=== PATIENT | male | born 1950 | race Caucasian/White ===

== ENCOUNTER 2017-05-06 08:36 | Inpatient (IN) | payer MEDICARE, OTHER ==
[2017-05-06 09:25] LABS: BASOPHIL 0.5 % (0-2.0); EOSINOPHIL 3.6 % (0-4.5); MCH 29.1 pg (25.7-33.7); MCHC 32.9 g/dl (32.0-35.9); MEAN CELL VOLUME 88.5 fl (80-96); MEAN PLT VOLUME 9.6 fl (7.5-11.1); NEUTROPHILS 68.6 % (42.8-82.8); PLATELET COUNT 210 K/MM3 (134-434); WHITE BLOOD COUNT 13.6 K/mm3 (4.0-10.0)
--- NOTE | 2017-05-06 09:41 | PDOC ---
History of Present Illness - General Chief Complaint: Shortness of Breath Stated Complaint: CHEST TIGHTNESS Time Seen by Provider: 05/06/17 08:44 History Source: Patient Exam Limitations: No Limitations - History of Present Illness Initial Comments: 05/06/17 09:38 67M with pmh of Dm2 on metformin, and BPH presents to the ED with shortness of breath, chest tightness, orthopnea and leg edema for the past 2 weeks No cough, secretions, fever, dizziness, change in mental status or diaphoresis.. Was last hospitalized in July for pneumonia PCP is Dr. Hicks Past History - Past Medical History Allergies/Adverse Reactions: Allergies Allergy/AdvReac Type Severity Reaction Status Date / Time Penicillins Allergy Severe anaphylactic Verified 05/06/17 08:40 shock Home Medications: Ambulatory Orders Aspirin [ASA -] 162 mg PO DAILY 07/27/16 Metformin HCl [Metformin HCl ER] 1,000 mg PO BID 07/27/16 Tamsulosin HCl [Flomax] 0.4 mg PO DAILY 07/27/16 Diabetes: Yes HTN: Yes Hypercholesterolemia: Yes - Psycho/Social/Smoking Cessation Hx Anxiety: No Suicidal Ideation: No Smoking History: Never smoked Have you smoked in the past 12 months: No Number of Cigarettes Smoked Daily: 0 Hx Alcohol Use: No Drug/Substance Use Hx: No Substance Use Type: None Hx Substance Use Treatment: No Review of Systems - Review of Systems Able to Perform ROS?: Yes Constitutional: No: Chills, Diaphoresis, Fever, Loss of Appetite, Malaise, Night Sweats HEENTM: No: Symptoms Reported, Blurred Vision Respiratory: Yes: See HPI, Orthopnea. No: Cough, Productive cough, Hemoptysis Cardiac (ROS): Yes: See HPI, Chest Tightness. No: Irregular Heart Rate, Lightheadedness ABD/GI: No: Symptoms Reported : No: Symptoms Reported Musculoskeletal: Yes: See HPI. No: Symptoms Reported *Physical Exam - Vital Signs Last Vital Signs Temp Pulse Resp BP Pulse Ox 97.7 F 81 18 153/92 97 05/06/17 08:37 05/06/17 09:52 05/06/17 09:52 05/06/17 09:52 05/06/17 10:30 - Physical Exam General Appearance: Yes: Nourished, Appropriately Dressed, Mild Distress HEENT: positive: EOMI, DANG, Normal ENT Inspection Respiratory/Chest: positive: Crackles (bilateral bases) Cardiovascular: positive: Regular Rhythm, Regular Rate, S1, S2 Gastrointestinal/Abdominal: positive: Normal Bowel Sounds. negative: Tender ED Treatment Course - LABORATORY CBC & Chemistry Diagram: 05/06/17 09:10 05/06/17 09:10 - ADDITIONAL ORDERS Additional order review: Laboratory Results 05/06/17 05/06/17 09:10 09:10 INR 1.19 H PTT (Actin FS) 32.4 Sodium 137 Potassium 5.0 Chloride 103 Carbon Dioxide 29 Anion Gap 5 L BUN 19 H Creatinine 1.2 D Creat Clearance w eGFR > 60 Random Glucose 138 H D Calcium 9.1 Phosphorus 2.8 D Magnesium 1.9 Total Bilirubin 0.8 D AST 52 H D ALT 57 D Alkaline Phosphatase 85 D Creatine Kinase 247 Creatine Kinase Index 3.3 CK-MB (CK-2) 8.181 H Troponin I 0.03 D B-Natriuretic Peptide 2588 H Total Protein 7.7 D Albumin 4.1 D 05/06/17 09:10 RBC 5.15 MCV 88.5 MCHC 32.9 RDW 16.0 H D MPV 9.6 D Neutrophils % 68.6 Lymphocytes % 20.8 D Monocytes % 6.5 Eosinophils % 3.6 Basophils % 0.5 - RADIOLOGY Radiology Studies Ordered: Category Date Time Status CHEST X-RAY PORTABLE* [RAD] Stat Radiology 05/06/17 08:58 Completed - Medications Given in the ED: ED Medications Discontinued Medications Generic Name Dose Route Start Last Admin Trade Name Freq PRN Reason Stop Dose Admin Furosemide 20 mg 05/06/17 10:16 05/06/17 10:57 Lasix Injection - IVPUSH 05/06/17 10:17 20 mg ONCE ONE Administration Medical Decision Making - Medical Decision Making 05/06/17 09:44 67M with pmh of Dm2 on metformin, and BPH presents to the ED with shortness of breath, chest tightness, orthopnea and leg edema for the past 2 weeks EKG : "normal sinus rhythm, cannot rule out Inferior infarct" CXR Corse changes with prominent mediastinum and degenerative changes. cbc, cmp, mag/phos, cardiac panel and coags. 05/06/17 10:24 05/06/17 10:25 BNP: 2588 CKMB: 8.1 New onset CHF. Patient to be admitted to telemetry Patient put on furosemide 20mg to reduce bp (197/107) 05/06/17 12:29 *DC/Admit/Observation/Transfer Diagnosis at time of Disposition: New onset of congestive heart failure - Discharge Dispostion Condition at time of disposition: Stable Admit: Yes
[2017-05-06 09:53] LABS: INR 1.19 (0.82-1.09); PROTHROMBIN TIME (PATIENT) 13.1 SEC (9.98-11.88)
[2017-05-06 09:54] LABS: ALBUMIN 4.1 g/dl (3.4-5.0); ANION GAP 5 (8-16); BILIRUBIN,TOTAL 0.8 mg/dL (0.2-1.0); CALCIUM 9.1 mg/dL (8.5-10.1); CO2 29 mmol/L (21-32); CREATININE 1.2 mg/dL (0.7-1.3); GLUCOSE,RANDOM 138 mg/dL (74-106); PHOSPHOROUS 2.8 mg/dL (2.5-4.9); SGPT/ALT 57 U/L (12-78); TOT PROT 7.7 g/dl (6.4-8.2)
[2017-05-06 09:55] LABS: ACTIVATED PTT 32.4 SECONDS (26.9-34.4)
[2017-05-06 09:58] LABS: ALK PHOS 85 U/L (45-117); MAGNESIUM 1.9 mg/dL (1.8-2.4); SGOT/AST 52 U/L (15-37); TROPONIN I 0.03 ng/ml (0.00-0.05)
[2017-05-06 09:59] LABS: CPK 247 IU/L (39-308)
[2017-05-06] MEDS ORDERED: FUROSEMIDE 40 MG/4 ML INJECTABLE VIAL IVPUSH ONE (10:16)
--- NOTE | 2017-05-06 10:17 | PDOC ---
Attending Attestation - Resident Resident Name: Josef Sevilla - ED Attending Attestation I have performed the following: I have examined & evaluated the patient, The case was reviewed & discussed with the resident, I agree w/resident's findings & plan, Exceptions are as noted - HPI HPI: 05/06/17 10:14 67-year-old male with history of hypertension, diabetes, hyperlipidemia presents with 2 weeks of chest tightness on exertion, dyspnea on exertion and increasing lower extremity edema. Patient complains about orthopnea and paroxsymal nocturnal dyspnea but denies prior history of congestive heart failure. - Physicial Exam PE: 05/06/17 10:16 GENERAL: Awake, alert, and fully oriented, in no acute distress. HEAD: No signs of trauma EYES: PERRLA, EOMI, sclera anicteric, conjunctiva clear ENT: Auricles normal inspection, hearing grossly normal, nares patent, oropharynx clear without exudates. NECK: Normal ROM, supple, no lymphadenopathy, JVD, or masses LUNGS: Breath sounds equal, clear to auscultation bilaterally. No wheezes, and no crackles HEART: Regular rate and rhythm, normal S1 and S2, no murmurs, rubs or gallops ABDOMEN: Soft, nontender, normoactive bowel sounds. No guarding, no rebound. No masses EXTREMITIES: Normal range of motion, no edema. 2+ pitting edema b/l lower extremities NEUROLOGICAL: Cranial nerves II through XII grossly intact. Normal speech, normal gait SKIN: Warm, Dry, normal turgor, no rashes or lesions noted. - Medical Decision Making 05/06/17 10:16 Vital Signs Temp Pulse Resp BP Pulse Ox 97.7 F 81 18 153/92 97 05/06/17 08:37 05/06/17 09:52 05/06/17 09:52 05/06/17 09:52 05/06/17 09:52 CBC, BMP 05/06/17 09:10 05/06/17 09:10 CMP Sodium 137 mmol/L (136-145) 05/06/17 09:10 Potassium 5.0 mmol/L (3.5-5.1) 05/06/17 09:10 Chloride 103 mmol/L (98-107) 05/06/17 09:10 Carbon Dioxide 29 mmol/L (21-32) 05/06/17 09:10 Anion Gap 5 (8-16) L 05/06/17 09:10 BUN 19 mg/dL (7-18) H 05/06/17 09:10 Creatinine 1.2 mg/dL (0.7-1.3) D 05/06/17 09:10 Creat Clearance w eGFR > 60 (>60) 05/06/17 09:10 Random Glucose 138 mg/dL (74-106) H D 05/06/17 09:10 Calcium 9.1 mg/dL (8.5-10.1) 05/06/17 09:10 Phosphorus 2.8 mg/dL (2.5-4.9) D 05/06/17 09:10 Magnesium 1.9 mg/dL (1.8-2.4) 05/06/17 09:10 Total Bilirubin 0.8 mg/dL (0.2-1.0) D 05/06/17 09:10 AST 52 U/L (15-37) H D 05/06/17 09:10 ALT 57 U/L (12-78) D 05/06/17 09:10 Alkaline Phosphatase 85 U/L (45-117) D 05/06/17 09:10 Creatine Kinase 247 IU/L (39-308) 05/06/17 09:10 Troponin I 0.03 ng/ml (0.00-0.05) D 05/06/17 09:10 B-Natriuretic Peptide 2588 pg/ml (5-125) H 05/06/17 09:10 Total Protein 7.7 g/dl (6.4-8.2) D 05/06/17 09:10 Albumin 4.1 g/dl (3.4-5.0) D 05/06/17 09:10 Patient's findings are concerning for new onset of congestive heart failure. We' ll give IV Lasix and admit the patient to the hospital for further cardiac workup. Heart Score/ECG Review - History History: Moderately suspicious - Electrocardiogram EKG: Normal - Age Age: >/= 65 - Risk Factors Risk Factors Heart Score: Yes Hx Hypercholesterolemia, Yes Hx Hypertension, Yes Hx Diabetes Based on the list above the patient has:: >/=3 risk factors or Hx atherosclerotic disease - Troponin Troponin: </= normal limit - Score Heart Score - Total: 5 #1 05/06/17 10:13 NSR 84 Q wave III, no std/diandra
--- NOTE | 2017-05-06 10:40 | PDOC ---
*Physical Exam - Vital Signs Last Vital Signs Temp Pulse Resp BP Pulse Ox 97.7 F 81 18 153/92 97 05/06/17 08:37 05/06/17 09:52 05/06/17 09:52 05/06/17 09:52 05/06/17 09:52 ED Treatment Course - LABORATORY CBC & Chemistry Diagram: 05/06/17 09:10 05/06/17 09:10 - ADDITIONAL ORDERS Additional order review: Laboratory Results 05/06/17 05/06/17 09:10 09:10 INR 1.19 H PTT (Actin FS) 32.4 Sodium 137 Potassium 5.0 Chloride 103 Carbon Dioxide 29 Anion Gap 5 L BUN 19 H Creatinine 1.2 D Creat Clearance w eGFR > 60 Random Glucose 138 H D Calcium 9.1 Phosphorus 2.8 D Magnesium 1.9 Total Bilirubin 0.8 D AST 52 H D ALT 57 D Alkaline Phosphatase 85 D Creatine Kinase 247 Creatine Kinase Index 3.3 CK-MB (CK-2) 8.181 H Troponin I 0.03 D B-Natriuretic Peptide 2588 H Total Protein 7.7 D Albumin 4.1 D 05/06/17 09:10 RBC 5.15 MCV 88.5 MCHC 32.9 RDW 16.0 H D MPV 9.6 D Neutrophils % 68.6 Lymphocytes % 20.8 D Monocytes % 6.5 Eosinophils % 3.6 Basophils % 0.5 Medical Decision Making - Medical Decision Making 05/06/17 10:[address] Freire. He accepts the patient to telemetry admission. Requests Dr. Curtis for cardiology. *DC/Admit/Observation/Transfer Diagnosis at time of Disposition: New onset of congestive heart failure - Discharge Dispostion Condition at time of disposition: Stable Admit: Yes - Referrals Referrals: Mickey Reich [Primary Care Provider] - - Patient Instructions - Post Discharge Activity
[2017-05-06] MEDS ORDERED: FUROSEMIDE 40 MG/4 ML INJECTABLE VIAL ONE (10:50)
[2017-05-06] MEDS ORDERED: ACETAMINOPHEN 325 MG TABLET (FP) PO PRN (11:02)
--- NOTE | 2017-05-06 11:09 | HP ---
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: CVA (about 10 yrs ago) Cardiovascular: Yes: HTN, Hyperlipdemia Renal/: Yes: BPH Endocrine: Yes: Diabetes Mellitus (Type II) - Past Surgical History Past Surgical History: Yes: Cataract Removal (in rt eye about 3-4 yrs ago) - Smoking History Smoking history: Never smoked Have you smoked in the past 12 months: No Aproximately how many cigarettes per day: 0 - Alcohol/Substance Use Hx Alcohol Use: No - Social History ADL: Independent Occupation: works at [employer] in the [employer] History of Recent Travel: Yes (went to [place] 2 weeks ago, believe he got pneumonia while there) Home Medications - Allergies Allergies/Adverse Reactions: Allergies Allergy/AdvReac Type Severity Reaction Status Date / Time Penicillins Allergy Severe anaphylactic Verified 05/06/17 08:40 shock - Home Medications Home Medications: Ambulatory Orders Aspirin [ASA -] 162 mg PO DAILY 07/27/16 Metformin HCl [Metformin HCl ER] 1,000 mg PO BID 07/27/16 Tamsulosin HCl [Flomax] 0.4 mg PO DAILY 07/27/16 Review of Systems - Review of Systems Constitutional: reports: Lethargy Eyes: reports: No Symptoms HENT: reports: No Symptoms Neck: reports: No Symptoms Cardiovascular: reports: No Symptoms, Shortness of Breath Respiratory: reports: Orthopnea, SOB Gastrointestinal: reports: No Symptoms Genitourinary: reports: No Symptoms Breasts: reports: No Symptoms Reported Musculoskeletal: reports: No Symptoms Integumentary: reports: No Symptoms Neurological: reports: No Symptoms Endocrine: reports: No Symptoms Hematology/Lymphatic: reports: No Symptoms Psychiatric: reports: No Symptoms Physical Examination Vital Signs: Vital Signs Temperature 97.7 F 05/06/17 08:37 Pulse Rate 81 05/06/17 09:52 Respiratory Rate 18 05/06/17 09:52 Blood Pressure 153/92 05/06/17 09:52 O2 Sat by Pulse Oximetry (%) 97 05/06/17 09:52 Constitutional: Yes: Mild Distress Eyes: Yes: WNL HENT: Yes: WNL Neck: Yes: WNL Cardiovascular: Yes: WNL Respiratory: Yes: Cough, SOB Gastrointestinal: Yes: WNL Musculoskeletal: Yes: WNL Extremities: Yes: WNL Edema: Yes Edema: LLE: 2+, RLE: 2+ Peripheral Pulses WNL: Yes Integumentary: Yes: WNL Wound/Incision: Yes: Clean/Dry Neurological: Yes: WNL ...Motor Strength: WNL Psychiatric: Yes: WNL Imaging - Results Chest X-ray: Report Reviewed Problem List - Problems (1) New onset of congestive heart failure Code(s): I50.9 - HEART FAILURE, UNSPECIFIED (2) DMII (diabetes mellitus, type 2) Code(s): E11.9 - TYPE 2 DIABETES MELLITUS WITHOUT COMPLICATIONS Qualifiers: Diabetes mellitus complication status: without complication (3) BPH (benign prostatic hyperplasia) Code(s): N40.0 - BENIGN PROSTATIC HYPERPLASIA WITHOUT LOWER URINRY TRACT SYMP Qualifiers: Lower urinary tract symptom presence: symptoms absent Qualified Code (s): N40.0 - Benign prostatic hyperplasia without lower urinary tract symptoms Assessment/Plan LASIX IV CARDIOLOGY EVAL ECHO 2D DAILY WEIGHTS DIET EDUCATION BGM LIPID/A1C TELEMETRY
[2017-05-06 12:06] VITALS: BMI 31.3
--- NOTE | 2017-05-06 15:39 | CON.CARD ---
Consult Consult Specialty:: Cardiology Referred by:: Dr. Freire Reason for Consultation:: New CHF and chest tightness - History of Present Illness Chief Complaint: Shortness of breath with evidence of CHF and chest tightness History of Present Illness: Mr. Grant is a 67 year-old man with a PMHx of HTN, DM, HLD, CVA, BPH and recent pneumonia presented to ED 05/06/2017 with new onset of shortness of breath, chest tightness and leg edema. The patient has been experiencing worsening shortness of breath with intermittent chest tightness and leg edema 3 days prior to his presentation. His chest tightness happens intermittent and not associated with his limited physical activities. He denies palpitation, dizziness, syncope or near syncope. His ECG showed sinus rhythm with RBBB and inferior Q waves. 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 (about 10 yrs ago) Cardio/Vascular: Yes: HTN, Hyperlipdemia Renal/: Yes: BPH Endocrine: Yes: Diabetes Mellitus (Type II) - Past Surgical History Past Surgical History: Yes: Cataract Removal (in rt eye about 3-4 yrs ago) - Alcohol/Substance Use Hx Alcohol Use: No - Smoking History Smoking history: Never smoked Have you smoked in the past 12 months: No Aproximately how many cigarettes per day: 0 - Social History ADL: Independent Occupation: works at [employer] in the [place] History of Recent Travel: Yes (went to [place] 2 weeks ago, believe he got pneumonia while there) Home Medications - Allergies Allergies/Adverse Reactions: Allergies Allergy/AdvReac Type Severity Reaction Status Date / Time Penicillins Allergy Severe anaphylactic Verified 05/06/17 08:40 shock - Home Medications Home Medications: Ambulatory Orders Aspirin [ASA -] 162 mg PO DAILY 07/27/16 Metformin HCl [Metformin HCl ER] 1,000 mg PO BID 07/27/16 Tamsulosin HCl [Flomax] 0.4 mg PO DAILY 07/27/16 Review of Systems Unable to obtain ROS, reason: As per HPI Vital Signs: Vital Signs Temperature 98.2 F 05/06/17 13:52 Pulse Rate 77 05/06/17 13:52 Respiratory Rate 18 05/06/17 09:52 Blood Pressure 145/82 05/06/17 13:52 O2 Sat by Pulse Oximetry (%) 97 05/06/17 13:52 Constitutional: Yes: Well Nourished, No Distress Eyes: Yes: WNL HENT: Yes: WNL Neck: Yes: Supple, Trachea Midline (Bibasilar crackles. No wheezing or rhochi.) Respiratory: Yes: Regular, Rales (Bibasilar crackles.) Gastrointestinal: Yes: WNL Renal/: Yes: WNL Cardiovascular: Yes: Regular Rate and Rhythm JVD: No Carotid Bruit: No PMI: Non-Displaced Heart Sounds: Yes: S1, S2 Musculoskeletal: Yes: WNL Edema: LUE: 1+ (Bilateral leg symmetric edema) Peripheral Pulses: 1+ Left Carotid, 1+ Right Carotid, 1+ Left Popliteal, 1+ Left Doralis Pedis Neurological: Yes: WNL - Other Data Labs, Other Data: INR, PTT INR 1.19 (0.82-1.09) H 05/06/17 09:10 Sinus rhythm, normal axis, Inferior Q waves. No significant ST-T abnormalities. Problem List - Problems (1) New onset of congestive heart failure Assessment/Plan: Mr. Grant has progressive worsening dyspnea with physical signs of fluid overload consistent with new CHF. His LV systolic function is unclear. Obtain echocardiogram for cardiac dimensions and systolic function. Agree with IV Lasix 40 mg q12h Keep Os>Is, Daily weight and monitor eletrolytes and renal function. Code(s): I50.9 - HEART FAILURE, UNSPECIFIED (2) Angina pectoris Assessment/Plan: Patient has new onset of angina (chest tightness) with multiple risk factors of CAD. He has intermediate likelihood of significant CAD. Obtain Regadenoson nuclear stress test to rule out myocardial ischemia. Continue Aspirin 162 mg daily. Start Metoprolol succinate 25 mg daily. Start Atorvastatin 40 mg daily. Code(s): I20.9 - ANGINA PECTORIS, UNSPECIFIED
--- NOTE | 2017-05-06 16:55 | EKG ---
Test Reason : Blood Pressure : / mmHG Vent. Rate : 084 BPM Atrial Rate : 084 BPM P-R Int : 180 ms QRS Dur : 090 ms QT Int : 398 ms P-R-T Axes : 041 -09 067 degrees QTc Int : 470 ms NORMAL SINUS RHYTHM PROBABLY LEAD MISPLACED IN PRECORDIAL LEADS (SEELEAD V1) ABNORMAL ECG WHEN COMPARED WITH ECG OF 27-JUL-2016 17:17, PREMATURE ATRIAL COMPLEXES ARE NO LONGER PRESENT NONSPECIFIC T WAVE ABNORMALITY NO LONGER EVIDENT IN INFERIOR LEADS WOULD RECOMMEND REPEAT TRACING Confirmed by AVIS CARPENTER MD ([id number]) on 05/06/2017 4:54:50 PM Referred By: Confirmed By:AVIS CARPENTER MD
[2017-05-06] MEDS: INSULIN SLIDING SCALE (NOVOLOG) 1 VIAL SQ SCH ×2 (18:58→21:55)
[2017-05-06] MEDS: ATORVASTATIN CA 10 MG TABLET (FP) PO SCH (21:53)
[2017-05-07] MEDS: INSULIN SLIDING SCALE (NOVOLOG) 1 VIAL SQ SCH ×4 (06:06→22:29)
[2017-05-07 07:29] LABS: MCHC 32.9 g/dl (32.0-35.9); MEAN CELL VOLUME 88.2 fl (80-96); PLATELET COUNT 191 K/MM3 (134-434); RDW 15.8 % (11.9-15.9); WHITE BLOOD COUNT 14.9 K/mm3 (4.0-10.0)
[2017-05-07 08:10] LABS: ALBUMIN 3.5 g/dl (3.4-5.0); ALK PHOS 74 U/L (45-117); ANION GAP 8 (8-16); BILIRUBIN,TOTAL 0.9 mg/dL (0.2-1.0); CALCIUM 8.8 mg/dL (8.5-10.1); CHOLESTEROL 176 mg/dL (50-200); CO2 28 mmol/L (21-32); GLUCOSE,RANDOM 144 mg/dL (74-106); LDL CHOLESTEROL (ONLY SJRH) 112 mg/dL (5-100); SGOT/AST 23 U/L (15-37); SGPT/ALT 47 U/L (12-78); TOT PROT 6.4 g/dl (6.4-8.2)
[2017-05-07] MEDS: FUROSEMIDE 40 MG/4 ML INJECTABLE VIAL IVPUSH SCH (10:28)
[2017-05-07] MEDS: TAMSULOSIN HCL 0.4 MG CAP.ER.24H (FP) PO SCH (10:28)
[2017-05-07] MEDS: ASPIRIN 81 MG CHEWABLE TABLETS PO SCH (10:28)
--- NOTE | 2017-05-07 15:54 | PN ---
Progress Note, Physician Chief Complaint: Chest discomfort HUYNH History of Present Illness: This is a 67 year-old man with a PMHx of HTN, DM, HLD, CVA, BPH and recent pneumonia presented to ED 05/06/2017 with new onset of shortness of breath, chest tightness and leg edema. The patient has been experiencing worsening shortness of breath with intermittent chest tightness and leg edema 3 days prior to his presentation. His chest tightness happens intermittent and not associated with his limited physical activities. He denies palpitation, dizziness, syncope or near syncope. His ECG showed sinus rhythm with RBBB and inferior Q waves. 05/07/17 Improving with IV diuretics.l - Current Medication List Current Medications: Active Medications Acetaminophen (Tylenol -) 650 mg PO Q6H PRN PRN Reason: FEVER OR PAIN Aspirin (Asa -) 81 mg PO DAILY [facility] Last Admin: 05/07/17 10:28 Dose: 81 mg Atorvastatin Calcium (Lipitor -) 10 mg PO HS [facility] Last Admin: 05/06/17 21:53 Dose: 10 mg Furosemide (Lasix Injection -) 40 mg IVPUSH DAILY [facility] Last Admin: 05/07/17 10:28 Dose: 40 mg Insulin Aspart (Novolog Vial Sliding Scale -) 1 vial SQ ACHS [facility] PRN Reason: Protocol Last Admin: 05/07/17 12:06 Dose: Not Given Tamsulosin HCl (Flomax -) 0.4 mg PO DAILY@0830 [facility] Last Admin: 05/07/17 10:28 Dose: 0.4 mg - Objective Vital Signs: Vital Signs Temperature 98.3 F 05/07/17 13:53 Pulse Rate 70 05/07/17 13:53 Respiratory Rate 20 05/07/17 13:53 Blood Pressure 126/58 05/07/17 13:53 O2 Sat by Pulse Oximetry (%) 98 05/06/17 21:00 Constitutional: Yes: Well Nourished Neck: Yes: WNL Cardiovascular: Yes: Regular Rate and Rhythm (No MRHG) Respiratory: Yes: CTA Bilaterally Gastrointestinal: Yes: Soft Extremities: Yes: WNL Edema: LUE: 1+ (Improving with diuretics), RUE: 1+ (Improving with diuretics) Neurological: Yes: Alert, Oriented (Grossly non focal) Labs: CBC, BMP 05/07/17 06:00 05/07/17 06:00 INR, PTT INR 1.19 (0.82-1.09) H 05/06/17 09:10 Assessment/Plan CHF: Improving with IV diuretics Agree with IV Lasix 40 mg q12h Keep Os>Is, Daily weight and monitor eletrolytes and renal function. Chest Pain: Nuclear Stress test pending Echocardiogram pending Continue Aspirin 162 mg daily/Atorvastatin 40 mg daily
[2017-05-07] MEDS ORDERED: INSULIN (NOVOLOG) ASPART 100 UNITS/ML 10ML VIAL ONE (17:06)
--- NOTE | 2017-05-07 20:07 | PN ---
Progress Note, Physician Chief Complaint: PATIENT BEDSIDE WITH DAUGHTER REPORTS FEELING BETTER RESULTS OF ECHO REVIEWED ECHO 07/23 HOWS EF AT 44% WITH NORMAL WALL MOTION NOW EF 33% WITH MOD/SEVERE SYSTOLIC DYSFUNCTION - Current Medication List Current Medications: Active Medications Acetaminophen (Tylenol -) 650 mg PO Q6H PRN PRN Reason: FEVER OR PAIN Aspirin (Asa -) 81 mg PO DAILY [facility] Last Admin: 05/07/17 10:28 Dose: 81 mg Atorvastatin Calcium (Lipitor -) 10 mg PO HS [facility] Last Admin: 05/06/17 21:53 Dose: 10 mg Furosemide (Lasix Injection -) 40 mg IVPUSH DAILY [facility] Last Admin: 05/07/17 10:28 Dose: 40 mg Insulin Aspart (Novolog Vial Sliding Scale -) 1 vial SQ ACHS [facility] PRN Reason: Protocol Last Admin: 05/07/17 16:20 Dose: Not Given Tamsulosin HCl (Flomax -) 0.4 mg PO DAILY@0830 [facility] Last Admin: 05/07/17 10:28 Dose: 0.4 mg - Objective Vital Signs: Vital Signs Temperature 97.5 F L 05/07/17 17:00 Pulse Rate 73 05/07/17 17:00 Respiratory Rate 20 05/07/17 17:00 Blood Pressure 144/79 05/07/17 17:00 O2 Sat by Pulse Oximetry (%) 98 05/07/17 09:00 Constitutional: Yes: Mild Distress Eyes: Yes: WNL HENT: Yes: WNL Neck: Yes: WNL Cardiovascular: Yes: Regular Rate and Rhythm Respiratory: Yes: WNL Gastrointestinal: Yes: WNL Genitourinary: Yes: WNL Musculoskeletal: Yes: WNL Extremities: Yes: WNL Edema: Yes Edema: LLE: 2+, RLE: 2+ Peripheral Pulses WNL: Yes Integumentary: Yes: WNL Wound/Incision: Yes: Clean/Dry Neurological: Yes: WNL ...Motor Strength: WNL Psychiatric: Yes: WNL Labs: CBC, BMP 05/07/17 06:00 05/07/17 06:00 INR, PTT INR 1.19 (0.82-1.09) H 05/06/17 09:10 Problem List - Problems (1) New onset of congestive heart failure Code(s): I50.9 - HEART FAILURE, UNSPECIFIED (2) DMII (diabetes mellitus, type 2) Code(s): E11.9 - TYPE 2 DIABETES MELLITUS WITHOUT COMPLICATIONS Qualifiers: Diabetes mellitus complication status: without complication (3) BPH (benign prostatic hyperplasia) Code(s): N40.0 - BENIGN PROSTATIC HYPERPLASIA WITHOUT LOWER URINRY TRACT SYMP Qualifiers: Lower urinary tract symptom presence: symptoms absent Qualified Code (s): N40.0 - Benign prostatic hyperplasia without lower urinary tract symptoms (4) Systolic CHF, acute Code(s): I50.21 - ACUTE SYSTOLIC (CONGESTIVE) HEART FAILURE (5) Systolic CHF with reduced left ventricular function, NYHA class 3 Code(s): I50.20 - UNSPECIFIED SYSTOLIC (CONGESTIVE) HEART FAILURE Assessment/Plan CHF ACUTE SYSTOLIC WITH VENTRICULAR DYSFUNCTION EDEMA LEGS ON LASIX DAILY MONITOR DAILY WEIGHTS DIETARY CONSULT ADA LOW FAT LOW SALT DISCUSSED STRESS TEST TOMORROW
[2017-05-07] MEDS: ATORVASTATIN CA 10 MG TABLET (FP) PO SCH (22:26)
[2017-05-08] MEDS: sitaGLIPtin PHOSPHATE 25 MG TABLET (FP) PO SCH (06:45)
[2017-05-08] MEDS: INSULIN SLIDING SCALE (NOVOLOG) 1 VIAL SQ SCH ×4 (06:45→21:46)
[2017-05-08] MEDS: TAMSULOSIN HCL 0.4 MG CAP.ER.24H (FP) PO SCH (08:30)
[2017-05-08] MEDS: ASPIRIN 81 MG CHEWABLE TABLETS PO SCH ×2 (10:00→12:48)
[2017-05-08] MEDS: FUROSEMIDE 40 MG/4 ML INJECTABLE VIAL IVPUSH SCH ×2 (10:00→12:49)
[2017-05-08] MEDS ORDERED: DIPYRIDAMOLE STRESS TEST 50 MG in DEXTROSE 5%-WATER - 40 ML IVPB ONE (10:00)
--- NOTE | 2017-05-08 14:27 | PN ---
Progress Note, Physician Chief Complaint: AWAKE ALERT DAUGHTER BEDSIDE COMPLETED STRESS TEST AWAITING RESULTS - Current Medication List Current Medications: Active Medications Acetaminophen (Tylenol -) 650 mg PO Q6H PRN PRN Reason: FEVER OR PAIN Aspirin (Asa -) 81 mg PO DAILY [facility] Last Admin: 05/08/17 12:48 Dose: 81 mg Atorvastatin Calcium (Lipitor -) 10 mg PO HS [facility] Last Admin: 05/07/17 22:26 Dose: 10 mg Furosemide (Lasix Injection -) 40 mg IVPUSH DAILY [facility] Last Admin: 05/08/17 12:49 Dose: 40 mg Insulin Aspart (Novolog Vial Sliding Scale -) 1 vial SQ ACHS [facility] PRN Reason: Protocol Last Admin: 05/08/17 12:40 Dose: Not Given Sitagliptin Phosphate (Januvia -) 25 mg PO DAILY@0700 [facility] Last Admin: 05/08/17 06:45 Dose: Not Given Tamsulosin HCl (Flomax -) 0.4 mg PO DAILY@0830 [facility] Last Admin: 05/08/17 08:30 Dose: 0.4 mg - Objective Vital Signs: Vital Signs Temperature 97.9 F 05/08/17 08:15 Pulse Rate 76 05/08/17 08:15 Respiratory Rate 20 05/08/17 08:15 Blood Pressure 153/80 05/08/17 08:15 O2 Sat by Pulse Oximetry (%) 96 05/07/17 21:00 Constitutional: Yes: Mild Distress Eyes: Yes: WNL HENT: Yes: WNL Neck: Yes: WNL Cardiovascular: Yes: WNL Respiratory: Yes: WNL Gastrointestinal: Yes: WNL Genitourinary: Yes: WNL Musculoskeletal: Yes: WNL Extremities: Yes: WNL Edema: Yes Edema: LLE: 2+, RLE: 2+ Peripheral Pulses WNL: Yes Integumentary: Yes: WNL Wound/Incision: Yes: Clean/Dry Neurological: Yes: WNL ...Motor Strength: WNL Psychiatric: Yes: WNL Labs: CBC, BMP 05/07/17 06:00 05/07/17 06:00 INR, PTT INR 1.19 (0.82-1.09) H 05/06/17 09:10 Problem List - Problems (1) New onset of congestive heart failure Code(s): I50.9 - HEART FAILURE, UNSPECIFIED (2) DMII (diabetes mellitus, type 2) Code(s): E11.9 - TYPE 2 DIABETES MELLITUS WITHOUT COMPLICATIONS Qualifiers: Diabetes mellitus complication status: without complication (3) BPH (benign prostatic hyperplasia) Code(s): N40.0 - BENIGN PROSTATIC HYPERPLASIA WITHOUT LOWER URINRY TRACT SYMP Qualifiers: Lower urinary tract symptom presence: symptoms absent Qualified Code (s): N40.0 - Benign prostatic hyperplasia without lower urinary tract symptoms (4) Systolic CHF, acute Code(s): I50.21 - ACUTE SYSTOLIC (CONGESTIVE) HEART FAILURE (5) Systolic CHF with reduced left ventricular function, NYHA class 3 Code(s): I50.20 - UNSPECIFIED SYSTOLIC (CONGESTIVE) HEART FAILURE Assessment/Plan EDEMA SAME ADD COMPRESSION STOCKINGS LEG ELEVATION JANUVIA STARTED YESTERDAY MONITOR BGM OUT PATIENT FOLLOW UP WITH [facility] FOR DMII/CHF COMPLIANCE AND FLUID OVERLOAD
--- NOTE | 2017-05-08 15:24 | PN ---
Progress Note, Physician Chief Complaint: Chest discomfort HUYNH History of Present Illness: This is a 67 year-old man with a PMHx of HTN, DM, HLD, CVA, BPH and recent pneumonia presented to ED 05/06/2017 with new onset of shortness of breath, chest tightness and leg edema. The patient has been experiencing worsening shortness of breath with intermittent chest tightness and leg edema 3 days prior to his presentation. His chest tightness happens intermittent and not associated with his limited physical activities. He denies palpitation, dizziness, syncope or near syncope. His ECG showed sinus rhythm with RBBB and inferior Q waves. 05/07/17 Improving with IV diuretics. Echocardiogram 05/07/17: EF 33.7% Normal LV size Moderate to severely reduced LV function Mild mitral regurgitation Mild tricuspid regurgitation Increased LA pressure, possible "pseudonormal vs. restrictive pattern BNP 2588 - Current Medication List Current Medications: Active Medications Acetaminophen (Tylenol -) 650 mg PO Q6H PRN PRN Reason: FEVER OR PAIN Aspirin (Asa -) 81 mg PO DAILY [facility] Last Admin: 05/08/17 12:48 Dose: 81 mg Atorvastatin Calcium (Lipitor -) 10 mg PO HS [facility] Last Admin: 05/07/17 22:26 Dose: 10 mg Furosemide (Lasix Injection -) 40 mg IVPUSH DAILY [facility] Last Admin: 05/08/17 12:49 Dose: 40 mg Insulin Aspart (Novolog Vial Sliding Scale -) 1 vial SQ ACHS [facility] PRN Reason: Protocol Last Admin: 05/08/17 12:40 Dose: Not Given Sitagliptin Phosphate (Januvia -) 25 mg PO DAILY@0700 [facility] Last Admin: 05/08/17 06:45 Dose: Not Given Tamsulosin HCl (Flomax -) 0.4 mg PO DAILY@0830 [facility] Last Admin: 05/08/17 08:30 Dose: 0.4 mg - Objective Vital Signs: Vital Signs Temperature 97.9 F 05/08/17 08:15 Pulse Rate 76 05/08/17 08:15 Respiratory Rate 20 05/08/17 08:15 Blood Pressure 153/80 05/08/17 08:15 O2 Sat by Pulse Oximetry (%) 96 05/07/17 21:00 Constitutional: Yes: No Distress Neck: Yes: WNL Cardiovascular: Yes: Regular Rate and Rhythm, S1, S2 (No MRHG) Respiratory: Yes: CTA Bilaterally Gastrointestinal: Yes: Normal Bowel Sounds Extremities: Yes: WNL Edema: Yes Edema: LLE: 1+, RLE: 1+ Neurological: Yes: Alert, Oriented (Non focal) Psychiatric: Yes: WNL Labs: CBC, BMP 05/07/17 06:00 05/07/17 06:00 INR, PTT INR 1.19 (0.82-1.09) H 05/06/17 09:10 Assessment/Plan CHF: Improving with IV diuretics Would increase IV Lasix to 60 mg q12h Keep Os>Is, Daily weight and monitor eletrolytes and renal function. Chest Pain: Nuclear Stress test pending to determine if he needs a cardiac cath Echocardiogram noted EF 33.7% Given cardiomyopathy, would start COREG 3.125 mg PO Q12. Also, after he is well diuressed, would start a low dose MELYSSA These can be started as an outpatient Continue Aspirin 162 mg daily/Atorvastatin 40 mg daily
[2017-05-08] MEDS: ATORVASTATIN CA 10 MG TABLET (FP) PO SCH (21:48)
[2017-05-09] MEDS: sitaGLIPtin PHOSPHATE 25 MG TABLET (FP) PO SCH (06:00)
[2017-05-09] MEDS: INSULIN SLIDING SCALE (NOVOLOG) 1 VIAL SQ SCH ×2 (06:00→12:24)
[2017-05-09] MEDS: ASPIRIN 81 MG CHEWABLE TABLETS PO SCH (10:19)
[2017-05-09] MEDS: FUROSEMIDE 40 MG/4 ML INJECTABLE VIAL IVPUSH SCH (10:19)
[2017-05-09] MEDS: TAMSULOSIN HCL 0.4 MG CAP.ER.24H (FP) PO SCH (10:20)
--- NOTE | 2017-05-09 10:45 | PN ---
Progress Note, Physician Chief Complaint: Chest discomfort HUYNH History of Present Illness: This is a 67 year-old man with a PMHx of HTN, DM, HLD, CVA, BPH and recent pneumonia presented to ED 05/06/2017 with new onset of shortness of breath, chest tightness and leg edema. The patient has been experiencing worsening shortness of breath with intermittent chest tightness and leg edema 3 days prior to his presentation. His chest tightness happens intermittent and not associated with his limited physical activities. He denies palpitation, dizziness, syncope or near syncope. His ECG showed sinus rhythm with RBBB and inferior Q waves. 05/07/17 Improving with IV diuretics. Echocardiogram 05/07/17: EF 33.7% Normal LV size Moderate to severely reduced LV function Mild mitral regurgitation Mild tricuspid regurgitation Increased LA pressure, possible "pseudonormal vs. restrictive pattern An Echocardiogram Dated 07/23 showed an EF of 44% BNP 2588 Persantine Nuclear Stres Test 05/08/17: Large fixed defect for the inferior was and a smaller apical defect which is worse on the resting images. EF 37% with moderate to severe apical hypokinesis. Given the above CAD and a drop in his ejection fraction from 44% to 33.7% on echocardiogram, I have arranged a transfer to [facility] for Cardiac Cath. - Current Medication List Current Medications: Active Medications Acetaminophen (Tylenol -) 650 mg PO Q6H PRN PRN Reason: FEVER OR PAIN Aspirin (Asa -) 81 mg PO DAILY [facility] Last Admin: 05/09/17 10:19 Dose: 81 mg Atorvastatin Calcium (Lipitor -) 10 mg PO HS [facility] Last Admin: 05/08/17 21:48 Dose: 10 mg Furosemide (Lasix Injection -) 40 mg IVPUSH DAILY [facility] Last Admin: 05/09/17 10:19 Dose: 40 mg Insulin Aspart (Novolog Vial Sliding Scale -) 1 vial SQ ACHS [facility] PRN Reason: Protocol Last Admin: 05/09/17 06:00 Dose: Not Given Sitagliptin Phosphate (Januvia -) 25 mg PO DAILY@0700 [facility] Last Admin: 05/09/17 06:00 Dose: Not Given Tamsulosin HCl (Flomax -) 0.4 mg PO DAILY@0830 [facility] Last Admin: 05/09/17 10:20 Dose: 0.4 mg - Objective Vital Signs: Vital Signs Temperature 97.8 F 08/02/17 05:52 Pulse Rate 75 05/09/17 05:52 Respiratory Rate 19 05/09/17 05:52 Blood Pressure 146/89 05/09/17 05:52 O2 Sat by Pulse Oximetry (%) 98 05/08/17 21:00 Constitutional: Yes: No Distress Neck: Yes: WNL Respiratory: Yes: CTA Bilaterally Gastrointestinal: Yes: Soft Edema: Yes Edema: LLE: 1+ (Improved), RLE: 1+ (Improved) Neurological: Yes: Alert (Nonfocal), Oriented Psychiatric: Yes: WNL Labs: CBC, BMP 05/07/17 06:00 05/07/17 06:00 INR, PTT INR 1.19 (0.82-1.09) H 05/06/17 09:10 Assessment/Plan CHF: Improving with IV diuretics Would increase IV Lasix to 60 mg q12h Keep Os>Is, Daily weight and monitor electrolytes and renal function. Chest Pain: Echocardiogram noted EF 33.7% Given cardiomyopathy, would start COREG 3.125 mg PO Q12. Also, after he is well diuressed, would start a low dose MELYSSA Continue Aspirin 162 mg daily/Atorvastatin 40 mg daily Persantine Nuclear Stres Test 05/08/17: Large fixed defect for the inferior was and a smaller apical defect which is worse on the resting images. EF 37% with moderate to severe apical hypokinesis. Given the above CAD and a drop in his ejection fraction from 44% to 33.7% on echocardiogram, I have arranged a transfer to [facility] for Cardiac Cath.
--- NOTE | 2017-05-09 10:53 | DS ---
Physical Examination Vital Signs: Vital Signs Temperature 97.8 F 05/09/17 05:52 Pulse Rate 75 05/09/17 05:52 Respiratory Rate 19 05/09/17 05:52 Blood Pressure 146/89 05/09/17 05:52 O2 Sat by Pulse Oximetry (%) 98 05/08/17 21:00 Constitutional: Yes: Mild Distress Eyes: Yes: WNL HENT: Yes: WNL Neck: Yes: WNL Cardiovascular: Yes: WNL Respiratory: Yes: WNL Gastrointestinal: Yes: WNL Renal/: Yes: WNL Musculoskeletal: Yes: WNL Extremities: Yes: WNL Edema: Yes Edema: LLE: 2+, RLE: 2+ Peripheral Pulses WNL: Yes Integumentary: Yes: WNL Wound/Incision: Yes: Clean/Dry Neurological: Yes: WNL ...Motor Strength: WNL Psychiatric: Yes: WNL Labs: CBC, BMP 05/07/17 06:00 05/07/17 06:00 Discharge Summary Reason For Visit: NEW ONSET OF CONGESTIVE HEART FAILURE Current Active Problems Angina pectoris (Acute) BPH (benign prostatic hyperplasia) (Acute) DMII (diabetes mellitus, type 2) (Acute) New onset of congestive heart failure (Acute) Systolic CHF with reduced left ventricular function, NYHA class 3 (Acute) Systolic CHF, acute (Acute) Procedures: Principal: ECHO Other Procedures: STRESS Hospital Course: ADMITTED FOR ACUTE SYSTOLIC HEART FAILURE WITH EF 33%, IV LASIX GIVEN, STRESS TEST AND ECHO SHOWED ISCHEMIA LIKELY CARDIAC DISEASE TRANSFERRED TO [facility] FOR CARDIAC CATH AND FURTHER WORKUP. Condition: Stable - Instructions Diet, Activity, Other Instructions: LOW SODIUM/ADA Referrals: Mickey Reich [Primary Care Provider] - Disposition: TRANSFER ACUTE CARE/OTHER HOSP - Home Medications Comprehensive Discharge Medication List: Ambulatory Orders Aspirin [ASA -] 162 mg PO DAILY 07/27/16 Metformin HCl [Metformin HCl ER] 1,000 mg PO BID 07/27/16 Tamsulosin HCl [Flomax] 0.8 mg PO DAILY 07/27/16
[2017-05-09 11:58] VITALS: BP 141/91; PULSE 80; TEMP 98.1
== END 2017-05-09 12:59 | disposition short-term general hospital (02) | DRG 302 ==
LOC: JER 08:36 → JERBED 10:40 → J4W 15:43
PROVIDERS: ADMIT Family Medicine; ATTEND Family Medicine
DX: I25.119 Atherosclerotic heart disease of native coronary artery with unspecified angina pectoris (principal); I50.21 Acute systolic (congestive) heart failure; I11.0 Hypertensive heart disease with heart failure; E11.9 Type 2 diabetes mellitus without complications; E78.5 Hyperlipidemia, unspecified; N40.0 Benign prostatic hyperplasia without lower urinary tract symptoms; Z86.73 Personal history of transient ischemic attack (TIA), and cerebral infarction without residual deficits; R07.9 Chest pain, unspecified; I42.9 Cardiomyopathy, unspecified
CPT/HCPCS: 36415; 71010-TC; 78452-TC; 80053; 80061; 83036; 83721; 83735; 83880; 84100; 84484; 85025; 85027; 85610; 85730; 93005; 93010; 93017; 93306-TC; 99284-25; A9502

== ENCOUNTER 2017-10-15 09:38 | Emergency (ER) | payer MEDICARE ==
[2017-10-15 09:49] VITALS: TEMP 99.7; BMI 29.7
--- NOTE | 2017-10-15 10:21 | PDOC ---
History of Present Illness - General History Source: Patient Exam Limitations: No Limitations <Anshu Mantilla - Last Filed: 10/15/17 11:44> - General History Source: Patient Exam Limitations: No Limitations - History of Present Illness Initial Comments: 10/15/17 11:15 The patient is a 67 year old male, with a significant past medical history of HTN, HLD, CHF, BPH, PVD s/p stent placement who presents to the emergency department with URI symptoms for the past 3 days. Patient reports grocery shopping in the cold on Sunday and since then has been developing dry cough, clear rhinorrhea, nasal congestion. Patient has been taking Tylenol and Motrin, honey teas with no relief and presents to the ED for further evaluation. Patient denies LE edema, chest pain, headache or dizziness. Patient denies fever , chills, abdominal pain, nausea, vomit, diarrhea or constipation. Patient denies dysuria, frequency, urgency or hematuria. Patient denies sick contacts or recent travel. Allergies: Penicillins Past surgical history: Eye surgery Social history: PCP: Dr. Mickey Reich <Sangeeta Cerda - Last Filed: 10/15/17 14:20> - General Chief Complaint: Respiratory Stated Complaint: SOB Time Seen by Provider: 10/15/17 10:05 Past History - Past Medical History COPD: No Diabetes: Yes HTN: Yes Hypercholesterolemia: Yes - Suicide/Smoking/Psychosocial Hx Smoking History: Never smoked Have you smoked in the past 12 months: No Number of Cigarettes Smoked Daily: 0 Hx Alcohol Use: No Drug/Substance Use Hx: No Substance Use Type: None Hx Substance Use Treatment: No <Anshu Mantilla - Last Filed: 10/15/17 11:44> <Sangeeta Cerda - Last Filed: 10/15/17 14:20> - Past Medical History Allergies/Adverse Reactions: Allergies Allergy/AdvReac Type Severity Reaction Status Date / Time Penicillins Allergy Severe anaphylactic Verified 10/15/17 09:46 shock Home Medications: Ambulatory Orders Acetaminophen [Tylenol] 650 mg PO Q4H PRN #20 tablet 10/15/17 Benzonatate [Tessalon Pearls -] 100 mg PO TID PRN #21 capsule 10/15/17 Review of Systems - Review of Systems Able to Perform ROS?: Yes Comments:: 10/15/17 11:15 GENERAL/CONSTITUTIONAL: No fever or chills. No weakness. HEAD, EYES, EARS, NOSE AND THROAT: No change in vision. No ear pain or discharge. No sore throat. +nasal congestion. +clear rhinorrhea. CARDIOVASCULAR: No chest pain or shortness of breath. RESPIRATORY: + cough. No wheezing, or hemoptysis. GASTROINTESTINAL: No nausea, vomiting, diarrhea or constipation. GENITOURINARY: No dysuria, frequency, or change in urination. MUSCULOSKELETAL: No joint or muscle swelling or pain. No neck or back pain. SKIN: No rash NEUROLOGIC: No headache, vertigo, loss of consciousness, or change in strength/ sensation. ENDOCRINE: No increased thirst. No abnormal weight change. HEMATOLOGIC/LYMPHATIC: No anemia, easy bleeding, or history of blood clots. ALLERGIC/IMMUNOLOGIC: No hives or skin allergy. <Sangeeta Cerda - Last Filed: 10/15/17 14:20> *Physical Exam - Vital Signs Last Vital Signs Temp Pulse Resp BP Pulse Ox 99.7 F H 102 H 19 119/68 97 10/15/17 09:47 10/15/17 09:47 10/15/17 09:47 10/15/17 09:47 10/15/17 09:47 <Anshu Mantilla - Last Filed: 10/15/17 11:44> - Vital Signs Last Vital Signs Temp Pulse Resp BP Pulse Ox 99.7 F H 102 H 19 119/68 97 10/15/17 09:47 10/15/17 09:47 10/15/17 09:47 10/15/17 09:47 10/15/17 09:47 - Physical Exam Comments: 10/15/17 11:15 GENERAL: Awake, alert, and fully oriented, in no acute distress HEAD: No signs of trauma EYES: PERRLA, EOMI, sclera anicteric, conjunctiva clear ENT: Auricles normal inspection, hearing grossly normal, nares patent, oropharynx clear without exudates. Moist mucosa NECK: Normal ROM, supple, no lymphadenopathy, JVD, or masses LUNGS: Breath sounds equal, clear to auscultation bilaterally. No wheezes, and no crackles HEART: Regular rate and rhythm, normal S1 and S2, no murmurs, rubs or gallops ABDOMEN: Soft, nontender, normoactive bowel sounds. No guarding, no rebound. No masses EXTREMITIES: Normal range of motion, no edema. No clubbing or cyanosis. No cords, erythema, or tenderness NEUROLOGICAL: Cranial nerves II through XII grossly intact. Normal speech, normal gait SKIN: Warm, Dry, normal turgor, no rashes or lesions noted. <Sangeeta Cerda - Last Filed: 10/15/17 14:20> ED Treatment Course - LABORATORY CBC & Chemistry Diagram: 10/15/17 10:35 10/15/17 10:35 - RADIOLOGY Radiology Studies Ordered: Category Date Time Status CHEST PA & LAT [RAD] Stat Radiology 10/15/17 10:13 Ordered <Anshu Mantilla - Last Filed: 10/15/17 11:44> - LABORATORY CBC & Chemistry Diagram: 10/15/17 10:35 10/15/17 10:35 - ADDITIONAL ORDERS Additional order review: 10/15/17 10:23 Influenza Types A,B Antigen (MARYELLEN) - Final Nasopharyngeal Swab - Final 10/15/17 10:35 RBC 4.70 MCV 90.8 MCHC 33.0 RDW 14.5 MPV 9.4 Neutrophils % 67.1 Lymphocytes % 15.9 D Monocytes % 13.2 H D Eosinophils % 3.3 Basophils % 0.5 <Sangeeta Cerda - Last Filed: 10/15/17 14:20> Medical Decision Making - Medical Decision Making 10/15/17 10:39 A portion of this note was documented by scribe services under my direction. I have reviewed the details of the note, within reason, and agree with the documentation with the following case summary and management plan written by me. Patient treated in the ED. Nursing notes are reviewed and incorporated into the medical decision-making. Vital signs reviewed. Peripheral IV access obtained by the nurse, laboratory studies are drawn and sent, reviewed and interpreted by myself. Vital Signs Temp Pulse Resp BP Pulse Ox 99.7 F H 102 H 19 119/68 97 10/15/17 09:47 10/15/17 09:47 10/15/17 09:47 10/15/17 09:47 10/15/17 09:47 67-year-old male with past medical history of hypertension, diabetes, hyperlipidemia, coronary disease status post 2 stents, congestive heart failure presents to the emergency department for cough for 3 days. The patient reports that he was outside shopping for groceries. When the patient came into home, noticed that he was having dry cough and significant nasal mucousy discharge. Denies fevers or chills. Denies chest pain or shortness of breath. Denies lower extremity edema. Denies sick contacts or recent travels. I suspect the patient likely is viral syndrome. However, given his comorbidities , we'll obtain a chest x-ray to rule out pneumonia. We'll swab for influenza though the patient is not eligible for Tamiflu. 10/15/17 11:44 CBC, BMP 10/15/17 10:35 10/15/17 10:35 CMP Sodium 135 mmol/L (136-145) L 10/15/17 10:35 Potassium 4.7 mmol/L (3.5-5.1) 10/15/17 10:35 Chloride 98 mmol/L (98-107) 10/15/17 10:35 Carbon Dioxide 31 mmol/L (21-32) 10/15/17 10:35 Anion Gap 6 (8-16) L 10/15/17 10:35 BUN 15 mg/dL (7-18) 10/15/17 10:35 Creatinine 1.3 mg/dL (0.7-1.3) D 10/15/17 10:35 Creat Clearance w eGFR 54.90 (>60) 10/15/17 10:35 Random Glucose 200 mg/dL (74-106) H D 10/15/17 10:35 Calcium 8.3 mg/dL (8.5-10.1) L 10/15/17 10:35 Magnesium 1.5 mg/dL (1.8-2.4) L D 10/15/17 10:35 Total Bilirubin 0.7 mg/dL (0.2-1.0) D 10/15/17 10:35 AST 17 U/L (15-37) D 10/15/17 10:35 ALT 27 U/L (12-78) D 10/15/17 10:35 Alkaline Phosphatase 71 U/L (45-117) 10/15/17 10:35 Creatine Kinase 111 IU/L (39-308) 10/15/17 10:35 Troponin I 0.05 ng/ml (0.00-0.05) D 10/15/17 10:35 Total Protein 6.7 g/dl (6.4-8.2) 10/15/17 10:35 Albumin 3.3 g/dl (3.4-5.0) L 10/15/17 10:35 Chest xray reviewed. No acute pathology. Influenza swab negative. I suspect the patient likely has viral syndrome. Laboratory data reviewed. Chest x-ray reviewed. I instructed the patient to make an appointment with her primary care physician next several days. If the symptoms worsen, to call their doctor or return to the ER for repeat evaluation. Patient otherwise nontoxic-appearing breathing currently. We'll send the patient home with supportive care. I discussed the physical exam findings, ancillary test results and final diagnoses with the patient. I answered all of the patient's questions. The patient was satisfied with the care received and felt comfortable with the discharge plan and treatment plan. The patient will call their primary care physician within 24 hours to arrange follow-up and will return to the Emergency Department with any new, persistant or worsening symptoms. <Anshu Mantilla - Last Filed: 10/15/17 11:44> *DC/Admit/Observation/Transfer - Discharge Dispostion Admit: No <Anshu Mantilla - Last Filed: 10/15/17 11:44> - Attestations Scribe Attestion: 10/15/17 11:16 Documentation prepared by Sangeeta Cerda, acting as medical health researcher for Anshu Mantilla MD <Sangeeta Cerda - Last Filed: 10/15/17 14:20> Diagnosis at time of Disposition: Viral syndrome - Discharge Dispostion Disposition: HOME Condition at time of disposition: Stable - Prescriptions Prescriptions: Acetaminophen [Tylenol] 650 mg PO Q4H PRN #20 tablet PRN Reason: Pain/Fever Benzonatate [Tessalon Pearls -] 100 mg PO TID PRN #21 capsule PRN Reason: Cough - Referrals Referrals: Mickey Reich [Primary Care Provider] - - Patient Instructions Printed Discharge Instructions: DI for Viral Syndrome Additional Instructions: Take 650 mg tylenol every 4 hours as needed for fever/pain. Take the cough medication as prescribed. It may take several days before your symptoms improve. Make an appointment with your doctor for this week. - Post Discharge Activity
[2017-10-15 10:47] LABS: BASO % 0.5 % (0-2.0); EOS % 3.3 % (0-4.5); HEMATOCRIT 42.7 % (35.4-49); HEMOGLOBIN 14.1 GM/dL (11.7-16.9); LYMPH % 15.9 % (8-40); MEAN CELL VOLUME 90.8 fl (80-96); MEAN PLT VOLUME 9.4 fl (7.5-11.1); MONO % 13.2 % (3.8-10.2); NEUT % 67.1 % (42.8-82.8); PLATELET COUNT 183 K/MM3 (134-434); RDW 14.5 % (11.9-15.9); WHITE BLOOD COUNT 13.5 K/mm3 (4.0-10.0)
[2017-10-15 11:12] LABS: ALBUMIN 3.3 g/dl (3.4-5.0); ANION GAP 6 (8-16); BLOOD UREA NITROGEN 15 mg/dL (7-18); CALCIUM 8.3 mg/dL (8.5-10.1); CHLORIDE 98 mmol/L (98-107); CO2 31 mmol/L (21-32); CREATININE 1.3 mg/dL (0.7-1.3); GLUCOSE,RANDOM 200 mg/dL (74-106); MAGNESIUM 1.5 mg/dL (1.8-2.4); POTASSIUM 4.7 mmol/L (3.5-5.1); SGOT/AST 17 U/L (15-37); SGPT/ALT 27 U/L (12-78); SODIUM 135 mmol/L (136-145)
[2017-10-15 11:16] LABS: ALK PHOS 71 U/L (45-117); BILIRUBIN,TOTAL 0.7 mg/dL (0.2-1.0); TOT PROT 6.7 g/dl (6.4-8.2)
[2017-10-15 12:00] VITALS: BP 122/74; PULSE 90
== END 2017-10-15 12:00 | disposition home or self-care (01) ==
LOC: JER 09:38
DX: B34.9 Viral infection, unspecified (principal); I25.10 Atherosclerotic heart disease of native coronary artery without angina pectoris; I10 Essential (primary) hypertension; Z95.5 Presence of coronary angioplasty implant and graft; E78.00 Pure hypercholesterolemia, unspecified; I50.9 Heart failure, unspecified; N40.0 Benign prostatic hyperplasia without lower urinary tract symptoms
CPT/HCPCS: 36415; 71046-TC; 80053; 82550; 83735; 84484; 85025; 87804; 99284-25

== ENCOUNTER 2017-12-26 06:12 | Inpatient (IN) | payer MEDICARE, OTHER ==
[~2017-12-26 06:12] MED LIST: VANCOMYCIN 1,000 MG VIAL (RESTRICTED TO ID ONLY) IVPB ONE
[2017-12-26 07:20] LABS: INR 1.13 (0.82-1.09); PROTHROMBIN TIME (PATIENT) 12.8 SEC (9.98-11.88)
[2017-12-26] MEDS ORDERED: HEPARIN NA (PORCINE) 5,000 UNITS/ML 1ML VIAL ONE (07:32)
[2017-12-26] MEDS ORDERED: THROMBIN (BOVINE) 5,000 UNIT VIAL TP ONE (07:32)
[2017-12-26] MEDS ORDERED: POVIDONE-IODINE OINTMENT 10% - 28.4 GM TUBE ONE (07:32)
--- NOTE | 2017-12-26 07:41 | HP ---
History & Physical Update - History History: No Change - Physical Physical: No Change - Assessment Assessment: No Change - Plan Plan: No Change (full H&P in his chart dated 12/03/17 from quality assurance tester, cleared with intermediate risk. Repeat echocardiogram completed as per pt, will call office to obtain results. Last ECHO 04/23 with EF 34%)
[2017-12-26] MEDS ORDERED: VANCOMYCIN 1,000 MG in DEXTROSE 5%-WATER - 250 ML IVPB ONE (07:46)
[2017-12-26] MEDS ORDERED: MIDAZOLAM HCL 2 MG/2 ML SINGLE DOSE VIAL ONE (08:13)
[2017-12-26] MEDS ORDERED: fentaNYL CITRATE 250 MCG/5 ML VIAL ONE (08:30)
[2017-12-26] MEDS ORDERED: ROCURONIUM BROMIDE 50 MG/5 ML VIAL ONE ×2 (08:30→09:30)
[2017-12-26] MEDS ORDERED: PROPOFOL 20 ML ONE (08:31)
[2017-12-26] MEDS ORDERED: VANCOMYCIN 1,000 MG VIAL (RESTRICTED TO ID ONLY) IVPB ONE (08:32)
[2017-12-26] MEDS ORDERED: PAPAVERINE HCL 30 MG/1 ML 10 ML VIAL NR ONE ×2 (08:37→10:34)
[2017-12-26] MEDS ORDERED: LIDOCAINE HCL 2% JELLY (5 ML/TUBE) ONE ×2 (08:45→11:39)
[2017-12-26] MEDS ORDERED: VANCOMYCIN 1,000 MG VIAL (RESTRICTED TO ID ONLY) ONE ×2 (08:45→11:39)
[2017-12-26] MEDS ORDERED: LIDOCAINE HCL/PF 2% SDV 5ML VIAL ONE ×2 (08:45→11:39)
[2017-12-26] MEDS ORDERED: DEXAMETHASONE SOD PHOSPHATE 4 MG/1 ML VIAL ONE ×2 (08:45→11:39)
[2017-12-26] MEDS ORDERED: PROTAMINE SULFATE 50 MG/5 ML VIAL ONE (11:25)
[2017-12-26] MEDS ORDERED: ONDANSETRON 4 MG/2 ML VIAL IVPUSH PRN (12:20)
[2017-12-26] MEDS ORDERED: LACTATED RINGERS SOLUTION 1,000 ML IV SCH (12:30)
[2017-12-26] MEDS ORDERED: SODIUM CHLORIDE 1,000 ML IV SCH (13:00)
[2017-12-26] MEDS ORDERED: ACETAMINOPHEN 325 MG TABLET (FP) PO PRN (13:07)
[2017-12-26] MEDS ORDERED: oxyCODONE HCL 5 MG TABLET PO PRN ×2 (13:08)
[2017-12-26] MEDS ORDERED: DOCUSATE SODIUM 100 MG CAPSULE (FP) PO PRN (13:09)
--- NOTE | 2017-12-26 13:43 | OP ---
Operative Note - Note: Operative Date: 12/26/17 Pre-Operative Diagnosis: right foot gangrene Operation: right lower ext bypass. Popliteal to posterior tibialis Surgeon: Timmy Meeks Cement Car Dumper: Yu Soto Anesthesiologist/INDUSTRIAL SAFETY AND HEALTH SPECIALIST: Monica Fiore MD Anesthesia: General Estimated Blood Loss (mls): 200 Fluid Volume Replaced (mls): 1,000 Operative Report Dictated: Yes
--- NOTE | 2017-12-26 13:44 | SURG ---
Surgery Web Content Director Note Web Content Director: Yu Soto PA-C Date of Service: 12/26/17 Diagnosis: right foot gangrene Procedure: right lower ext bypass. Popliteal to posterior tibialis I was present for the entirety of the operative procedure. For further detail, please refer to operative report. Visit type - Case Type Case Type: Scheduled Admission - Emergency Emergency Visit: No - New patient This patient is new to me today: Yes Date on this admission: 12/26/17
--- NOTE | 2017-12-26 15:09 | PN ---
Progress Note (short form) - Note Progress Note: ICU Resident note 67yo M with history of HTN, DM, HLD, previous CVA, "chronic leukocytosis," CAD s /p PCI to the L circumflex artery and RCA, and chronic systolic CHF with mod LV dysfunction who is received from PACU s/p R popliteal to posterior tibialis bypass due to ischemia foot. Reported minimal EBL at 200cc with 1L replacement fluids. Pt currently is comfortable and only is slightly hungry. Pt denies any uncontrolled LE pain at this time. Brief PE GEN: NAD, awake, alert and oriented x3 HEENT: EOMI, RENATE, sclera anicteric, No JVD Lungs: CTA bilaterally no wheezes, rhonchi, rales currently Cardiac: RRR no murmurs auscultated EXT: L graft site with bandage C/D/I and palpable DP pulse, L foot warm and cap refill <2sec, palpable pulse R site C/D/I with covering bandages. R foot warm with palpable DP pulse, cap refill <2sec A/P s/p R popliteal to posterior tibilais bypass --Clear liquids; will advance as tolerated --Dr. Meeks on case --Continue to monitor pulses with doppler and palpation --Pain control: Oxycodone 5mg PO Pain 1-5 Oxycodone 10mg PO Pain 6-10 --Pt to resume ASA tomorrow AM (due to CAD) --Continue home BP medications (Coreg 6.25mg BID, Lisinopril 5mg PO qDaily ) --Monitor BGM ACHS; ISS for coverage FEN: Fluids: NS @ 75cc/hr until pt can tolerate food for gentle hydration Electrolyte abnormalities: AM labs to be done Nutrition: Clear liquids right now; advance as tolerated Axel Askew, DO - IM PGY-1
[2017-12-26] MEDS: metFORMIN HCL 500 MG TABLET (FP) PO SCH (16:33)
[2017-12-26] MEDS: INSULIN SLIDING SCALE (NOVOLOG) 1 VIAL SQ SCH ×2 (17:05→21:33)
[2017-12-26] MEDS: CARVEDILOL 6.25 MG TABLET (FP) PO SCH (21:25)
[2017-12-26] MEDS: MUPIROCIN 2% TOPICAL OINTMENT FOR DECOLONIZATION NS SCH (21:26)
--- NOTE | 2017-12-26 21:44 | CONSULT ---
Consult - text type - Consultation Consultation Note: PULM/CCM Consult CC: Post op observation HPI: Briefly Mr Grant is a 67yo M PMHX notable for HTN, DM, HLD, previous CVA, "chronic leukocytosis," CAD s/p PCI to the L circumflex artery and RCA, and chronic systolic CHF with mod LV dysfunction admitted today for planned R popliteal to posterior tibialis bypass due to ischemic R foot. Surgery went well , Reported minimal EBL at 200cc with 1L replacement fluids. Recovered in PACU. Transferred to ICU for overnight observation and distal perfusion checks. Pt hemodynamically stable, pain controlled. Vital Signs Temp 98.8 F 12/26/17 17:55 Pulse 75 12/26/17 19:00 Resp 19 12/26/17 19:00 BP 142/61 12/26/17 19:00 Pulse Ox 100 12/26/17 18:05 Intake & Output 12/25/17 12/26/17 12/26/17 23:59 11:59 23:59 Intake Total 1000 575 Output Total 200 Balance 800 575 Intake: IV 1000 575 Normal Saline - 1,000 ml 375 @ 75 mls/hr IV ASDIR MERRILL Rx#:[id number] Output: Estimated Blood Loss 200 Other: Voiding Method Urinal Bowel Movement No Past Medical History PAN GREASER CVA Cardio/Vascular HTN,Hyperlipdemia Renal/ BPH Endocrine Diabetes Mellitus Past Surgical History Past Surgical History Cataract Removal Smoking History Smoking history Never smoked Aproximately how many 0 cigarettes per day Alcohol/Substance Use Hx Alcohol Use No Social History ADL Independent Occupation works at [email or web address] in the [place] History of Recent Travel Yes: went to [place] 2 weeks ago, believe he got pneumonia while there GEN: Very pleasant man, resting in bed ,INAD HEENT: EOMI, RENATE, sclera anicteric, No JVD Lungs: clear anterior, no wheezes Cardiac: no m/r/g appreciated EXT: L graft site with bandage C/D/I and palpable DP pulse, L foot warm and cap refill <2sec, palpable pulse R site C/D/I with covering bandages. R foot warm with palpable DP pulse, cap refill <2sec A/ s/p R popliteal to posterior tibilais bypass for P/ -Dr. Meeks following, updates as needed -Clear liquids; will advance as tolerated -monitor LE with dopplers -Pain control w/ Oxycodone 5mg PO Pain 1-5, Oxycodone 10mg PO Pain 6-10 -restart home meds tomorrow AM (due to CAD) -Monitor BGM ACHS; ISS for coverage -gentle hydration -ok for floor in am if stable [facility] [id number]
[2017-12-26] MEDS ORDERED: CHLORHEXIDINE GLUCONATE 4% CLEANSER FOR DECOLONIZATION TP SCH (22:00)
[2017-12-26] MEDS ORDERED: ATORVASTATIN CA 80 MG TABLET (FP) PO SCH (22:00)
[2017-12-26] MEDS ORDERED: TAMSULOSIN HCL 0.4 MG CAP.ER.24H (FP) PO SCH (22:00)
[2017-12-26] MEDS ORDERED: LORazepam 1 MG TABLET PO PRN (22:56)
[2017-12-27] MEDS: metFORMIN HCL 500 MG TABLET (FP) PO SCH ×2 (06:08→16:54)
[2017-12-27] MEDS: INSULIN SLIDING SCALE (NOVOLOG) 1 VIAL SQ SCH ×4 (06:12→21:16)
[2017-12-27 06:34] LABS: BASO % 0.1 % (0-2.0); EOS % 0.5 % (0-4.5); HEMATOCRIT 33.2 % (35.4-49); HEMOGLOBIN 11.2 GM/dL (11.7-16.9); LYMPH % 16.8 % (8-40); MCH 29.6 pg (25.7-33.7); MCHC 33.7 g/dl (32.0-35.9); MEAN CELL VOLUME 87.9 fl (80-96); MEAN PLT VOLUME 8.9 fl (7.5-11.1); MONO % 7.7 % (3.8-10.2); NEUT % 74.9 % (42.8-82.8); PLATELET COUNT 260 K/MM3 (134-434); RBC 3.77 M/mm3 (4.00-5.60); RDW 14.7 % (11.9-15.9); WHITE BLOOD COUNT 16.5 K/mm3 (4.0-10.0)
[2017-12-27 07:06] LABS: CHLORIDE 104 mmol/L (98-107); POTASSIUM 5.1 mmol/L (3.5-5.1); SODIUM 138 mmol/L (136-145)
[2017-12-27 07:25] LABS: ANION GAP 11 (8-16); BLOOD UREA NITROGEN 19 mg/dL (7-18); CALCIUM 8.1 mg/dL (8.5-10.1); CO2 23 mmol/L (21-32); CREATININE 0.9 mg/dL (0.7-1.3); GLUCOSE,RANDOM 137 mg/dL (74-106)
[2017-12-27] MEDS ORDERED: PT OWN MED DRAWER 7, Y5N ONE (08:46)
[2017-12-27 09:04] LABS: MAGNESIUM 1.4 mg/dL (1.8-2.4); PHOSPHOROUS 3.3 mg/dL (2.5-4.9)
--- NOTE | 2017-12-27 09:05 | PN ---
Progress Note (short form) - Note Progress Note: POD #!- s/p right lower extremity bypass under general anesthesia. VSS. Pt. doing well, sitting up comfortably in bed. No complaints. No apparent anesthetic complications noted. Continue current care.
--- NOTE | 2017-12-27 09:55 | PN ---
Progress Note (short form) - Note Progress Note: ID Full note dictated Requested for treatment of chronic nonhealing left last 5th toe ulcer over many months with osteomyelitis as per Dr Hughes NO systemic illness Post revascularization surgery yesterday on right leg Diabetic Major PCN allergy "anaphylaxis" Assessment Nonhealing ulcer possible osteo left foot with major PCN allergy anaphylaxis DM type 2 Plan Bone scan LLE ( cannot do MRI eric ?) CRP ESR Discussed with Dr Meeks regarding PCN allergy testing Hold of antibiotics for now until we test him Wound c/s Jameel ABRAMS Problem List - Problems (1) Allergy history, penicillin Code(s): Z88.0 - ALLERGY STATUS TO PENICILLIN (2) Osteomyelitis of left foot Code(s): M86.9 - OSTEOMYELITIS, UNSPECIFIED (3) DMII (diabetes mellitus, type 2) Code(s): E11.9 - TYPE 2 DIABETES MELLITUS WITHOUT COMPLICATIONS Qualifiers: Diabetes mellitus complication status: without complication
[2017-12-27] MEDS ORDERED: LISINOPRIL 5 MG TABLET (FP) PO SCH (10:00)
[2017-12-27] MEDS ORDERED: ASPIRIN COATED 81 MG TABLET.EC PO SCH (10:00)
[2017-12-27] MEDS ORDERED: CLOPIDOGREL BISULFATE 75 MG TABLET (FP) PO SCH (10:00)
[2017-12-27] MEDS ORDERED: HEPARIN NA (PORCINE) 5,000 UNITS/ML 1ML VIAL SQ SCH (10:00)
[2017-12-27] MEDS ORDERED: MUPIROCIN 2% TOPICAL OINTMENT 22 GM TUBE TP SCH (10:00)
--- NOTE | 2017-12-27 10:10 | PN ---
Progress Note (short form) - Note Progress Note: surgery POD #1 s/p right lower ext bypass. Popliteal to posterior tibialis. Patient seen and examined at bedside with no complaints. He states pain is controlled and denies any new or worsening symptoms. He denies any CP, SOB, N/V fever or chils. He is voiding, tolerating clears and would like to eat. Vital Signs Temp 98.4 F 12/27/17 02:18 Pulse 87 12/27/17 08:00 Resp 21 12/27/17 08:00 BP 144/65 12/27/17 08:00 Pulse Ox 100 12/26/17 21:00 Intake & Output 12/26/17 12/26/17 12/27/17 11:59 23:59 11:59 Intake Total 1000 575 900 Output Total 200 200 100 Balance 800 375 800 Intake: IV 1000 575 900 Normal Saline - 1,000 ml 375 900 @ 75 mls/hr IV ASDIR MERRILL Rx#:[id number] Output: Urine 200 100 Void 200 100 Estimated Blood Loss 200 Other: Voiding Method Urinal Bowel Movement No No CBC, BMP 12/27/17 05:32 12/27/17 05:32 PE: A&Ox3 NAD unlabored resp on RA Right LE incision c/d/i with no evidence of active bleeding. [place] insitu. Calf soft and non-tender to palpation. Sensation to light touch intact throughout. Foot warm and well perfused with +1 DP and PT pulses. patient able to move toes and ankle without restriction. Dry ulcer over lateral heel, plantar surface at MTP Left LE compartments soft, supple and non-tender. LE warm to touch and foot well perfused, sensation to light touch intact throughout. small ulcer over lateral aspect of 5th MTP joint- fibrinous clot seen. A/P: POD #1 right Popliteal to posterior tibialis bypass doing well. 1) DVT prophylaxis-added SQ heparin BID to current Aspirin and plavix 2) OOb to chair, limit walking and standing 3) advance diet as tolerated, SL fluids. 4) pain control 5) Keep dressing clean and dry 6) surgery to follow. <Marla Alcantara - Last Filed: 12/27/17 13:46> - Note Progress Note: Right PT pulse 3+ doppler, foot warm. Incision clean and dry. Doing well. OOB ID to evaluate for left 5th toe osteomyelitis <Timmy Meeks - Last Filed: 12/27/17 18:01>
[2017-12-27] MEDS: MUPIROCIN 2% TOPICAL OINTMENT FOR DECOLONIZATION NS SCH (10:36)
[2017-12-27] MEDS: CARVEDILOL 6.25 MG TABLET (FP) PO SCH ×2 (10:36→21:16)
--- NOTE | 2017-12-27 10:47 | CONS ---
DATE OF CONSULTATION: DATE OF DICTATION: 12/27/2017 HISTORY OF PRESENT ILLNESS: This is a 67-year-old male, known diabetic, who I am asked to see for evaluation of a chronic nonhealing ulcer of the left lateral 5th toe with underlying osteomyelitis suspected as per Dr. Meeks. The patient had been electively admitted yesterday for right foot gangrene and is now status post a right lower extremity bypass with popliteal to posterior tibialis revascularization surgery. He tolerated the procedure well. I am asked to see him now for evaluation of his chronic left 5th toe ulcer, which has been present for about 5 months and for which the patient says he has been receiving hyperbaric oxygen without improvement. He has no fever or chills, and I am asked to see him specifically to address treatment for suspected osteomyelitis. PAST MEDICAL HISTORY: Includes [id number] diabetes mellitus, peripheral vascular disease, hyperlipidemia, status post CVA, coronary artery disease, chronic leukocytosis. SOCIAL HISTORY: Never smoked. 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 . No HIV risk factors. FAMILY HISTORY: Noncontributory. ALLERGIES: To PENICILLIN with major allergy including anaphylaxis. REVIEW OF SYSTEMS: Respiratory: No cough, shortness of breath. Cardiac: No chest pain, palpitations, syncope. Gastrointestinal: No nausea, vomiting, diarrhea. Genitourinary: No dysuria, hematuria, or urinary frequency. PHYSICAL EXAMINATION: Vital signs: The temperature on admission was 98.8, pulse 75, blood pressure 142/61, respirations 16. Neck: Supple, no adenopathy. Lungs: Clear to percussion and auscultation. Heart: S1, S2, regular rhythm, without murmur or gallop. Abdomen: Soft, nontender, without hepatosplenomegaly. No guarding or rebound. Extremities: Postoperatively, right leg AV graft. There is a nonhealing ulcer with what appears to be purulent drainage noted at the left lateral 5th toe. No surrounding cellulitis is evident. There is a dry necrotic ulcer of the right heel. The white count is 16.5, hemoglobin 11.2, platelets 260. BUN 19, creatinine 0.9. Imaging study done December 14, 2017, shows osteolytic changes of the tip of the distal 5th toe phalanx, base of the 5th proximal phalanx, osteolytic changes in the distal aspect head of the 5th metatarsal. ASSESSMENT: A 62-year-old male status post right leg revascularization surgery secondary to gangrene, peripheral vascular disease, with underlying diabetes, underlying osteomyelitis of the 5th toe noted. Will get a bone scan, although x-ray does seem convincing for osteomyelitis. At this point, I am not going to treat him with antibiotics given concerns about possible anaphylaxis to PENICILLIN and the need for outpatient cephalosporin therapy for long-term treatment of osteomyelitis. I discussed this with Dr. Meeks and the senior java software developer, and as this is not emergent, will refer him to Allergy for formal PENICILLIN testing. Will obtain a wound culture, now, sedimentation rate, CRP, and plan on seeing him as an outpatient to address the issue of long-term antibiotics. RAFI STORM M.D. [id number]
--- NOTE | 2017-12-27 12:24 | PN ---
Teaching Attending Note Name of Resident: Trenton Guidry ATTENDING PHYSICIAN STATEMENT I saw and evaluated the patient. I reviewed the resident's note and discussed the case with the resident. I agree with the resident's findings and plan as documented. SUBJECTIVE: Patient seen and examined in the ICU. Awake and alert. LE feels OK, no pain or discomfort. No CP or SOB. Intake & Output 12/24/17 12/25/17 12/26/17 12/27/17 23:59 23:59 23:59 23:59 Intake Total 1575 900 Output Total 400 100 Balance 1175 800 Weight 192 lb Last Vital Signs Temp Pulse Resp BP Pulse Ox 98.9 F 82 20 138/75 100 12/27/17 10:00 12/27/17 10:00 12/27/17 10:00 12/27/17 10:00 12/26/17 21:00 Active Medications Acetaminophen (Tylenol -) 650 mg PO Q6H PRN PRN Reason: PAIN LEVEL 1-5 Aspirin (Ecotrin -) 81 mg PO DAILY [facility] Last Admin: 12/27/17 10:36 Dose: 81 mg Atorvastatin Calcium (Lipitor -) 80 mg PO HS [facility] Last Admin: 12/26/17 21:25 Dose: 80 mg Carvedilol (Coreg -) 6.25 mg PO BID [facility] Last Admin: 12/27/17 10:36 Dose: 6.25 mg Chlorhexidine Gluconate (Hibiclens For Decolonization -) 1 applic TP HS [facility] Last Admin: 12/26/17 21:27 Dose: 1 applic Clopidogrel Bisulfate (Plavix -) 75 mg PO DAILY [facility] Last Admin: 12/27/17 10:36 Dose: 75 mg Docusate Sodium (Colace -) 100 mg PO DAILY PRN PRN Reason: CONSTIPATION Fentanyl (Sublimaze Injection -) 50 mcg IVPUSH [id number] PRN PRN Reason: PAIN-PACU ORDER X 4 DOSES ONLY Heparin Sodium (Porcine) (Heparin -) 5,000 unit SQ BID [facility] Last Admin: 12/27/17 10:37 Dose: 5,000 unit Insulin Aspart (Novolog Vial Sliding Scale -) 1 vial SQ ACHS [facility] PRN Reason: Protocol Last Admin: 12/27/17 06:12 Dose: Not Given Lisinopril (Prinivil) 5 mg PO DAILY [facility] Last Admin: 12/27/17 10:37 Dose: 5 mg Lorazepam (Ativan -) 1 mg PO HS PRN PRN Reason: INSOMNIA Stop: 12/27/17 22:55 Metformin HCl (Glucophage -) 1,000 mg PO BIDAC [facility] Last Admin: 12/27/17 06:08 Dose: 1,000 mg Mupirocin (Bactroban Ointment (For Decolonization) -) 1 applic NS BID [facility] Stop: 12/31/17 21:59 Last Admin: 12/27/17 10:36 Dose: 1 applic Mupirocin (Bactroban 2% Ointment -) 1 applic TP DAILY [facility] Last Admin: 12/27/17 10:36 Dose: 1 applic Ondansetron HCl (Zofran Injection) 4 mg IVPUSH Q6H PRN PRN Reason: NAUSEA AND/OR VOMITING Oxycodone HCl (Roxicodone -) 5 mg PO Q6H PRN PRN Reason: PAIN LEVEL 1-5 Oxycodone HCl (Roxicodone -) 10 mg PO Q6H PRN PRN Reason: PAIN LEVEL 6-10 Tamsulosin HCl (Flomax -) 0.4 mg PO HS [facility] Last Admin: 12/26/17 21:25 Dose: 0.4 mg GEN: Awake and alert, NAD HEENT: EOMI, RENATE, sclera anicteric, No JVD Lungs: clear anterior, no wheezes Cardiac: no m/r/g appreciated EXT: L graft site with bandage C/D/I and palpable DP pulse, L foot warm and cap refill <2sec, palpable pulse R site C/D/I with covering bandages. R foot warm with palpable DP pulse, cap refill <2sec Laboratory Results - last 24 hr 12/26/17 12/26/17 12/26/17 12:28 17:01 21:32 WBC RBC Hgb Hct MCV MCH MCHC RDW Plt Count MPV Neutrophils % Lymphocytes % Monocytes % Eosinophils % Basophils % Sodium Potassium Chloride Carbon Dioxide Anion Gap BUN Creatinine POC Glucometer 132 196.27605 273.42547 Random Glucose Calcium Phosphorus Magnesium C-Reactive Protein 12/27/17 12/27/17 12/27/17 05:32 05:32 05:32 WBC 16.5 H RBC 3.77 L Hgb 11.2 L D Hct 33.2 L D MCV 87.9 MCH 29.6 MCHC 33.7 RDW 14.7 Plt Count 260 D MPV 8.9 Neutrophils % 74.9 Lymphocytes % 16.8 Monocytes % 7.7 Eosinophils % 0.5 D Basophils % 0.1 Sodium 138 Potassium 5.1 Chloride 104 Carbon Dioxide 23 Anion Gap 11 BUN 19 H D Creatinine 0.9 D POC Glucometer Random Glucose 137 H D Calcium 8.1 L Phosphorus 3.3 Magnesium 1.4 L C-Reactive Protein 1.5 H Cancelled 12/27/ 05:44 WBC RBC Hgb Hct MCV MCH MCHC RDW Plt Count MPV Neutrophils % Lymphocytes % Monocytes % Eosinophils % Basophils % Sodium Potassium Chloride Carbon Dioxide Anion Gap BUN Creatinine POC Glucometer [phone] Random Glucose Calcium Phosphorus Magnesium C-Reactive Protein IMP: POD #1 Right popliteal to posterior tibilais bypass PLAN: PO as tolerated Monitor LE dopplers Pain control w/ Oxycodone 5mg PO Pain 1-5, Oxycodone 10mg PO Pain 6-10 Home meds Glycemic control VTE prophylaxis Floor Dr Parrish
--- NOTE | 2017-12-27 14:03 | PN ---
Physical Exam: SUBJECTIVE: Mr. Grant has no complaints this morning and reports that he would like something to eat. He currently has no pain in either foot and reports no loss of sensation or movement. OBJECTIVE: No acute events overnight. Vital Signs Period Temp Pulse Resp BP Sys/Garces Pulse Ox Last 24 Hr 98.4 F-98.9 F 64-87 10-21 98-147/60-80 100-100 GENERAL: The patient is awake, alert, and fully oriented, in no acute distress. HEAD: Normal with no signs of trauma. EYES: PERRL, extraocular movements intact, sclera anicteric, conjunctiva clear. No ptosis. ENT: Ears normal, nares patent, oropharynx clear without exudates, moist mucous membranes. NECK: Trachea midline, full range of motion, supple. LUNGS: Breath sounds equal, clear to auscultation bilaterally, no wheezes, no crackles, no accessory muscle use. HEART: Regular rate and rhythm, S1, S2 without murmur, rub or gallop. ABDOMEN: Soft, nontender, nondistended, normoactive bowel sounds, no guarding, no rebound, no hepatosplenomegaly, no masses. EXTREMITIES: 2+ pulses, warm, well-perfused, no edema. Able to appreciate good flow on bilateral lower extremities with doppler at bedside. NEUROLOGICAL: Cranial nerves II through XII grossly intact. Normal speech, gait not observed. PSYCH: Normal mood, normal affect. SKIN: Warm, dry, normal turgor, no rashes or lesions noted Laboratory Results - last 24 hr 12/26/17 12/26/17 12/27/17 17:01 21:32 05:32 WBC 16.5 H RBC 3.77 L Hgb 11.2 L D Hct 33.2 L D MCV 87.9 MCH 29.6 MCHC 33.7 RDW 14.7 Plt Count 260 D MPV 8.9 Neutrophils % 74.9 Lymphocytes % 16.8 Monocytes % 7.7 Eosinophils % 0.5 D Basophils % 0.1 Sodium Potassium Chloride Carbon Dioxide Anion Gap BUN Creatinine POC Glucometer 196.16914 273.68030 Random Glucose Calcium Phosphorus Magnesium C-Reactive Protein 12/27/17 12/27/17 12/27/17 05:32 05:32 05:44 WBC RBC Hgb Hct MCV MCH MCHC RDW Plt Count MPV Neutrophils % Lymphocytes % Monocytes % Eosinophils % Basophils % Sodium 138 Potassium 5.1 Chloride 104 Carbon Dioxide 23 Anion Gap 11 BUN 19 H D Creatinine 0.9 D POC Glucometer 157.29407 Random Glucose 137 H D Calcium 8.1 L Phosphorus 3.3 Magnesium 1.4 L C-Reactive Protein 1.5 H Cancelled Active Medications Generic Name Dose Route Start Last Admin Trade Name Freq PRN Reason Stop Dose Admin Acetaminophen 650 mg 12/26/17 13:07 Tylenol - PO Q6H PRN PAIN LEVEL 1-5 Aspirin 81 mg 12/27/17 10:00 12/27/17 10:36 Ecotrin - PO 81 mg DAILY [facility] Administration Atorvastatin Calcium 80 mg 12/26/17 22:00 12/26/17 21:25 Lipitor - PO 80 mg HS [facility] Administration Carvedilol 6.25 mg 12/26/17 22:00 12/27/17 10:36 Coreg - PO 6.25 mg BID MERRILL Administration Chlorhexidine Gluconate 1 applic 12/26/17 22:00 12/26/17 21:27 Hibiclens For Decolonization - TP 1 applic HS MERRILL Administration Clopidogrel Bisulfate 75 mg 12/27/17 10:00 12/27/17 10:36 Plavix - PO 75 mg DAILY [facility] Administration Docusate Sodium 100 mg 12/26/17 13:09 Colace - PO DAILY PRN CONSTIPATION Fentanyl 50 mcg 12/26/17 12:20 Sublimaze Injection - IVPUSH [id number] PRN PAIN-PACU ORDER X 4 DOSES ONLY Heparin Sodium (Porcine) 5,000 unit 12/27/17 10:00 12/27/17 10:37 Heparin - SQ 5,000 unit BID [facility] Administration Insulin Aspart 1 vial 12/26/17 16:30 12/27/17 06:12 Novolog Vial Sliding Scale - SQ Not Given ACHS [facility] Protocol Lisinopril 5 mg 12/27/17 10:00 12/27/17 10:37 Prinivil PO 5 mg DAILY [facility] Administration Lorazepam 1 mg 12/26/17 22:56 Ativan - PO 12/27/17 22:55 HS PRN INSOMNIA Metformin HCl 1,000 mg 12/26/17 16:30 12/27/17 06:08 Glucophage - PO 1,000 mg BIDAC [facility] Administration Mupirocin 1 applic 12/26/17 22:00 12/27/17 10:36 Bactroban Ointment (For Decolonization) - NS 12/31/17 21:59 1 applic BID [facility] Administration Mupirocin 1 applic 12/27/17 10:00 12/27/17 10:36 Bactroban 2% Ointment - TP 1 applic DAILY [facility] Administration Ondansetron HCl 4 mg 12/26/17 12:20 Zofran Injection IVPUSH Q6H PRN NAUSEA AND/OR VOMITING Oxycodone HCl 5 mg 12/26/17 13:08 Roxicodone - PO Q6H PRN PAIN LEVEL 1-5 Oxycodone HCl 10 mg 12/26/17 13:08 Roxicodone - PO Q6H PRN PAIN LEVEL 6-10 Tamsulosin HCl 0.4 mg 12/26/17 22:00 12/26/17 21:25 Flomax - PO 0.4 mg HS [facility] Administration ASSESSMENT/PLAN: Mr. Grant is a 67 yo male w/ pmh of HTN, DM, HLD, CVA s/p PCI, and systolic CHF POD #1 after RLE bypass consisting of popliteal to posterior tibialis; performeed by Dr. Timmy Meeks. Bypass -Pain control: Oxycodone 5mg PO Pain 1-5, Oxycodone 10mg PO Pain 6-10 -PO as tolerated -Continue to monitor flow with dopplers DM -Home medications of coreg 6.25 bid and lisinoprill 5mg qd. -diabetic diet -ISS Prophylaxis -SQH FEN -Oral intake / diabetic diet -replete electrolytes as needed Disposition -Patient cleared to go to floor per discussion with Dr. Meeks this AM Visit type - Emergency Visit Emergency Visit: Yes ED Registration Date: 12/26/17 Care time: The patient presented to the Emergency Department on the above date and was hospitalized for further evaluation of their emergent condition. - New Patient This patient is new to me today: Yes Date on this admission: 12/27/17 - Critical Care Critical Care patient: Yes Total Critical Care Time (in minutes): 35 Critical Care Statement: The care of this patient involved high complexity decision making to prevent further life threatening deterioration of the patient 's condition and/or to evaluate & treat vital organ system(s) failure or risk of failure.
[2017-12-27] MEDS ORDERED: DOCUSATE SODIUM 100 MG CAPSULE (FP) PO PRN (15:15)
[2017-12-27] MEDS ORDERED: ACETAMINOPHEN 325 MG TABLET (FP) PO PRN (15:15)
[2017-12-27] MEDS ORDERED: VANCOMYCIN 1,000 MG in DEXTROSE 5%-WATER - 250 ML IVPB ONE (15:15)
[2017-12-27] MEDS ORDERED: oxyCODONE HCL 5 MG TABLET PO PRN ×2 (15:15)
[2017-12-27] MEDS ORDERED: LORazepam 1 MG TABLET PO PRN (15:15)
[2017-12-27] MEDS ORDERED: ONDANSETRON 4 MG/2 ML VIAL IVPUSH PRN (15:15)
[2017-12-27] MEDS: TAMSULOSIN HCL 0.4 MG CAP.ER.24H (FP) PO SCH (21:16)
[2017-12-27] MEDS: ATORVASTATIN CA 80 MG TABLET (FP) PO SCH (21:16)
[2017-12-27] MEDS: HEPARIN NA (PORCINE) 5,000 UNITS/ML 1ML VIAL SQ SCH (21:24)
[2017-12-28] MEDS: metFORMIN HCL 500 MG TABLET (FP) PO SCH ×2 (06:00→16:40)
[2017-12-28] MEDS: INSULIN SLIDING SCALE (NOVOLOG) 1 VIAL SQ SCH ×4 (06:01→21:41)
--- NOTE | 2017-12-28 08:02 | PN ---
Progress Note (short form) - Note Progress Note: surgery POD #2 s/p right lower ext bypass. Popliteal to posterior tibialis. Patient seen and examined at bedside with no complaints. He states pain is controlled and denies any new or worsening symptoms. He denies any CP, SOB, N/V fever or chils. He is voiding, and had s BM x2 yesterday. Vital Signs Temp 98.4 F 12/27/17 02:18 Pulse 87 12/27/17 08:00 Resp 21 12/27/17 08:00 BP 144/65 12/27/17 08:00 Pulse Ox 100 12/26/17 21:00 Intake & Output 12/26/17 12/26/17 12/27/17 11:59 23:59 11:59 Intake Total 1000 575 900 Output Total 200 200 100 Balance 800 375 800 Intake: IV 1000 575 900 Normal Saline - 1,000 ml 375 900 @ 75 mls/hr IV ASDIR MERRILL Rx#:[id number] Output: Urine 200 100 Void 200 100 Estimated Blood Loss 200 Other: Voiding Method Urinal Bowel Movement No No CBC, BMP 12/27/17 05:32 12/27/17 05:32 PE: A&Ox3 NAD unlabored resp on RA Right LE incision c/d/i with no evidence of active bleeding. [place] insitu. Calf soft and non-tender to palpation. Sensation to light touch intact throughout. Foot warm and well perfused with +1 DP and PT pulses. patient able to move toes and ankle without restriction. Dry ulcer over lateral heel, plantar surface at MTP Left LE compartments soft, supple and non-tender. LE warm to touch and foot well perfused, sensation to light touch intact throughout. small ulcer over lateral aspect of 5th MTP joint- fibrinous clot seen. A/P: POD #2 right Popliteal to posterior tibialis bypass doing well. 1) DVT prophylaxis, SQ heparin BID to current Aspirin and plavix 2) OOb to chair, limit walking and standing 3) advance diet as tolerated, SL fluids. 4) pain control 5) Keep dressing clean and dry 6) surgery to follow. <Marla Alcantara - Last Filed: 12/28/17 08:01> - Note Progress Note: Bypass wound healing well. Foot warm Evaluation left 5th metatarsal for osteomyelitis - discussed wih Dr. Jorgensen. <Timmy Meeks - Last Filed: 12/28/17 09:25>
[2017-12-28 08:19] LABS: BASO % 0.6 % (0-2.0); EOS % 3.2 % (0-4.5); HEMATOCRIT 35.3 % (35.4-49); LYMPH % 20.9 % (8-40); MCH 29.7 pg (25.7-33.7); MCHC 34.1 g/dl (32.0-35.9); MEAN CELL VOLUME 87.2 fl (80-96); MEAN PLT VOLUME 8.2 fl (7.5-11.1); MONO % 8.8 % (3.8-10.2); NEUT % 66.5 % (42.8-82.8); PLATELET COUNT 247 K/MM3 (134-434); RBC 4.04 M/mm3 (4.00-5.60); RDW 15.1 % (11.9-15.9); WHITE BLOOD COUNT 15.1 K/mm3 (4.0-10.0)
[2017-12-28 08:48] LABS: ANION GAP 5 (8-16); BLOOD UREA NITROGEN 16 mg/dL (7-18); CALCIUM 8.4 mg/dL (8.5-10.1); CHLORIDE 105 mmol/L (98-107); CO2 28 mmol/L (21-32); CREATININE 0.8 mg/dL (0.7-1.3); GLUCOSE,RANDOM 143 mg/dL (74-106); POTASSIUM 4.6 mmol/L (3.5-5.1); SODIUM 138 mmol/L (136-145)
[2017-12-28] MEDS ORDERED: PT OWN MED DRAWER 7, Y5N ONE (10:38)
[2017-12-28] MEDS ORDERED: INSULIN (NOVOLOG) ASPART 100 UNITS/ML 10ML VIAL ONE (11:09)
[2017-12-28] MEDS: LISINOPRIL 5 MG TABLET (FP) PO SCH (12:05)
[2017-12-28] MEDS: ASPIRIN COATED 81 MG TABLET.EC PO SCH (12:05)
[2017-12-28] MEDS: CARVEDILOL 6.25 MG TABLET (FP) PO SCH ×2 (12:06→21:45)
[2017-12-28] MEDS: CLOPIDOGREL BISULFATE 75 MG TABLET (FP) PO SCH (12:06)
[2017-12-28] MEDS: HEPARIN NA (PORCINE) 5,000 UNITS/ML 1ML VIAL SQ SCH ×2 (12:07→21:45)
[2017-12-28] MEDS: MUPIROCIN 2% TOPICAL OINTMENT 22 GM TUBE TP SCH (16:09)
[2017-12-28] MEDS: ATORVASTATIN CA 80 MG TABLET (FP) PO SCH (21:45)
[2017-12-28] MEDS: TAMSULOSIN HCL 0.4 MG CAP.ER.24H (FP) PO SCH (21:45)
[2017-12-29] MEDS: INSULIN SLIDING SCALE (NOVOLOG) 1 VIAL SQ SCH ×4 (06:52→23:34)
[2017-12-29] MEDS: metFORMIN HCL 500 MG TABLET (FP) PO SCH ×2 (06:53→16:34)
[2017-12-29 08:11] LABS: BASO % 0.6 % (0-2.0); EOS % 3.8 % (0-4.5); HEMATOCRIT 36.4 % (35.4-49); HEMOGLOBIN 12.1 GM/dL (11.7-16.9); LYMPH % 21.2 % (8-40); MCH 29.2 pg (25.7-33.7); MCHC 33.4 g/dl (32.0-35.9); MEAN CELL VOLUME 87.4 fl (80-96); MEAN PLT VOLUME 8.4 fl (7.5-11.1); MONO % 8.5 % (3.8-10.2); NEUT % 65.9 % (42.8-82.8); PLATELET COUNT 264 K/MM3 (134-434); RBC 4.16 M/mm3 (4.00-5.60); RDW 15.2 % (11.9-15.9); WHITE BLOOD COUNT 16.3 K/mm3 (4.0-10.0)
[2017-12-29 08:47] LABS: CHLORIDE 100 mmol/L (98-107); POTASSIUM 4.8 mmol/L (3.5-5.1); SODIUM 139 mmol/L (136-145)
[2017-12-29 08:56] LABS: ANION GAP 11 (8-16); BLOOD UREA NITROGEN 16 mg/dL (7-18); CALCIUM 8.4 mg/dL (8.5-10.1); CO2 28 mmol/L (21-32); CREATININE 0.8 mg/dL (0.7-1.3); GLUCOSE,RANDOM 163 mg/dL (74-106)
[2017-12-29] MEDS: MUPIROCIN 2% TOPICAL OINTMENT 22 GM TUBE TP SCH (10:54)
[2017-12-29] MEDS: CARVEDILOL 6.25 MG TABLET (FP) PO SCH ×2 (10:55→23:31)
[2017-12-29] MEDS: ASPIRIN COATED 81 MG TABLET.EC PO SCH (10:56)
[2017-12-29] MEDS: HEPARIN NA (PORCINE) 5,000 UNITS/ML 1ML VIAL SQ SCH ×2 (10:57→23:31)
[2017-12-29] MEDS: LISINOPRIL 5 MG TABLET (FP) PO SCH (10:58)
[2017-12-29] MEDS: CLOPIDOGREL BISULFATE 75 MG TABLET (FP) PO SCH (11:01)
--- NOTE | 2017-12-29 11:21 | PN ---
Progress Note (short form) - Note Progress Note: VSSNo c/o Incision clean and dry. foot warm WBC 16 K Bone scan positive for osteo Await ID followup for antibiotic regimen. Physical therapy for ambulation.
[2017-12-29] MEDS ORDERED: SULFAMETHOXAZOLE/TRIMETHOPRIM 800MG/160MG D.S. TABLET PO SCH (11:30)
[2017-12-29] MEDS: ATORVASTATIN CA 80 MG TABLET (FP) PO SCH (23:31)
[2017-12-29] MEDS: TAMSULOSIN HCL 0.4 MG CAP.ER.24H (FP) PO SCH (23:32)
[2017-12-30] MEDS: INSULIN SLIDING SCALE (NOVOLOG) 1 VIAL SQ SCH ×2 (06:07→11:52)
[2017-12-30] MEDS: metFORMIN HCL 500 MG TABLET (FP) PO SCH (06:07)
[2017-12-30] MEDS: ASPIRIN COATED 81 MG TABLET.EC PO SCH (09:50)
[2017-12-30] MEDS: CLOPIDOGREL BISULFATE 75 MG TABLET (FP) PO SCH (09:50)
[2017-12-30] MEDS: CARVEDILOL 6.25 MG TABLET (FP) PO SCH (09:50)
[2017-12-30] MEDS: HEPARIN NA (PORCINE) 5,000 UNITS/ML 1ML VIAL SQ SCH (09:50)
[2017-12-30] MEDS: LISINOPRIL 5 MG TABLET (FP) PO SCH (09:50)
--- NOTE | 2017-12-30 14:06 | PN ---
Progress Note (short form) - Note Progress Note: Afeb VSS No c/o Incision clean and dry. Foot warm Walking with PT and walker Await allergy evaluation to start antibiotic for left metatarsal infection. Home in AM
--- NOTE | 2017-12-30 14:16 | DS ---
Physical Examination Vital Signs: Vital Signs Temperature 98.7 F 12/30/17 10:00 Pulse Rate 72 12/30/17 10:00 Respiratory Rate 20 12/30/17 10:00 Blood Pressure 138/66 12/30/17 10:00 O2 Sat by Pulse Oximetry (%) 95 12/29/17 21:00 Constitutional: Yes: No Distress Extremities: Yes: Other (Staple lines clean and dry. Foot warm. Doppler PT pulse.) Labs: CBC, BMP 12/29/17 07:20 12/29/17 07:20 Discharge Summary Reason For Visit: TIBIAL ARTERY DISEASE Procedures: Principal: Right popliteal tibial bypass with vein Hospital Course: Admitted with non-healing wound of right foot. Right popliteal to posterior tibial bypass performed. Post-op course unremarkable. Left metatarsal osteomyelitis diagnosed with bone scan and evaluated by ID> Allergy testing needed before stating antibiotics. Condition: Good - Instructions Diet, Activity, Other Instructions: Call for appointment for field evidence technician. Referrals: Anish Jorgensen MD [Staff Physician] - Timmy Meeks MD [Staff Physician] - 2 Weeks () Disposition: HOME - Home Medications Comprehensive Discharge Medication List: Ambulatory Orders Aspirin Coated [Ecotrin -] 81 mg PO DAILY 12/24/17 Atorvastatin Ca [Lipitor] 80 mg PO HS 12/24/17 Carvedilol 6.25 mg PO BID 12/24/17 Clopidogrel Bisulfate [Plavix] 75 mg PO DAILY 12/24/17 Lisinopril 5 mg PO DAILY 12/24/17 Metformin HCl [Glucophage] 1,000 mg PO BID 12/24/17 Tamsulosin HCl [Flomax] 0.4 mg PO HS 12/24/17 Acetaminophen [Tylenol .Regular Strength -] 650 mg PO Q6H PRN tablet 12/30/17 Insulin Sliding Scale [Novolog Vial Sliding Scale -] 1 vial SQ ACHS units 12/30 Mupirocin Ointment [Bactroban 2% Ointment -] 1 applic TP DAILY applic 12/30/17
[2017-12-30] MEDS: MUPIROCIN 2% TOPICAL OINTMENT 22 GM TUBE TP SCH (14:30)
[2017-12-30 14:35] VITALS: BP 118/59; PULSE 71; TEMP 98.2
--- NOTE | 2017-12-30 17:45 | OP ---
DATE OF OPERATION: 12/26/2017 SURGEON: Timmy Meeks MD GRAIN RECEIVER: SANKET Yi PROCEDURE: Right below-knee popliteal to posterior tibial artery bypass with reverse saphenous vein PREOPERATIVE DIAGNOSIS: Non-healing wounds of right foot. POSTOPERATIVE DIAGNOSIS: Non-healing wounds of right foot. ANESTHESIA: General. ANESTHESIOLOGIST: Monica Fiore MD OPERATIVE FINDINGS: The below-knee popliteal artery was patent without sclerotic dooley. The posterior tibial artery at the level of the malleolus was patent. OPERATIVE PROCEDURE: Following routine patient identification, with side and site verification, general anesthesia was induced. The right leg was prepped with ChloraPrep. Timeout was performed. Incision was made posterior to the medial malleolus over the posterior tibial artery. The artery was exposed, using cautery for hemostasis. The artery was encircled proximally and distally. Side branches were ligated with silk ties and divided. The artery was covered with moist gauze. The greater saphenous vein was then exposed at the level of the malleolus through a short skin incision. Side branches were ligated and divided. The vein was cannulated through a side branch and distended with heparin and papaverine solution. The vein was then exposed up to the level of the lower thigh. All side branches of the vein were ligated and divided. The vein was mobilized from its bed. It was covered with moist gauze. The below-knee popliteal space was then opened, with division of the overlying muscle fascia. The popliteal artery was identified and was carefully mobilized from the surrounding tissues and encircled with vessel loops. It had a good palpable pulse. The patient was systemically heparinized. The vein was excised with ligation of proximal and distal ends. The vein was flushed with heparin saline solution. The popliteal artery was occluded with bulldog clamps and opened on exposed surface with a 1-cm arteriotomy. The vein was brought in the reverse fashion and the distal ends spatulated. It was anastomosed to the side of the artery with running suture of 6-0 Prolene. Prior to completion of the suture line, the vein was occluded with a plastic bulldog and the arteries were allowed to flush. The lumen was filled with heparin solution. The suture line was completed. All clamps were then removed. The vein filled well, with good distal flow. It was allowed to untwist and was marked to prevent twisting. It was then passed with the aid of a plastic tunneler deep to the muscle fascia between the 2 incisions. Care was taken not to twist the vein. The posterior tibial artery was then occluded with clips and opened with a 1-cm arteriotomy. Distal backbleeding was checked and the artery was flushed with heparin solution. The vein was then spatulated and anastomosed to the side of the artery with running suture of 6-0 Prolene. Prior to completion of the suture line, the artery was allowed to back-bleed and the graft was flushed. The suture line was completed and all vessels were released. There was good flow through the anastomosis with a strong Doppler signal in the distal posterior tibial artery. Surgicel was applied to control any bleeding. When hemostasis was achieved, the wounds were irrigated and closed with interrupted and running suture of 3-0 Vicryl and skin eric. Sterile dressings were applied and the patient was taken to the recovery room in stable condition. Yvonne [id number]
--- NOTE | 2018-01-15 10:03 | PN ---
Progress Note (short form) - Note Progress Note: ID Patient was seen for evaluation and treatment of osteomyelitis of the left foot per Dr Meeks. Nonhealing ulcer lft 5the toe wit a positive Bone scan c/w ostemyelitis. Superficial wound culture for whatever benefit Alpha strep and Diptheroids ? skin serena. Had revascularization of the RLE 12/26 with out issue. He would have been treted already for osteomyeltis were it not for a histor of PCN anaphylaxis. As his situation was considered nonemergent I elected to sent hime to an scrap worker and told "99%" confident nonemergent. Second round of testing scheduled for tomorrow. Selected Entries 12/30/17 14:34 Temperature 98.2 F Pulse Rate 71 Respiratory 20 Rate Blood Pressure 118/59 Vital signs previously noted RLE with a surgical incision with eric No sig of infection. Dry callous right lat heel no drainage LLE swelling erythema 5th toe with lat ulcer draining serous drainage Microbiology 07/27/16 18:00 Urine - Urine Clean Catch Urine Culture - Final NO GROWTH OBTAINED 07/27/16 13:16 Blood - Peripheral Venous Blood Culture - Final NO GROWTH AFTER 5 DAYS INCUBATION 07/27/16 13:16 Blood - Peripheral Venous Blood Culture - Final NO GROWTH AFTER 5 DAYS INCUBATION 12/27/17 10:30 Foot - Left Lateral Gram Stain - Final 12/27/17 10:30 Foot - Left Lateral Wound Culture - Final Diphtheroid/Corynebacterium Alpha Hemolytic Streptococcus Laboratory Tests 12/27/17 12/28/17 12/29/17 05:32 07:55 07:20 WBC 16.3 H Hgb 12.1 Plt Count 264 ESR 62 H BUN 19 H D Creatinine 0.9 D Assessment Diabetic male with PVD nonhealing ulcer left foot(metatarsal 5th toe ) History of major PCN allergy though apparently not needs treatment for osteo. Also may have myeloproliferative disease Plan Make appt Dr Sarkar hematology for elevated WBC Will plan to admit for PICC line and begin IV antibiotics as soon as I know his allergy history tomorrow Jameel ABRAMS Problem List - Problems (1) DMII (diabetes mellitus, type 2) Code(s): E11.9 - TYPE 2 DIABETES MELLITUS WITHOUT COMPLICATIONS Qualifiers: Diabetes mellitus complication status: without complication (2) Osteomyelitis of left foot Code(s): M86.9 - OSTEOMYELITIS, UNSPECIFIED (3) Myeloproliferative disease Code(s): D47.1 - CHRONIC MYELOPROLIFERATIVE DISEASE (4) PVD (peripheral vascular disease) Code(s): I73.9 - PERIPHERAL VASCULAR DISEASE, UNSPECIFIED
== END 2017-12-30 16:51 | disposition home or self-care (01) | DRG 253 ==
LOC: JSAMEDAYSX 06:12 → JICU 15:07 → J6S 12-27 14:59
PROVIDERS: ADMIT Surgery; ATTEND Surgery
PROC: 041 Lower Arteries, Bypass (ICD-10-PCS; principal; 2017-12-26 08:00)
DX: E11.52 Type 2 diabetes mellitus with diabetic peripheral angiopathy with gangrene (principal); I96 Gangrene, not elsewhere classified; I50.22 Chronic systolic (congestive) heart failure; L97.518 Non-pressure chronic ulcer of other part of right foot with other specified severity; M86.8X7 Other osteomyelitis, ankle and foot; E78.5 Hyperlipidemia, unspecified; I10 Essential (primary) hypertension; I25.10 Atherosclerotic heart disease of native coronary artery without angina pectoris; D72.828 Other elevated white blood cell count; I11.0 Hypertensive heart disease with heart failure; E66.8 Other obesity; E11.621 Type 2 diabetes mellitus with foot ulcer; Z86.73 Personal history of transient ischemic attack (TIA), and cerebral infarction without residual deficits; Z88.0 Allergy status to penicillin; Z95.5 Presence of coronary angioplasty implant and graft; Z68.30 Body mass index [BMI] 30.0-30.9, adult
CPT/HCPCS: 36415; 78315-TC; 80048; 82962; 83735; 84100; 85025; 85610; 85651; 86140; 86850; 86900; 86901; 86922; 87070; 87205; 94760; 97116-GP; 97161-GP; A9503; J1644; J7030

== ENCOUNTER 2018-02-11 08:13 | Inpatient (IN) | payer MEDICARE, OTHER ==
[2018-02-11] MEDS ORDERED: VANCOMYCIN 1,000 MG in DEXTROSE 5%-WATER - 250 ML IVPB ONE (08:45)
[2018-02-11] MEDS ORDERED: VANCOMYCIN 1 GRAM (PRE-DOCKED) 1,000 MG/250 ML BAG IVPB ONE (09:15)
[2018-02-11 09:27] LABS: URINE APPEARANCE CLEAR; URINE BILIRUBIN NEGATIVE (<2.0 mg/dL); URINE COLOR YELLOW; URINE GLUCOSE (UA) NEGATIVE (NEGATIVE); URINE KETONE NEGATIVE (NEGATIVE); URINE LEUK ESTERASE NEGATIVE (NEGATIVE); URINE NITRITE NEGATIVE (NEGATIVE); URINE PROTEIN NEGATIVE (NEGATIVE); URINE UROBILINOGEN NEGATIVE mg/dL (0.2-1.0)
[2018-02-11 09:33] LABS: INR 1.05 (0.82-1.09); PROTHROMBIN TIME (PATIENT) 11.9 SEC (9.7-13.0)
[2018-02-11 09:44] LABS: ALBUMIN 3.6 g/dl (3.4-5.0); ANION GAP 6 (8-16); BLOOD UREA NITROGEN 22 mg/dL (7-18); CALCIUM 8.7 mg/dL (8.5-10.1); CHLORIDE 106 mmol/L (98-107); CO2 26 mmol/L (21-32); CREATININE 1.1 mg/dL (0.7-1.3); GLUCOSE,RANDOM 177 mg/dL (74-106); SGPT/ALT 41 U/L (12-78); SODIUM 138 mmol/L (136-145)
[2018-02-11 09:46] LABS: ALK PHOS 78 U/L (45-117); BILIRUBIN,TOTAL 1.1 mg/dL (0.2-1.0); TOT PROT 6.9 g/dl (6.4-8.2)
--- NOTE | 2018-02-11 09:46 | PDOC ---
History of Present Illness - General Chief Complaint: Wound Stated Complaint: PCP SENT FOR ADMIN Time Seen by Provider: 02/11/18 08:20 History Source: Patient Exam Limitations: No Limitations - History of Present Illness Initial Comments: 02/11/18 08:51 67-year-old male with history of diabetes and venous insufficiency presents to the emergency department for the edition secondary to osteomyelitis of the left foot. Patient states want to his left foot began one month ago and now was told that it went to the bone. Patient denies pain, fever, weakness, or elevated glucose. Pt's primary care physician is Dr. Mickey Reich and was sent in by Dr. Meeks. History of femoropopliteal bypass of the right lower extremity a few months ago performed by Dr. Meeks Timing/Duration: constant Severity: mild Associated Symptoms: reports: denies symptoms Past History - Travel Traveled outside of the country in the last 30 days: No - Past Medical History Allergies/Adverse Reactions: Allergies Allergy/AdvReac Type Severity Reaction Status Date / Time No Known Allergies Allergy Verified 02/11/18 08:15 Home Medications: Ambulatory Orders Aspirin Coated [Ecotrin -] 81 mg PO DAILY 12/24/17 Atorvastatin Ca [Lipitor] 80 mg PO HS 12/24/17 Carvedilol 6.25 mg PO BID 12/24/17 Clopidogrel Bisulfate [Plavix] 75 mg PO DAILY 12/24/17 Lisinopril 5 mg PO DAILY 12/24/17 Metformin HCl [Glucophage] 1,000 mg PO BID 12/24/17 Tamsulosin HCl [Flomax] 0.4 mg PO BID 12/24/17 Mupirocin Ointment [Bactroban 2% Ointment -] 1 applic TP DAILY applic 12/30/17 metroNIDAZOLE [Flagyl -] 500 mg PO TID #75 tablet 02/16/18 Anemia: No Asthma: No Cancer: No Cardiac Disorders: Yes (stents (2016)) CVA: No COPD: No CHF: No Dementia: No Diabetes: Yes GI Disorders: No Disorders: No HTN: Yes Hypercholesterolemia: Yes Liver Disease: No Seizures: No Thyroid Disease: No - Surgical History Cardiac Surgery: Yes (stents 2016) - Suicide/Smoking/Psychosocial Hx Smoking History: Never smoked Have you smoked in the past 12 months: No Number of Cigarettes Smoked Daily: 0 Hx Alcohol Use: No Drug/Substance Use Hx: No Substance Use Type: None Hx Substance Use Treatment: No Patient Lives Alone: No Lives with/in: spouse/SO Review of Systems - Review of Systems Able to Perform ROS?: No Constitutional: No: Symptoms Reported HEENTM: No: Symptoms Reported Respiratory: No: Symptoms reported Cardiac (ROS): No: Symptoms Reported ABD/GI: No: Symptoms Reported : No: Symptoms Reported Musculoskeletal: No: Joint Pain Integumentary: Yes: Other Endocrine: No: Symptoms Reported Hematologic/Lymphatic: No: Symptoms Reported *Physical Exam - Vital Signs Last Vital Signs Temp Pulse Resp BP Pulse Ox 98.6 F 81 17 149/80 100 02/11/18 08:15 02/11/18 08:15 02/11/18 08:15 02/11/18 08:15 02/11/18 08:15 - Physical Exam General Appearance: Yes: Nourished, Appropriately Dressed. No: Apparent Distress HEENT: positive: EOMI, DANG. negative: Pale Conjunctivae Neck: positive: Supple Respiratory/Chest: positive: Lungs Clear, Normal Breath Sounds. negative: Respiratory Distress, Accessory Muscle Use Cardiovascular: positive: Regular Rhythm, Regular Rate. negative: Murmur Gastrointestinal/Abdominal: positive: Soft. negative: Tenderness Extremity: positive: Normal Capillary Refill. negative: Pedal Edema Integumentary: positive: Other (Noted 1.5 x 1.5 cm pink epithelial wound with defined borders to the lateral aspect of left foot at the fifth toe base. surrounding Skin intact) Neurologic: positive: Motor Strength 5/5 (ambulatory) ED Treatment Course - LABORATORY CBC & Chemistry Diagram: 02/16/18 08:00 02/16/18 08:00 - ADDITIONAL ORDERS Additional order review: 02/11/18 09:10 RBC Cancelled MCV Cancelled MCHC Cancelled RDW Cancelled MPV Cancelled Neutrophils % Cancelled Lymphocytes % Cancelled Monocytes % Cancelled Eosinophils % Cancelled Basophils % Cancelled Medical Decision Making - Medical Decision Making 02/11/18 09:59 Patient sent here from Dr. Meeks for treatment of osteomyelitis and surgery. Patient ordered for preoperative labs and 1 g of vancomycin. 02/11/18 11:10 Laboratory Tests 02/11/18 02/11/18 02/11/18 09:10 09:10 09:10 WBC Cancelled Hgb Cancelled Hct Cancelled Neutrophils % Cancelled PT with INR 11.90 Sodium 138 Potassium 5.3 H Chloride 106 Carbon Dioxide 26 Anion Gap 6 L BUN 22 H D Creatinine 1.1 D Creat Clearance w eGFR > 60 Random Glucose 177 H Calcium 8.7 Total Bilirubin 1.1 H D AST 27 D ALT 41 D Alkaline Phosphatase 78 Total Protein 6.9 Albumin 3.6 Urine Glucose (UA) Urine Ketones Urine Nitrite Ur Leukocyte Esterase 02/11/18 09:15 WBC Hgb Hct Neutrophils % PT with INR Sodium Potassium Chloride Carbon Dioxide Anion Gap BUN Creatinine Creat Clearance w eGFR Random Glucose Calcium Total Bilirubin AST ALT Alkaline Phosphatase Total Protein Albumin Urine Glucose (UA) Negative Urine Ketones Negative Urine Nitrite Negative Ur Leukocyte Esterase Negative 02/11/18 11:12 Blood cultures added. Case discussed with Dr. Meeks and states the consult Dr. Jorgensen. He states patient requires a few days of antibiotics, a PICC line, and then will proceed with surgery. Patient made aware and agrees with plan. Consultation placed to Dr. Jorgensen. Case discussed with Dr. Freire who accepted the patient to [facility]. *DC/Admit/Observation/Transfer Diagnosis at time of Disposition: Osteomyelitis of left foot Qualifiers: Osteomyelitis type: unspecified type Qualified Code(s): M86.9 - Osteomyelitis, unspecified - Discharge Dispostion Disposition: VNS/HOME HEALTH CARE Condition at time of disposition: Good Decision to Admit order: Yes - Prescriptions - Referrals - Patient Instructions - Post Discharge Activity
[2018-02-11 09:47] LABS: POTASSIUM 5.3 mmol/L (3.5-5.1); SGOT/AST 27 U/L (15-37)
[2018-02-11 10:41] LABS: BASO % 0.4 % (0-2.0); EOS % 7.2 % (0-4.5); HEMATOCRIT 37.1 % (35.4-49); HEMOGLOBIN 12.7 GM/dL (11.7-16.9); LYMPH % 22.1 % (8-40); MCH 30.4 pg (25.7-33.7); MCHC 34.2 g/dl (32.0-35.9); MEAN CELL VOLUME 88.9 fl (80-96); MEAN PLT VOLUME 9.1 fl (7.5-11.1); MONO % 5.8 % (3.8-10.2); NEUT % 64.5 % (42.8-82.8); PLATELET COUNT 209 K/MM3 (134-434); RBC 4.18 M/mm3 (4.00-5.60); RDW 16.5 % (11.9-15.9)
--- NOTE | 2018-02-11 11:41 | PDOC ---
*Physical Exam - Vital Signs Last Vital Signs Temp Pulse Resp BP Pulse Ox 98.6 F 81 17 149/80 100 02/11/18 08:15 02/11/18 08:15 02/11/18 08:15 02/11/18 08:15 02/11/18 08:15 ED Treatment Course - LABORATORY CBC & Chemistry Diagram: 02/11/18 10:14 02/11/18 09:10 - ADDITIONAL ORDERS Additional order review: Laboratory Results 02/11/18 02/11/18 02/11/18 09:15 09:10 09:10 PT with INR INR Sodium 138 Potassium 5.3 H Chloride 106 Carbon Dioxide 26 Anion Gap 6 L BUN 22 H D Creatinine 1.1 D Creat Clearance w eGFR > 60 Random Glucose 177 H Calcium 8.7 Total Bilirubin 1.1 H D AST 27 D ALT 41 D Alkaline Phosphatase 78 Total Protein 6.9 Albumin 3.6 Urine Color Yellow Urine Appearance Clear Urine pH 5.0 Ur Specific Mize 1.018 Urine Protein Negative Urine Glucose (UA) Negative Urine Ketones Negative Urine Blood Negative Urine Nitrite Negative Urine Bilirubin Negative Urine Urobilinogen Negative Ur Leukocyte Esterase Negative Blood Type Cancelled Antibody Screen Cancelled 02/11/18 09:10 PT with INR 11.90 INR 1.05 Sodium Potassium Chloride Carbon Dioxide Anion Gap BUN Creatinine Creat Clearance w eGFR Random Glucose Calcium Total Bilirubin AST ALT Alkaline Phosphatase Total Protein Albumin Urine Color Urine Appearance Urine pH Ur Specific Mize Urine Protein Urine Glucose (UA) Urine Ketones Urine Blood Urine Nitrite Urine Bilirubin Urine Urobilinogen Ur Leukocyte Esterase Blood Type Antibody Screen 02/11/18 02/11/18 10:14 09:10 RBC 4.18 Cancelled MCV 88.9 Cancelled MCHC 34.2 Cancelled RDW 16.5 H Cancelled MPV 9.1 Cancelled Neutrophils % 64.5 Cancelled Lymphocytes % 22.1 Cancelled Monocytes % 5.8 Cancelled Eosinophils % 7.2 H D Cancelled Basophils % 0.4 Cancelled - Medications Given in the ED: ED Medications Discontinued Medications Generic Name Dose Route Start Last Admin Trade Name Freq PRN Reason Stop Dose Admin Vancomycin HCl 1,000 mg/ 250 mls @ 250 mls/hr 02/11/18 08:45 02/11/18 09:21 Dextrose IVPB 02/11/18 09:44 250 mls/hr ONCE ONE Administration Protocol Medical Decision Making - Medical Decision Making 02/11/18 11:40 Patient seen and evaluated with the nurse practitioner. I agree with the overall evaluation, assessment, and management with the following summary of visit: 67y/o M for management of chronic diabetic wound complicated by osteomyelitis. labs, xray abx admit *DC/Admit/Observation/Transfer Diagnosis at time of Disposition: Osteomyelitis of left foot Qualifiers: Osteomyelitis type: unspecified type Qualified Code(s): M86.9 - Osteomyelitis, unspecified - Referrals - Patient Instructions - Post Discharge Activity
[2018-02-11] MEDS ORDERED: ACETAMINOPHEN 325 MG TABLET (FP) PO PRN (12:47)
[2018-02-11] MEDS ORDERED: PICC LINE 8 ML FLUSH PROTOCOL IVPUSH PRN (13:25)
--- NOTE | 2018-02-11 14:26 | PN ---
Progress Note (short form) - Note Progress Note: Surgery Patient admitted for Chronic osteomyelitis of left foot admitted for PICC line insertion and IV ABX. Patient being followed by Dr Jorgensen. The patient denies any new symptoms and states the Left foot ulcer has been chronic x 5 months. Vital Signs Temp 98.6 F 02/11/18 11:44 Pulse 71 02/11/18 11:44 Resp 18 02/11/18 11:44 BP 150/80 02/11/18 11:44 Pulse Ox 98 02/11/18 11:44 Intake & Output 02/10/18 02/11/18 02/11/18 23:59 11:59 23:59 Weight 192 lb Other: Voiding Method Toilet Height 5 ft 7 in Body Mass Index (BMI) 30.0 Weight Measurement Method Stated by Patient Weight Measurement Method Est/Stated by Patient CBC, BMP 02/11/18 10:14 02/11/18 09:10 PE: A&Ox 3, NAD unlabored resp on RA Left foot with ulcer over base of the 5th metatarsal, some calus with drainage. boarders clean and well defined, surrounding tissue intact with no evidence of erythema, edema or collection on doppler + TP and DP pulse. Foot warm to touch Right foot with multiple small areas of dry eshcar, dopplerable TP pulse, no DP pulse on doppler. Foot warm to touch. Right leg with well healed scar over medial boarder consistent with his recent right lower ext bypass. Popliteal to posterior tibialis on 12/26/17 Problem List - Problems (1) Osteomyelitis of left foot Assessment/Plan: 1) Bactroban to wound daily 2) PICC line insertion 3) IVABX per ID Evaluation and Plan discussed with Dr Meeks. Code(s): M86.9 - OSTEOMYELITIS, UNSPECIFIED Qualifiers: Osteomyelitis type: unspecified type Qualified Code(s): M86.9 - Osteomyelitis, unspecified
[2018-02-11] MEDS: SODIUM CHLORIDE 0.45% 1,000 ML IV SCH (15:26)
--- NOTE | 2018-02-11 17:05 | PN ---
Progress Note (short form) - Note Progress Note: ID consult dictated imp/reccd chronic osteomyelitis chronic drainage from lateral aspect of left foot for last 5 months no erythema bone scan positive followed by dr lucas and dr kelley will d/w both doctors hold further antibiotics for now esr/crp s/p RLE bypass 12/26 diabetes Problem List - Problems (1) Osteomyelitis of left foot Code(s): M86.9 - OSTEOMYELITIS, UNSPECIFIED Qualifiers: Osteomyelitis type: unspecified type Qualified Code(s): M86.9 - Osteomyelitis, unspecified (2) DMII (diabetes mellitus, type 2) Code(s): E11.9 - TYPE 2 DIABETES MELLITUS WITHOUT COMPLICATIONS Qualifiers: Diabetes mellitus complication status: without complication (3) PVD (peripheral vascular disease) Code(s): I73.9 - PERIPHERAL VASCULAR DISEASE, UNSPECIFIED
--- NOTE | 2018-02-11 17:08 | CON.CARD ---
Consult Consult Specialty:: Cardiology Referred by:: Uriel Freire Reason for Consultation:: preop. CAD - History of Present Illness Chief Complaint: left foot osteomyelitis History of Present Illness: 67 year old male with a pmhx of dm, htn, hld, cva, bph, chronic systolic chf ( LVEF 33.7% in April 2017), and CAD s/p stents to LCx and RCA [employer] May 2017 who underwent recent femoropopliteal bypass of RLE a few months ago was sent in for left foot ulcer/infection for Abx and plan for possible surgery (debridement ?). Patient is otherwise without any complaints. No chest pain, sob, or palpitations. No pnd, orthopnea, or edema. No syncope or near syncope. 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: CVA (about 10 yrs ago) Cardio/Vascular: Yes: HTN, Hyperlipdemia Renal/: Yes: BPH Endocrine: Yes: Diabetes Mellitus (Type II) - Past Surgical History Past Surgical History: Yes: Cataract Removal (in rt eye about 3-4 yrs ago) - Alcohol/Substance Use Hx Alcohol Use: No - Smoking History Smoking history: Never smoked Have you smoked in the past 12 months: No Aproximately how many cigarettes per day: 0 - Social History ADL: Independent Occupation: works at [employer] in the [place] History of Recent Travel: Yes (went to [place] 2 weeks ago, believe he got pneumonia while there) Home Medications - Allergies Allergies/Adverse Reactions: Allergies Allergy/AdvReac Type Severity Reaction Status Date / Time No Known Allergies Allergy Verified 02/11/18 08:15 - Home Medications Home Medications: Ambulatory Orders Aspirin Coated [Ecotrin -] 81 mg PO DAILY 12/24/17 Atorvastatin Ca [Lipitor] 80 mg PO HS 12/24/17 Carvedilol 6.25 mg PO BID 12/24/17 Clopidogrel Bisulfate [Plavix] 75 mg PO DAILY 12/24/17 Lisinopril 5 mg PO DAILY 12/24/17 Metformin HCl [Glucophage] 1,000 mg PO BID 12/24/17 Tamsulosin HCl [Flomax] 0.4 mg PO HS 12/24/17 Acetaminophen [Tylenol .Regular Strength -] 650 mg PO Q6H PRN tablet 12/30/17 Insulin Sliding Scale [Novolog Vial Sliding Scale -] 1 vial SQ ACHS units 12/30 Mupirocin Ointment [Bactroban 2% Ointment -] 1 applic TP DAILY applic 12/30/17 Vital Signs: Vital Signs Temperature 97.4 F L 02/11/18 14:04 Pulse Rate 68 02/11/18 14:04 Respiratory Rate 18 02/11/18 14:04 Blood Pressure 134/68 02/11/18 14:04 O2 Sat by Pulse Oximetry (%) 98 02/11/18 11:44 Constitutional: Yes: No Distress Neck: Yes: Supple Respiratory: Yes: CTA Bilaterally Gastrointestinal: Yes: Normal Bowel Sounds, Soft Cardiovascular: Yes: Regular Rate and Rhythm JVD: No Carotid Bruit: No PMI: Non-Displaced Heart Sounds: Yes: S1, S2 Murmur: No: Systolic Murmur Extremities: Yes: Other (small ulcer to left foot) Edema: No - Other Data Labs, Other Data: CBC, BMP 02/11/18 10:14 02/11/18 09:10 INR, PTT INR 1.05 (0.82-1.09) 02/11/18 09:10 Imaging - Results EKG: Image Reviewed Assessment/Plan 67 year old male with a pmhx of dm, htn, hld, cva, bph, chronic systolic chf ( LVEF 33.7% in April 2017), and CAD s/p stents to LCx and RCA [employer] May 2017 who underwent recent femoropopliteal bypass of RLE a few months ago was sent in for left foot ulcer/infection for Abx and plan for possible surgery (debridement ?). 1) preop Patient is medically optimized from cardiac perspective. Had stents placed May 2017. Currently with no cardiac complaints. Exercise level 4 blocks. No signs of chf on exam. EKG with no acute changes: sinus with inferior infarct pattern and some T wave changes in I and aVL. On aspirin/plavix/statin/beta layo No further cardiac testing indicated prior to foot debridement. Intermediate cardiac risk for procedure.
[2018-02-11] MEDS: INSULIN (NOVOLOG) ASPART 100 UNITS/ML 10ML VIAL SQ SCH ×2 (17:10→21:48)
[2018-02-11] MEDS: metFORMIN HCL 500 MG TABLET (FP) PO SCH (17:11)
[2018-02-11] MEDS: MUPIROCIN 2% TOPICAL OINTMENT 22 GM TUBE TP SCH ×2 (17:12→21:43)
[2018-02-11] MEDS: HEPARIN NA (PORCINE) 5,000 UNITS/ML 1ML VIAL SQ SCH (17:13)
[2018-02-11] MEDS ORDERED: PT OWN MED DRAWER 7, Y5N ONE ×2 (17:31→21:15)
--- NOTE | 2018-02-11 17:51 | HP ---
Admitting History and Physical - Primary Care Physician PCP: Uriel Freire - Admission Chief Complaint: PREOP FOR LEFT FOOT ANGIOGRAM/PLASTY / OSTEOMYELITIS History of Present Illness: 67-year-old male with history of diabetes and venous insufficiency presents to the emergency department for the edition secondary to osteomyelitis of the left foot. Patient states want to his left foot began one month ago and now was told that it went to the bone. Patient denies pain, fever, weakness, or elevated glucose. As per my care physician is Dr. Mickey Reich and was sent in by Dr. Meeks. History of femoropopliteal bypass of the right lower extremity a few months ago performed by Dr. 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) Cardiovascular: Yes: HTN, Hyperlipdemia Renal/: Yes: BPH Endocrine: Yes: Diabetes Mellitus (Type II) - Past Surgical History Past Surgical History: Yes: Cataract Removal (in rt eye about 3-4 yrs ago) - Smoking History Smoking history: Never smoked Have you smoked in the past 12 months: No Aproximately how many cigarettes per day: 0 - Alcohol/Substance Use Hx Alcohol Use: No - Social History ADL: Independent Occupation: works at [employer] in the [place] History of Recent Travel: Yes (went to [place] 2 weeks ago, believe he got pneumonia while there) Home Medications - Allergies Allergies/Adverse Reactions: Allergies Allergy/AdvReac Type Severity Reaction Status Date / Time No Known Allergies Allergy Verified 02/11/18 08:15 - Home Medications Home Medications: Ambulatory Orders Aspirin Coated [Ecotrin -] 81 mg PO DAILY 12/24/17 Atorvastatin Ca [Lipitor] 80 mg PO HS 12/24/17 Carvedilol 6.25 mg PO BID 12/24/17 Clopidogrel Bisulfate [Plavix] 75 mg PO DAILY 12/24/17 Lisinopril 5 mg PO DAILY 12/24/17 Metformin HCl [Glucophage] 1,000 mg PO BID 12/24/17 Tamsulosin HCl [Flomax] 0.4 mg PO HS 12/24/17 Acetaminophen [Tylenol .Regular Strength -] 650 mg PO Q6H PRN tablet 12/30/17 Insulin Sliding Scale [Novolog Vial Sliding Scale -] 1 vial SQ ACHS units 12/30 Mupirocin Ointment [Bactroban 2% Ointment -] 1 applic TP DAILY applic 12/30/17 Review of Systems - Review of Systems Constitutional: reports: Other Eyes: reports: No Symptoms HENT: reports: No Symptoms Neck: reports: No Symptoms Cardiovascular: reports: No Symptoms Respiratory: reports: No Symptoms Gastrointestinal: reports: No Symptoms Genitourinary: reports: No Symptoms Musculoskeletal: reports: Muscle Weakness Integumentary: reports: Wound, Other Neurological: reports: Pre-Existing Deficit, Weakness Endocrine: reports: No Symptoms Hematology/Lymphatic: reports: No Symptoms Psychiatric: reports: No Symptoms Physical Examination Vital Signs: Vital Signs Temperature 97.4 F L 02/11/18 14:04 Pulse Rate 68 02/11/18 14:04 Respiratory Rate 18 02/11/18 14:04 Blood Pressure 134/68 02/11/18 14:04 O2 Sat by Pulse Oximetry (%) 98 02/11/18 11:44 Constitutional: Yes: Moderate Distress Eyes: Yes: WNL HENT: Yes: WNL Neck: Yes: WNL Cardiovascular: Yes: WNL Respiratory: Yes: WNL Gastrointestinal: Yes: WNL Renal/: Yes: WNL Musculoskeletal: Yes: Muscle Weakness Extremities: Yes: Deformity, Erythema, Other Edema: Yes Integumentary: Yes: Pressure Ulcer, Rash, Skin Tear, Venous Stasis Changes Wound/Incision: Yes: Dressing Dry and Intact, Dressing Removed, Draining, Reddened, Excoriated, Unapproximated, Other Neurological: Yes: Loss of Sensation, Pre-Existing Deficit, Weakness ...Motor Strength: LLE Psychiatric: Yes: WNL Labs: CBC, BMP 02/11/18 10:14 02/11/18 09:10 Problem List - Problems (1) Osteomyelitis of left foot Code(s): M86.9 - OSTEOMYELITIS, UNSPECIFIED Qualifiers: Osteomyelitis type: unspecified type Qualified Code(s): M86.9 - Osteomyelitis, unspecified (2) BPH (benign prostatic hyperplasia) Code(s): N40.0 - BENIGN PROSTATIC HYPERPLASIA WITHOUT LOWER URINRY TRACT SYMP Qualifiers: Lower urinary tract symptom presence: symptoms absent Qualified Code(s): N40.0 - Benign prostatic hyperplasia without lower urinary tract symptoms (3) DMII (diabetes mellitus, type 2) Code(s): E11.9 - TYPE 2 DIABETES MELLITUS WITHOUT COMPLICATIONS Qualifiers: Diabetes mellitus complication status: without complication (4) Edema extremities Code(s): R60.0 - LOCALIZED EDEMA (5) Hyperglycemia due to type 2 diabetes mellitus Code(s): E11.65 - TYPE 2 DIABETES MELLITUS WITH HYPERGLYCEMIA (6) Myeloproliferative disease Code(s): D47.1 - CHRONIC MYELOPROLIFERATIVE DISEASE (7) PVD (peripheral vascular disease) Code(s): I73.9 - PERIPHERAL VASCULAR DISEASE, UNSPECIFIED (8) Systolic CHF with reduced left ventricular function, NYHA class 3 Code(s): I50.20 - UNSPECIFIED SYSTOLIC (CONGESTIVE) HEART FAILURE Assessment/Plan IV ABX PER ID WOUND CARE\VASC SX START PROTEIN SUPP/VITAMINS FOR WOUND REPAIR STRICT DM CONTROL PAIN CONTROL MEDICAL CLEARANCE FROM CARDIOLOGY GRANTED
--- NOTE | 2018-02-11 18:24 | EKG ---
Test Reason : Blood Pressure : / mmHG Vent. Rate : 063 BPM Atrial Rate : 063 BPM P-R Int : 172 ms QRS Dur : 090 ms QT Int : 438 ms P-R-T Axes : 004 -10 082 degrees QTc Int : 448 ms NORMAL SINUS RHYTHM POSSIBLE INFERIOR INFARCT (CITED ON OR BEFORE 11-FEB-2018) ABNORMAL ECG WHEN COMPARED WITH ECG OF 06-MAY-2017 08:45, NO SIGNIFICANT CHANGE WAS FOUND Confirmed by ROSHAN ABRAMS, JALEESA ([id number]) on 02/11/2018 6:24:13 PM Referred By: Confirmed By:JALEESA ISLAS MD
--- NOTE | 2018-02-11 19:50 | CONS ---
INFECTIOUS DISEASE CONSULTATION DATE OF CONSULTATION: 02/11/2018 REQUESTING PHYSICIAN: Uriel Freire MD This is a 67-year-old man who, in December, underwent a right lower extremity revascularization. During that admission, he was seen by Dr. Jorgensen for a chronic wound on his left leg. He had a chronic ulcer on the left 5th toe that had been draining for about 5 months. He had tried hyperbaric oxygen unsuccessfully. During that admission, he underwent a bone scan that was noted to be positive and he was discharged off antibiotics to be seen by the parks and recreation worker and to follow up with Dr. Jorgensen. He is now readmitted for antibiotics and debridement of the foot. ALLERGIES: He has no known drug allergies. Apparently, there was a concern for a penicillin allergy, but he was referred to the parks and recreation worker, and apparently, this has been removed as an allergy. FAMILY HISTORY: Noncontributory. PAST MEDICAL HISTORY: Includes dxo-gyaowrt-verymysmo diabetes, peripheral vascular disease, hyperlipidemia, status post CVA. He has a history of coronary artery disease, and he also has a chronic leukocytosis which 2 years ago he underwent a workup with Dr. Sarkar, and he actually does not know the results of this workup. He has been asked by Dr. Jorgensen to make an appointment to see Dr. Sarkar again to follow up regarding this chronic leukocytosis. Past medical history as well includes an episode of pneumonia several years ago. REVIEW OF SYSTEMS: He has no complaints. He reports his foot really has not changed. He denies any nausea, vomiting, diarrhea, dysuria, fevers, or chills. SOCIAL HISTORY: He is currently retired. He is . He lives with his . PHYSICAL EXAMINATION: Vital Signs: He is afebrile. Temperature is 97.4. Pulse of 68, blood pressure 134/68, respiratory rate is 18. He weighs 194 pounds. HEENT: He is normocephalic. Eyes are anicteric. Neck: Supple. Lungs: Clear to auscultation. Heart: Regular rate and rhythm. Abdomen: Soft, nontender. Extremities: He has a well-healed right lower extremity scar from his previous vascularization procedure. He has a dry ulcer on the back of his right foot. There is no drainage or erythema. It is very shallow, and next to the 5th toe of his left foot, he has what appears to be a draining sinus. LABORATORY DATA: Labs are notable for a white count of 15,000, hemoglobin 12.7, platelets are 209. INR is 1. BUN is 22 and creatinine 1.1. Total bilirubin is 1.1. Urinalysis is negative. Culture of the foot has been sent. No organisms were seen, and the wound culture is pending. He had a bone scan done December 28, that, by report, shows left foot osteomyelitis in the 5th toe and distal aspect of the 5th metatarsal. In summary, this is a 67-year-old diabetic man with: 1. Chronic osteomyelitis of his left 5th toe, positive bone scan. He has no erythema or cellulitis. I will discuss this with both Dr. Jorgensen and Dr. Meeks. He received a dose of vancomycin in the ER. We will hold further antibiotics. As well, he got oral antibiotics that got discontinued a week ago. Would check a sedimentation rate and a CRP. A wound culture has been sent as well. Would suggest we hold antibiotics until he has a debridement if, indeed, that is planned. We will discuss with Dr. Meeks. 2. Status post right lower extremity bypass December 26, healing well. 3. Diabetes. Yvonne [id number]
[2018-02-11] MEDS ORDERED: INSULIN (NOVOLOG) ASPART 100 UNITS/ML 10ML VIAL ONE (21:14)
[2018-02-11] MEDS: ATORVASTATIN CA 80 MG TABLET (FP) PO SCH (21:43)
[2018-02-11] MEDS: CARVEDILOL 6.25 MG TABLET (FP) PO SCH (21:43)
[2018-02-11] MEDS: TAMSULOSIN HCL 0.4 MG CAP.ER.24H (FP) PO SCH (21:43)
[2018-02-12] MEDS: HEPARIN NA (PORCINE) 5,000 UNITS/ML 1ML VIAL SQ SCH ×3 (01:36→17:25)
[2018-02-12] MEDS: SODIUM CHLORIDE 0.45% 1,000 ML IV SCH ×3 (04:52→19:53)
[2018-02-12] MEDS: metFORMIN HCL 500 MG TABLET (FP) PO SCH ×2 (06:26→17:25)
[2018-02-12] MEDS: INSULIN (NOVOLOG) ASPART 100 UNITS/ML 10ML VIAL SQ SCH ×4 (06:26→21:24)
[2018-02-12 07:40] LABS: BASO % 0.4 % (0-2.0); EOS % 6.7 % (0-4.5); HEMATOCRIT 35.2 % (35.4-49); HEMOGLOBIN 12.1 GM/dL (11.7-16.9); LYMPH % 22.1 % (8-40); MCH 30.4 pg (25.7-33.7); MCHC 34.3 g/dl (32.0-35.9); MEAN CELL VOLUME 88.6 fl (80-96); MEAN PLT VOLUME 8.9 fl (7.5-11.1); MONO % 7.1 % (3.8-10.2); NEUT % 63.7 % (42.8-82.8); PLATELET COUNT 194 K/MM3 (134-434); RBC 3.97 M/mm3 (4.00-5.60); RDW 16.5 % (11.9-15.9); WHITE BLOOD COUNT 12.1 K/mm3 (4.0-10.0)
[2018-02-12 08:02] LABS: CHLORIDE 104 mmol/L (98-107); POTASSIUM 4.6 mmol/L (3.5-5.1); SODIUM 140 mmol/L (136-145)
[2018-02-12 08:16] LABS: ALBUMIN 3.2 g/dl (3.4-5.0); ALK PHOS 64 U/L (45-117); ANION GAP 6 (8-16); BILIRUBIN,TOTAL 0.5 mg/dL (0.2-1.0); BLOOD UREA NITROGEN 19 mg/dL (7-18); CALCIUM 8.2 mg/dL (8.5-10.1); CO2 30 mmol/L (21-32); CREATININE 0.9 mg/dL (0.7-1.3); GLUCOSE,RANDOM 149 mg/dL (74-106); SGOT/AST 14 U/L (15-37); SGPT/ALT 29 U/L (12-78); TOT PROT 5.8 g/dl (6.4-8.2)
--- NOTE | 2018-02-12 09:29 | PN ---
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 Patient is otherwise without any complaints. No chest pain, sob, or palpitations. No pnd, orthopnea, or edema. No syncope or near syncope. - Current Medication List Current Medications: Active Medications Acetaminophen (Tylenol -) 650 mg PO Q6H PRN PRN Reason: PAIN LEVEL 1-5 Aspirin (Ecotrin -) 81 mg PO DAILY [facility] Atorvastatin Calcium (Lipitor -) 80 mg PO HS [facility] Last Admin: 02/11/18 21:43 Dose: 80 mg Carvedilol (Coreg -) 6.25 mg PO BID [facility] Last Admin: 02/11/18 21:43 Dose: 6.25 mg Heparin Sodium (Porcine) (Heparin -) 5,000 unit SQ Q8H-IV [facility] Last Admin: 02/12/18 01:36 Dose: 5,000 unit IV Flush (Picc Line Flush) 8 ml IVPUSH PRN PRN PRN Reason: Protocol Sodium Chloride (1/2 Normal Saline) 1,000 mls @ 75 mls/hr IV ASDIR [facility] Last Admin: 02/12/18 04:52 Dose: 75 mls/hr Insulin Aspart (Novolog Vial) 0 units SQ ACHS [facility] PRN Reason: Protocol Last Admin: 02/12/18 06:26 Dose: Not Given Metformin HCl (Glucophage -) 1,000 mg PO BIDAC [facility] Last Admin: 02/12/18 06:26 Dose: 1,000 mg Mupirocin (Bactroban 2% Ointment -) 1 applic TP BID [facility] Last Admin: 02/11/18 21:43 Dose: 1 applic Tamsulosin HCl (Flomax -) 0.4 mg PO HS [facility] Last Admin: 02/11/18 21:43 Dose: 0.4 mg - Objective Vital Signs: Vital Signs Temperature 98.3 F 02/12/18 09:16 Pulse Rate 68 02/12/18 09:16 Respiratory Rate 20 02/12/18 09:16 Blood Pressure 127/71 02/12/18 09:16 O2 Sat by Pulse Oximetry (%) 98 02/11/18 21:00 Constitutional: Yes: No Distress Neck: Yes: Supple Cardiovascular: Yes: Regular Rate and Rhythm, S1, S2. 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 Echocardiogram 12/04/17: normal LV systolic function now with LVEF 55% and no significant valve disease. 1) preop Patient is medically optimized from cardiac perspective. Had stents placed May 2017. Currently with no cardiac complaints. Exercise level 4 blocks. No signs of chf on exam. EKG with no acute changes: sinus with inferior infarct pattern and some T wave changes in I and aVL. On aspirin/plavix/statin/beta layo. Would clarify with surgery team if can stay on plavix. No further cardiac testing indicated prior to foot debridement. Intermediate cardiac risk for procedure. Please call back as needed
[2018-02-12] MEDS: CARVEDILOL 6.25 MG TABLET (FP) PO SCH ×2 (09:42→21:25)
[2018-02-12] MEDS: ASPIRIN COATED 81 MG TABLET.EC PO SCH (09:42)
--- NOTE | 2018-02-12 10:49 | PN ---
Progress Note (short form) - Note Progress Note: VSS Exam unchanged Discussed with Dr. Connolly - will schedule for debridement of left 5th metatarsal for bone culture tomorrow. Preop orders written
[2018-02-12] MEDS: CLOPIDOGREL BISULFATE 75 MG TABLET (FP) PO SCH (11:52)
--- NOTE | 2018-02-12 16:28 | PN ---
Progress Note, Physician Chief Complaint: AWAKE IN BED COMFORTABLE - Current Medication List Current Medications: Active Medications Acetaminophen (Tylenol -) 650 mg PO Q6H PRN PRN Reason: PAIN LEVEL 1-5 Aspirin (Ecotrin -) 81 mg PO DAILY [facility] Last Admin: 02/12/18 09:42 Dose: 81 mg Atorvastatin Calcium (Lipitor -) 80 mg PO HS [facility] Last Admin: 02/11/18 21:43 Dose: 80 mg Carvedilol (Coreg -) 6.25 mg PO BID [facility] Last Admin: 02/12/18 09:42 Dose: 6.25 mg Clopidogrel Bisulfate (Plavix -) 75 mg PO DAILY [facility] Last Admin: 02/12/18 11:52 Dose: 75 mg Heparin Sodium (Porcine) (Heparin -) 5,000 unit SQ Q8H-IV [facility] Stop: 02/12/18 18:30 Last Admin: 02/12/18 11:46 Dose: 5,000 unit IV Flush (Picc Line Flush) 8 ml IVPUSH PRN PRN PRN Reason: Protocol Sodium Chloride (1/2 Normal Saline) 1,000 mls @ 75 mls/hr IV ASDIR [facility] Last Admin: 02/12/18 14:11 Dose: Not Given Insulin Aspart (Novolog Vial) 0 units SQ ACHS [facility] PRN Reason: Protocol Last Admin: 02/12/18 11:23 Dose: Not Given Metformin HCl (Glucophage -) 1,000 mg PO BIDAC [facility] Last Admin: 02/12/18 06:26 Dose: 1,000 mg Mupirocin (Bactroban 2% Ointment -) 1 applic TP BID [facility] Last Admin: 02/11/18 21:43 Dose: 1 applic Tamsulosin HCl (Flomax -) 0.4 mg PO HS [facility] Last Admin: 02/11/18 21:43 Dose: 0.4 mg - Objective Vital Signs: Vital Signs Temperature 98.1 F 02/12/18 15:00 Pulse Rate 71 02/12/18 15:00 Respiratory Rate 20 02/12/18 15:00 Blood Pressure 123/59 02/12/18 15:00 O2 Sat by Pulse Oximetry (%) 98 02/11/18 21:00 Constitutional: Yes: No Distress, Mild Distress Eyes: Yes: WNL HENT: Yes: WNL Neck: Yes: WNL Cardiovascular: Yes: WNL Respiratory: Yes: WNL Gastrointestinal: Yes: WNL Genitourinary: Yes: WNL Musculoskeletal: Yes: WNL Extremities: Yes: Deformity Edema: No Peripheral Pulses WNL: Yes Integumentary: Yes: Other Wound/Incision: Yes: Dressing Dry and Intact (LEFT FIFTH METATARSAL) Neurological: Yes: Pre-Existing Deficit ...Motor Strength: LLE, RLE Psychiatric: Yes: Other Labs: CBC, BMP 02/12/18 06:30 02/12/18 06:30 INR, PTT INR 1.05 (0.82-1.09) 02/11/18 09:10 Problem List - Problems (1) Osteomyelitis of left foot Code(s): M86.9 - OSTEOMYELITIS, UNSPECIFIED Qualifiers: Osteomyelitis type: unspecified type Qualified Code(s): M86.9 - Osteomyelitis, unspecified (2) BPH (benign prostatic hyperplasia) Code(s): N40.0 - BENIGN PROSTATIC HYPERPLASIA WITHOUT LOWER URINRY TRACT SYMP Qualifiers: Lower urinary tract symptom presence: symptoms absent Qualified Code(s): N40.0 - Benign prostatic hyperplasia without lower urinary tract symptoms (3) DMII (diabetes mellitus, type 2) Code(s): E11.9 - TYPE 2 DIABETES MELLITUS WITHOUT COMPLICATIONS Qualifiers: Diabetes mellitus complication status: without complication (4) Edema extremities Code(s): R60.0 - LOCALIZED EDEMA (5) Hyperglycemia due to type 2 diabetes mellitus Code(s): E11.65 - TYPE 2 DIABETES MELLITUS WITH HYPERGLYCEMIA (6) Myeloproliferative disease Code(s): D47.1 - CHRONIC MYELOPROLIFERATIVE DISEASE (7) PVD (peripheral vascular disease) Code(s): I73.9 - PERIPHERAL VASCULAR DISEASE, UNSPECIFIED (8) Systolic CHF with reduced left ventricular function, NYHA class 3 Code(s): I50.20 - UNSPECIFIED SYSTOLIC (CONGESTIVE) HEART FAILURE Assessment/Plan IV ABX SURGERY FOR SUNDAY WITH DR MCKENNA MEDICALLY CLEARED FOR SURGERY DVT PROPHYLAXIS STOP ASA OOB TO CHAIR
[2018-02-12] MEDS: MUPIROCIN 2% TOPICAL OINTMENT 22 GM TUBE TP SCH ×2 (18:11→21:25)
[2018-02-12] MEDS ORDERED: PT OWN MED DRAWER 7, Y5N ONE (20:55)
[2018-02-12] MEDS: TAMSULOSIN HCL 0.4 MG CAP.ER.24H (FP) PO SCH (21:25)
[2018-02-12] MEDS: ATORVASTATIN CA 80 MG TABLET (FP) PO SCH (21:25)
[2018-02-13] MEDS: INSULIN (NOVOLOG) ASPART 100 UNITS/ML 10ML VIAL SQ SCH ×2 (06:28→12:25)
[2018-02-13] MEDS: metFORMIN HCL 500 MG TABLET (FP) PO SCH ×2 (06:30→16:58)
[2018-02-13] MEDS ORDERED: MIDAZOLAM HCL 2 MG/2 ML SINGLE DOSE VIAL ONE (08:47)
[2018-02-13] MEDS: CARVEDILOL 6.25 MG TABLET (FP) PO SCH ×2 (09:00→21:38)
[2018-02-13] MEDS ORDERED: PROPOFOL 20 ML ONE (09:25)
[2018-02-13] MEDS ORDERED: LIDOCAINE HCL/PF 2% SDV 5ML VIAL ONE (09:44)
[2018-02-13] MEDS ORDERED: KETOROLAC TROMETHAMINE 30 MG/1 ML VIAL ONE (09:45)
[2018-02-13] MEDS: MUPIROCIN 2% TOPICAL OINTMENT 22 GM TUBE TP SCH ×2 (10:00→22:45)
--- NOTE | 2018-02-13 10:26 | PN ---
Progress Note (short form) - Note Progress Note: PATIENT WOULD LIKE ANOTHER HOSPITALIST TO CARE FOR HIM HERE. I WILL SIGNOFF TO HOSPITALIST. Problem List - Problems (1) Osteomyelitis of left foot Code(s): M86.9 - OSTEOMYELITIS, UNSPECIFIED Qualifiers: Osteomyelitis type: unspecified type Qualified Code(s): M86.9 - Osteomyelitis, unspecified (2) BPH (benign prostatic hyperplasia) Code(s): N40.0 - BENIGN PROSTATIC HYPERPLASIA WITHOUT LOWER URINRY TRACT SYMP Qualifiers: Lower urinary tract symptom presence: symptoms absent Qualified Code(s): N40.0 - Benign prostatic hyperplasia without lower urinary tract symptoms (3) DMII (diabetes mellitus, type 2) Code(s): E11.9 - TYPE 2 DIABETES MELLITUS WITHOUT COMPLICATIONS Qualifiers: Diabetes mellitus complication status: without complication (4) Edema extremities Code(s): R60.0 - LOCALIZED EDEMA (5) Hyperglycemia due to type 2 diabetes mellitus Code(s): E11.65 - TYPE 2 DIABETES MELLITUS WITH HYPERGLYCEMIA (6) Myeloproliferative disease Code(s): D47.1 - CHRONIC MYELOPROLIFERATIVE DISEASE (7) PVD (peripheral vascular disease) Code(s): I73.9 - PERIPHERAL VASCULAR DISEASE, UNSPECIFIED (8) Systolic CHF with reduced left ventricular function, NYHA class 3 Code(s): I50.20 - UNSPECIFIED SYSTOLIC (CONGESTIVE) HEART FAILURE
[2018-02-13] MEDS ORDERED: ONDANSETRON 4 MG/2 ML VIAL IVPUSH PRN ×2 (10:29→12:02)
[2018-02-13] MEDS ORDERED: LACTATED RINGERS SOLUTION 1,000 ML IV SCH (10:30)
[2018-02-13] MEDS ORDERED: LIDOCAINE HCL 1%, 10 MG/ML (20ML VIAL) ONE (10:30)
[2018-02-13] MEDS ORDERED: LIDOCAINE HCL 1%, 10 MG/ML (20ML VIAL) NR ONE ×2 (10:55)
--- NOTE | 2018-02-13 11:24 | OP ---
Operative Note - Note: Operative Date: 02/13/18 Pre-Operative Diagnosis: Wound left foot Operation: Debridement skin, subcutaneous tissue and bone left foot Findings: Wound of left lateral foot extending deep to metatarsal head. Post-Operative Diagnosis: Same as Pre-op Surgeon: Timmy Meeks Anesthesiologist/PARTS ANALYST: Alex Ambrose Anesthesia: Fractional Specimens Removed: Skin, SubQ and fascia, loose bone fragments Estimated Blood Loss (mls): 20
[2018-02-13] MEDS ORDERED: PICC LINE 8 ML FLUSH PROTOCOL IVPUSH PRN (12:02)
[2018-02-13] MEDS ORDERED: ACETAMINOPHEN 325 MG TABLET (FP) PO PRN (12:02)
[2018-02-13] MEDS ORDERED: SODIUM CHLORIDE 0.45% 1,000 ML IV SCH (12:02)
[2018-02-13] MEDS ORDERED: ceFAZolin SODIUM 1 GM VIAL ONE (13:53)
[2018-02-13] MEDS ORDERED: DEXTROSE 5%-WATER - 50 ML IVPB ONE (13:54)
[2018-02-13] MEDS ORDERED: CEFAZOLIN 1 GM in DEXTROSE 5%-WATER - 50 ML IVPB SCH (14:00)
[2018-02-13] MEDS: LACTATED RINGERS SOLUTION 1,000 ML IV SCH ×2 (14:03→16:02)
--- NOTE | 2018-02-13 14:16 | PN ---
Physical Exam: SUBJECTIVE: Patient seen and examined. He is feeling good after the surgery earlier today. He denies fever, chills, pain in left lower extremity. OBJECTIVE: Vital Signs Period Temp Pulse Resp BP Sys/Garces Pulse Ox Last 24 Hr 97.3 F-98.3 F 52-78 16-20 107-159/50-90 96-100 GENERAL: The patient is awake, alert, and fully oriented, in no acute distress, lying comfortably in bed. HEAD: Normal with no signs of trauma. EYES: PERRL, extraocular movements intact, sclera anicteric, conjunctiva clear. ENT: oropharynx clear without exudates, moist mucous membranes. NECK: Trachea midline, full range of motion, supple. LUNGS: Breath sounds equal, clear to auscultation bilaterally, no wheezes, no crackles, no accessory muscle use. HEART: Regular rate and rhythm, S1, S2 without murmur, rub or gallop. ABDOMEN: Soft, nontender, nondistended, normoactive bowel sounds, no guarding, no rebound, no hepatosplenomegaly, no masses. EXTREMITIES: RLE: 1+ pulse in DP, small 1.5 cm superficial and two small ulcers on the bottom, not draining, no erythema, no swelling, no edema. LLE: dressing applied, no drainage visible. NEUROLOGICAL: Normal speech, no facial asymmetry, gait not observed. PSYCH: Normal mood, normal affect. SKIN: Warm, dry, normal turgor, no rashes. Laboratory Results - last 24 hr 02/12/18 02/12/18 02/13/18 16:30 21:24 06:27 POC Glucometer 141 175 143 02/13/18 11:51 POC Glucometer 123 Active Medications Generic Name Dose Route Start Last Admin Trade Name Freq PRN Reason Stop Dose Admin Acetaminophen 650 mg 02/13/18 12:02 Tylenol - PO Q6H PRN PAIN LEVEL 1-5 Aspirin 81 mg 02/14/18 10:00 Ecotrin - PO DAILY [facility] Atorvastatin Calcium 80 mg 02/13/18 22:00 Lipitor - PO HS [facility] Carvedilol 6.25 mg 02/13/18 22:00 Coreg - PO BID [facility] Clopidogrel Bisulfate 75 mg 02/14/18 10:00 Plavix - PO DAILY [facility] Fentanyl 25 mcg 02/13/18 12:02 Sublimaze Injection - IVPUSH [id number] PRN PAIN-PACU ORDER X 4 DOSES ONLY IV Flush 8 ml 02/13/18 12:02 Picc Line Flush IVPUSH PRN PRN Protocol Lactated Ringer's 1,000 mls @ 75 mls/hr 02/13/18 12:02 02/13/18 14:03 Lactated Ringers Solution IV Not Given ASDIR [facility] Sodium Chloride 1,000 mls @ 75 mls/hr 02/13/18 12:02 02/13/18 14:03 1/2 Normal Saline IV 75 mls/hr ASDIR [facility] Administration Cefazolin Sodium 1 gm/ 50 mls @ 100 mls/hr 02/13/18 14:00 02/13/18 14:02 Dextrose IVPB 02/14/18 13:59 100 mls/hr Q8H-IV [facility] Administration Insulin Aspart 1 vial 02/13/18 16:30 Novolog Vial Sliding Scale - SQ ACHS [facility] Protocol Metformin HCl 1,000 mg 02/13/18 16:30 Glucophage - PO BIDAC [facility] Mupirocin 1 applic 02/13/18 22:00 Bactroban 2% Ointment - TP BID [facility] Ondansetron HCl 4 mg 02/13/18 12:02 Zofran Injection IVPUSH Q6H PRN NAUSEA AND/OR VOMITING Tamsulosin HCl 0.4 mg 02/13/18 22:00 Flomax - PO HS [facility] ASSESSMENT/PLAN: The patient is a 67 year old male with a PMH of DM II, venous insufficiency, s/ p femoropopliteal bypass in RLE, HTN, hyperlipidemia, BPH, chronic systolic CHF , TIA, CAD s/p 2 stents, admitted to the hospital for left foot osteomyelitis in fifth metatarsal. Osteomyelitis in left foot: -s/p debridement 02/13/[address] Meeks, will f/u recommendations -will follow up ID recommendations -will require residential antibiotics -continue Vancomycin, Cefazolin -f/u cultures from wound -pain control with Tylenol and Fentanyl -PiCC line ordered -continue LR at 75 cc/hr CAD s/p 2 stents: continue ASA, Plavix BPH: -cont Flomax DM II: -continue Metformin 500 BID -BGM ACHS HLD: -continue Lipitor 80 mg qd HTN: -cont Coreg 6.26 BID -controlled DVT PPX: -heparin sq -scds Disposition: -med surg Problem List - Problems (1) Osteomyelitis of left foot Code(s): M86.9 - OSTEOMYELITIS, UNSPECIFIED Qualifiers: Osteomyelitis type: unspecified type Qualified Code(s): M86.9 - Osteomyelitis, unspecified (2) BPH (benign prostatic hyperplasia) Code(s): N40.0 - BENIGN PROSTATIC HYPERPLASIA WITHOUT LOWER URINRY TRACT SYMP Qualifiers: Lower urinary tract symptom presence: symptoms absent Qualified Code(s): N40.0 - Benign prostatic hyperplasia without lower urinary tract symptoms (3) DMII (diabetes mellitus, type 2) Code(s): E11.9 - TYPE 2 DIABETES MELLITUS WITHOUT COMPLICATIONS Qualifiers: Diabetes mellitus complication status: without complication (4) Hyperglycemia due to type 2 diabetes mellitus Code(s): E11.65 - TYPE 2 DIABETES MELLITUS WITH HYPERGLYCEMIA (5) PVD (peripheral vascular disease) Code(s): I73.9 - PERIPHERAL VASCULAR DISEASE, UNSPECIFIED (6) Systolic CHF with reduced left ventricular function, NYHA class 3 Code(s): I50.20 - UNSPECIFIED SYSTOLIC (CONGESTIVE) HEART FAILURE Visit type - Emergency Visit Emergency Visit: Yes ED Registration Date: 02/11/18 Care time: The patient presented to the Emergency Department on the above date and was hospitalized for further evaluation of their emergent condition. - New Patient This patient is new to me today: Yes Date on this admission: 02/13/18 - Critical Care Critical Care patient: No - Discharge Referral Referred to [facility] No
--- NOTE | 2018-02-13 14:18 | PN ---
Progress Note (short form) - Note Progress Note: tolerated debridement well- post op dressing left foot Vital Signs Period Temp Pulse Resp BP Sys/Garces Pulse Ox Last 24 Hr 97.3 F-98.3 F 52-78 16-20 107-159/50-90 96-100 cor-rrr lungs clear abd soft,nt ext dressing LLE CBC, BMP 02/12/18 06:30 02/12/18 06:30 Microbiology 02/11/18 09:10 Foot - Right Gram Stain - Final 02/11/18 09:10 Foot - Right Wound Culture - Final Staphylococcus Coagulase Neg Diphtheroid/Corynebacterium 02/11/18 10:54 Blood - Peripheral Venous Blood Culture - Preliminary NO GROWTH OBTAINED AFTER 24 HOURS, INCUBATION TO CONTINUE FOR 4 DAYS. 02/11/18 10:03 Blood - Peripheral Venous Blood Culture - Preliminary NO GROWTH OBTAINED AFTER 24 HOURS, INCUBATION TO CONTINUE FOR 4 DAYS. a/p chronic osteo left foot- s/p debridement- ulcer extened to bone per op note f/u operative cultures d/w Dr Jorgensen (who has been following patient as outpt) vanco/cefepime po flagyl pending cultures s/p RLE bypass 12/26 diabetes Problem List - Problems (1) Osteomyelitis of left foot Code(s): M86.9 - OSTEOMYELITIS, UNSPECIFIED Qualifiers: Osteomyelitis type: unspecified type Qualified Code(s): M86.9 - Osteomyelitis, unspecified (2) DMII (diabetes mellitus, type 2) Code(s): E11.9 - TYPE 2 DIABETES MELLITUS WITHOUT COMPLICATIONS Qualifiers: Diabetes mellitus complication status: without complication (3) PVD (peripheral vascular disease) Code(s): I73.9 - PERIPHERAL VASCULAR DISEASE, UNSPECIFIED
[2018-02-13] MEDS ORDERED: CEFEPIME HCL/D5W 2 GM/50 ML BAG IVPB SCH (14:30)
[2018-02-13] MEDS ORDERED: PT OWN MED DRAWER 7, Y5N ONE ×2 (15:14→21:14)
[2018-02-13] MEDS: metroNIDAZOLE 250 MG TABLET PO SCH ×2 (15:22→21:38)
[2018-02-13] MEDS: CEFEPIME 2 GM in DEXTROSE 5%-WATER 100 ML IVPB SCH ×2 (15:23→21:38)
--- NOTE | 2018-02-13 15:27 | PN ---
Teaching Attending Note Name of Resident: Karen Lockett ATTENDING PHYSICIAN STATEMENT I saw and evaluated the patient. I reviewed the resident's note and discussed the case with the resident. I agree with the resident's findings and plan as documented. SUBJECTIVE: Patient has no complaints. OBJECTIVE: Vital Signs Period Temp Pulse Resp BP Sys/Garces Pulse Ox Last 24 Hr 97.3 F-98.3 F 52-78 16-20 107-159/50-90 96-100 HEART: S1S2, RRR LUNGS: Clear ABDOMEN: Soft, non-tender, non-distended, normal BS EXTREMITIES: Left foot wrapped Laboratory Results - last 24 hr 02/12/18 02/12/18 02/13/18 16:30 21:24 06:27 POC Glucometer 141 175 143 02/13/18 11:51 POC Glucometer 123 Current Medications Generic Name Dose Route Start Last Admin Trade Name Freq PRN Reason Stop Dose Admin Acetaminophen 650 mg 02/13/18 12:02 Tylenol - PO Q6H PRN PAIN LEVEL 1-5 Aspirin 81 mg 02/14/18 10:00 Ecotrin - PO DAILY [facility] Atorvastatin Calcium 80 mg 02/13/18 22:00 Lipitor - PO HS [facility] Carvedilol 6.25 mg 02/13/18 22:00 Coreg - PO BID [facility] Clopidogrel Bisulfate 75 mg 02/14/18 10:00 Plavix - PO DAILY [facility] Fentanyl 25 mcg 02/13/18 12:02 Sublimaze Injection - IVPUSH [id number] PRN PAIN-PACU ORDER X 4 DOSES ONLY IV Flush 8 ml 02/13/18 12:02 Picc Line Flush IVPUSH PRN PRN Protocol Lactated Ringer's 1,000 mls @ 75 mls/hr 02/13/18 12:02 02/13/18 14:03 Lactated Ringers Solution IV Not Given ASDIR [facility] Vancomycin HCl 1 gm in 200 mls @ 150 mls/hr 02/13/18 15:00 Vancomycin 1 Gm Premix - IVPB BID@0300,1500 [facility] Protocol Cefepime HCl 2 gm/ Dextrose 100 mls @ 200 mls/hr 02/13/18 14:30 IVPB BID [facility] Protocol Insulin Aspart 1 vial 02/13/18 16:30 Novolog Vial Sliding Scale - SQ ACHS [facility] Protocol Metformin HCl 1,000 mg 02/13/18 16:30 Glucophage - PO BIDAC [facility] Metronidazole 500 mg 02/13/18 14:30 Flagyl - PO TID [facility] Mupirocin 1 applic 02/13/18 22:00 Bactroban 2% Ointment - TP BID [facility] Ondansetron HCl 4 mg 02/13/18 12:02 Zofran Injection IVPUSH Q6H PRN NAUSEA AND/OR VOMITING Tamsulosin HCl 0.4 mg 02/13/18 22:00 Flomax - PO HS [facility] ASSESSMENT AND PLAN: This is a 67 year old man with a history of type 2 DM, venous insufficiency, PAD , RLE bypass, HTN, hyperlipidemia, BPH, chronic systolic heart failure, TIA, CAD with stents who presented to the ED for osteomyelitis of his left foot. 1. Chronic osteomyelitis of left foot - s/p debridement today - On Cefepime, Flagyl, Vancomycin - Follow up wound culture 2. CAD, history of stents - Continue aspirin, Coreg, Lipitor, Plavix 3. HTN - Continue Coreg 4. Hyperlipidemia - Continue Lipitor 5. Type 2 DM - Continue metformin, Novolog sliding scale 6. PAD, history of RLE bypass - Continue Plavix, Lipitor 7. Chronic systolic heart failure - Stable 8. History of TIA - Continue aspirin 9. BPH - Continue Flomax
[2018-02-13] MEDS: VANCOMYCIN 1 GM PREMIX - 1 GM/200 ML BAG IVPB SCH (16:00)
[2018-02-13] MEDS: ASPIRIN COATED 81 MG TABLET.EC PO SCH (16:01)
[2018-02-13] MEDS: CLOPIDOGREL BISULFATE 75 MG TABLET (FP) PO SCH (16:01)
[2018-02-13] MEDS: INSULIN SLIDING SCALE (NOVOLOG) 1 VIAL SQ SCH ×2 (17:02→21:39)
[2018-02-13] MEDS: TAMSULOSIN HCL 0.4 MG CAP.ER.24H (FP) PO SCH (21:38)
[2018-02-13] MEDS: ATORVASTATIN CA 80 MG TABLET (FP) PO SCH (21:38)
[2018-02-14] MEDS: VANCOMYCIN 1 GM PREMIX - 1 GM/200 ML BAG IVPB SCH ×2 (03:29→15:14)
[2018-02-14] MEDS: metroNIDAZOLE 250 MG TABLET PO SCH ×3 (06:36→21:35)
[2018-02-14] MEDS: INSULIN SLIDING SCALE (NOVOLOG) 1 VIAL SQ SCH ×3 (06:37→17:39)
[2018-02-14] MEDS: metFORMIN HCL 500 MG TABLET (FP) PO SCH ×2 (06:37→17:42)
[2018-02-14 07:32] LABS: BASO % 0.5 % (0-2.0); EOS % 6.3 % (0-4.5); HEMATOCRIT 32.9 % (35.4-49); HEMOGLOBIN 11.3 GM/dL (11.7-16.9); LYMPH % 17.2 % (8-40); MCH 30.5 pg (25.7-33.7); MCHC 34.4 g/dl (32.0-35.9); MEAN CELL VOLUME 88.6 fl (80-96); MEAN PLT VOLUME 8.9 fl (7.5-11.1); MONO % 6.7 % (3.8-10.2); NEUT % 69.3 % (42.8-82.8); PLATELET COUNT 197 K/MM3 (134-434); RBC 3.71 M/mm3 (4.00-5.60); RDW 16.8 % (11.9-15.9); WHITE BLOOD COUNT 13.7 K/mm3 (4.0-10.0)
[2018-02-14 08:53] LABS: CHLORIDE 106 mmol/L (98-107); POTASSIUM 4.6 mmol/L (3.5-5.1); SODIUM 140 mmol/L (136-145)
[2018-02-14 09:04] LABS: ALBUMIN 3.1 g/dl (3.4-5.0); ALK PHOS 61 U/L (45-117); ANION GAP 7 (8-16); BILIRUBIN,TOTAL 0.3 mg/dL (0.2-1.0); BLOOD UREA NITROGEN 22 mg/dL (7-18); CALCIUM 8.1 mg/dL (8.5-10.1); CO2 27 mmol/L (21-32); GLUCOSE,RANDOM 141 mg/dL (74-106); SGOT/AST 15 U/L (15-37); SGPT/ALT 26 U/L (12-78); TOT PROT 5.7 g/dl (6.4-8.2)
--- NOTE | 2018-02-14 09:34 | PN ---
Teaching Attending Note Name of Resident: Karen Lockett ATTENDING PHYSICIAN STATEMENT I saw and evaluated the patient. I reviewed the resident's note and discussed the case with the resident. I agree with the resident's findings and plan as documented. SUBJECTIVE: Patient is sitting at side of bed. He has no complaints. OBJECTIVE: Vital Signs Period Temp Pulse Resp BP Sys/Garces Pulse Ox Last 24 Hr 97.4 F-98.0 F 52-73 16-20 107-147/50-78 96-99 HEART: S1S2, RRR LUNGS: Clear ABDOMEN: Soft, non-tender, non-distended, normal BS EXTREMITIES: Left foot wrapped Laboratory Results - last 24 hr 02/13/18 02/13/18 02/13/18 11:51 16:59 21:34 WBC RBC Hgb Hct MCV MCH MCHC RDW Plt Count MPV Neutrophils % Lymphocytes % Monocytes % Eosinophils % Basophils % Sodium Potassium Chloride Carbon Dioxide Anion Gap BUN Creatinine Creat Clearance w eGFR POC Glucometer 123 243 122 Random Glucose Calcium Total Bilirubin AST ALT Alkaline Phosphatase Total Protein Albumin 02/14/18 02/14/18 02/14/18 05:49 07:10 07:10 WBC 13.7 H RBC 3.71 L Hgb 11.3 L Hct 32.9 L MCV 88.6 MCH 30.5 MCHC 34.4 RDW 16.8 H Plt Count 197 MPV 8.9 Neutrophils % 69.3 Lymphocytes % 17.2 D Monocytes % 6.7 Eosinophils % 6.3 H Basophils % 0.5 Sodium 140 Potassium 4.6 Chloride 106 Carbon Dioxide 27 Anion Gap 7 L BUN 22 H Creatinine 1.0 Creat Clearance w eGFR > 60 POC Glucometer 166 Random Glucose 141 H Calcium 8.1 L Total Bilirubin 0.3 D AST 15 ALT 26 Alkaline Phosphatase 61 Total Protein 5.7 L Albumin 3.1 L Current Medications Generic Name Dose Route Start Last Admin Trade Name Freq PRN Reason Stop Dose Admin Acetaminophen 650 mg 02/13/18 12:02 Tylenol - PO Q6H PRN PAIN LEVEL 1-5 Aspirin 81 mg 02/14/18 10:00 Ecotrin - PO DAILY [facility] Atorvastatin Calcium 80 mg 02/13/18 22:00 02/13/18 21:38 Lipitor - PO 80 mg HS [facility] Administration Carvedilol 6.25 mg 02/13/18 22:00 02/13/18 21:38 Coreg - PO 6.25 mg BID [facility] Administration Clopidogrel Bisulfate 75 mg 02/14/18 10:00 Plavix - PO DAILY [facility] IV Flush 8 ml 02/13/18 12:02 Picc Line Flush IVPUSH PRN PRN Protocol Vancomycin HCl 1 gm in 200 mls @ 150 mls/hr 02/13/18 15:00 02/14/18 03:29 Vancomycin 1 Gm Premix - IVPB 150 mls/hr BID@0300,1500 [facility] Administration Protocol Cefepime HCl 2 gm/ Dextrose 100 mls @ 200 mls/hr 02/13/18 14:30 02/13/18 21: 38 IVPB 200 mls/hr BID [facility] Administration Protocol Insulin Aspart 1 vial 02/13/18 16:30 02/14/18 06:37 Novolog Vial Sliding Scale - SQ Not Given ACHS [facility] Protocol Metformin HCl 1,000 mg 02/13/18 16:30 02/14/18 06:37 Glucophage - PO 1,000 mg BIDAC [facility] Administration Metronidazole 500 mg 02/13/18 14:30 02/14/18 06:36 Flagyl - PO 500 mg TID [facility] Administration Mupirocin 1 applic 02/13/18 22:00 02/13/18 22:45 Bactroban 2% Ointment - TP Not Given BID [facility] Ondansetron HCl 4 mg 02/13/18 12:02 Zofran Injection IVPUSH Q6H PRN NAUSEA AND/OR VOMITING Tamsulosin HCl 0.4 mg 02/13/18 22:00 02/13/18 21:38 Flomax - PO 0.4 mg HS [facility] Administration ASSESSMENT AND PLAN: This is a 67 year old man with a history of type 2 DM, venous insufficiency, PAD , RLE bypass, HTN, hyperlipidemia, BPH, chronic systolic heart failure, TIA, CAD with stents who presented to the ED for osteomyelitis of his left foot. 1. Chronic osteomyelitis of left foot - s/p debridement 02/13 - On Cefepime, Flagyl, Vancomycin - Wound culture pending 2. CAD, history of stents - Continue aspirin, Coreg, Lipitor, Plavix 3. HTN - Continue Coreg 4. Hyperlipidemia - Continue Lipitor 5. Type 2 DM - Continue metformin, Novolog sliding scale 6. PAD, history of RLE bypass - Continue Plavix, Lipitor 7. Chronic systolic heart failure - Stable 8. History of TIA - Continue aspirin 9. BPH - Continue Flomax
[2018-02-14] MEDS: CLOPIDOGREL BISULFATE 75 MG TABLET (FP) PO SCH (09:47)
[2018-02-14] MEDS: ASPIRIN COATED 81 MG TABLET.EC PO SCH (09:47)
[2018-02-14] MEDS: CEFEPIME 2 GM in DEXTROSE 5%-WATER 100 ML IVPB SCH ×2 (09:47→21:48)
[2018-02-14] MEDS: CARVEDILOL 6.25 MG TABLET (FP) PO SCH ×2 (09:48→21:35)
--- NOTE | 2018-02-14 13:29 | PN ---
Progress Note (short form) - Note Progress Note: Anesthesia postop note 67 y/o M s/p MAC for foot debridment POD#1, vss, aaox3, no complaints. No anesthesia complications.
--- NOTE | 2018-02-14 14:18 | PN ---
Physical Exam: SUBJECTIVE: Patient seen and examined. Hew is feeling good today, no complaints. OBJECTIVE: Vital Signs Period Temp Pulse Resp BP Sys/Garces Pulse Ox Last 24 Hr 97.5 F-98.5 F 65-74 18-20 135-155/63-78 96 GENERAL: The patient is awake, alert, and fully oriented, in no acute distress, lying comfortably in bed. HEAD: Normal with no signs of trauma. EYES: extraocular movements intact, sclera anicteric, conjunctiva clear. ENT: oropharynx clear without exudates, moist mucous membranes. NECK: Trachea midline, full range of motion, supple. LUNGS: Breath sounds equal, clear to auscultation bilaterally, no wheezes, no crackles, no accessory muscle use. HEART: Regular rate and rhythm, S1, S2 without murmur, rub or gallop. ABDOMEN: Soft, nontender, nondistended, normoactive bowel sounds, no guarding, no rebound, no hepatosplenomegaly, no masses. EXTREMITIES: RLE: 1+ pulse in DP, small 1.5 cm superficial and two small ulcers on the bottom, not draining, no erythema, no swelling, no edema. LLE: dressing applied, no drainage visible. NEUROLOGICAL: Normal speech, no facial asymmetry, gait not observed. PSYCH: Normal mood, normal affect. SKIN: Warm, dry, normal turgor, no rashes. Laboratory Results - last 24 hr 02/13/18 02/13/18 02/14/18 16:59 21:34 05:49 WBC RBC Hgb Hct MCV MCH MCHC RDW Plt Count MPV Neutrophils % Lymphocytes % Monocytes % Eosinophils % Basophils % Sodium Potassium Chloride Carbon Dioxide Anion Gap BUN Creatinine Creat Clearance w eGFR POC Glucometer 243 122 166 Random Glucose Hemoglobin A1c % Calcium Total Bilirubin AST ALT Alkaline Phosphatase Total Protein Albumin 02/14/18 02/14/18 02/14/18 07:10 07:10 08:25 WBC 13.7 H RBC 3.71 L Hgb 11.3 L Hct 32.9 L MCV 88.6 MCH 30.5 MCHC 34.4 RDW 16.8 H Plt Count 197 MPV 8.9 Neutrophils % 69.3 Lymphocytes % 17.2 D Monocytes % 6.7 Eosinophils % 6.3 H Basophils % 0.5 Sodium 140 Potassium 4.6 Chloride 106 Carbon Dioxide 27 Anion Gap 7 L BUN 22 H Creatinine 1.0 Creat Clearance w eGFR > 60 POC Glucometer Random Glucose 141 H Hemoglobin A1c % 8.4 H D Calcium 8.1 L Total Bilirubin 0.3 D AST 15 ALT 26 Alkaline Phosphatase 61 Total Protein 5.7 L Albumin 3.1 L 02/14/18 11:36 WBC RBC Hgb Hct MCV MCH MCHC RDW Plt Count MPV Neutrophils % Lymphocytes % Monocytes % Eosinophils % Basophils % Sodium Potassium Chloride Carbon Dioxide Anion Gap BUN Creatinine Creat Clearance w eGFR POC Glucometer 144 Random Glucose Hemoglobin A1c % Calcium Total Bilirubin AST ALT Alkaline Phosphatase Total Protein Albumin Active Medications Generic Name Dose Route Start Last Admin Trade Name Freq PRN Reason Stop Dose Admin Acetaminophen 650 mg 02/13/18 12:02 Tylenol - PO Q6H PRN PAIN LEVEL 1-5 Aspirin 81 mg 02/14/18 10:00 02/14/18 09:47 Ecotrin - PO 81 mg DAILY [facility] Administration Atorvastatin Calcium 80 mg 02/13/18 22:00 02/13/18 21:38 Lipitor - PO 80 mg HS [facility] Administration Carvedilol 6.25 mg 02/13/18 22:00 02/14/18 09:48 Coreg - PO 6.25 mg BID [facility] Administration Clopidogrel Bisulfate 75 mg 02/14/18 10:00 02/14/18 09:47 Plavix - PO 75 mg DAILY [facility] Administration Collagenase 1 applic 02/14/18 13:15 Santyl - TP DAILY [facility] IV Flush 8 ml 02/13/18 12:02 Picc Line Flush IVPUSH PRN PRN Protocol Vancomycin HCl 1 gm in 200 mls @ 150 mls/hr 02/13/18 15:00 02/14/18 03:29 Vancomycin 1 Gm Premix - IVPB 150 mls/hr BID@0300,1500 [facility] Administration Protocol Cefepime HCl 2 gm/ Dextrose 100 mls @ 200 mls/hr 02/13/18 14:30 02/14/18 09: 47 IVPB 200 mls/hr BID [facility] Administration Protocol Insulin Aspart 1 vial 02/13/18 16:30 02/14/18 11:36 Novolog Vial Sliding Scale - SQ Not Given ACHS [facility] Protocol Metformin HCl 1,000 mg 02/13/18 16:30 02/14/18 06:37 Glucophage - PO 1,000 mg BIDAC [facility] Administration Metronidazole 500 mg 02/13/18 14:30 02/14/18 06:36 Flagyl - PO 500 mg TID [facility] Administration Mupirocin 1 applic 02/13/18 22:00 02/13/18 22:45 Bactroban 2% Ointment - TP Not Given BID [facility] Ondansetron HCl 4 mg 02/13/18 12:02 Zofran Injection IVPUSH Q6H PRN NAUSEA AND/OR VOMITING Tamsulosin HCl 0.4 mg 02/13/18 22:00 02/13/18 21:38 Flomax - PO 0.4 mg HS [facility] Administration ASSESSMENT/PLAN: The patient is a 67 year old male with a PMH of DM II, venous insufficiency, s/ p femoropopliteal bypass in RLE, HTN, hyperlipidemia, BPH, chronic systolic CHF , TIA, CAD s/p 2 stents, admitted to the hospital for left foot osteomyelitis in fifth metatarsal. 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 -continue Vancomycin, Cefazolin, Flagyl for now -pain control -PiCC line ordered CAD s/p 2 stents: continue ASA, Plavix BPH: -cont Flomax DM II: -continue Metformin 500 BID -BGM ACHS HLD: -continue Lipitor 80 mg qd HTN: -cont Coreg 6.26 BID -controlled DVT PPX: -heparin sq -scds Disposition: med surg Problem List - Problems (1) Osteomyelitis of left foot Code(s): M86.9 - OSTEOMYELITIS, UNSPECIFIED Qualifiers: Osteomyelitis type: unspecified type Qualified Code(s): M86.9 - Osteomyelitis, unspecified (2) BPH (benign prostatic hyperplasia) Code(s): N40.0 - BENIGN PROSTATIC HYPERPLASIA WITHOUT LOWER URINRY TRACT SYMP Qualifiers: Lower urinary tract symptom presence: symptoms absent Qualified Code(s): N40.0 - Benign prostatic hyperplasia without lower urinary tract symptoms (3) DMII (diabetes mellitus, type 2) Code(s): E11.9 - TYPE 2 DIABETES MELLITUS WITHOUT COMPLICATIONS Qualifiers: Diabetes mellitus complication status: without complication (4) Hyperglycemia due to type 2 diabetes mellitus Code(s): E11.65 - TYPE 2 DIABETES MELLITUS WITH HYPERGLYCEMIA (5) PVD (peripheral vascular disease) Code(s): I73.9 - PERIPHERAL VASCULAR DISEASE, UNSPECIFIED (6) Systolic CHF with reduced left ventricular function, NYHA class 3 Code(s): I50.20 - UNSPECIFIED SYSTOLIC (CONGESTIVE) HEART FAILURE Visit type - Emergency Visit Emergency Visit: Yes ED Registration Date: 02/11/18 Care time: The patient presented to the Emergency Department on the above date and was hospitalized for further evaluation of their emergent condition. - New Patient This patient is new to me today: No - Critical Care Critical Care patient: No - Discharge Referral Referred to [facility] Med P.C.: No
[2018-02-14] MEDS ORDERED: PT OWN MED DRAWER 7, Y5N ONE ×2 (15:10→20:40)
[2018-02-14] MEDS: MUPIROCIN 2% TOPICAL OINTMENT 22 GM TUBE TP SCH ×3 (15:14→21:34)
--- NOTE | 2018-02-14 15:18 | PATH ---
Surgical Pathology Report Patient Name: ROSENDO KENNEDY Med. Rec. #: [id number] /Age/Gender: 1950 (Age: 67) / M Account: [id number] Location: [address] [place] [address]/[facility] Taken: 02/13/2018 Received: 02/13/2018 Reported: 02/14/2018 Physicians: Yvonne Reagan M.D. Specimen(s) Received DEBRIDEMENT TISSUE FROM LEFT FOOT Clinical History Chronic wound of left foot Final Diagnosis FOOT, LEFT, DEEP TISSUE, DEBRIDEMENT:SKIN AND UNDERLYING SOFT TISSUE WITH ACUTE AND CHRONIC INFLAMMATION, ULCERATION, AND GRANULATION TISSUE. Electronically Signed Macy Perez M.D. Gross Description Received in formalin labeled "debrided deep tissue left foot," is a 1.8 x 1.0 cm garber, elliptical, unoriented portion of skin excised to a depth of 0.8 cm. The epidermal surface displays a 0.8 x 0.6 cm ulcerated lesion. Classifier Tender sections are submitted in one cassette. /02/13/2018 saudi/02/13/2018
--- NOTE | 2018-02-14 15:32 | PN ---
Progress Note (short form) - Note Progress Note: tolerated debridement well- dressing removed, incison on lateral aspect of foot is packed no erythema noted CBC, BMP 02/14/18 07:10 02/14/18 07:10 Microbiology 02/13/18 11:12 Foot - Left Wound Culture - Preliminary Alpha Hemolytic Streptococcus 02/11/18 10:54 Blood - Peripheral Venous Blood Culture - Preliminary NO GROWTH OBTAINED AFTER 48 HOURS, INCUBATION TO CONTINUE FOR 3 DAYS. 02/11/18 10:03 Blood - Peripheral Venous Blood Culture - Preliminary NO GROWTH OBTAINED AFTER 48 HOURS, INCUBATION TO CONTINUE FOR 3 DAYS. 02/11/18 09:10 Foot - Right Gram Stain - Final 02/11/18 09:10 Foot - Right Wound Culture - Final Staphylococcus Coagulase Neg Diphtheroid/Corynebacterium a/p chronic osteo left foot- s/p debridement- ulcer extended to bone per op note f/u operative cultures d/w Dr Jorgensen (who has been following patient as outpt) vanco/cefepime po flagyl pending cultures suspect we can place picc tomorrow- will f/u cultures in am s/p RLE bypass 12/26 diabetes Problem List - Problems (1) Osteomyelitis of left foot Code(s): M86.9 - OSTEOMYELITIS, UNSPECIFIED Qualifiers: Osteomyelitis type: unspecified type Qualified Code(s): M86.9 - Osteomyelitis, unspecified (2) DMII (diabetes mellitus, type 2) Code(s): E11.9 - TYPE 2 DIABETES MELLITUS WITHOUT COMPLICATIONS Qualifiers: Diabetes mellitus complication status: without complication (3) PVD (peripheral vascular disease) Code(s): I73.9 - PERIPHERAL VASCULAR DISEASE, UNSPECIFIED
[2018-02-14] MEDS: COLLAGENASE CLOSTRIDIUM HIST. 30 GRAMS TUBE TP SCH (18:24)
[2018-02-14] MEDS ORDERED: INSULIN (NOVOLOG) ASPART 100 UNITS/ML 10ML VIAL ONE (20:38)
[2018-02-14] MEDS: ATORVASTATIN CA 80 MG TABLET (FP) PO SCH (21:34)
[2018-02-14] MEDS: TAMSULOSIN HCL 0.4 MG CAP.ER.24H (FP) PO SCH (21:35)
[2018-02-14] MEDS: HEPARIN NA (PORCINE) 5,000 UNITS/ML 1ML VIAL SQ SCH (21:36)
[2018-02-15] MEDS: INSULIN SLIDING SCALE (NOVOLOG) 1 VIAL SQ SCH ×5 (02:07→21:52)
[2018-02-15] MEDS: VANCOMYCIN 1 GM PREMIX - 1 GM/200 ML BAG IVPB SCH ×2 (02:09→14:24)
[2018-02-15] MEDS: metFORMIN HCL 500 MG TABLET (FP) PO SCH ×2 (06:25→16:51)
[2018-02-15] MEDS: metroNIDAZOLE 250 MG TABLET PO SCH ×3 (06:25→21:23)
[2018-02-15 07:47] LABS: BASO % 0.4 % (0-2.0); EOS % 7.1 % (0-4.5); HEMATOCRIT 34.5 % (35.4-49); HEMOGLOBIN 11.7 GM/dL (11.7-16.9); MCH 30.3 pg (25.7-33.7); MCHC 34.1 g/dl (32.0-35.9); MEAN CELL VOLUME 88.8 fl (80-96); MEAN PLT VOLUME 8.7 fl (7.5-11.1); NEUT % 64.5 % (42.8-82.8); PLATELET COUNT 206 K/MM3 (134-434); RBC 3.88 M/mm3 (4.00-5.60); RDW 16.4 % (11.9-15.9); WHITE BLOOD COUNT 14.1 K/mm3 (4.0-10.0)
[2018-02-15 08:14] LABS: CHLORIDE 105 mmol/L (98-107); POTASSIUM 4.2 mmol/L (3.5-5.1); SODIUM 140 mmol/L (136-145)
[2018-02-15 08:23] LABS: ALBUMIN 3.3 g/dl (3.4-5.0); ALK PHOS 62 U/L (45-117); ANION GAP 7 (8-16); BILIRUBIN,TOTAL 0.5 mg/dL (0.2-1.0); BLOOD UREA NITROGEN 17 mg/dL (7-18); CALCIUM 8.4 mg/dL (8.5-10.1); CO2 28 mmol/L (21-32); CREATININE 0.9 mg/dL (0.7-1.3); GLUCOSE,RANDOM 137 mg/dL (74-106); SGOT/AST 19 U/L (15-37); SGPT/ALT 33 U/L (12-78)
[2018-02-15] MEDS: CLOPIDOGREL BISULFATE 75 MG TABLET (FP) PO SCH (09:40)
[2018-02-15] MEDS: ASPIRIN COATED 81 MG TABLET.EC PO SCH (09:40)
[2018-02-15] MEDS: HEPARIN NA (PORCINE) 5,000 UNITS/ML 1ML VIAL SQ SCH ×2 (09:41→21:24)
[2018-02-15] MEDS: TAMSULOSIN HCL 0.4 MG CAP.ER.24H (FP) PO SCH (09:41)
[2018-02-15] MEDS: POLYETHYLENE GLYCOL 3350 119 GM BTL PO SCH ×2 (09:42→21:52)
[2018-02-15] MEDS: CEFEPIME 2 GM in DEXTROSE 5%-WATER 100 ML IVPB SCH ×2 (09:42→21:23)
[2018-02-15] MEDS: CARVEDILOL 6.25 MG TABLET (FP) PO SCH ×2 (10:03→21:23)
--- NOTE | 2018-02-15 10:17 | PN ---
Progress Note (short form) - Note Progress Note: tolerated debridement well- no complaints Vital Signs Period Temp Pulse Resp BP Sys/Garces Pulse Ox Last 24 Hr 96.7 F-98.5 F 62-74 18-20 132-158/68-83 96 cor-rrr lungs clear dressing intact CBC, BMP 02/15/18 07:30 02/15/18 07:30 Microbiology 02/13/18 11:12 Foot - Left Wound Culture - Preliminary Alpha Hemolytic Streptococcus 02/11/18 10:54 Blood - Peripheral Venous Blood Culture - Preliminary NO GROWTH OBTAINED AFTER 48 HOURS, INCUBATION TO CONTINUE FOR 3 DAYS. 02/11/18 10:03 Blood - Peripheral Venous Blood Culture - Preliminary NO GROWTH OBTAINED AFTER 48 HOURS, INCUBATION TO CONTINUE FOR 3 DAYS. 02/11/18 09:10 Foot - Right Gram Stain - Final 02/11/18 09:10 Foot - Right Wound Culture - Final Staphylococcus Coagulase Neg Diphtheroid/Corynebacterium a/p chronic osteo left foot- s/p debridement- ulcer extended to bone per op note f/u operative cultures d/w Dr Jorgenesn (who has been following patient as outpt) vanco/cefepime po flagyl pending cultures picc line today hopefully home this afternoon or in am f/u cultures hoping rocephin daily- he will come here for antibiotics s/p RLE bypass 12/26 diabetes chronic leukocytosis- he will f/u with heme as outpt d/w primary service Problem List - Problems (1) Osteomyelitis of left foot Code(s): M86.9 - OSTEOMYELITIS, UNSPECIFIED Qualifiers: Osteomyelitis type: unspecified type Qualified Code(s): M86.9 - Osteomyelitis, unspecified (2) DMII (diabetes mellitus, type 2) Code(s): E11.9 - TYPE 2 DIABETES MELLITUS WITHOUT COMPLICATIONS Qualifiers: Diabetes mellitus complication status: without complication (3) PVD (peripheral vascular disease) Code(s): I73.9 - PERIPHERAL VASCULAR DISEASE, UNSPECIFIED
[2018-02-15] MEDS ORDERED: PICC LINE 8 ML FLUSH PROTOCOL IVPUSH PRN ×2 (10:18→13:17)
--- NOTE | 2018-02-15 13:59 | PN ---
Physical Exam: SUBJECTIVE: Patient seen and examined. He doesn't have any complaints, feeling good. OBJECTIVE: Vital Signs Period Temp Pulse Resp BP Sys/Garces Pulse Ox Last 24 Hr 96.7 F-98.5 F 62-74 18-20 132-162/68-83 96 GENERAL: The patient is awake, alert, and fully oriented, in no acute distress, lying comfortably in bed. HEAD: Normal with no signs of trauma. EYES: extraocular movements intact, sclera anicteric, conjunctiva clear. ENT: oropharynx clear without exudates, moist mucous membranes. NECK: Trachea midline, full range of motion, supple. LUNGS: Breath sounds equal, clear to auscultation bilaterally, no wheezes, no crackles, no accessory muscle use. HEART: Regular rate and rhythm, S1, S2 without murmur, rub or gallop. ABDOMEN: Soft, nontender, nondistended, normoactive bowel sounds, no guarding, no rebound, no hepatosplenomegaly, no masses. EXTREMITIES: RLE: 1+ pulse in DP, small 1.5 cm superficial and two small ulcers on the bottom, not draining, no erythema, no swelling, no edema. LLE: dressing applied, no drainage visible. NEUROLOGICAL: Normal speech, no facial asymmetry, gait not observed. PSYCH: Normal mood, normal affect. SKIN: Warm, dry, normal turgor, no rashes. Laboratory Results - last 24 hr 02/14/18 02/14/18 02/15/18 17:36 21:57 06:24 WBC RBC Hgb Hct MCV MCH MCHC RDW Plt Count MPV Neutrophils % Lymphocytes % Monocytes % Eosinophils % Basophils % Sodium Potassium Chloride Carbon Dioxide Anion Gap BUN Creatinine Creat Clearance w eGFR POC Glucometer 151 145 141 Random Glucose Calcium Total Bilirubin AST ALT Alkaline Phosphatase Total Protein Albumin 02/15/18 02/15/18 02/15/18 07:30 07:30 11:05 WBC 14.1 H RBC 3.88 L Hgb 11.7 Hct 34.5 L MCV 88.8 MCH 30.3 MCHC 34.1 RDW 16.4 H Plt Count 206 MPV 8.7 Neutrophils % 64.5 Lymphocytes % 21.0 D Monocytes % 7.0 Eosinophils % 7.1 H Basophils % 0.4 Sodium 140 Potassium 4.2 Chloride 105 Carbon Dioxide 28 Anion Gap 7 L BUN 17 D Creatinine 0.9 Creat Clearance w eGFR > 60 POC Glucometer 147 Random Glucose 137 H Calcium 8.4 L Total Bilirubin 0.5 D AST 19 D ALT 33 D Alkaline Phosphatase 62 Total Protein 6.0 L Albumin 3.3 L Active Medications Generic Name Dose Route Start Last Admin Trade Name Daltonq PRN Reason Stop Dose Admin Acetaminophen 650 mg 02/13/18 12:02 Tylenol - PO Q6H PRN PAIN LEVEL 1-5 Aspirin 81 mg 02/14/18 10:00 02/15/18 09:40 Ecotrin - PO 81 mg DAILY [facility] Administration Atorvastatin Calcium 80 mg 02/13/18 22:00 02/14/18 21:34 Lipitor - PO 80 mg HS [facility] Administration Carvedilol 6.25 mg 02/13/18 22:00 02/15/18 10:03 Coreg - PO 6.25 mg BID [facility] Administration Clopidogrel Bisulfate 75 mg 02/14/18 10:00 02/15/18 09:40 Plavix - PO 75 mg DAILY [facility] Administration Collagenase 1 applic 02/14/18 13:15 02/14/18 18:24 Santyl - TP 1 applic DAILY [facility] Administration Heparin Sodium (Porcine) 5,000 unit 02/14/18 22:00 02/15/18 09:41 Heparin - SQ 5,000 unit BID [facility] Administration IV Flush 8 ml 02/13/18 12:02 Picc Line Flush IVPUSH PRN PRN Protocol IV Flush 8 ml 02/15/18 10:18 Picc Line Flush IVPUSH PRN PRN Protocol IV Flush 8 ml 02/15/18 13:17 Picc Line Flush IVPUSH PRN PRN FLUSH Vancomycin HCl 1 gm in 200 mls @ 150 mls/hr 02/13/18 15:00 02/15/18 02:09 Vancomycin 1 Gm Premix - IVPB 150 mls/hr BID@0300,1500 [facility] Administration Protocol Cefepime HCl 2 gm/ Dextrose 100 mls @ 200 mls/hr 02/13/18 14:30 02/15/18 09: 42 IVPB 200 mls/hr BID [facility] Administration Protocol Insulin Aspart 1 vial 02/13/18 16:30 02/15/18 11:30 Novolog Vial Sliding Scale - SQ Not Given ACHS [facility] Protocol Metformin HCl 1,000 mg 02/13/18 16:30 02/15/18 06:25 Glucophage - PO 1,000 mg BIDAC [facility] Administration Metronidazole 500 mg 02/13/18 14:30 02/15/18 06:25 Flagyl - PO 500 mg TID [facility] Administration Mupirocin 1 applic 02/13/18 22:00 02/14/18 21:34 Bactroban 2% Ointment - TP 1 applic BID [facility] Administration Ondansetron HCl 4 mg 02/13/18 12:02 Zofran Injection IVPUSH Q6H PRN NAUSEA AND/OR VOMITING Polyethylene Glycol 17 gm 02/15/18 10:00 02/15/18 09:42 Miralax (For Daily Use) - PO Not Given BID [facility] Tamsulosin HCl 0.4 mg 02/15/18 08:30 02/15/18 09:41 Flomax - PO 0.4 mg DAILY@0830 [facility] Administration ASSESSMENT/PLAN: The patient is a 67 year old male with a PMH of DM II, venous insufficiency, s/ p femoropopliteal bypass in [facility], HTN, hyperlipidemia, BPH, chronic systolic CHF , TIA, CAD s/p 2 stents, admitted to the hospital for left foot osteomyelitis in fifth metatarsal. Osteomyelitis in left foot: -s/p debridement 02/13/[address] Meeks, no complications, healing well, dressing changed, wound care -will follow up ID recommendations, possibly 6 weeks of Rocephin,will f/u cultures from wound, still pending today -continue Rocephin, Vancomycin, Cefazolin, Flagyl for now -PiCC line done today CAD s/p 2 stents: continue ASA, Plavix BPH: -cont Flomax DM II: -continue Metformin 500 BID -BGM ACHS HLD: -continue Lipitor 80 mg qd HTN: -cont Coreg 6.26 BID -controlled DVT PPX: -heparin sq -scds Disposition: Med-surg. Waiting for cultures from wound. He will probably be discharged on Sunday. Problem List - Problems (1) Osteomyelitis of left foot Code(s): M86.9 - OSTEOMYELITIS, UNSPECIFIED Qualifiers: Osteomyelitis type: unspecified type Qualified Code(s): M86.9 - Osteomyelitis, unspecified (2) BPH (benign prostatic hyperplasia) Code(s): N40.0 - BENIGN PROSTATIC HYPERPLASIA WITHOUT LOWER URINRY TRACT SYMP Qualifiers: Lower urinary tract symptom presence: symptoms absent Qualified Code(s): N40.0 - Benign prostatic hyperplasia without lower urinary tract symptoms (3) DMII (diabetes mellitus, type 2) Code(s): E11.9 - TYPE 2 DIABETES MELLITUS WITHOUT COMPLICATIONS Qualifiers: Diabetes mellitus complication status: without complication (4) Hyperglycemia due to type 2 diabetes mellitus Code(s): E11.65 - TYPE 2 DIABETES MELLITUS WITH HYPERGLYCEMIA (5) PVD (peripheral vascular disease) Code(s): I73.9 - PERIPHERAL VASCULAR DISEASE, UNSPECIFIED (6) Systolic CHF with reduced left ventricular function, NYHA class 3 Code(s): I50.20 - UNSPECIFIED SYSTOLIC (CONGESTIVE) HEART FAILURE Visit type - Emergency Visit Emergency Visit: Yes ED Registration Date: 02/11/18 Care time: The patient presented to the Emergency Department on the above date and was hospitalized for further evaluation of their emergent condition. - New Patient This patient is new to me today: No - Critical Care Critical Care patient: No - Discharge Referral Referred to [facility] Med P.C.: No
[2018-02-15] MEDS: MUPIROCIN 2% TOPICAL OINTMENT 22 GM TUBE TP SCH (15:04)
[2018-02-15] MEDS: COLLAGENASE CLOSTRIDIUM HIST. 30 GRAMS TUBE TP SCH (15:05)
--- NOTE | 2018-02-15 15:58 | PN ---
Teaching Attending Note Name of Resident: Karen Lockett ATTENDING PHYSICIAN STATEMENT I saw and evaluated the patient. I reviewed the resident's note and discussed the case with the resident. I agree with the resident's findings and plan as documented. SUBJECTIVE: OBJECTIVE: Vital Signs Period Temp Pulse Resp BP Sys/Garces Pulse Ox Last 24 Hr 96.7 F-98.2 F 62-72 18-20 132-162/68-83 96 HEART: S1S2, RRR LUNGS: Clear ABDOMEN: Soft, non-tender, non-distended, normal BS EXTREMITIES: Left foot wrapped Laboratory Results - last 24 hr 02/14/18 02/14/18 02/15/18 17:36 21:57 06:24 WBC RBC Hgb Hct MCV MCH MCHC RDW Plt Count MPV Neutrophils % Lymphocytes % Monocytes % Eosinophils % Basophils % Sodium Potassium Chloride Carbon Dioxide Anion Gap BUN Creatinine Creat Clearance w eGFR POC Glucometer 151 145 141 Random Glucose Calcium Total Bilirubin AST ALT Alkaline Phosphatase Total Protein Albumin 02/15/18 02/15/18 02/15/18 07:30 07:30 11:05 WBC 14.1 H RBC 3.88 L Hgb 11.7 Hct 34.5 L MCV 88.8 MCH 30.3 MCHC 34.1 RDW 16.4 H Plt Count 206 MPV 8.7 Neutrophils % 64.5 Lymphocytes % 21.0 D Monocytes % 7.0 Eosinophils % 7.1 H Basophils % 0.4 Sodium 140 Potassium 4.2 Chloride 105 Carbon Dioxide 28 Anion Gap 7 L BUN 17 D Creatinine 0.9 Creat Clearance w eGFR > 60 POC Glucometer 147 Random Glucose 137 H Calcium 8.4 L Total Bilirubin 0.5 D AST 19 D ALT 33 D Alkaline Phosphatase 62 Total Protein 6.0 L Albumin 3.3 L Current Medications Generic Name Dose Route Start Last Admin Trade Name Freq PRN Reason Stop Dose Admin Acetaminophen 650 mg 02/13/18 12:02 Tylenol - PO Q6H PRN PAIN LEVEL 1-5 Aspirin 81 mg 02/14/18 10:00 02/15/18 09:40 Ecotrin - PO 81 mg DAILY [facility] Administration Atorvastatin Calcium 80 mg 02/13/18 22:00 02/14/18 21:34 Lipitor - PO 80 mg HS [facility] Administration Carvedilol 6.25 mg 02/13/18 22:00 02/15/18 10:03 Coreg - PO 6.25 mg BID [facility] Administration Clopidogrel Bisulfate 75 mg 02/14/18 10:00 02/15/18 09:40 Plavix - PO 75 mg DAILY [facility] Administration Collagenase 1 applic 02/14/18 13:15 02/15/18 15:05 Santyl - TP 1 applic DAILY [facility] Administration Heparin Sodium (Porcine) 5,000 unit 02/14/18 22:00 02/15/18 09:41 Heparin - SQ 5,000 unit BID [facility] Administration IV Flush 8 ml 02/13/18 12:02 Picc Line Flush IVPUSH PRN PRN Protocol IV Flush 8 ml 02/15/18 10:18 Picc Line Flush IVPUSH PRN PRN Protocol IV Flush 8 ml 02/15/18 13:17 Picc Line Flush IVPUSH PRN PRN FLUSH Vancomycin HCl 1 gm in 200 mls @ 150 mls/hr 02/13/18 15:00 02/15/18 14:24 Vancomycin 1 Gm Premix - IVPB 150 mls/hr BID@0300,1500 [facility] Administration Protocol Cefepime HCl 2 gm/ Dextrose 100 mls @ 200 mls/hr 02/13/18 14:30 02/15/18 09: 42 IVPB 200 mls/hr BID [facility] Administration Protocol Insulin Aspart 1 vial 02/13/18 16:30 02/15/18 11:30 Novolog Vial Sliding Scale - SQ Not Given ACHS [facility] Protocol Metformin HCl 1,000 mg 02/13/18 16:30 02/15/18 06:25 Glucophage - PO 1,000 mg BIDAC [facility] Administration Metronidazole 500 mg 02/13/18 14:30 02/15/18 14:23 Flagyl - PO 500 mg TID [facility] Administration Mupirocin 1 applic 02/13/18 22:00 02/15/18 15:04 Bactroban 2% Ointment - TP 1 applic BID [facility] Administration Ondansetron HCl 4 mg 02/13/18 12:02 Zofran Injection IVPUSH Q6H PRN NAUSEA AND/OR VOMITING Polyethylene Glycol 17 gm 02/15/18 10:00 02/15/18 09:42 Miralax (For Daily Use) - PO Not Given BID [facility] Tamsulosin HCl 0.4 mg 02/15/18 08:30 02/15/18 09:41 Flomax - PO 0.4 mg DAILY@0830 [facility] Administration ASSESSMENT AND PLAN: This is a 67 year old man with a history of type 2 DM, venous insufficiency, PAD , RLE bypass, HTN, hyperlipidemia, BPH, chronic systolic heart failure, TIA, CAD with stents who presented to the ED for osteomyelitis of his left foot. 1. Chronic osteomyelitis of left foot - s/p debridement 02/13 - Currently on Cefepime, Flagyl PO, Vancomycin IV - culture results will determine further treatment - Wound culture growing Strep and two other organisms - follow up identification and sensitivities - Continue wound care 2. CAD, history of stents - Continue aspirin, Coreg, Lipitor, Plavix 3. HTN - Continue Coreg 4. Hyperlipidemia - Continue Lipitor 5. Type 2 DM - Continue metformin, Novolog sliding scale 6. PAD, history of RLE bypass - Continue Plavix, Lipitor 7. Chronic systolic heart failure - Stable 8. History of TIA - Continue aspirin 9. BPH - Continue Flomax
[2018-02-15] MEDS ORDERED: INSULIN (NOVOLOG) ASPART 100 UNITS/ML 10ML VIAL ONE (16:22)
[2018-02-15] MEDS: ATORVASTATIN CA 80 MG TABLET (FP) PO SCH (21:23)
[2018-02-16] MEDS: VANCOMYCIN 1 GM PREMIX - 1 GM/200 ML BAG IVPB SCH (02:20)
[2018-02-16] MEDS: MUPIROCIN 2% TOPICAL OINTMENT 22 GM TUBE TP SCH ×3 (05:48→09:46)
[2018-02-16] MEDS: metroNIDAZOLE 250 MG TABLET PO SCH (05:50)
[2018-02-16] MEDS: metFORMIN HCL 500 MG TABLET (FP) PO SCH (06:15)
[2018-02-16] MEDS: INSULIN SLIDING SCALE (NOVOLOG) 1 VIAL SQ SCH ×2 (06:15→11:09)
[2018-02-16 07:00] VITALS: BP 154/77; PULSE 69; TEMP 97.6
[2018-02-16] MEDS: TAMSULOSIN HCL 0.4 MG CAP.ER.24H (FP) PO SCH (08:27)
[2018-02-16 08:44] LABS: BASO % 0.5 % (0-2.0); EOS % 6.9 % (0-4.5); HEMATOCRIT 36.8 % (35.4-49); HEMOGLOBIN 12.5 GM/dL (11.7-16.9); LYMPH % 19.7 % (8-40); MCH 30.2 pg (25.7-33.7); MEAN CELL VOLUME 88.8 fl (80-96); MEAN PLT VOLUME 9.1 fl (7.5-11.1); MONO % 7.7 % (3.8-10.2); NEUT % 65.2 % (42.8-82.8); PLATELET COUNT 196 K/MM3 (134-434); RBC 4.14 M/mm3 (4.00-5.60); RDW 16.9 % (11.9-15.9)
[2018-02-16 09:17] LABS: ALBUMIN 3.3 g/dl (3.4-5.0); BLOOD UREA NITROGEN 18 mg/dL (7-18); CALCIUM 8.5 mg/dL (8.5-10.1); CHLORIDE 103 mmol/L (98-107); SGOT/AST 26 U/L (15-37); SGPT/ALT 40 U/L (12-78); SODIUM 141 mmol/L (136-145)
[2018-02-16 09:25] LABS: ALK PHOS 62 U/L (45-117); ANION GAP 6 (8-16); BILIRUBIN,TOTAL 0.6 mg/dL (0.2-1.0); CO2 32 mmol/L (21-32); GLUCOSE,RANDOM 134 mg/dL (74-106); TOT PROT 6.1 g/dl (6.4-8.2)
[2018-02-16] MEDS ORDERED: PT OWN MED DRAWER 7, Y5N ONE ×2 (09:44→10:55)
[2018-02-16] MEDS: CARVEDILOL 6.25 MG TABLET (FP) PO SCH (09:48)
[2018-02-16] MEDS: CLOPIDOGREL BISULFATE 75 MG TABLET (FP) PO SCH (09:48)
[2018-02-16] MEDS: ASPIRIN COATED 81 MG TABLET.EC PO SCH (09:48)
[2018-02-16] MEDS: CEFEPIME 2 GM in DEXTROSE 5%-WATER 100 ML IVPB SCH (09:49)
[2018-02-16] MEDS: POLYETHYLENE GLYCOL 3350 119 GM BTL PO SCH (09:49)
[2018-02-16] MEDS: HEPARIN NA (PORCINE) 5,000 UNITS/ML 1ML VIAL SQ SCH (09:49)
--- NOTE | 2018-02-16 11:06 | PN ---
Progress Note (short form) - Note Progress Note: tolerated debridement well- no complaints dressing just done by the nurse Vital Signs Period Temp Pulse Resp BP Sys/Garces Pulse Ox Last 24 Hr 97.6 F-98.5 F 66-71 18-18 143-154/64-77 96 cor-rrr lungs clear abd soft,nt dressing intract CBC, BMP 02/16/18 08:00 02/16/18 08:00 Microbiology 02/11/18 10:54 Blood - Peripheral Venous Blood Culture - Preliminary NO GROWTH OBTAINED AFTER 96 HOURS, INCUBATION TO CONTINUE FOR 1 DAYS. 02/11/18 10:03 Blood - Peripheral Venous Blood Culture - Preliminary NO GROWTH OBTAINED AFTER 96 HOURS, INCUBATION TO CONTINUE FOR 1 DAYS. 02/13/18 11:12 Foot - Left Gram Stain - Final 02/13/18 11:12 Foot - Left Wound Culture - Preliminary Streptococcus Equinus 2 Pending Organism Pending Organism#2 02/11/18 09:10 Foot - Right Gram Stain - Final 02/11/18 09:10 Foot - Right Wound Culture - Final Staphylococcus Coagulase Neg Diphtheroid/Corynebacterium a/p chronic osteo left foot- s/p debridement- ulcer extended to bone per op note f/u operative cultures okay for d/c rocephin iv 2 grams daily po flagyl 500 tid wound care per dr kelley he should f/u with Dr Jorgensen s/p RLE bypass 12/26 diabetes chronic leukocytosis- he will f/u with heme as outpt will contact hospitalist Problem List - Problems (1) Osteomyelitis of left foot Code(s): M86.9 - OSTEOMYELITIS, UNSPECIFIED Qualifiers: Osteomyelitis type: unspecified type Qualified Code(s): M86.9 - Osteomyelitis, unspecified (2) DMII (diabetes mellitus, type 2) Code(s): E11.9 - TYPE 2 DIABETES MELLITUS WITHOUT COMPLICATIONS Qualifiers: Diabetes mellitus complication status: without complication (3) PVD (peripheral vascular disease) Code(s): I73.9 - PERIPHERAL VASCULAR DISEASE, UNSPECIFIED
[2018-02-16] MEDS: COLLAGENASE CLOSTRIDIUM HIST. 30 GRAMS TUBE TP SCH (11:08)
--- NOTE | 2018-02-16 11:23 | DS ---
Physical Exam: SUBJECTIVE: Patient seen and examined. asymptomatic. denies Cp, SOB, fever, chills, N/V/C/D OBJECTIVE: Vital Signs Period Temp Pulse Resp BP Sys/Garces Pulse Ox Last 24 Hr 97.6 F-98.5 F 66-71 18-18 143-154/64-77 96 PHYSICAL EXAM GENERAL: The patient is awake, alert, and fully oriented, in no acute distress. HEAD: Normal with no signs of trauma. EYES: PERRL, extraocular movements intact, sclera anicteric, conjunctiva clear. ENT: Ears normal, nares patent, oropharynx clear without exudates, moist mucous membranes. NECK: Trachea midline, full range of motion, supple. LUNGS: Breath sounds equal, clear to auscultation bilaterally, no wheezes, no crackles, no accessory muscle use. HEART: Regular rate and rhythm, S1, S2 without murmur, rub or gallop. ABDOMEN: Soft, nontender, nondistended, normoactive bowel sounds, no guarding, no rebound, no hepatosplenomegaly, no masses. EXTREMITIES: 2+ pulses, warm, well-perfused, no edema. LLE wrapped. chronic venous leg changes B/L NEUROLOGICAL: Cranial nerves II through XII grossly intact. Normal speech, gait not observed. PSYCH: Normal mood, normal affect. SKIN: Warm, dry, normal turgor, no rashes or lesions noted. LABS Laboratory Results - last 24 hr 02/15/18 02/15/18 02/15/18 11:05 16:13 21:51 WBC RBC Hgb Hct MCV MCH MCHC RDW Plt Count MPV Neutrophils % Lymphocytes % Monocytes % Eosinophils % Basophils % Sodium Potassium Chloride Carbon Dioxide Anion Gap BUN Creatinine Creat Clearance w eGFR POC Glucometer 147 210 135 Random Glucose Calcium Total Bilirubin AST ALT Alkaline Phosphatase Total Protein Albumin 02/16/18 02/16/18 02/16/18 05:46 08:00 08:00 WBC 15.0 H RBC 4.14 Hgb 12.5 Hct 36.8 MCV 88.8 MCH 30.2 MCHC 34.0 RDW 16.9 H Plt Count 196 MPV 9.1 Neutrophils % 65.2 Lymphocytes % 19.7 Monocytes % 7.7 Eosinophils % 6.9 H Basophils % 0.5 Sodium 141 Potassium 5.0 Chloride 103 Carbon Dioxide 32 Anion Gap 6 L BUN 18 Creatinine 1.0 Creat Clearance w eGFR > 60 POC Glucometer 125 Random Glucose 134 H Calcium 8.5 Total Bilirubin 0.6 AST 26 D ALT 40 D Alkaline Phosphatase 62 Total Protein 6.1 L Albumin 3.3 L HOSPITAL COURSE: Date of Admission:02/11/18 Date of Discharge: 02/16/18 ADmitting diagnosis L foot OM Procedures 02/13 Debridement skin, subcutaneous tissue and bone left foot Pre hospital course 67-year-old male with history of diabetes and venous insufficiency presents to the emergency department for the edition secondary to osteomyelitis of the left foot. Patient states want to his left foot began one month ago and now was told that it went to the bone. Patient denies pain, fever, weakness, or elevated glucose. As per my care physician is Dr. Mickey Reich and was sent in by Dr. Meeks. History of femoropopliteal bypass of the right lower extremity a few months ago performed by Dr. Meeks Subsequent hospital course Admitted to medicine. evaluated by ID and vascular surgery. s/p debridement with Wound of left lateral foot extending deep to metatarsal head. started on cefepime/flagyl/vanco. Wcx showed Strep equinus. PICC line inserted. d/c home and will come to infusion center daily for Ceftriaxone 2g for a total of 6 weeks. flagyl po x4 weeks. will be followed by Dr Jorgensen for lab monitoring while on iv abx. VNS for wound care Minutes to complete discharge: 40 Discharge Summary Reason For Visit: OSTEOMYELITIS Current Active Problems Osteomyelitis of left foot (Acute) Condition: Good - Instructions Diet, Activity, Other Instructions: You were admitted to the hospital for osteomyelitis in the left foot. You have to come every day to the infusion center on the 7th floor for a total of 6 weeks for IV antibiotics You will also take oral antibiotics for a total of 4 weeks. This is called Flagyl, take it 3 times a day. Please see ID specialist: Dr Jorgensen (infectious disease) in 2 weeks after the discharge from the hospital. We also recommend that you will follow up with wound care clinic- Dr Mayer in a week. Please change your dressing everyday, apply dry clean gauze. Please continue to take the same medications as you were taking before coming to the hospital. Follow up with your primary care physician in a week and Dr Meeks in 2 weeks. VNS has been arranged and will start likely on Sunday. If you have fever, chills, severe leg pain, chest pain, dizziness, or worsening of any of your symptoms, come back to emergency room a soon as possible. Referrals: Anish Jorgensen MD [Staff Physician] - Mickey Reich [Primary Care Provider] - 1 Week Madan Mayer MD [Staff Physician] - 1 Week Timmy Meeks MD [Staff Physician] - 2 Weeks Disposition: VNS/HOME HEALTH CARE - Home Medications Comprehensive Discharge Medication List: Ambulatory Orders Aspirin Coated [Ecotrin -] 81 mg PO DAILY 12/24/17 Atorvastatin Ca [Lipitor] 80 mg PO HS 12/24/17 Carvedilol 6.25 mg PO BID 12/24/17 Clopidogrel Bisulfate [Plavix] 75 mg PO DAILY 12/24/17 Lisinopril 5 mg PO DAILY 12/24/17 Metformin HCl [Glucophage] 1,000 mg PO BID 12/24/17 Tamsulosin HCl [Flomax] 0.4 mg PO BID 12/24/17 Acetaminophen [Tylenol .Regular Strength -] 650 mg PO Q6H PRN tablet 12/30/17 Insulin Sliding Scale [Novolog Vial Sliding Scale -] 1 vial SQ ACHS units 12/30 Mupirocin Ointment [Bactroban 2% Ointment -] 1 applic TP DAILY applic 12/30/17 Cefepime [Maxipime (Restricted To Id) -] 2 gm IVPB DAILY vial 02/16/18 metroNIDAZOLE [Flagyl -] 500 mg PO TID #75 tablet 02/16/18 This patient is new to me today: Yes Date on this admission: 02/16/18 Emergency Visit: Yes ED Registration Date: 02/11/18 Care time: The patient presented to the Emergency Department on the above date and was hospitalized for further evaluation of their emergent condition. Critical Care patient: No - Discharge Referral Referred to [facility] Med P.C.: No
--- NOTE | 2018-02-25 20:04 | OP ---
DATE OF OPERATION: 02/13/2018 PROCEDURE: Debridement of skin and subcutaneous tissue and bone of left foot. PREOPERATIVE DIAGNOSIS: Nonhealing wound of left foot. POSTOPERATIVE DIAGNOSIS: Nonhealing wound of left foot. ANESTHESIA: Fractional. ANESTHESIOLOGIST: Alex Ambrose M.D. OPERATIVE FINDINGS: The wound along the lateral aspect of the left 5th metatarsal head extended down to the deep subcutaneous plane near the bone. There was no exposed bone that was identified. OPERATIVE PROCEDURE: Following routine patient identification, with side and site verification, intravenous sedation was established. The left foot was prepped with Betadine. 1% lidocaine was infiltrated around the 5th metatarsal. An elliptical incision was made around the wound and carried into subcutaneous tissues using cautery for hemostasis. Debridement of the deep aspect of the wound was performed with a curet to remove areas of scar tissue and loose fragments of bone and cartilage. Wound was cultured. The wound was irrigated with saline and packed open with iodoform gauze. The sterile dressing was applied, and the patient was taken to the recovery room in stable condition. ANAID MCKENNA M.D. [id number]
== END 2018-02-16 13:12 | disposition home health service (06) | DRG 629 ==
LOC: JER 08:13 → JERBED 11:12 → J5S 12:13
PROVIDERS: ADMIT Family Medicine; ATTEND Internal Medicine
PROC: 0QBP0ZZ Excision of Left Metatarsal, Open Approach (ICD-10-PCS; principal; 2018-02-13 10:00)
PROC: 02HV33Z Insertion of Infusion Device into Superior Vena Cava, Percutaneous Approach (ICD-10-PCS; 2018-02-15)
PROC: B518ZZA Fluoroscopy of Superior Vena Cava, Guidance (ICD-10-PCS; 2018-02-15)
PROC: B548ZZA Ultrasonography of Superior Vena Cava, Guidance (ICD-10-PCS; 2018-02-15)
DX: E11.69 Type 2 diabetes mellitus with other specified complication (principal); M86.672 Other chronic osteomyelitis, left ankle and foot; I50.32 Chronic diastolic (congestive) heart failure; L97.526 Non-pressure chronic ulcer of other part of left foot with bone involvement without evidence of necrosis; E11.621 Type 2 diabetes mellitus with foot ulcer; I87.2 Venous insufficiency (chronic) (peripheral); Z95.5 Presence of coronary angioplasty implant and graft; E78.00 Pure hypercholesterolemia, unspecified; N40.0 Benign prostatic hyperplasia without lower urinary tract symptoms; E11.65 Type 2 diabetes mellitus with hyperglycemia; I11.0 Hypertensive heart disease with heart failure; I25.10 Atherosclerotic heart disease of native coronary artery without angina pectoris; Z86.73 Personal history of transient ischemic attack (TIA), and cerebral infarction without residual deficits; E78.5 Hyperlipidemia, unspecified; Z79.4 Long term (current) use of insulin; Z79.84 Long term (current) use of oral hypoglycemic drugs; B95.7 Other staphylococcus as the cause of diseases classified elsewhere; D72.829 Elevated white blood cell count, unspecified
CPT/HCPCS: 36415; 36569; 71045-TC-FY; 77001-TC-FY; 80053; 81003; 82962; 83036; 85025; 85610; 85651; 86140; 86850; 86900; 86901; 87040; 87070; 87077; 87205; 88304-TC; 93005; 93010; 94760; 99284-25; C1751; J1644

== ENCOUNTER 2018-02-17 07:56 | Day surgery (SDC) | payer MEDICARE, OTHER ==
[2018-02-17] MEDS ORDERED: DEXTROSE 5%-WATER 100 ML IVPB ONE (08:41)
[2018-02-17] MEDS ORDERED: CEFTRIAXONE 2 GM in DEXTROSE 5%-WATER 100 ML IVPB SCH (10:00)
[2018-02-17 14:40] VITALS: TEMP 97.9
[2018-02-17 14:41] VITALS: BP 126/79; PULSE 66
== END 2018-02-17 10:00 | disposition home or self-care (01) ==
LOC: JINFUSION 07:56 → J7W 07:59 → JINFUSION 10:00
PROVIDERS: ATTEND Internal Medicine
DX: M86.9 Osteomyelitis, unspecified (principal)
CPT/HCPCS: 96365

== ENCOUNTER 2018-02-18 08:04 | Day surgery (SDC) | payer MEDICARE, OTHER ==
[2018-02-18] MEDS ORDERED: CEFTRIAXONE 2 GM in SODIUM CHLORIDE 100 ML IVPB ONE (08:30)
[2018-02-18 08:36] VITALS: BP 130/63; PULSE 80; TEMP 98.3
== END 2018-02-18 11:00 | disposition home or self-care (01) ==
LOC: JINFUSION 08:04
PROVIDERS: ATTEND Internal Medicine
DX: M86.9 Osteomyelitis, unspecified (principal)
CPT/HCPCS: 96365

== ENCOUNTER 2018-02-19 07:31 | Day surgery (SDC) | payer MEDICARE ==
[2018-02-19] MEDS ORDERED: CEFTRIAXONE 2 GM in SODIUM CHLORIDE 100 ML IVPB ONE (08:15)
[2018-02-19 08:52] VITALS: BP 145/69; PULSE 71
[2018-02-19 08:54] VITALS: TEMP 98.1
== END 2018-02-19 08:54 | disposition home or self-care (01) ==
LOC: JINFUSION 07:31
PROVIDERS: ATTEND Internal Medicine
DX: M86.9 Osteomyelitis, unspecified (principal)
CPT/HCPCS: 96365

== ENCOUNTER 2018-02-20 08:36 | Day surgery (SDC) | payer MEDICARE ==
[2018-02-20] MEDS ORDERED: CEFTRIAXONE 2 GM in SODIUM CHLORIDE 100 ML IVPB ONE (09:00)
[2018-02-20 09:45] VITALS: TEMP 97.8
[2018-02-20 10:04] VITALS: BP 142/73; PULSE 75
== END 2018-02-20 10:01 | disposition home or self-care (01) ==
LOC: JINFUSION 08:36
PROVIDERS: ATTEND Internal Medicine
DX: M86.9 Osteomyelitis, unspecified (principal)
CPT/HCPCS: 96365; 96366; 96367

== ENCOUNTER 2018-02-21 08:02 | Day surgery (SDC) | payer MEDICARE ==
[2018-02-21 08:46] VITALS: TEMP 97.8
[2018-02-21] MEDS ORDERED: CEFTRIAXONE 2 GM in SODIUM CHLORIDE 100 ML IVPB ONE (09:00)
[2018-02-21 09:18] VITALS: BP 156/75; PULSE 68
== END 2018-02-21 09:18 | disposition home or self-care (01) ==
LOC: JINFUSION 08:02
PROVIDERS: ATTEND Internal Medicine
DX: M86.672 Other chronic osteomyelitis, left ankle and foot (principal); E11.69 Type 2 diabetes mellitus with other specified complication; Z79.4 Long term (current) use of insulin
CPT/HCPCS: 96365

== ENCOUNTER 2018-02-22 08:22 | Day surgery (SDC) | payer MEDICARE ==
[~2018-02-22 08:22] MED LIST changes: +CEFTRIAXONE 2 GM in DEXTROSE 5%-WATER 100 ML IVPB ONE; +CEFTRIAXONE 2 GM in SODIUM CHLORIDE 100 ML IVPB ONE; -VANCOMYCIN 1,000 MG VIAL (RESTRICTED TO ID ONLY) IVPB ONE
[2018-02-22 10:16] VITALS: BP 142/78; PULSE 82; TEMP 98.7
== END 2018-02-22 10:00 | disposition home or self-care (01) ==
LOC: JINFUSION 08:22
PROVIDERS: ATTEND Internal Medicine
DX: M86.672 Other chronic osteomyelitis, left ankle and foot (principal); E11.69 Type 2 diabetes mellitus with other specified complication; Z79.4 Long term (current) use of insulin
CPT/HCPCS: 96365

== ENCOUNTER 2018-02-23 09:09 | Day surgery (SDC) | payer MEDICARE ==
[2018-02-23] MEDS ORDERED: CEFTRIAXONE 2 GM in DEXTROSE 5%-WATER 100 ML IVPB ONE (10:00)
[2018-02-23] MEDS ORDERED: DEXTROSE 5%-WATER 100 ML IVPB ONE (10:26)
[2018-02-23 12:54] VITALS: BP 148/78; PULSE 78; TEMP 98.2
== END 2018-02-23 11:15 | disposition home or self-care (01) ==
LOC: JINFUSION 09:09 → J7W 09:12 → JINFUSION 11:15
PROVIDERS: ATTEND Internal Medicine
DX: M86.672 Other chronic osteomyelitis, left ankle and foot (principal); E11.69 Type 2 diabetes mellitus with other specified complication; Z79.4 Long term (current) use of insulin
CPT/HCPCS: 96365

== ENCOUNTER 2018-02-24 08:34 | Day surgery (SDC) | payer MEDICARE ==
[2018-02-24] MEDS ORDERED: CEFTRIAXONE 2 GM in SODIUM CHLORIDE 100 ML IVPB ONE (09:00)
[2018-02-24] MEDS ORDERED: SODIUM CHLORIDE 100 ML IVPB ONE (09:01)
[2018-02-24 13:28] VITALS: BP 150/76; PULSE 72; TEMP 98.1
== END 2018-02-24 10:15 | disposition home or self-care (01) ==
LOC: JINFUSION 08:34 → J7W 08:35 → JINFUSION 10:15
PROVIDERS: ATTEND Internal Medicine
DX: M86.672 Other chronic osteomyelitis, left ankle and foot (principal); E11.69 Type 2 diabetes mellitus with other specified complication; Z79.4 Long term (current) use of insulin
CPT/HCPCS: 96365

== ENCOUNTER 2018-02-25 08:27 | Day surgery (SDC) | payer MEDICARE ==
[2018-02-25 08:50] LABS: HEMATOCRIT 41.3 % (35.4-49); HEMOGLOBIN 13.4 GM/dL (11.7-16.9); MCH 29.4 pg (25.7-33.7); MCHC 32.5 g/dl (32.0-35.9); MEAN CELL VOLUME 90.5 fl (80-96); MEAN PLT VOLUME 8.8 fl (7.5-11.1); PLATELET COUNT 248 K/MM3 (134-434); RBC 4.57 M/mm3 (4.00-5.60); RDW 17.5 % (11.9-15.9); WHITE BLOOD COUNT 15.2 K/mm3 (4.0-10.0)
[2018-02-25 09:16] LABS: ALBUMIN 3.6 g/dl (3.4-5.0); ANION GAP 6 (8-16); BILIRUBIN,TOTAL 0.4 mg/dL (0.2-1.0); BLOOD UREA NITROGEN 15 mg/dL (7-18); CALCIUM 8.5 mg/dL (8.5-10.1); CHLORIDE 103 mmol/L (98-107); CO2 30 mmol/L (21-32); CREATININE 1.1 mg/dL (0.7-1.3); GLUCOSE,RANDOM 212 mg/dL (74-106); POTASSIUM 4.5 mmol/L (3.5-5.1); SGOT/AST 18 U/L (15-37); SGPT/ALT 35 U/L (12-78); SODIUM 139 mmol/L (136-145); TOT PROT 6.7 g/dl (6.4-8.2)
[2018-02-25 09:17] LABS: ALK PHOS 65 U/L (45-117)
[2018-02-25 11:07] VITALS: TEMP 98.4
[2018-02-25 13:26] VITALS: BP 125/74; PULSE 73
== END 2018-02-25 10:50 | disposition home or self-care (01) ==
LOC: JINFUSION 08:27
PROVIDERS: ATTEND Internal Medicine
DX: M86.672 Other chronic osteomyelitis, left ankle and foot (principal); E11.69 Type 2 diabetes mellitus with other specified complication; Z79.4 Long term (current) use of insulin
CPT/HCPCS: 36415; 80053; 85027; 96365

== ENCOUNTER 2018-02-26 07:26 | Day surgery (SDC) | payer MEDICARE ==
[2018-02-26] MEDS ORDERED: CEFTRIAXONE 2 GM in SODIUM CHLORIDE 100 ML IVPB ONE (08:00)
[2018-02-26 08:13] VITALS: PULSE 87; TEMP 98.3
[2018-02-26 08:40] VITALS: BP 152/78
== END 2018-02-26 08:42 | disposition home or self-care (01) ==
LOC: JINFUSION 07:26
PROVIDERS: ATTEND Internal Medicine
DX: M86.672 Other chronic osteomyelitis, left ankle and foot (principal); E11.69 Type 2 diabetes mellitus with other specified complication; Z79.4 Long term (current) use of insulin
CPT/HCPCS: 96365

== ENCOUNTER 2018-02-27 07:57 | Day surgery (SDC) | payer MEDICARE, OTHER ==
[2018-02-27] MEDS ORDERED: CEFTRIAXONE 2 GM in DEXTROSE 5%-WATER 100 ML IVPB ONE (08:30)
[2018-02-27] MEDS ORDERED: CEFTRIAXONE 2 GM in SODIUM CHLORIDE 100 ML IVPB ONE (08:30)
[2018-02-27 08:33] VITALS: TEMP 98.5
[2018-02-27 09:46] VITALS: BP 144/73; PULSE 75
== END 2018-02-27 09:46 | disposition home or self-care (01) ==
LOC: JINFUSION 07:57
PROVIDERS: ATTEND Internal Medicine
DX: M86.672 Other chronic osteomyelitis, left ankle and foot (principal); E11.69 Type 2 diabetes mellitus with other specified complication; Z79.4 Long term (current) use of insulin
CPT/HCPCS: 96365

== ENCOUNTER 2018-02-28 08:00 | Day surgery (SDC) | payer MEDICARE ==
[2018-02-28] MEDS ORDERED: SODIUM CHLORIDE 100 ML IVPB ONE (08:19)
[2018-02-28] MEDS ORDERED: CEFTRIAXONE 2 GM in SODIUM CHLORIDE 100 ML IVPB ONE (09:00)
[2018-02-28 09:20] VITALS: TEMP 98
[2018-02-28 09:22] VITALS: BP 140/87; PULSE 80
== END 2018-02-28 09:20 | disposition home or self-care (01) ==
LOC: JINFUSION 08:00
PROVIDERS: ATTEND Internal Medicine
DX: M86.672 Other chronic osteomyelitis, left ankle and foot (principal); E11.69 Type 2 diabetes mellitus with other specified complication; Z79.4 Long term (current) use of insulin
CPT/HCPCS: 96365

== ENCOUNTER 2018-03-01 07:26 | Day surgery (SDC) | payer MEDICARE ==
[2018-03-01] MEDS ORDERED: SODIUM CHLORIDE 100 ML IVPB ONE (07:50)
[2018-03-01] MEDS ORDERED: CEFTRIAXONE 2 GM in SODIUM CHLORIDE 100 ML IVPB ONE (08:00)
[2018-03-01 08:07] VITALS: TEMP 98.5
[2018-03-01 08:40] VITALS: BP 143/88; PULSE 84
== END 2018-03-01 08:49 | disposition home or self-care (01) ==
LOC: JINFUSION 07:26
PROVIDERS: ATTEND Internal Medicine
DX: M86.672 Other chronic osteomyelitis, left ankle and foot (principal); E11.69 Type 2 diabetes mellitus with other specified complication; Z79.4 Long term (current) use of insulin
CPT/HCPCS: 96365

== ENCOUNTER 2018-03-02 08:01 | Day surgery (SDC) | payer MEDICARE ==
[2018-03-02] MEDS ORDERED: SODIUM CHLORIDE 100 ML IVPB ONE (08:36)
[2018-03-02] MEDS ORDERED: CEFTRIAXONE 2 GM in SODIUM CHLORIDE 100 ML IVPB ONE (08:45)
[2018-03-02 08:50] VITALS: TEMP 98.6
[2018-03-02 10:54] VITALS: BP 147/63; PULSE 80
== END 2018-03-02 09:30 | disposition home or self-care (01) ==
LOC: JINFUSION 08:01 → J7W 08:02 → JINFUSION 09:30
PROVIDERS: ATTEND Internal Medicine
DX: M86.672 Other chronic osteomyelitis, left ankle and foot (principal); E11.69 Type 2 diabetes mellitus with other specified complication; Z79.4 Long term (current) use of insulin
CPT/HCPCS: 96365

== ENCOUNTER 2018-03-03 08:40 | Day surgery (SDC) | payer MEDICARE ==
[2018-03-03] MEDS ORDERED: CEFTRIAXONE 2 GM in DEXTROSE 5%-WATER 100 ML IVPB ONE (09:00)
[2018-03-03] MEDS ORDERED: DEXTROSE 5%-WATER 100 ML IVPB ONE (09:05)
[2018-03-03 09:23] VITALS: TEMP 98.9
[2018-03-03 09:41] VITALS: BP 126/62; PULSE 70
== END 2018-03-03 09:41 | disposition home or self-care (01) ==
LOC: JINFUSION 08:40 → J7W 08:41 → JINFUSION 09:41
PROVIDERS: ATTEND Internal Medicine
DX: M86.672 Other chronic osteomyelitis, left ankle and foot (principal); E11.69 Type 2 diabetes mellitus with other specified complication; Z79.4 Long term (current) use of insulin
CPT/HCPCS: 96365

== ENCOUNTER 2018-03-04 08:21 | Day surgery (SDC) | payer MEDICARE ==
[2018-03-04] MEDS ORDERED: DEXTROSE 5%-WATER 100 ML IVPB ONE (09:11)
[2018-03-04] MEDS ORDERED: CEFTRIAXONE 2 GM in DEXTROSE 5%-WATER 100 ML IVPB ONE (09:15)
[2018-03-04 09:23] VITALS: PULSE 75; TEMP 97.8
[2018-03-04 09:32] LABS: HEMATOCRIT 37.4 % (35.4-49); HEMOGLOBIN 12.3 GM/dL (11.7-16.9); MCH 29.9 pg (25.7-33.7); MEAN CELL VOLUME 90.6 fl (80-96); MEAN PLT VOLUME 9.2 fl (7.5-11.1); PLATELET COUNT 212 K/MM3 (134-434); RBC 4.12 M/mm3 (4.00-5.60); WHITE BLOOD COUNT 15.4 K/mm3 (4.0-10.0)
[2018-03-04 10:16] LABS: ALBUMIN 3.4 g/dl (3.4-5.0); ANION GAP 8 (8-16); BLOOD UREA NITROGEN 17 mg/dL (7-18); CALCIUM 8.4 mg/dL (8.5-10.1); CHLORIDE 105 mmol/L (98-107); CO2 26 mmol/L (21-32); GLUCOSE,RANDOM 185 mg/dL (74-106); POTASSIUM 4.5 mmol/L (3.5-5.1); SGOT/AST 19 U/L (15-37); SGPT/ALT 33 U/L (12-78); SODIUM 139 mmol/L (136-145)
[2018-03-04 10:18] LABS: ALK PHOS 62 U/L (45-117); BILIRUBIN,TOTAL 0.6 mg/dL (0.2-1.0); TOT PROT 6.4 g/dl (6.4-8.2)
[2018-03-04 11:43] VITALS: BP 150/62
== END 2018-03-04 11:00 | disposition home or self-care (01) ==
LOC: JINFUSION 08:21 → J7W 08:23 → JINFUSION 11:00
PROVIDERS: ATTEND Internal Medicine
DX: M86.672 Other chronic osteomyelitis, left ankle and foot (principal); E11.69 Type 2 diabetes mellitus with other specified complication; Z79.4 Long term (current) use of insulin
CPT/HCPCS: 36415; 80053; 85027; 96365

== ENCOUNTER 2018-03-05 07:43 | Day surgery (SDC) | payer MEDICARE ==
[2018-03-05 08:19] VITALS: TEMP 98
[2018-03-05] MEDS ORDERED: CEFTRIAXONE 2 GM in DEXTROSE 5%-WATER 100 ML IVPB SCH (10:00)
[2018-03-05 15:24] VITALS: BP 140/80; PULSE 70
== END 2018-03-05 08:50 | disposition home or self-care (01) ==
LOC: JINFUSION 07:43
PROVIDERS: ATTEND Internal Medicine
DX: M86.672 Other chronic osteomyelitis, left ankle and foot (principal); E11.69 Type 2 diabetes mellitus with other specified complication; Z79.4 Long term (current) use of insulin
CPT/HCPCS: 96365

== ENCOUNTER 2018-03-06 07:59 | Day surgery (SDC) | payer MEDICARE ==
[2018-03-06] MEDS ORDERED: EPINEPHrine/PF 1 MG/1 ML (1:1,000) AMPULE ONE (08:16)
[2018-03-06] MEDS ORDERED: CEFTRIAXONE 2 GM in SODIUM CHLORIDE 100 ML IVPB ONE (09:00)
[2018-03-06 09:34] VITALS: TEMP 98.7
[2018-03-06 09:35] VITALS: BP 140/75; PULSE 78
== END 2018-03-06 09:00 | disposition home or self-care (01) ==
LOC: JINFUSION 07:59
PROVIDERS: ATTEND Internal Medicine
DX: M86.672 Other chronic osteomyelitis, left ankle and foot (principal); E11.69 Type 2 diabetes mellitus with other specified complication; Z79.4 Long term (current) use of insulin
CPT/HCPCS: 96365

== ENCOUNTER 2018-03-07 07:18 | Day surgery (SDC) | payer MEDICARE ==
[2018-03-07] MEDS ORDERED: SODIUM CHLORIDE 100 ML IVPB ONE ×2 (07:31→07:54)
[2018-03-07 08:09] VITALS: BP 138/67; PULSE 73; TEMP 98.8
== END 2018-03-07 10:30 | disposition home or self-care (01) ==
LOC: JINFUSION 07:18
PROVIDERS: ATTEND Internal Medicine
DX: M86.672 Other chronic osteomyelitis, left ankle and foot (principal); E11.69 Type 2 diabetes mellitus with other specified complication; Z79.4 Long term (current) use of insulin
CPT/HCPCS: 96365

== ENCOUNTER 2018-03-08 08:09 | Day surgery (SDC) | payer MEDICARE ==
[2018-03-08 08:24] VITALS: TEMP 97.8
[2018-03-08] MEDS ORDERED: EPINEPHrine 1:10,000 (P-F SYR) 1 MG/10 ML DISP.SYRIN ONE (08:25)
[2018-03-08] MEDS ORDERED: CEFTRIAXONE 2 GM in DEXTROSE 5%-WATER 100 ML IVPB ONE (08:45)
[2018-03-08 09:22] VITALS: BP 148/82; PULSE 84
== END 2018-03-08 09:22 | disposition home or self-care (01) ==
LOC: JINFUSION 08:09
PROVIDERS: ATTEND Internal Medicine
DX: M86.672 Other chronic osteomyelitis, left ankle and foot (principal); E11.69 Type 2 diabetes mellitus with other specified complication; Z79.4 Long term (current) use of insulin
CPT/HCPCS: 96365; 96367

== ENCOUNTER 2018-03-09 09:26 | Day surgery (SDC) | payer MEDICARE ==
[2018-03-09] MEDS ORDERED: CEFTRIAXONE 2 GM in DEXTROSE 5%-WATER 100 ML IVPB ONE (10:15)
[2018-03-09] MEDS ORDERED: DEXTROSE 5%-WATER 100 ML IVPB ONE (10:16)
[2018-03-09 10:55] VITALS: BP 137/26; PULSE 75; TEMP 97.9
== END 2018-03-09 10:58 | disposition home or self-care (01) ==
LOC: JINFUSION 09:26 → J7W 09:27 → JINFUSION 10:58
PROVIDERS: ATTEND Internal Medicine
DX: M86.672 Other chronic osteomyelitis, left ankle and foot (principal); E11.69 Type 2 diabetes mellitus with other specified complication; Z79.4 Long term (current) use of insulin
CPT/HCPCS: 96365; 96366

== ENCOUNTER 2018-03-10 07:31 | Day surgery (SDC) | payer MEDICARE ==
[2018-03-10] MEDS ORDERED: DEXTROSE 5%-WATER 100 ML IVPB ONE (08:08)
[2018-03-10 08:25] VITALS: TEMP 98.5
[2018-03-10 08:56] VITALS: BP 146/80; PULSE 75
[2018-03-10] MEDS ORDERED: CEFTRIAXONE 2 GM in DEXTROSE 5%-WATER 100 ML IVPB ONE (09:00)
== END 2018-03-10 08:56 | disposition home or self-care (01) ==
LOC: JINFUSION 07:31 → J7W 07:46 → JINFUSION 08:56
PROVIDERS: ATTEND Internal Medicine
DX: M86.672 Other chronic osteomyelitis, left ankle and foot (principal); E11.69 Type 2 diabetes mellitus with other specified complication; Z79.4 Long term (current) use of insulin
CPT/HCPCS: 96365

== ENCOUNTER 2018-03-11 07:30 | Day surgery (SDC) | payer MEDICARE ==
[2018-03-11 07:47] LABS: HEMATOCRIT 39.1 % (35.4-49); HEMOGLOBIN 12.9 GM/dL (11.7-16.9); MCH 29.5 pg (25.7-33.7); MCHC 33.1 g/dl (32.0-35.9); MEAN CELL VOLUME 89.3 fl (80-96); MEAN PLT VOLUME 8.6 fl (7.5-11.1); PLATELET COUNT 288 K/MM3 (134-434); RBC 4.38 M/mm3 (4.00-5.60); RDW 16.7 % (11.9-15.9); WHITE BLOOD COUNT 16.9 K/mm3 (4.0-10.0)
[2018-03-11 07:56] VITALS: TEMP 98.2
[2018-03-11] MEDS ORDERED: CEFTRIAXONE 2 GM in DEXTROSE 5%-WATER 100 ML IVPB ONE (08:00)
[2018-03-11 08:22] LABS: ALBUMIN 3.7 g/dl (3.4-5.0); ANION GAP 6 (8-16); BILIRUBIN,TOTAL 0.7 mg/dL (0.2-1.0); BLOOD UREA NITROGEN 16 mg/dL (7-18); CALCIUM 9.1 mg/dL (8.5-10.1); CHLORIDE 107 mmol/L (98-107); CO2 30 mmol/L (21-32); CREATININE 1.1 mg/dL (0.7-1.3); GLUCOSE,RANDOM 175 mg/dL (74-106); POTASSIUM 5.2 mmol/L (3.5-5.1); SGOT/AST 17 U/L (15-37); SGPT/ALT 38 U/L (12-78); SODIUM 143 mmol/L (136-145)
[2018-03-11 08:23] LABS: ALK PHOS 81 U/L (45-117)
[2018-03-11 09:46] VITALS: BP 157/80; PULSE 81
== END 2018-03-11 09:00 | disposition home or self-care (01) ==
LOC: JINFUSION 07:30
PROVIDERS: ATTEND Internal Medicine
DX: M86.672 Other chronic osteomyelitis, left ankle and foot (principal); E11.69 Type 2 diabetes mellitus with other specified complication; Z79.4 Long term (current) use of insulin
CPT/HCPCS: 36415; 80053; 85027; 96365

== ENCOUNTER 2018-03-12 07:26 | Day surgery (SDC) | payer MEDICARE ==
[2018-03-12] MEDS ORDERED: CEFTRIAXONE 1 GM in DEXTROSE 5%-WATER 100 ML IVPB ONE (08:00)
[2018-03-12 08:02] VITALS: TEMP 98.1
[2018-03-12] MEDS ORDERED: SODIUM CHLORIDE 100 ML IVPB ONE (08:09)
[2018-03-12] MEDS ORDERED: CEFTRIAXONE 2 GM in DEXTROSE 5%-WATER 100 ML IVPB ONE (08:15)
[2018-03-12 09:03] VITALS: BP 152/81; PULSE 78
== END 2018-03-12 09:06 | disposition home or self-care (01) ==
LOC: JINFUSION 07:26
PROVIDERS: ATTEND Internal Medicine
DX: M86.672 Other chronic osteomyelitis, left ankle and foot (principal); E11.69 Type 2 diabetes mellitus with other specified complication; Z79.4 Long term (current) use of insulin
CPT/HCPCS: 96365

== ENCOUNTER 2018-03-13 07:29 | Day surgery (SDC) | payer MEDICARE ==
[2018-03-13 07:48] VITALS: TEMP 97.7
[2018-03-13] MEDS ORDERED: SODIUM CHLORIDE 100 ML IVPB ONE (07:51)
[2018-03-13] MEDS ORDERED: CEFTRIAXONE 2 GM in DEXTROSE 5%-WATER 100 ML IVPB ONE (08:00)
[2018-03-13 08:44] VITALS: BP 150/83; PULSE 76
== END 2018-03-13 08:45 | disposition home or self-care (01) ==
LOC: JINFUSION 07:29
PROVIDERS: ATTEND Internal Medicine
DX: M86.672 Other chronic osteomyelitis, left ankle and foot (principal); E11.69 Type 2 diabetes mellitus with other specified complication; Z79.4 Long term (current) use of insulin
CPT/HCPCS: 96365

== ENCOUNTER 2018-03-14 07:27 | Day surgery (SDC) | payer MEDICARE ==
[2018-03-14] MEDS ORDERED: SODIUM CHLORIDE 100 ML IVPB ONE (07:47)
[2018-03-14] MEDS ORDERED: CEFTRIAXONE 2 GM in DEXTROSE 5%-WATER 100 ML IVPB ONE (08:00)
[2018-03-14 08:04] VITALS: TEMP 98.2
[2018-03-14 08:56] VITALS: BP 143/74; PULSE 79
== END 2018-03-14 08:40 | disposition home or self-care (01) ==
LOC: JINFUSION 07:27
PROVIDERS: ATTEND Internal Medicine
DX: M86.672 Other chronic osteomyelitis, left ankle and foot (principal); E11.69 Type 2 diabetes mellitus with other specified complication; Z79.4 Long term (current) use of insulin
CPT/HCPCS: 96365; 96366

== ENCOUNTER 2018-03-15 07:17 | Day surgery (SDC) | payer MEDICARE ==
[2018-03-15] MEDS ORDERED: SODIUM CHLORIDE 100 ML IVPB ONE (07:36)
[2018-03-15] MEDS ORDERED: CEFTRIAXONE 2 GM in SODIUM CHLORIDE 100 ML IVPB ONE (08:30)
[2018-03-15 09:37] VITALS: TEMP 97.9
[2018-03-15 09:39] VITALS: BP 147/77; PULSE 80
== END 2018-03-15 08:40 | disposition home or self-care (01) ==
LOC: JINFUSION 07:17
PROVIDERS: ATTEND Internal Medicine
DX: M86.672 Other chronic osteomyelitis, left ankle and foot (principal); E11.69 Type 2 diabetes mellitus with other specified complication; Z79.4 Long term (current) use of insulin
CPT/HCPCS: 96365

== ENCOUNTER 2018-03-16 07:31 | Day surgery (SDC) | payer MEDICARE ==
[2018-03-16] MEDS ORDERED: CEFTRIAXONE 2 GM in DEXTROSE 5%-WATER 100 ML IVPB ONE (08:00)
[2018-03-16] MEDS ORDERED: DEXTROSE 5%-WATER 100 ML IVPB ONE (08:01)
[2018-03-16 08:42] VITALS: BP 138/75; PULSE 72; TEMP 98.7
== END 2018-03-16 08:43 | disposition home or self-care (01) ==
LOC: JINFUSION 07:31 → J7W 07:33 → JINFUSION 08:43
PROVIDERS: ATTEND Internal Medicine
DX: M86.672 Other chronic osteomyelitis, left ankle and foot (principal); E11.69 Type 2 diabetes mellitus with other specified complication; Z79.4 Long term (current) use of insulin
CPT/HCPCS: 96365; 96366

== ENCOUNTER 2018-03-17 08:08 | Day surgery (SDC) | payer MEDICARE ==
[2018-03-17] MEDS ORDERED: CEFTRIAXONE 2 GM in DEXTROSE 5%-WATER 100 ML IVPB ONE (08:30)
[2018-03-17] MEDS ORDERED: DEXTROSE 5%-WATER 100 ML IVPB ONE (08:39)
[2018-03-17 09:34] VITALS: BP 129/72; PULSE 74; TEMP 98.5
== END 2018-03-17 09:34 | disposition home or self-care (01) ==
LOC: JINFUSION 08:08 → J7W 08:10 → JINFUSION 09:34
PROVIDERS: ATTEND Internal Medicine
DX: M86.672 Other chronic osteomyelitis, left ankle and foot (principal); E11.69 Type 2 diabetes mellitus with other specified complication; Z79.4 Long term (current) use of insulin
CPT/HCPCS: 96365; 96366

== ENCOUNTER 2018-03-18 07:45 | Observation (INO) | payer MEDICARE ==
--- NOTE | 2018-03-18 08:39 | PDOC ---
History of Present Illness - General Chief Complaint: Chest Pain Stated Complaint: CHEST TIGHTNESS Time Seen by Provider: 03/18/18 08:22 History Source: Patient Exam Limitations: No Limitations - History of Present Illness Initial Comments: 03/18/18 08:59 Patient is a 67-year-old male past medical history of diabetes, hypertension, hyperlipidemia, osteomyelitis, cardiac stenting, coronary artery disease, who presents to the emergency department today complaining of shortness of breath and chest tightness. Patient states he was upstairs in outpatient infusion ready to receive his vancomycin for his osteomyelitis when he suddenly felt short of breath and increasing chest tightness. Patient states it happens both at rest and with exertion. He also states he has an associated dry cough. Patient last saw his crown ironer a month ago and he states that everything was fine at that time. His last cardiac stress test was approximately 1-1/2 years ago. Denies fevers, chills, productive cough, nausea, vomiting, diarrhea, frequency, urgency and hematuria. Past History - Travel Traveled outside of the country in the last 30 days: No Close contact w/someone who was outside of country & ill: No - Past Medical History Allergies/Adverse Reactions: Allergies Allergy/AdvReac Type Severity Reaction Status Date / Time No Known Allergies Allergy Verified 03/18/18 07:51 Home Medications: Ambulatory Orders Aspirin Coated [Ecotrin -] 81 mg PO DAILY 12/24/17 Atorvastatin Ca [Lipitor] 80 mg PO HS 12/24/17 Carvedilol 6.25 mg PO BID 12/24/17 Clopidogrel Bisulfate [Plavix] 75 mg PO DAILY 12/24/17 Lisinopril 5 mg PO DAILY 12/24/17 Metformin HCl [Glucophage] 1,000 mg PO BID 12/24/17 Tamsulosin HCl [Flomax] 0.4 mg PO BID 12/24/17 Mupirocin Ointment [Bactroban 2% Ointment -] 1 applic TP DAILY applic 12/30/17 metroNIDAZOLE [Flagyl -] 500 mg PO TID #75 tablet 02/16/18 Anemia: No Asthma: No Cancer: No Cardiac Disorders: Yes (stents (2017)) CVA: No COPD: No CHF: No DVT: No Dementia: No Diabetes: Yes GI Disorders: No Disorders: No HTN: Yes Hypercholesterolemia: Yes Liver Disease: No Seizures: No Thyroid Disease: No Other medical history: pneumonia, left foot Osteomylitis currently on IV antiobiotics 03/2018 PICC - Surgical History Cardiac Surgery: Yes (stents 2016) - Suicide/Smoking/Psychosocial Hx Smoking History: Never smoked Have you smoked in the past 12 months: No Number of Cigarettes Smoked Daily: 0 Information on smoking cessation initiated: No Hx Alcohol Use: No Drug/Substance Use Hx: No Substance Use Type: None Hx Substance Use Treatment: No Review of Systems - Review of Systems Able to Perform ROS?: Yes Comments:: 03/18/18 08:57 CONSTITUTIONAL: Absent: fever, chills, diaphoresis, generalized weakness, malaise, loss of appetite HEENT: Absent: rhinorrhea, nasal congestion, throat pain, throat swelling, difficulty swallowing, mouth swelling, ear pain, eye pain, visual Changes CARDIOVASCULAR: Present: chest tightness Absent: chest pain, loss of consciousness, palpitations , irregular heart rate, peripheral edema RESPIRATORY: Present: shortness of breath at rest and with exertion, dry cough Absent: orthopnea, wheezing, stridor, hemoptysis GASTROINTESTINAL: Absent: abdominal pain, abdominal distension, nausea, vomiting, diarrhea, constipation, melena, hematochezia GENITOURINARY: Absent: dysuria, frequency, urgency, hesitancy, hematuria, flank pain, genital pain MUSCULOSKELETAL: Absent: myalgia, arthralgia, joint swelling SKIN: Absent: rash, itching, pallor HEMATOLOGIC/IMMUNOLOGIC: Absent: easy bleeding, easy bruising, lymphadenopathy, frequent infections ENDOCRINE: Absent: unexplained weight gain, unexplained weight loss, heat intolerance, cold intolerance NEUROLOGIC: Absent: headache, focal weakness or paresthesias, dizziness, unsteady gait, seizure, mental status changes, bladder or bowel incontinence PSYCHIATRIC: Absent: anxiety, depression, suicidal or homicidal ideation, hallucinations. Is the patient limited Lithuanian proficient: No *Physical Exam - Vital Signs Last Vital Signs Temp Pulse Resp BP Pulse Ox 98.1 F 87 18 154/86 100 03/18/18 07:47 03/18/18 07:47 03/18/18 07:47 03/18/18 07:47 03/18/18 07:47 - Physical Exam Comments: 03/18/18 08:58 GENERAL: Well developed, well nourished. Awake and alert. No acute distress. Sitting up in bed. HEENT: Normocephalic, atraumatic. PERRLA, EOMI. No conjunctival pallor. Sclera are non- icteric. Moist mucous membranes. Oropharynx is clear. NECK: Supple. Full ROM. No JVD. Carotid pulses 2+ and symmetric, without bruits. No thyromegaly. No lymphadenopathy. CARDIOVASCULAR: Regular rate and rhythm. No murmurs, rubs, or gallops. Distal pulses are 2+ and symmetric. PULMONARY: No evidence of respiratory distress. Lungs clear to auscultation bilaterally. No wheezing, rales or rhonchi. ABDOMINAL: Soft. Non-tender. Non-distended. No rebound or guarding. No organomegaly. Normoactive bowel sounds. MUSCULOSKELETAL Normal range of motion at all joints. No bony deformities or tenderness. No CVA tenderness. EXTREMITIES: No cyanosis. No clubbing. No edema. No calf tenderness. SKIN: Warm and dry. Normal capillary refill. No rashes. No jaundice. NEUROLOGICAL: Alert, awake, appropriate. Cranial nerves 2-12 intact. No deficits to light touch and temperature in face, upper extremities and lower extremities. No motor deficits in the in face, upper extremities and lower extremities. Normoreflexic in the upper and lower extremities. Normal speech. Toes are down- going bilaterally. Gait is normal without ataxia. PSYCHIATRIC: Cooperative. Good eye contact. Appropriate mood and affect. Heart Score/ECG Review - History History: Moderately suspicious - Electrocardiogram EKG: Normal - Age Age: >/= 65 - Risk Factors Risk Factors Heart Score: Yes Hx Hypercholesterolemia, Yes Hx Hypertension, Yes Hx Diabetes Based on the list above the patient has:: >/=3 risk factors or Hx atherosclerotic disease - Troponin Troponin: 1-3x normal limit - Score Heart Score - Total: 6 ED Treatment Course - LABORATORY CBC & Chemistry Diagram: 03/19/18 07:00 03/19/18 07:00 Medical Decision Making - Medical Decision Making 03/18/18 09:02 Patient is a 67-year-old male who presents to the emergency department with chest tightness and shortness of breath for one hour. Differential diagnosis includes but is not limited to CAD, pneumonia, medication side effects, new onset CHF. Less likely PE at this time patient has no recent risk factors. We' ll obtain lab work, EKG, chest x-ray and give baby aspirin at this time. Given patients last stress test a year and a half ago, will most likely place patient in observation for further cardiac workup. Patient also needs his daily infusion of vancomycin. 2L NC started for O2 sat of 93 ORA. PCP:Dr. Mickey Reich 03/18/18 09:18 EKG: Rate 82 bpm sinus rhythm with occasional PVCs. T-wave flattening in V5 V6, 1 and 2. QTC 469, abnormal EKG. In comparison to an EKG done from 02/11/2018 T-wave flattening is new. QTC is prolongment is new as well. 03/18/18 11:24 Pt. with leukocytosis of 15. New interstisial markings in the lower lobes vs PNA. Given pt in the hospital daily for vancomycin infusions, suspect health care acquired PNA. Vancoymcin, azithromycin and zosyn given. Pt also with Troponin elevated at 0.05, demand vs cardiac event. Will trend second troponin. When second troponin is resulted, will place pt for admission. 03/18/18 13:06 2nd Troponin 0.[address] pt in tele for further work up. Case discussed with Dr. Freire who agrees to the admission. *DC/Admit/Observation/Transfer Diagnosis at time of Disposition: Elevated troponin I level, Chest tightness Pneumonia Qualifiers: Pneumonia type: due to unspecified organism Laterality: right Lung location: lower lobe of lung Qualified Code(s): J18.1 - Lobar pneumonia, unspecified organism - Discharge Dispostion Condition at time of disposition: Guarded Decision to Admit order: Yes - Referrals - Patient Instructions - Post Discharge Activity
[2018-03-18 09:52] LABS: BASO % 0.7 % (0-2.0); EOS % 4.5 % (0-4.5); HEMATOCRIT 37.8 % (35.4-49); HEMOGLOBIN 12.3 GM/dL (11.7-16.9); LYMPH % 14.1 % (8-40); MCH 28.9 pg (25.7-33.7); MCHC 32.7 g/dl (32.0-35.9); MEAN CELL VOLUME 88.6 fl (80-96); MONO % 8.1 % (3.8-10.2); NEUT % 72.6 % (42.8-82.8); PLATELET COUNT 295 K/MM3 (134-434); RBC 4.27 M/mm3 (4.00-5.60); RDW 16.9 % (11.9-15.9); WHITE BLOOD COUNT 15.4 K/mm3 (4.0-10.0)
[2018-03-18 09:54] LABS: URINE APPEARANCE CLEAR; URINE BILIRUBIN NEGATIVE (<2.0 mg/dL); URINE BLOOD 1+ (NEGATIVE); URINE COLOR YELLOW; URINE GLUCOSE (UA) 1+ (NEGATIVE); URINE KETONE NEGATIVE (NEGATIVE); URINE LEUK ESTERASE TRACE (NEGATIVE); URINE NITRITE NEGATIVE (NEGATIVE); URINE UROBILINOGEN NEGATIVE mg/dL (0.2-1.0)
[2018-03-18] MEDS ORDERED: ASPIRIN COATED 81 MG TABLET.EC PO SCH (10:00)
[2018-03-18 10:03] LABS: URINE PROTEIN 2+ (NEGATIVE)
[2018-03-18] MEDS ORDERED: ASPIRIN 81 MG CHEWABLE TABLETS ONE (10:16)
[2018-03-18 10:17] LABS: INR 1.29 (0.82-1.09); PROTHROMBIN TIME (PATIENT) 14.6 SEC (9.7-13.0)
[2018-03-18 11:19] LABS: EPI CELLS RARE /HPF (FEW); URINE HYALINE CAST 1 /lpf
[2018-03-18 12:25] LABS: ALBUMIN 3.8 g/dl (3.4-5.0); ANION GAP 8 (8-16); BLOOD UREA NITROGEN 16 mg/dL (7-18); CALCIUM 8.8 mg/dL (8.5-10.1); CHLORIDE 104 mmol/L (98-107); CO2 26 mmol/L (21-32); GLUCOSE,RANDOM 189 mg/dL (74-106); MAGNESIUM 1.8 mg/dL (1.8-2.4); POTASSIUM 4.5 mmol/L (3.5-5.1); SGOT/AST 25 U/L (15-37); SGPT/ALT 48 U/L (12-78); SODIUM 138 mmol/L (136-145)
[2018-03-18 12:26] LABS: ALK PHOS 71 U/L (45-117); BILIRUBIN,TOTAL 0.8 mg/dL (0.2-1.0); TOT PROT 7.2 g/dl (6.4-8.2)
[2018-03-18] MEDS ORDERED: VANCOMYCIN 1,000 MG in DEXTROSE 5%-WATER - 250 ML IVPB ONE (14:19)
[2018-03-18] MEDS ORDERED: PIPERACILLIN/TAZOB 3.375 GM 3.375 GM in DEXTROSE 5%-WATER - 50 ML IVPB ONE (14:20)
[2018-03-18] MEDS ORDERED: AZITHROMYCIN IVPB 500 MG in DEXTROSE 5%-WATER - 250 ML IVPB ONE (14:21)
[2018-03-18] MEDS ORDERED: VANCOMYCIN 1 GRAM (PRE-DOCKED) 1,000 MG/250 ML BAG IVPB ONE (14:25)
[2018-03-18] MEDS ORDERED: PIPERACILLIN/TAZOB 3.375 GM 3.375 GM/50 ML BAG IVPB ONE (15:25)
--- NOTE | 2018-03-18 16:34 | EKG ---
Test Reason : Blood Pressure : / mmHG Vent. Rate : 082 BPM Atrial Rate : 082 BPM P-R Int : 184 ms QRS Dur : 086 ms QT Int : 402 ms P-R-T Axes : 040 -07 085 degrees QTc Int : 469 ms SINUS RHYTHM WITH OCCASIONAL PREMATURE VENTRICULAR COMPLEXES NONSPECIFIC T WAVE ABNORMALITY PROLONGED QT ABNORMAL ECG WHEN COMPARED WITH ECG OF 11-FEB-2018 14:08, PREMATURE VENTRICULAR COMPLEXES ARE NOW PRESENT BORDERLINE CRITERIA FOR INFERIOR INFARCT ARE NO LONGER PRESENT Confirmed by XI LACY MD ([id number]) on 03/18/2018 4:34:28 PM Referred By: Confirmed By:XI LACY MD
[2018-03-18] MEDS: metFORMIN HCL 500 MG TABLET (FP) PO SCH (16:48)
[2018-03-18] MEDS ORDERED: metFORMIN HCL 500 MG TABLET (FP) ONE (16:52)
[2018-03-18] MEDS ORDERED: AZITHROMYCIN IVPB 250 ML IVPB ONE (16:52)
[2018-03-18 20:22] VITALS: BMI 33.5
[2018-03-18] MEDS ORDERED: ACETAMINOPHEN 325 MG TABLET (FP) PO PRN (20:25)
[2018-03-18] MEDS: guaiFENesin/D-M SUGAR-FREE/ACLHOL-FREE 118 ML BOTTLE PO PRN (21:55)
[2018-03-18] MEDS: ATORVASTATIN CA 80 MG TABLET (FP) PO SCH (21:55)
[2018-03-18] MEDS: HEPARIN NA (PORCINE) 5,000 UNITS/ML 1ML VIAL SQ SCH (21:55)
[2018-03-18] MEDS: CARVEDILOL 6.25 MG TABLET (FP) PO SCH (21:55)
[2018-03-18] MEDS ORDERED: PT OWN MED DRAWER 7, Y5N ONE (21:58)
[2018-03-18] MEDS: metroNIDAZOLE 250 MG TABLET PO SCH (23:31)
--- NOTE | 2018-03-18 23:41 | HP ---
Admitting History and Physical - Primary Care Physician PCP: Uriel Freire - Admission Chief Complaint: CHEST PAIN History of Present Illness: Patient is a 67-year-old male past medical history of diabetes, hypertension, hyperlipidemia, osteomyelitis, cardiac stenting, coronary artery disease, who presents to the emergency department today complaining of shortness of breath and chest tightness. Patient states he was upstairs in outpatient infusion ready to receive his vancomycin for his osteomyelitis when he suddenly felt short of breath and increasing chest tightness. Patient states it happens both at rest and with exertion. He also states he has an associated dry cough. 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 His last cardiac stress test was approximately 1-1/2 years ago. Denies fevers, chills, productive cough, nausea, vomiting, diarrhea, frequency, urgency and hematuria. 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 [place] History of Recent Travel: Yes (went to [place] 2 weeks ago, believe he got pneumonia while there) Home Medications - Allergies Allergies/Adverse Reactions: Allergies Allergy/AdvReac Type Severity Reaction Status Date / Time No Known Allergies Allergy Verified 03/18/18 07:51 - Home Medications Home Medications: Ambulatory Orders Aspirin Coated [Ecotrin -] 81 mg PO DAILY 12/24/17 Atorvastatin Ca [Lipitor] 80 mg PO HS 12/24/17 Carvedilol 6.25 mg PO BID 12/24/17 Clopidogrel Bisulfate [Plavix] 75 mg PO DAILY 12/24/17 Lisinopril 5 mg PO DAILY 12/24/17 Metformin HCl [Glucophage] 1,000 mg PO BID 12/24/17 Tamsulosin HCl [Flomax] 0.4 mg PO BID 12/24/17 Mupirocin Ointment [Bactroban 2% Ointment -] 1 applic TP DAILY applic 12/30/17 metroNIDAZOLE [Flagyl -] 500 mg PO TID #75 tablet 02/16/18 Review of Systems - Review of Systems Constitutional: reports: Weakness Eyes: reports: No Symptoms HENT: reports: No Symptoms Neck: reports: No Symptoms Cardiovascular: reports: Chest Pain, Shortness of Breath Respiratory: reports: SOB Gastrointestinal: reports: No Symptoms Genitourinary: reports: No Symptoms Integumentary: reports: Wound, Other Neurological: reports: Pre-Existing Deficit Endocrine: reports: No Symptoms Hematology/Lymphatic: reports: No Symptoms Psychiatric: reports: No Symptoms Physical Examination Vital Signs: Vital Signs Temperature 97.5 F L 03/18/18 19:00 Pulse Rate 80 03/18/18 19:00 Respiratory Rate 20 03/18/18 19:00 Blood Pressure 144/84 03/18/18 19:00 O2 Sat by Pulse Oximetry (%) 99 03/18/18 19:00 Constitutional: Yes: Mild Distress Eyes: Yes: WNL HENT: Yes: WNL Neck: Yes: WNL Cardiovascular: Yes: WNL, Regular Rate and Rhythm Respiratory: Yes: WNL Gastrointestinal: Yes: WNL ...Rectal Exam: Yes: WNL Renal/: Yes: WNL Musculoskeletal: Yes: WNL Extremities: Yes: Deformity Edema: No Peripheral Pulses WNL: Yes Integumentary: Yes: Pressure Ulcer (LEFT LEG) Wound/Incision: Yes: Dressing Dry and Intact Neurological: Yes: Pre-Existing Deficit ...Motor Strength: LLE Psychiatric: Yes: WNL Labs: CBC, BMP 03/18/18 09:38 03/18/18 09:38 Problem List - Problems (1) Chest tightness Code(s): R07.89 - OTHER CHEST PAIN (2) Elevated troponin I level Code(s): R74.8 - ABNORMAL LEVELS OF OTHER SERUM ENZYMES (3) Osteomyelitis of left foot Code(s): M86.9 - OSTEOMYELITIS, UNSPECIFIED (4) BPH (benign prostatic hyperplasia) Code(s): N40.0 - BENIGN PROSTATIC HYPERPLASIA WITHOUT LOWER URINRY TRACT SYMP Qualifiers: (5) DMII (diabetes mellitus, type 2) Code(s): E11.9 - TYPE 2 DIABETES MELLITUS WITHOUT COMPLICATIONS Assessment/Plan CARDIOLOGY WORKUP IN PROGRESS TELE MONITORING CHECK LABS CARDIOLOGY EVAL IV ABX CONTINUED FOR CHRONIC LEFT LEG OSTEOMYELITIS
[2018-03-19] MEDS: guaiFENesin/D-M SUGAR-FREE/ACLHOL-FREE 118 ML BOTTLE PO PRN ×2 (03:32→18:10)
[2018-03-19] MEDS: metroNIDAZOLE 250 MG TABLET PO SCH (06:46)
[2018-03-19] MEDS: metFORMIN HCL 500 MG TABLET (FP) PO SCH ×2 (06:46→17:16)
[2018-03-19 07:44] LABS: HEMOGLOBIN 11.7 GM/dL (11.7-16.9); MCH 29.5 pg (25.7-33.7); MCHC 33.5 g/dl (32.0-35.9); MEAN CELL VOLUME 88.1 fl (80-96); MEAN PLT VOLUME 9.5 fl (7.5-11.1); PLATELET COUNT 242 K/MM3 (134-434); RBC 3.98 M/mm3 (4.00-5.60); RDW 16.6 % (11.9-15.9); WHITE BLOOD COUNT 13.9 K/mm3 (4.0-10.0)
--- NOTE | 2018-03-19 08:09 | CON.CARD ---
Consult Consult Specialty:: Cardiology Referred by:: Dr. 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 Pt was seen and examined today in [facility]. states he is feeling much better today, back to his baseline. States that his weight is up approx 5lbs from the last time he checked. Currently denies any chest pain or sob. Denies any change in his chronic mild RLE edema. no LLE edema. no pnd, orthopnea. Echocardiogram 12/04/17: normal LV systolic function now with LVEF 55% and no significant valve disease. 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 (about 10 yrs ago) Cardio/Vascular: Yes: CAD, CHF, HTN, Hyperlipdemia Renal/: Yes: BPH Endocrine: Yes: Diabetes Mellitus (Type II) - Past Surgical History Past Surgical History: Yes: Cataract Removal (in rt eye about 3-4 yrs ago) - Alcohol/Substance Use Hx Alcohol Use: No - Smoking History Smoking history: Never smoked Have you smoked in the past 12 months: No Aproximately how many cigarettes per day: 0 - Social History ADL: Independent Occupation: works at [email or web address] in the [place] History of Recent Travel: Yes (went to [place] 2 weeks ago, believe he got pneumonia while there) Home Medications - Allergies Allergies/Adverse Reactions: Allergies Allergy/AdvReac Type Severity Reaction Status Date / Time No Known Allergies Allergy Verified 03/18/18 07:51 - Home Medications Home Medications: Ambulatory Orders Aspirin Coated [Ecotrin -] 81 mg PO DAILY 12/24/17 Atorvastatin Ca [Lipitor] 80 mg PO HS 12/24/17 Carvedilol 6.25 mg PO BID 12/24/17 Clopidogrel Bisulfate [Plavix] 75 mg PO DAILY 12/24/17 Lisinopril 5 mg PO DAILY 12/24/17 Metformin HCl [Glucophage] 1,000 mg PO BID 12/24/17 Tamsulosin HCl [Flomax] 0.4 mg PO BID 12/24/17 Mupirocin Ointment [Bactroban 2% Ointment -] 1 applic TP DAILY applic 12/30/17 metroNIDAZOLE [Flagyl -] 500 mg PO TID #75 tablet 02/16/18 Family Disease History - Family Disease History Family History: Denies Review of Systems - Review of Systems Constitutional: denies: No Symptoms, Chills, Diaphoresis, Fever, Lethargy, Loss of Appetite, Malaise, Night Sweats, Unintentional Wgt. Loss, Weakness, Other Eyes: denies: No Symptoms, Blind Spots, Blurred Vision, Double Vision, Eye Pain , Floaters, Photophobia, Recent Change in Vision, Other HENT: denies: No Symptoms, Difficult Swallowing, Ear Discharge, Ear Pain, Epistaxis, Gingival Bleeding, Hearing Loss, Mouth Swelling, Nasal Congestion, Ocular Prosthesis, Throat Pain, Toothache, Ringing in Ears, Other Neck: denies: No Symptoms, Decreased ROM, Lumps, Pain on Movement, Stiffness, Swollen Glands, Tenderness, Other Cardiovascular: reports: Edema, Shortness of Breath. denies: No Symptoms, Chest Pain, Palpitations, Other Respiratory: reports: Exercise Intolerance, SOB, SOB on Exertion. denies: No Symptoms, Cough, Hemoptysis, Orthopnea, PND, Snoring, Wheezing, Other Gastrointestinal: denies: No Symptoms, Abdominal Pain, Bloating, Constipation, Diarrhea, Dysphagia, Indigestion, Melena, Nausea, Rectal Bleeding, Vomiting, Vomiting Blood, Other Genitourinary: denies: No Symptoms, Burning, Discharge, Dysuria, Flank Pain, Frequency, Hematuria, Incontinence, Lesions, Menses, Pain, Testicular Mass, Testicular Pain, Testicular Swelling, Urgency, Vaginal Bleeding, Other Breasts: denies: No Symptoms Reported, See HPI, Breast Implants, Discharge from Nipple, Lumps, Pain, Skin Changes, Other Musculoskeletal: denies: No Symptoms, Back Pain, Crepitus, Decreased ROM, Extremity Pain, Joint Pain, Joint Swelling, Muscle Pain, Muscle Cramps, Muscle Weakness, Other Integumentary: denies: No Symptoms, Blister, Bruising, Change in Color, Eczema, Erythema, Incision, Lesions, Lump, Pallor, Pruritis, Rash, Wound, Other Neurological: denies: No Symptoms, Change in LOC, Change in Speech, Confusion, Dizziness, Headache, Incoordination, Numbness, Parasthesia, Pre-Existing Deficit , Seizure, Syncope, Tremors, Unsteady Gait, Weakness, Other Endocrine: denies: No Symptoms, Excessive Sweating, Flushing, Increased Hunger, Increased Thirst, Intolerance to Cold, Intolerance to Heat, Unexplained Weight Gain, Unexplained Weight Loss, Other Hematology/Lymphatic: denies: No Symptoms, Easily Bruised, Excessive Bleeding, Swollen Glands, Other Psychiatric: denies: No Symptoms, Altered Sleep Pattern, Anxiety, Depression, Hallucinations, Panic, Paranoia, Suicidal, Other - Risk Factors Known Risk Factors: Yes: Diabetes Mellitus, Hypercholesterolemia, Hypertension Vital Signs: Vital Signs Temperature 98 F 03/19/18 02:00 Pulse Rate 76 03/19/18 06:00 Respiratory Rate 20 03/19/18 06:00 Blood Pressure 152/76 03/19/18 06:00 O2 Sat by Pulse Oximetry (%) 99 03/18/18 23:00 Constitutional: Yes: No Distress, Calm, Obese Eyes: Yes: Conjunctiva Clear, PERRL HENT: Yes: Normocephalic Neck: Yes: Supple, Trachea Midline Respiratory: Yes: Diminished. No: Wheezes Gastrointestinal: Yes: Normal Bowel Sounds. No: Distention Cardiovascular: Yes: Regular Rate and Rhythm. No: Pulse Irregular, Rub, Varicosities JVD: No Carotid Bruit: No PMI: Non-Displaced Heart Sounds: Yes: S1, S2. No: Split S2, S3, Clicks, Gallop, Rub Murmur: No: Systolic Murmur, Diastolic Murmur Musculoskeletal: Yes: WNL Extremities: Yes: Other Edema: RLE: Trace Peripheral Pulses WNL: No Neurological: Yes: Alert, Oriented Psychiatric: Yes: Oriented - Other Data Labs, Other Data: CBC, BMP 03/19/18 07:00 INR, PTT INR 1.29 (0.82-1.09) H 03/18/18 09:38 Troponin, BNP 03/18/18 03/18/18 09:38 12:58 Troponin I 0.05 0.04 Troponin, BNP 03/18/18 03/18/18 09:38 12:58 Troponin I 0.05 0.04 ekg-nsr 82bpm, pvc, nonspecific St abnl Echo: Report Reviewed Prior Cardiac Procedures: PTCA with Stent Imaging - Results Chest X-ray: Report Reviewed, Image Reviewed EKG: Report Reviewed, Image Reviewed Other: Report Reviewed, Image Reviewed (tele-nsr, pvcs, no sig arrhythmias) Assessment/Plan 67 year old man with a pmhx of dm, htn, hld, cva, bph, chronic systolic chf ( LVEF 33.7% in April 2017), and CAD s/p stents to LCx and RCA 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 Pt was seen and examined today in [facility]. states he is feeling much better today, back to his baseline. States that his weight is up approx 5lbs from the last time he checked. Currently denies any chest pain or sob. Denies any change in his chronic mild RLE edema. no LLE edema. no pnd, orthopnea. Echocardiogram 12/04/17: normal LV systolic function now with LVEF 55% and no significant valve disease. SOB/chest tightness-unlikely ACS-possible mild acute decompensated CHF -denies chest pain, reports tightness due to sob -symptoms resolved today -cardiac enzymes did not trend up -ekg shows no sig changes -no arrhythmias on tele -pt currently back to close to baseline -can start a trial of low dose Lasix 20mg po daily (not reportedly on Lasix at home) -pt has an appointment to fup with Dr. Segundo as outpatient who can re-evaluate volume status at that point -ok from a cardiac standpoint for discharge home -no additional inpatient cardiac work up is needed at this point
[2018-03-19 08:12] LABS: CHLORIDE 103 mmol/L (98-107); POTASSIUM 4.3 mmol/L (3.5-5.1); SODIUM 137 mmol/L (136-145)
[2018-03-19 08:35] LABS: ALBUMIN 3.4 g/dl (3.4-5.0); ALK PHOS 59 U/L (45-117); ANION GAP 7 (8-16); BILIRUBIN,TOTAL 1.1 mg/dL (0.2-1.0); BLOOD UREA NITROGEN 13 mg/dL (7-18); CALCIUM 8.4 mg/dL (8.5-10.1); CHOLESTEROL 97 mg/dL (50-200); CO2 27 mmol/L (21-32); CREATININE 0.8 mg/dL (0.7-1.3); GLUCOSE,RANDOM 165 mg/dL (74-106); HDL CHOLESTEROL 36 mg/dL (40-60); SGOT/AST 14 U/L (15-37); SGPT/ALT 32 U/L (12-78); TOT PROT 6.2 g/dl (6.4-8.2); TRIGLYCERIDES 79 mg/dL (35-160)
[2018-03-19] MEDS ORDERED: PT OWN MED DRAWER 7, Y5N ONE (08:38)
[2018-03-19] MEDS: TAMSULOSIN HCL 0.4 MG CAP.ER.24H (FP) PO SCH (09:18)
[2018-03-19] MEDS: LISINOPRIL 5 MG TABLET (FP) PO SCH (09:18)
[2018-03-19] MEDS: HEPARIN NA (PORCINE) 5,000 UNITS/ML 1ML VIAL SQ SCH ×2 (09:18→21:38)
[2018-03-19] MEDS: CARVEDILOL 6.25 MG TABLET (FP) PO SCH ×2 (09:18→21:38)
[2018-03-19] MEDS: ASPIRIN COATED 81 MG TABLET.EC PO SCH (09:18)
[2018-03-19] MEDS: CLOPIDOGREL BISULFATE 75 MG TABLET (FP) PO SCH (09:18)
[2018-03-19] MEDS: MUPIROCIN 2% TOPICAL OINTMENT 22 GM TUBE TP SCH ×2 (10:46→21:50)
[2018-03-19] MEDS: FUROSEMIDE 20 MG TABLET (FP) PO SCH (11:46)
--- NOTE | 2018-03-19 12:39 | CON.ID ---
Consult Consult Specialty:: infectious disease Referred by:: lakhwinder Reason for Consultation:: osteo of foot - History of Present Illness Chief Complaint: chest discomfort History of Present Illness: 67 year old man with CAD, DM, reciving abx - rocephin via picc line for osteo of the foot9 last dose 03/23) developed chest discomfort while waiting for antibiotics at [facility] yesterday and went to ED no fevers otherwise feels well admitted to evaluate for acs- on telemetry chest discomfort resolved 5 pound weigh gain noted by patient- has been started on lasix by cardiology no diarrhea good appetite +chronic leukocytosis- has been urged to f/u with family psychologist- he has been seen in the past for this but didnot f/u - History Source History Provided By: Patient, Medical Record - 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: 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 (about 10 yrs ago) Cardio/Vascular: Yes: CAD, CHF, HTN, Hyperlipdemia Renal/: Yes: BPH Infectious Disease: Yes: Other (osteomyelitis left foot) Endocrine: Yes: Diabetes Mellitus (Type II) - Past Surgical History Past Surgical History: Yes: Bypass (fem pop RLE), Cataract Removal (in rt eye about 3-4 yrs ago) - Alcohol/Substance Use Hx Alcohol Use: No - Smoking History Smoking history: Never smoked Have you smoked in the past 12 months: No Aproximately how many cigarettes per day: 0 - Social History Usual Living Arrangement: With Spouse ADL: Independent Occupation: works at [employer] in the [place] History of Recent Travel: Yes Home Medications - Allergies Allergies/Adverse Reactions: Allergies Allergy/AdvReac Type Severity Reaction Status Date / Time No Known Allergies Allergy Verified 03/18/18 07:51 - Home Medications Home Medications: Ambulatory Orders Aspirin Coated [Ecotrin -] 81 mg PO DAILY 12/24/17 Atorvastatin Ca [Lipitor] 80 mg PO HS 12/24/17 Carvedilol 6.25 mg PO BID 12/24/17 Clopidogrel Bisulfate [Plavix] 75 mg PO DAILY 12/24/17 Lisinopril 5 mg PO DAILY 12/24/17 Metformin HCl [Glucophage] 1,000 mg PO BID 12/24/17 Tamsulosin HCl [Flomax] 0.4 mg PO BID 12/24/17 Mupirocin Ointment [Bactroban 2% Ointment -] 1 applic TP DAILY applic 12/30/17 metroNIDAZOLE [Flagyl -] 500 mg PO TID #75 tablet 02/16/18 Family Disease History - Family Disease History Family History: Unremarkable Review of Systems - Review of Systems Constitutional: reports: No Symptoms. denies: Chills, Diaphoresis, Fever, Lethargy, Loss of Appetite Eyes: reports: No Symptoms HENT: reports: No Symptoms. denies: Difficult Swallowing Neck: reports: No Symptoms Cardiovascular: reports: No Symptoms, Other (chest tightness) Gastrointestinal: reports: No Symptoms Genitourinary: reports: No Symptoms Musculoskeletal: reports: No Symptoms Integumentary: reports: No Symptoms Neurological: reports: No Symptoms Physical Exam Vital Signs: Vital Signs Temperature 98.6 F 03/19/18 08:53 Pulse Rate 78 03/19/18 08:53 Respiratory Rate 20 03/19/18 09:00 Blood Pressure 153/74 03/19/18 08:53 O2 Sat by Pulse Oximetry (%) 99 03/19/18 09:00 Constitutional: Yes: Well Nourished, No Distress, Calm Eyes: Yes: Conjunctiva Clear HENT: Yes: Atraumatic, Normocephalic Neck: Yes: Supple, Trachea Midline Cardiovascular: Yes: Regular Rate and Rhythm Respiratory: Yes: Regular, CTA Bilaterally Gastrointestinal: Yes: Normal Bowel Sounds, Soft Extremities: Yes: Other (foot wound is dry, healed, no open ulcers picc line site no erythema) Edema: LLE: Trace, RLE: Trace Peripheral Pulses WNL: Yes Labs: CBC, BMP 03/19/18 07:00 03/19/18 07:00 Imaging - Results Chest X-ray: Report Reviewed, Image Reviewed Problem List - Problems (1) Chest tightness Assessment/Plan: resolved would repeat cxray in dept, dlinically do not suspect pneumonia Code(s): R07.89 - OTHER CHEST PAIN (2) Osteomyelitis of left foot Assessment/Plan: to complete 6 weeks iv rocephin on 03/23 Code(s): M86.9 - OSTEOMYELITIS, UNSPECIFIED (3) DMII (diabetes mellitus, type 2) Code(s): E11.9 - TYPE 2 DIABETES MELLITUS WITHOUT COMPLICATIONS
[2018-03-19] MEDS ORDERED: CEFTRIAXONE 2 GM in DEXTROSE 5%-WATER 100 ML IVPB ONE (12:45)
[2018-03-19] MEDS ORDERED: DEXTROSE 5%-WATER 100 ML IVPB ONE (13:50)
[2018-03-19] MEDS ORDERED: ALBUTEROL SO4 2.5/IPRATROPIUM 0.5 INH SOL 3 ML VIAL.NEB. NEB PRN (14:27)
--- NOTE | 2018-03-19 16:36 | PN ---
Progress Note, Physician Chief Complaint: awake alert mild dyspnea - Current Medication List Current Medications: Active Medications Acetaminophen (Tylenol -) 650 mg PO Q6H PRN PRN Reason: PAIN LEVEL 4 - 6 Last Admin: 03/18/18 21:56 Dose: 650 mg Albuterol/Ipratropium (Duoneb -) 1 amp NEB Q6H PRN PRN Reason: SHORTNESS OF BREATH Aspirin (Ecotrin -) 81 mg PO DAILY [facility] Last Admin: 03/19/18 09:18 Dose: 81 mg Atorvastatin Calcium (Lipitor -) 80 mg PO HS [facility] Last Admin: 03/18/18 21:55 Dose: 80 mg Carvedilol (Coreg -) 6.25 mg PO BID [facility] Last Admin: 03/19/18 09:18 Dose: 6.25 mg Clopidogrel Bisulfate (Plavix -) 75 mg PO DAILY [facility] Last Admin: 03/19/18 09:18 Dose: 75 mg Furosemide (Lasix -) 20 mg PO DAILY [facility] Last Admin: 03/19/18 11:46 Dose: 20 mg Guaifenesin (Diabetic Tussin Dm -) 10 ml PO Q6H PRN PRN Reason: COUGH Last Admin: 03/19/18 03:32 Dose: 10 ml Heparin Sodium (Porcine) (Heparin -) 5,000 unit SQ BID [facility] Last Admin: 03/19/18 09:18 Dose: 5,000 unit Lisinopril (Prinivil) 5 mg PO DAILY [facility] Last Admin: 03/19/18 09:18 Dose: 5 mg Metformin HCl (Glucophage -) 500 mg PO BID@0700,1630 [facility] Last Admin: 03/19/18 06:46 Dose: 500 mg Mupirocin (Bactroban 2% Ointment -) 1 applic TP BID [facility] Last Admin: 03/19/18 10:46 Dose: 1 applic Tamsulosin HCl (Flomax -) 0.4 mg PO DAILY@0830 [facility] Last Admin: 03/19/18 09:18 Dose: 0.4 mg - Objective Vital Signs: Vital Signs Temperature 98.6 F 03/19/18 08:53 Pulse Rate 78 03/19/18 08:53 Respiratory Rate 20 03/19/18 15:00 Blood Pressure 153/74 03/19/18 08:53 O2 Sat by Pulse Oximetry (%) 99 03/19/18 15:00 Constitutional: Yes: Mild Distress Eyes: Yes: WNL HENT: Yes: WNL Neck: Yes: WNL Cardiovascular: Yes: WNL Respiratory: Yes: Cough, Rhonchi Gastrointestinal: Yes: WNL Genitourinary: Yes: WNL Musculoskeletal: Yes: WNL Extremities: Yes: Deformity Edema: No Peripheral Pulses WNL: Yes Integumentary: Yes: Pressure Ulcer Wound/Incision: Yes: Dressing Dry and Intact Neurological: Yes: Pre-Existing Deficit ...Motor Strength: LLE Psychiatric: Yes: WNL Labs: CBC, BMP 03/19/18 07:00 03/19/18 07:00 INR, PTT INR 1.29 (0.82-1.09) H 03/18/18 09:38 Problem List - Problems (1) Chest tightness Code(s): R07.89 - OTHER CHEST PAIN (2) Elevated troponin I level Code(s): R74.8 - ABNORMAL LEVELS OF OTHER SERUM ENZYMES (3) Osteomyelitis of left foot Code(s): M86.9 - OSTEOMYELITIS, UNSPECIFIED (4) BPH (benign prostatic hyperplasia) Code(s): N40.0 - BENIGN PROSTATIC HYPERPLASIA WITHOUT LOWER URINRY TRACT SYMP Qualifiers: (5) DMII (diabetes mellitus, type 2) Code(s): E11.9 - TYPE 2 DIABETES MELLITUS WITHOUT COMPLICATIONS Assessment/Plan rule out chf vs pna? ct chest w/o contrast oob to chair pulm/cardio eval on zosyn and vanco nebs incentive spirometry dvt prophylaxis
[2018-03-19] MEDS ORDERED: FUROSEMIDE 40 MG/4 ML INJECTABLE VIAL IVPUSH ONE (17:45)
[2018-03-19] MEDS: ATORVASTATIN CA 80 MG TABLET (FP) PO SCH (21:38)
[2018-03-20] MEDS: metFORMIN HCL 500 MG TABLET (FP) PO SCH (06:28)
[2018-03-20 08:51] VITALS: BP 148/82; PULSE 76; TEMP 98.2
[2018-03-20] MEDS ORDERED: DEXTROSE 5%-WATER 100 ML IVPB ONE (09:04)
--- NOTE | 2018-03-20 09:16 | PN ---
Progress Note, Physician - Current Medication List Current Medications: Active Medications Acetaminophen (Tylenol -) 650 mg PO Q6H PRN PRN Reason: PAIN LEVEL 4 - 6 Last Admin: 03/18/18 21:56 Dose: 650 mg Albuterol/Ipratropium (Duoneb -) 1 amp NEB Q6H PRN PRN Reason: SHORTNESS OF BREATH Aspirin (Ecotrin -) 81 mg PO DAILY [facility] Last Admin: 03/19/18 09:18 Dose: 81 mg Atorvastatin Calcium (Lipitor -) 80 mg PO HS [facility] Last Admin: 03/19/18 21:38 Dose: 80 mg Carvedilol (Coreg -) 6.25 mg PO BID [facility] Last Admin: 03/19/18 21:38 Dose: 6.25 mg Clopidogrel Bisulfate (Plavix -) 75 mg PO DAILY [facility] Last Admin: 03/19/18 09:18 Dose: 75 mg Furosemide (Lasix -) 20 mg PO DAILY [facility] Last Admin: 03/19/18 11:46 Dose: 20 mg Guaifenesin (Diabetic Tussin Dm -) 10 ml PO Q6H PRN PRN Reason: COUGH Last Admin: 03/19/18 18:10 Dose: 10 ml Heparin Sodium (Porcine) (Heparin -) 5,000 unit SQ BID [facility] Last Admin: 03/19/18 21:38 Dose: 5,000 unit Ceftriaxone Sodium 2 gm/ (Dextrose) 100 mls @ 200 mls/hr IVPB DAILY [facility]; Protocol Lisinopril (Prinivil) 5 mg PO DAILY [facility] Last Admin: 03/19/18 09:18 Dose: 5 mg Metformin HCl (Glucophage -) 500 mg PO BID@0700,1630 [facility] Last Admin: 03/20/18 06:28 Dose: 500 mg Mupirocin (Bactroban 2% Ointment -) 1 applic TP BID [facility] Last Admin: 03/19/18 21:50 Dose: Not Given Tamsulosin HCl (Flomax -) 0.4 mg PO DAILY@0830 [facility] Last Admin: 03/19/18 09:18 Dose: 0.4 mg - Objective Vital Signs: Vital Signs Temperature 98.2 F 03/20/18 08:10 Pulse Rate 76 03/20/18 08:10 Respiratory Rate 14 03/20/18 08:10 Blood Pressure 148/82 03/20/18 08:10 O2 Sat by Pulse Oximetry (%) 93 L 03/19/18 20:32 Cardiovascular: Yes: S1, S2 Respiratory: Yes: Diminished Gastrointestinal: Yes: Normal Bowel Sounds, Soft Labs: CBC, BMP 03/19/18 07:00 03/19/18 07:00 INR, PTT INR 1.29 (0.82-1.09) H 03/18/18 09:38 Problem List - Problems (1) CHF (congestive heart failure) Assessment/Plan: -cardio consult noted -Lasix -Follow Labs Code(s): I50.9 - HEART FAILURE, UNSPECIFIED (2) Pleural effusion Assessment/Plan: -Lasix -Pulm consult Code(s): J90 - PLEURAL EFFUSION, NOT ELSEWHERE CLASSIFIED (3) Osteomyelitis Assessment/Plan: -IV Abx -ID consult noted Code(s): M86.9 - OSTEOMYELITIS, UNSPECIFIED
[2018-03-20] MEDS: HEPARIN NA (PORCINE) 5,000 UNITS/ML 1ML VIAL SQ SCH (09:22)
[2018-03-20] MEDS: CARVEDILOL 6.25 MG TABLET (FP) PO SCH (09:22)
[2018-03-20] MEDS: CLOPIDOGREL BISULFATE 75 MG TABLET (FP) PO SCH (09:22)
[2018-03-20] MEDS: TAMSULOSIN HCL 0.4 MG CAP.ER.24H (FP) PO SCH (09:22)
[2018-03-20] MEDS: ASPIRIN COATED 81 MG TABLET.EC PO SCH (09:22)
[2018-03-20] MEDS: LISINOPRIL 5 MG TABLET (FP) PO SCH (09:22)
[2018-03-20] MEDS: MUPIROCIN 2% TOPICAL OINTMENT 22 GM TUBE TP SCH (09:23)
[2018-03-20] MEDS: FUROSEMIDE 20 MG TABLET (FP) PO SCH (09:26)
[2018-03-20 09:40] LABS: BASO % 0.8 % (0-2.0); EOS % 5.9 % (0-4.5); HEMATOCRIT 36.3 % (35.4-49); HEMOGLOBIN 12.1 GM/dL (11.7-16.9); LYMPH % 17.1 % (8-40); MCH 29.2 pg (25.7-33.7); MCHC 33.2 g/dl (32.0-35.9); MEAN CELL VOLUME 87.9 fl (80-96); MEAN PLT VOLUME 9.2 fl (7.5-11.1); NEUT % 69.2 % (42.8-82.8); PLATELET COUNT 276 K/MM3 (134-434); RBC 4.12 M/mm3 (4.00-5.60); RDW 16.7 % (11.9-15.9); WHITE BLOOD COUNT 13.4 K/mm3 (4.0-10.0)
[2018-03-20] MEDS ORDERED: CEFTRIAXONE 2 GM in DEXTROSE 5%-WATER 100 ML IVPB SCH (10:00)
[2018-03-20 10:18] LABS: CHLORIDE 102 mmol/L (98-107); POTASSIUM 4.2 mmol/L (3.5-5.1); SODIUM 138 mmol/L (136-145)
[2018-03-20] MEDS ORDERED: FUROSEMIDE 40 MG/4 ML INJECTABLE VIAL IVPUSH ONE (10:30)
--- NOTE | 2018-03-20 11:24 | PN ---
Progress Note (short form) - Note Progress Note: feels much better this am no complaints on diuretics chest ct c/w CHF Vital Signs Period Temp Pulse Resp BP Sys/Garces Pulse Ox Last 24 Hr 97.8 F-98.2 F 74-78 14-20 130-148/66-82 93-99 cor-rrr lungs clear abd soft,nt ext trace pretibial edema CBC, BMP 03/20/18 09:15 a/p chf- improving with diuresis osteomyelitis- completing antibiotics this week chronic leukocytosis- unchanged, should f/u with hematology d/w Dr Preston please call back if needed Problem List - Problems (1) Chest tightness Code(s): R07.89 - OTHER CHEST PAIN (2) Osteomyelitis of left foot Code(s): M86.9 - OSTEOMYELITIS, UNSPECIFIED (3) DMII (diabetes mellitus, type 2) Code(s): E11.9 - TYPE 2 DIABETES MELLITUS WITHOUT COMPLICATIONS
[2018-03-20 11:26] LABS: ALBUMIN 3.4 g/dl (3.4-5.0); ALK PHOS 65 U/L (45-117); ANION GAP 12 (8-16); BILIRUBIN,TOTAL 0.7 mg/dL (0.2-1.0); BLOOD UREA NITROGEN 15 mg/dL (7-18); CO2 24 mmol/L (21-32); CREATININE 0.9 mg/dL (0.7-1.3); GLUCOSE,RANDOM 230 mg/dL (74-106); SGOT/AST 15 U/L (15-37); SGPT/ALT 31 U/L (12-78); TOT PROT 6.5 g/dl (6.4-8.2)
--- NOTE | 2018-03-20 11:35 | PN ---
Progress Note (short form) - Note Progress Note: PULMONARY CONSULTATION DICTATED 03/08/18 IMP ACUTE ON CHRONIC CHF ASHD S/P STENTS BILATERAL PLEURAL EFFUSION LIKELY SECONDARY TO CHF MEDIASTINAL ADENOPATHY LIKELY REACTIVE HTN DM PVD S/P FEM-POP CHRONIC ULCER LEFT FOOT OSTEOMYELITIS PLAN LASIX O2 NEEDED ABX PER ID F/U CHEST CT 4-[address] BLANCHARD Problem List - Problems (1) CHF (congestive heart failure) Code(s): I50.9 - HEART FAILURE, UNSPECIFIED (2) Chest tightness Code(s): R07.89 - OTHER CHEST PAIN (3) Osteomyelitis Code(s): M86.9 - OSTEOMYELITIS, UNSPECIFIED (4) Pleural effusion Code(s): J90 - PLEURAL EFFUSION, NOT ELSEWHERE CLASSIFIED (5) DMII (diabetes mellitus, type 2) Code(s): E11.9 - TYPE 2 DIABETES MELLITUS WITHOUT COMPLICATIONS (6) PVD (peripheral vascular disease) Code(s): I73.9 - PERIPHERAL VASCULAR DISEASE, UNSPECIFIED (7) Mediastinal adenopathy Code(s): R59.0 - LOCALIZED ENLARGED LYMPH NODES
[2018-03-20 11:56] LABS: N-TERMINAL BNP 3862.29 pg/ml (5-125)
--- NOTE | 2018-03-20 13:06 | CONS ---
DATE OF CONSULTATION: 03/20/2018 REFERRING PHYSICIAN: Vitaliy Moncada MD Mr. Grant is a 67-year-old male with past medical history of diabetes, hypertension, hyperlipidemia, history of CVA, BPH, chronic systolic congestive heart failure with a left ventricular ejection fraction of 33% April 2017, ASHD status post stents x2 with a left circumflex in the RCA, recent femoral popliteal bypass right lower extremity a few months ago, chronic left foot ulcer, currently maintained on antibiotics as an outpatient, who was admitted to [facility] from an outpatient antibiotic inrfusion center secondary to shortness of breath and chest tightness. Patient denied any nausea, vomiting, or diaphoresis. He denied any fever or chills. He went to the emergency room. In the ER, he was treated with Lasix with good clinical response and transferred to medical telemetry for further management. He denies any history of asthma or COPD. He is a nonsmoker. There is no history of occupational exposure to chemical fumes. He states that he normally gets short of breath when walking a block or two, for which he has to stop secondary to dyspnea which he attributes to his stents. He denies any orthopnea or PND. He denies any travel. There is no history of DVT or PE in the past. PAST MEDICAL HISTORY: Again includes hypertension, hyperlipidemia, CVA, BPH, chronic systolic heart failure. In April of 2017 a left ventricular ejection fraction was 33.7%. Most recent echocardiogram in December 04, 2017, revealed a normal systolic function with an ejection fraction of 55%. History of stents x2, femoral popliteal bypass, as well as chronic osteo left foot ulcer on IV antibiotics as an outpatient. MEDICATIONS: Medications prior to admission include Ecotrin, Lipitor, Coreg, Plavix, lisinopril, metformin, tamsulosin, Bactroban, and Flagyl. Current medications include Flomax, Tylenol, Prinivil, ceftriaxone, Bactroban, heparin, Diabetic Tussin, Duo-Neb, Coreg, Glucophage, Lipitor, Lasix, Ecotrin, and Plavix. REVIEW OF SYSTEMS: Positive for shortness of breath with exertion. No chest pain. No palpitations. Positive chest tightness. No fever. No chills. Positive cough nonproductive. No abdominal pain. Mild lower extremity edema. PHYSICAL EXAMINATION: General: Mr. Grant is a welldeveloped and nourished male, awake, alert, in no acute distress. Vital signs: He is afebrile, blood pressure is 148/72, respiratory rate is 14, O2 saturation is 97% on room air. HEENT: Head is normocephalic atraumatic. Neck: Supple. Heart: Regular with S1, S2. Chest: Clear. Abdomen: Soft. Bowel sounds positive. Extremities: Trace bilateral lower extremity edema. LABORATORIES: BUN is 13, creatinine is 0.8. Troponin 0.04. WBC is 13.4, hemoglobin 12.1, hematocrit 36.3, the platelet count of 276,000. Chest CT revealed bilateral pleural effusion and pulmonary vascular congestion bilaterally, a mildly enlarged mediastinal nodes 1.3 cm, the largest paratracheal node 2.3 x 1.4 cm, and a few nodes in the aortopulmonary window. IMPRESSION: 1. Dyspnea, chest tightness, most likely secondary to decompensating congestive heart failure. 2. Atherosclerotic heart disease status post stents. 3. Hypertension. 4. Diabetes. 5. Peripheral vascular disease. 6. Status post right femoral popliteal bypass. 7. Chronic stasis, chronic ulcer, left toe, on intravenous antibiotics. 8. Mediastinal adenopathy, likely reactive. PLAN: Continue Lasix, supplemental O2. Obtain antibiotics as per Infectious Disease. Will also obtain followup Chest CT in approximately one month to evaluate response to diuretic therapy as well as evaluate mediastinal adenopathy. MARTITA BLANCHARD M.D. JONY/[id number]
--- NOTE | 2018-03-20 13:28 | DS ---
Physical Examination Vital Signs: Vital Signs Temperature 98.2 F 03/20/18 08:10 Pulse Rate 76 03/20/18 08:10 Respiratory Rate 14 03/20/18 09:00 Blood Pressure 148/82 03/20/18 08:10 O2 Sat by Pulse Oximetry (%) 97 03/20/18 09:00 Labs: CBC, BMP 03/20/18 09:15 03/20/18 09:15 Discharge Summary Reason For Visit: ELEVATED TROPONIN,CHEST TIGHTNESS Current Active Problems CHF (congestive heart failure) (Acute) Chest tightness (Acute) Elevated troponin I level (Acute) Mediastinal adenopathy (Acute) Osteomyelitis (Acute) Pleural effusion (Acute) Pneumonia (Acute) Condition: Improved - Instructions Diet, Activity, Other Instructions: cat scan in 4 weeks Referrals: Uriel Freire MD [Staff Physician] - 1 Week Disposition: HOME - Home Medications Comprehensive Discharge Medication List: Ambulatory Orders Aspirin Coated [Ecotrin -] 81 mg PO DAILY 12/24/17 Atorvastatin Ca [Lipitor] 80 mg PO HS 12/24/17 Carvedilol 6.25 mg PO BID 12/24/17 Clopidogrel Bisulfate [Plavix] 75 mg PO DAILY 12/24/17 Lisinopril 5 mg PO DAILY 12/24/17 Metformin HCl [Glucophage] 1,000 mg PO BID 12/24/17 Tamsulosin HCl [Flomax] 0.4 mg PO BID 12/24/17 Mupirocin Ointment [Bactroban 2% Ointment -] 1 applic TP DAILY applic 12/30/17 metroNIDAZOLE [Flagyl -] 500 mg PO TID #75 tablet 02/16/18 Ceftriaxone [Rocephin -] 2 gm IVPB DAILY vial 03/20/18 Furosemide [Lasix -] 20 mg PO DAILY #30 tablet 03/20/18
== END 2018-03-20 14:20 | disposition home or self-care (01) ==
LOC: JER 07:45 → INTOOBSV 14:22 → UNDOADMOB 14:22 → JERBED 14:22 → J4W 18:01 → JERBED 18:01 → J4W 18:01
PROVIDERS: ADMIT Family Medicine; ATTEND Family Medicine
PROC: 3E03329 Introduction of Other Anti-infective into Peripheral Vein, Percutaneous Approach (ICD-10-PCS; principal; 2018-03-18)
PROC: 3E0F7GC Introduction of Other Therapeutic Substance into Respiratory Tract, Via Natural or Artificial Opening (ICD-10-PCS; 2018-03-18)
PROC: 3E013GC Introduction of Other Therapeutic Substance into Subcutaneous Tissue, Percutaneous Approach (ICD-10-PCS; 2018-03-18)
DX: R07.89 Other chest pain (principal); R77.8 Other specified abnormalities of plasma proteins; J18.1 Lobar pneumonia, unspecified organism; I10 Essential (primary) hypertension; E78.5 Hyperlipidemia, unspecified; E11.9 Type 2 diabetes mellitus without complications; I25.10 Atherosclerotic heart disease of native coronary artery without angina pectoris; I50.20 Unspecified systolic (congestive) heart failure; N40.0 Benign prostatic hyperplasia without lower urinary tract symptoms; M86.9 Osteomyelitis, unspecified; L97.529 Non-pressure chronic ulcer of other part of left foot with unspecified severity; J90 Pleural effusion, not elsewhere classified; I73.9 Peripheral vascular disease, unspecified; R59.0 Localized enlarged lymph nodes; Z95.1 Presence of aortocoronary bypass graft; Z95.5 Presence of coronary angioplasty implant and graft; Z86.73 Personal history of transient ischemic attack (TIA), and cerebral infarction without residual deficits; Z79.82 Long term (current) use of aspirin; Z79.84 Long term (current) use of oral hypoglycemic drugs
CPT/HCPCS: 36415; 71045-TC-FY; 71046-TC-FY; 71250-TC; 80053; 80061; 81003; 81015; 82550; 82962; 83721; 83735; 83880; 84484; 85025; 85027; 85610; 87086; 93005; 93010; 94010; 96365; 96367; 96374; 99284-25; G0378; J1644

== ENCOUNTER 2018-03-21 08:30 | Day surgery (SDC) | payer MEDICARE ==
[2018-03-21 09:01] VITALS: TEMP 98.6
[2018-03-21 09:36] VITALS: BP 128/71; PULSE 71
[2018-03-21] MEDS ORDERED: CEFTRIAXONE 2 GM in DEXTROSE 5%-WATER 100 ML IVPB ONE (10:00)
== END 2018-03-21 09:40 | disposition home or self-care (01) ==
LOC: JINFUSION 08:30
PROVIDERS: ATTEND Internal Medicine
DX: M86.672 Other chronic osteomyelitis, left ankle and foot (principal); E11.621 Type 2 diabetes mellitus with foot ulcer; L97.519 Non-pressure chronic ulcer of other part of right foot with unspecified severity
CPT/HCPCS: 96365

== ENCOUNTER 2018-03-22 08:24 | Day surgery (SDC) | payer MEDICARE ==
[2018-03-22] MEDS ORDERED: SODIUM CHLORIDE 100 ML IVPB ONE (08:46)
[2018-03-22 08:48] VITALS: TEMP 97.9
[2018-03-22] MEDS ORDERED: CEFTRIAXONE 2 GM in SODIUM CHLORIDE 100 ML IVPB ONE (09:00)
[2018-03-22 09:43] VITALS: BP 135/73; PULSE 72
== END 2018-03-22 09:40 | disposition home or self-care (01) ==
LOC: JINFUSION 08:24
PROVIDERS: ATTEND Internal Medicine
DX: M86.672 Other chronic osteomyelitis, left ankle and foot (principal); E11.621 Type 2 diabetes mellitus with foot ulcer; L97.519 Non-pressure chronic ulcer of other part of right foot with unspecified severity
CPT/HCPCS: 96365

== ENCOUNTER 2018-03-23 09:02 | Day surgery (SDC) | payer MEDICARE ==
[2018-03-23] MEDS ORDERED: CEFTRIAXONE 2 GM in DEXTROSE 5%-WATER 100 ML IVPB SCH (10:00)
[2018-03-23] MEDS ORDERED: DEXTROSE 5%-WATER 100 ML IVPB ONE (10:01)
[2018-03-23 18:46] VITALS: BP 141/80; PULSE 76; TEMP 97.7
== END 2018-03-23 11:30 | disposition home or self-care (01) ==
LOC: JINFUSION 09:02 → J7W 09:03 → JINFUSION 11:30
PROVIDERS: ATTEND Internal Medicine
DX: M86.672 Other chronic osteomyelitis, left ankle and foot (principal); E11.69 Type 2 diabetes mellitus with other specified complication; Z79.4 Long term (current) use of insulin
CPT/HCPCS: 96365

== ENCOUNTER 2018-06-05 08:12 | Day surgery (SDC) | payer MEDICARE, OTHER ==
[2018-06-04 12:30] VITALS: BMI 30.5
[~2018-06-05 08:12] MED LIST changes: +ACETAMINOPHEN 325 MG TABLET (FP) PO PRN; -CEFTRIAXONE 2 GM in DEXTROSE 5%-WATER 100 ML IVPB ONE; -CEFTRIAXONE 2 GM in SODIUM CHLORIDE 100 ML IVPB ONE
[2018-06-05] MEDS ORDERED: CYCLOPENTOLATE HCL 1% OPHTH SOLN 2 ML BOTTLE ONE (08:28)
[2018-06-05] MEDS ORDERED: KETOROLAC TROMETHAMINE 0.5% EYE DROP 1 DROP DROPS ONE (08:28)
[2018-06-05] MEDS ORDERED: TROPICAMIDE 1% OPHTH SOLN 15 ML BOTTLE ONE (08:28)
[2018-06-05] MEDS ORDERED: OFLOXACIN 0.3% OPHTHALMIC SOLUTION 5 ML BOTTLE ONE (08:28)
[2018-06-05] MEDS ORDERED: PHENYLEPHRINE 2.5% OPHTH SOLN 15 ML BOTTLE ONE (08:28)
[2018-06-05 08:40] VITALS: TEMP 98.7
[2018-06-05] MEDS: KETOROLAC TROMETHAMINE 0.5% EYE DROP 1 DROP DROPS OP SCH ×3 (09:15→09:30)
[2018-06-05] MEDS: CYCLOPENTOLATE HCL 1% OPHTH SOLN 2 ML BOTTLE OP SCH ×3 (09:15→09:30)
[2018-06-05] MEDS: PHENYLEPHRINE 2.5% OPHTH SOLN 15 ML BOTTLE OP SCH ×3 (09:15→09:30)
[2018-06-05] MEDS: TROPICAMIDE 1% OPHTH SOLN 15 ML BOTTLE OP SCH ×3 (09:15→09:30)
[2018-06-05] MEDS: OFLOXACIN 0.3% OPHTHALMIC SOLUTION 5 ML BOTTLE OP SCH ×3 (09:15→09:30)
[2018-06-05] MEDS ORDERED: PROPOFOL 20 ML ONE (09:59)
[2018-06-05] MEDS ORDERED: LIDOCAINE HCL/PF 2% SDV 5ML VIAL ONE (09:59)
[2018-06-05] MEDS ORDERED: BUPIVACAINE HCL/PF 0.75% 10 ML VIAL NR ONE (10:22)
[2018-06-05] MEDS ORDERED: LIDOCAINE HCL/PF 2% SDV 5ML VIAL INF ONE (10:22)
[2018-06-05] MEDS ORDERED: POVIDONE-IODINE 5% OPHTHALMIC PREP 30 ML SOLUTION OS ONE (10:25)
[2018-06-05] MEDS ORDERED: TRYPAN BLUE 0.5 ML DISP.SYRIN IO ONE (10:32)
[2018-06-05] MEDS ORDERED: CHONDROITIN SU A/HYALUR SOD 1 KIT IO ONE (10:32)
[2018-06-05] MEDS ORDERED: BSS (NA/CA/MG/K) BALANCED SALT SOLUTION OPHTH SOLN 15 ML BOTTLE OS ONE (10:32)
[2018-06-05] MEDS ORDERED: LIDOCAINE HCL 1% PRESERVATIVE FREE - 30ML VIAL IO ONE (10:32)
[2018-06-05] MEDS ORDERED: PHENYLEPHRINE/KETOROLAC 4 ML VIAL IO ONE ×2 (10:39→11:00)
[2018-06-05 11:46] VITALS: BP 136/87; PULSE 68
--- NOTE | 2018-06-06 14:36 | OP ---
DATE OF OPERATION: 06/05/2018 DATE OF DICTATION: 06/05/2018 PREOPERATIVE DIAGNOSIS: Cataract, left eye. POSTOPERATIVE DIAGNOSIS: Cataract, left eye. PROCEDURE: Phacoemulsification of left cataract with posterior chamber intraocular lens implantation and capsule staining with Trypan blue. Lens use [id number], 25.0 Diopter power, Serial No. [id number]. SURGEON: Serina Silver M.D. ANESTHESIA: Peribulbar/modified lens/MAC. COMPLICATIONS: None. PROCEDURE: The patient was brought to the operating room and correctly identified along with the operative site as well as correct intraocular lens higgins. He was then given a peribulbar block under sedation with 5 mL of 1:1 mixture of 2% lidocaine and 0.75% bupivacaine. Two mL of the same mixture was given as a modified lid block. The eye was then prepped and draped in the usual sterile fashion including 5% Betadine solution in the conjunctival sac and an eyelid drape. Now the speculum was then placed into the left eye. A poor red reflex was noted. A paracentesis port was created and intracameral Lidocaine was placed approximately 0.3 mL inside the eye. The capsule was then stained beneath an air bubble with Trypan blue and then removed with the remaining 0.7 mL of the lidocaine 1% preservative-free. Viscoelastic was injected to inflate the anterior chamber. A temporal clear corneal would was created. A continuous circular capsulorrhexis was performed successfully. The nucleus was hydro-dissected with BSS and removed with phacoemulsification. The remaining cortical material was irrigated and aspirated from the eye. Viscoelastic was injected in the anterior chamber to inflate the capsular bag. The intraocular lens was then injected into the capsular bag. The Viscoelastic was irrigated and aspirated from the eye. All wounds were tested and found to be watertight. The intraocular lens was noted to be well centered and covered by the anterior capsular border. No sutures were placed. Topical Vancomycin was given. The eye was patched and shielded. The patient was discharged from the operating room in stable condition. SERINA SILVER M.D. GRAYSON/[id number]
== END 2018-06-05 12:33 | disposition home or self-care (01) ==
LOC: JASU-SURG 08:12
PROVIDERS: ATTEND Ophthalmology
PROC: 08RK3JZ Replacement of Left Lens with Synthetic Substitute, Percutaneous Approach (ICD-10-PCS; principal; 2018-06-05 10:00)
DX: H26.9 Unspecified cataract (principal); H57.8 Other specified disorders of eye and adnexa
CPT/HCPCS: 82962; C9447

== ENCOUNTER 2018-08-18 18:30 | Inpatient (IN) | payer MEDICARE, OTHER ==
[2018-08-18 18:42] VITALS: BMI 31.0
--- NOTE | 2018-08-18 19:30 | PDOC ---
Attending Attestation - Resident Resident Name: RoelJosef - ED Attending Attestation I have performed the following: I have examined & evaluated the patient, The case was reviewed & discussed with the resident, I agree w/resident's findings & plan - Physicial Exam PE: 08/18/18 20:44 Pt comes with SOB; he has a dry cough and he has CHF exacerbation. Pt has elevated BNP; he is normally not on any lasix of diuretic. He does take flomax. And he is compliant with his diet and his DM and HTN meds. He states that he has no CP. He had the flu shot last month and he has no fever and no body aches. - Medical Decision Making 08/18/18 20:46 We are covering him with abx for an atypical pneumonia. We treated with lasix and we will place pt on BiPAP for comfort. Currently he is sitting with his legs dangling from the side of the bed because he is having difficulty breathing. 08/18/18 20:48 CXR congestive changes; heart is slightly globular. <Ira Otto - Last Filed: 08/18/18 20:48> - HPI HPI: 08/18/18 20:31 The patient is a 68 year old male, with a significant past medical history of diabetes, hypertension, hyperlipidemia, osteomyelitis, coronary artery disease ( s/p stenting), who presents to the emergency department with, 3 days of shortness of breath. Patient endorses orthopnea and dyspnea upon exertion. She denies any recent chest pain. Allergies: NKDA Primary Care Physician: Dr. Mickey Reich - Physicial Exam PE: GENERAL: Awake, alert, and fully oriented, in no acute distress HEAD: No signs of trauma EYES: PERRLA, EOMI, sclera anicteric, conjunctiva clear ENT: Auricles normal inspection, hearing grossly normal, nares patent, oropharynx clear without exudates. Moist mucosa NECK: Normal ROM, supple, no lymphadenopathy, JVD, or masses LUNGS: Breath sounds equal, clear to auscultation bilaterally. No wheezes, and no crackles HEART: Regular rate and rhythm, normal S1 and S2, no murmurs, rubs or gallops ABDOMEN: Soft, nontender, normoactive bowel sounds. No guarding, no rebound. No masses +EXTREMITIES: Minimal pitting edema of the bilateral lower extremities. Normal range of motion. No clubbing or cyanosis. No cords, erythema, or tenderness NEUROLOGICAL: Cranial nerves II through XII grossly intact. Normal speech, normal gait SKIN: Warm, Dry, normal turgor, no rashes or lesions noted. <Simón Redding - Last Filed: 08/18/18 20:50> Heart Score/ECG Review - ECG Intrepretation Rhythm: Regular Rhythm - ST and T Early Repolarization: No Non Specific ST-T Wave changes: Yes ST Depression Suggest: Ischemia Flattened T Waves: Yes - ECG Impressions Normal ECG: Yes Non-specific ST Elevation: No Ischemic Changes: Yes (lateral flat Ts) <Ira Otto - Last Filed: 08/18/18 20:48> Attestations - Attestations 08/18/18 20:31 Documentation prepared by Simón Redding, acting as medical office assistant instructor for Ira Otto MD. <Simón Redding - Last Filed: 08/18/18 20:50>
[2018-08-18] MEDS ORDERED: AZITHROMYCIN IVPB 500 MG in DEXTROSE 5%-WATER - 250 ML IVPB ONE (19:32)
[2018-08-18] MEDS ORDERED: CEFTRIAXONE 1 GM in DEXTROSE 5%-WATER - 50 ML IVPB ONE (19:32)
[2018-08-18] MEDS ORDERED: AZITHROMYCIN IVPB 500 MG/250 ML BAG IVPB ONE (19:47)
[2018-08-18] MEDS ORDERED: CEFTRIAXONE 1 GM/50 ML BAG ONE (19:47)
[2018-08-18 19:48] LABS: BASO % 0.6 % (0-2.0); MONO % 7.1 % (3.8-10.2)
--- NOTE | 2018-08-18 19:51 | PDOC ---
History of Present Illness - General Chief Complaint: Shortness of Breath Stated Complaint: SHORT OF BREATH, COUGH Time Seen by Provider: 08/18/18 19:09 History Source: Patient Exam Limitations: No Limitations - History of Present Illness Initial Comments: 08/18/18 19:45 Patient is a 68-year-old male past medical history of diabetes, hypertension, hyperlipidemia, osteomyelitis, cardiac stenting, coronary artery disease, who presents to the emergency department today complaining of shortness of breath for the past 3-4 days. Worsening sob with lying down and with exertion. Needs to use pillow or sit up to sleep in bed. No fever, chills, chest pain. Received flu shot this year. Past History - Past Medical History Allergies/Adverse Reactions: Allergies Allergy/AdvReac Type Severity Reaction Status Date / Time No Known Allergies Allergy Verified 08/18/18 18:42 Home Medications: Ambulatory Orders Aspirin Coated [Ecotrin -] 81 mg PO DAILY 12/24/17 Carvedilol 6.25 mg PO BID 12/24/17 Clopidogrel Bisulfate [Plavix] 75 mg PO DAILY 12/24/17 Lisinopril 5 mg PO DAILY 12/24/17 Metformin HCl [Glucophage] 1,000 mg PO BID 12/24/17 Tamsulosin HCl [Flomax] 0.4 mg PO BID 12/24/17 Anemia: No Asthma: No Cancer: No Cardiac Disorders: Yes (stents (2016)) CVA: No COPD: No CHF: No DVT: No Dementia: No Diabetes: Yes GI Disorders: No Disorders: No HTN: Yes Hypercholesterolemia: Yes Liver Disease: No Seizures: No Thyroid Disease: No - Surgical History Cardiac Surgery: Yes (stents 2016) - Suicide/Smoking/Psychosocial Hx Smoking History: Never smoked Have you smoked in the past 12 months: No Number of Cigarettes Smoked Daily: 0 Hx Alcohol Use: No Drug/Substance Use Hx: No Substance Use Type: None Hx Substance Use Treatment: No Review of Systems - Review of Systems Able to Perform ROS?: Yes Is the patient limited Malay proficient: No Constitutional: No: Chills, Diaphoresis, Fever HEENTM: No: Symptoms Reported Respiratory: Yes: Cough, Shortness of Breath, SOB with Exertion. No: Orthopnea , Stridor, Wheezing Cardiac (ROS): No: Symptoms Reported ABD/GI: No: Symptoms Reported : No: Symptoms Reported Musculoskeletal: No: Symptoms Reported Integumentary: No: Symptoms Reported Neurological: No: Symptoms reported All Other Systems: Reviewed and Negative *Physical Exam - Vital Signs Last Vital Signs Temp Pulse Resp BP Pulse Ox 98.4 F 82 18 164/86 97 08/18/18 18:38 08/18/18 18:38 08/18/18 18:38 08/18/18 18:38 08/18/18 18:38 - Physical Exam General Appearance: Yes: Nourished, Appropriately Dressed. No: Apparent Distress HEENT: positive: EOMI, DANG, Normal ENT Inspection Respiratory/Chest: positive: Decreased Breath Sounds (on the left ), Crackles ( right lung). negative: Chest Tender, Normal Breath Sounds, Respiratory Distress Cardiovascular: positive: Regular Rhythm, Regular Rate, S1, S2 Gastrointestinal/Abdominal: positive: Normal Bowel Sounds, Flat, Soft. negative : Tender Musculoskeletal: positive: Normal Inspection. negative: CVA Tenderness Extremity: positive: Normal Capillary Refill, Normal Inspection, Normal Range of Motion Integumentary: positive: Normal Color, Dry, Warm Neurologic: positive: Fully Oriented, Alert, Normal Mood/Affect, Normal Response , Motor Strength / ED Treatment Course - LABORATORY CBC & Chemistry Diagram: 08/18/18 19:28 08/18/18 19:28 - RADIOLOGY Radiology Studies Ordered: Category Date Time Status CHEST PA & LAT [RAD] Stat Radiology 08/18/18 19:24 Ordered Medical Decision Making - Medical Decision Making 08/18/18 19:53 pneumonia vs chf exacerbation vs URI Decreased lung sounds on the left indicate pleural effusion, which could be from CHF (patient had pleura effusion on his last admission in March and was given Lasix), also patient is afebrile however felt very similar symptoms the last time he had a pneumonia. We will do basic blood work, EKG, CXR, Troponin EKG: Normal sinus rhythm, nonspecific T wave abnormality, Prolonged QT (396/460) . Better looking ekg than last one which had a lots of PVCs. 08/18/18 20:27 CXR: Congestive changes, fluid in fissures 08/18/18 21:03 Will give 40 of lasix. Troponins slightly elevated at 0.06. Will admit to Tele obs. Nasal canulla brings patient from sat of 96 to 100%. patient comfortable, not sob. *DC/Admit/Observation/Transfer Diagnosis at time of Disposition: Acute CHF - Discharge Dispostion Condition at time of disposition: Improved Decision to Admit order: Yes - Referrals Referrals: Mickey Reich [Primary Care Provider] - - Patient Instructions - Post Discharge Activity
[2018-08-18 19:55] LABS: EOS % 2.6 % (0-4.5); HEMATOCRIT 39.2 % (35.4-49); HEMOGLOBIN 12.9 GM/dL (11.7-16.9); LYMPH % 8.7 % (8-40); MCH 28.3 pg (25.7-33.7); MCHC 32.9 g/dl (32.0-35.9); MEAN PLT VOLUME 9.4 fl (7.5-11.1); PLATELET COUNT 213 K/MM3 (134-434); RBC 4.56 M/mm3 (4.00-5.60); RDW 17.7 % (11.9-15.9); WHITE BLOOD COUNT 14.2 K/mm3 (4.0-10.0)
[2018-08-18 20:12] LABS: ALBUMIN 3.6 g/dl (3.4-5.0); ALK PHOS 74 U/L (45-117); ANION GAP 10 MMOL/L (8-16); BILIRUBIN,TOTAL 1.2 mg/dL (0.2-1); BLOOD UREA NITROGEN 14 mg/dL (7-18); CALCIUM 8.1 mg/dL (8.5-10.1); CHLORIDE 106 mmol/L (98-107); CO2 25 mmol/L (21-32); CREATININE 0.9 mg/dL (0.55-1.3); GLUCOSE,RANDOM 136 mg/dL (74-106); N-TERMINAL BNP 5093.8 pg/ml (5-125); POTASSIUM 4.2 mmol/L (3.5-5.1); SGOT/AST 18 U/L (15-37); SGPT/ALT 38 U/L (13-61); SODIUM 141 mmol/L (136-145); TOT PROT 6.6 g/dl (6.4-8.2)
[2018-08-18] MEDS ORDERED: FUROSEMIDE 40 MG/4 ML INJECTABLE VIAL IVPUSH ONE (20:19)
[2018-08-18] MEDS ORDERED: FUROSEMIDE 40 MG/4 ML INJECTABLE VIAL ONE (20:25)
[2018-08-18] MEDS ORDERED: ASPIRIN 81 MG CHEWABLE TABLETS PO ONE (20:48)
--- NOTE | 2018-08-18 20:56 | HP ---
Admitting History and Physical - Primary Care Physician PCP: Mickey Reich - Admission Chief Complaint: SOB History of Present Illness: This is a 68 y/o man with a past medical history of Chronic Systolic HF (LVEF 33.7%) HTN, CAD s/p stents 2017, HLD, DM, Osteomyelitis. Who presents to the ED with SOB and a non-productive cough x 3-4 days Patient reports only being able to walk one block before becoming SOB. He reports having to use 2 pillows to sleep with at night due to his breathing issues. Patient denies fever, chills, CP, palpitations, AP, N/V/D, constipation, dysuria. Patient reports no recent sick contacts. History Source: Patient Limitations to Obtaining History: No Limitations - Past Medical History ARCHIVIST: Yes: CVA (about 10 yrs ago) Cardiovascular: Yes: CAD, CHF, HTN, Hyperlipdemia Renal/: Yes: BPH Infectious Disease: Yes: Other Endocrine: Yes: Diabetes Mellitus (Type II) - Past Surgical History Past Surgical History: Yes: Bypass, Cataract Removal - Smoking History Smoking history: Never smoked Have you smoked in the past 12 months: No Aproximately how many cigarettes per day: 0 - Alcohol/Substance Use Hx Alcohol Use: No - Social History ADL: Independent Occupation: works at [employer] in the [place] History of Recent Travel: Yes Home Medications - Allergies Allergies/Adverse Reactions: Allergies Allergy/AdvReac Type Severity Reaction Status Date / Time No Known Allergies Allergy Verified 08/18/18 18:42 - Home Medications Home Medications: Ambulatory Orders Aspirin Coated [Ecotrin -] 81 mg PO DAILY 12/24/17 Carvedilol 6.25 mg PO BID 12/24/17 Clopidogrel Bisulfate [Plavix] 75 mg PO DAILY 12/24/17 Lisinopril 5 mg PO DAILY 12/24/17 Metformin HCl [Glucophage] 1,000 mg PO BID 12/24/17 Tamsulosin HCl [Flomax] 0.4 mg PO BID 12/24/17 Family Disease History - Family Disease History Family Disease History: CA: Father (Laryngeal Ca with mets Brain, ), Respiratory: Brother (), Other: Mother (Alzheimer's ) Review of Systems - Review of Systems Constitutional: reports: No Symptoms Eyes: reports: No Symptoms HENT: reports: No Symptoms Neck: reports: No Symptoms Cardiovascular: reports: Edema, Shortness of Breath Respiratory: reports: SOB, SOB on Exertion Gastrointestinal: reports: No Symptoms Genitourinary: reports: No Symptoms Breasts: reports: No Symptoms Reported Musculoskeletal: reports: No Symptoms Integumentary: reports: No Symptoms Neurological: reports: No Symptoms Endocrine: reports: No Symptoms Hematology/Lymphatic: reports: No Symptoms Psychiatric: reports: No Symptoms Physical Examination Vital Signs: Vital Signs Temperature 98.4 F 08/18/18 18:38 Pulse Rate 80 08/18/18 20:33 Respiratory Rate 22 H 08/18/18 20:33 Blood Pressure 138/74 08/18/18 20:33 O2 Sat by Pulse Oximetry (%) 96 08/18/18 20:33 Constitutional: Yes: No Distress, Calm, Obese Eyes: Yes: WNL, Conjunctiva Clear, EOM Intact, PERRL HENT: Yes: WNL, Atraumatic, Normocephalic Neck: Yes: WNL, Supple, Trachea Midline Cardiovascular: Yes: Regular Rate and Rhythm, S1, S2 Respiratory: Yes: Cough, Diminished (bases), On Nasal O2, Rhonchi Gastrointestinal: Yes: Normal Bowel Sounds, Soft, Abdomen, Obese ...Rectal Exam: Yes: Deferred Renal/: Yes: WNL Breast(s): Yes: WNL Musculoskeletal: Yes: WNL Edema: Yes Edema: LLE: 2+, RLE: 2+ Peripheral Pulses WNL: Yes Neurological: Yes: WNL, Alert, Oriented, Cran Nerves II-XII Intact ...Motor Strength: WNL Psychiatric: Yes: WNL, Alert, Oriented Labs: CBC, BMP 08/18/18 19:28 08/18/18 19:28 Laboratory Results - last 24 hr 08/18/18 08/18/18 08/18/18 19:28 19:28 22:10 WBC 14.2 H RBC 4.56 Hgb 12.9 Hct 39.2 MCV 86.0 MCH 28.3 MCHC 32.9 RDW 17.7 H Plt Count 213 D MPV 9.4 Absolute Neuts (auto) 11.5 H Neutrophils % 81.0 Lymphocytes % 8.7 D Monocytes % 7.1 Eosinophils % 2.6 Basophils % 0.6 Nucleated RBC % 0 Sodium 141 Potassium 4.2 Chloride 106 Carbon Dioxide 25 Anion Gap 10 BUN 14 Creatinine 0.9 Creat Clearance w eGFR > 60 Random Glucose 136 H Calcium 8.1 L Total Bilirubin 1.2 H AST 18 ALT 38 Alkaline Phosphatase 74 Troponin I 0.06 H B-Natriuretic Peptide 5093.8 H Total Protein 6.6 Albumin 3.6 Urine Color Ltyellow Urine Appearance Clear Urine pH 5.0 Ur Specific [place] 1.009 L Urine Protein 1+ H Urine Glucose (UA) Negative Urine Ketones Negative Urine Blood 1+ H Urine Nitrite Negative Urine Bilirubin Negative Urine Urobilinogen Negative Ur Leukocyte Esterase Negative Urine WBC (Auto) <1 Urine RBC (Auto) 1 Urine Mucus Rare Current Medications Generic Name Dose Route Start Last Admin Trade Name Freq PRN Reason Stop Dose Admin Aspirin 81 mg 08/19/18 10:00 Ecotrin - PO DAILY [facility] Carvedilol 6.25 mg 08/18/18 22:45 08/18/18 23:22 Coreg - PO 6.25 mg BID [facility] Administration Clopidogrel Bisulfate 75 mg 08/19/18 10:00 Plavix - PO DAILY [facility] Lisinopril 5 mg 08/19/18 10:00 Prinivil PO DAILY [facility] Metformin HCl 1,000 mg 08/18/18 22:45 08/18/18 23:22 Glucophage - PO 1,000 mg BIDAC MERRILL Administration Tamsulosin HCl 0.4 mg 08/18/18 22:45 08/18/18 23:22 Flomax - PO 0.4 mg BID MERRILL Administration Intake & Output 08/16/18 08/17/18 08/18/18 08/19/18 23:59 23:59 23:59 23:59 Weight 89.811 kg Imaging - Results Chest X-ray: Report Reviewed, Image Reviewed EKG: Image Reviewed Problem List - Problems (1) Systolic CHF with reduced left ventricular function, NYHA class 3 Assessment/Plan: Likely Acute on Chronic Systolic HF Chest Xray report- fluid in fissures, congestive changes, peribronchial thickening Lasix given in ED, will continue Appreciate Cardiology consult Continue Cardiac monitoring Serial Enzymes Daily weights Strict INOs Monitor CBC, BMP Continue home meds Code(s): I50.20 - UNSPECIFIED SYSTOLIC (CONGESTIVE) HEART FAILURE (2) Pleural effusion Assessment/Plan: Chest Xray reviewed Continue Lasix Monitor vitals Code(s): J90 - PLEURAL EFFUSION, NOT ELSEWHERE CLASSIFIED (3) Pneumonia Assessment/Plan: CURB65 1 Chest Xray reviewed Blood Cultures-pending Ceftriaxone, Azithromycin given in ED Continue Ceftriaxone and Azithromycin for CAP monitor QT closely Leukocytosis 14,000 no L-shift, afebrile Lactic Acid in am Appreciate ID consult Repeat CBC, BMP in am Monitor vitals Code(s): J18.9 - PNEUMONIA, UNSPECIFIED ORGANISM (4) Elevated troponin I level Assessment/Plan: Slightly elevated from baseline Cardiac monitoring Serial enzymes Continue Asa Appreciate Cardiology consult Code(s): R74.8 - ABNORMAL LEVELS OF OTHER SERUM ENZYMES (5) HTN (hypertension) Assessment/Plan: Sub optimal Monitor BP Continue home meds Monitor renal function Code(s): I10 - ESSENTIAL (PRIMARY) HYPERTENSION (6) HLD (hyperlipidemia) Assessment/Plan: no current med Low Cholesterol Diet Code(s): E78.5 - HYPERLIPIDEMIA, UNSPECIFIED (7) BPH (benign prostatic hyperplasia) Assessment/Plan: Continue Flomax Code(s): N40.0 - BENIGN PROSTATIC HYPERPLASIA WITHOUT LOWER URINRY TRACT SYMP Qualifiers: (8) DMII (diabetes mellitus, type 2) Assessment/Plan: Controlled BGMs Continue Metformin Monitor renal function Code(s): E11.9 - TYPE 2 DIABETES MELLITUS WITHOUT COMPLICATIONS (9) PVD (peripheral vascular disease) Assessment/Plan: s/p Fem-pop bypass Continue home meds Code(s): I73.9 - PERIPHERAL VASCULAR DISEASE, UNSPECIFIED Assessment/Plan 68 y/o man PMHx of HTN, HLD, CAD s/p Stents, CHF, DM, Osteomyelitis. Placed in Tele Observation for Acute on Chronic CHF Exacerbation, Pneumonia, Elevated Troponin for further evaluation of their emergent condition. Plan: FEN Fluid Restriction 1L Replete lytes prn Low Na, Low Cholesterol Diet DVT ppx OOB SCD Consider Heparin if LOS > 48 hrs Dispo: Tele Observation Visit type - Emergency Visit Emergency Visit: Yes ED Registration Date: 08/18/18 Care time: The patient presented to the Emergency Department on the above date and was hospitalized for further evaluation of their emergent condition. - New Patient This patient is new to me today: Yes Date on this admission: 08/18/18 - Critical Care Critical Care patient: No
[2018-08-18] MEDS ORDERED: ASPIRIN 81 MG CHEWABLE TABLETS ONE (21:01)
[2018-08-18 22:24] LABS: URINE APPEARANCE CLEAR; URINE BILIRUBIN NEGATIVE (<2.0 mg/dL); URINE COLOR LTYELLOW; URINE GLUCOSE (UA) NEGATIVE (NEGATIVE); URINE KETONE NEGATIVE (NEGATIVE); URINE LEUK ESTERASE NEGATIVE (NEGATIVE); URINE NITRITE NEGATIVE (NEGATIVE); URINE PROTEIN 1+ (NEGATIVE); URINE UROBILINOGEN NEGATIVE mg/dL (0.2-1.0)
[2018-08-18 22:26] LABS: URINE MUCUS RARE
[2018-08-18] MEDS ORDERED: metFORMIN HCL 500 MG TABLET (FP) ONE (23:15)
[2018-08-18] MEDS ORDERED: CARVEDILOL 3.125 MG TABLET (FP) ONE (23:15)
[2018-08-18] MEDS ORDERED: TAMSULOSIN HCL 0.4 MG CAP ONE (23:16)
[2018-08-18] MEDS: TAMSULOSIN HCL 0.4 MG CAP PO SCH (23:22)
[2018-08-18] MEDS: metFORMIN HCL 500 MG TABLET (FP) PO SCH (23:22)
[2018-08-18] MEDS: CARVEDILOL 6.25 MG TABLET (FP) PO SCH (23:22)
[2018-08-19 05:55] LABS: BASO % 0.6 % (0-2.0); EOS % 2.9 % (0-4.5); HEMATOCRIT 39.3 % (35.4-49); HEMOGLOBIN 12.4 GM/dL (11.7-16.9); LYMPH % 10.8 % (8-40); MCH 27.4 pg (25.7-33.7); MCHC 31.7 g/dl (32.0-35.9); MEAN CELL VOLUME 86.3 fl (80-96); MEAN PLT VOLUME 9.2 fl (7.5-11.1); MONO % 10.8 % (3.8-10.2); NEUT % 74.9 % (42.8-82.8); PLATELET COUNT 172 K/MM3 (134-434); RBC 4.55 M/mm3 (4.00-5.60); WHITE BLOOD COUNT 14.3 K/mm3 (4.0-10.0)
[2018-08-19 06:32] LABS: ANION GAP 8 MMOL/L (8-16); BLOOD UREA NITROGEN 14 mg/dL (7-18); CHLORIDE 103 mmol/L (98-107); CO2 28 mmol/L (21-32); CREATININE 0.9 mg/dL (0.55-1.3); GLUCOSE,RANDOM 143 mg/dL (74-106); MAGNESIUM 1.3 mg/dL (1.8-2.4); PHOSPHOROUS 3.4 mg/dL (2.5-4.9); POTASSIUM 4.2 mmol/L (3.5-5.1); SODIUM 139 mmol/L (136-145)
--- NOTE | 2018-08-19 06:48 | PN ---
Progress Note, Physician Chief Complaint: AWAKE ALERT FEELING DARIAN RNOTES AND EVENTS REVIEWED - Current Medication List Current Medications: Active Medications Aspirin (Ecotrin -) 81 mg PO DAILY [facility] Carvedilol (Coreg -) 6.25 mg PO BID [facility] Last Admin: 08/18/18 23:22 Dose: 6.25 mg Clopidogrel Bisulfate (Plavix -) 75 mg PO DAILY [facility] Azithromycin (Zithromax 500mg Ivpb (Pre-Docked)) 500 mg in 250 mls @ 250 mls/ hr IVPB DAILY [facility] Ceftriaxone Sodium 1 gm/ (Dextrose) 50 mls @ 100 mls/hr IVPB DAILY [facility]; Protocol Lisinopril (Prinivil) 5 mg PO DAILY [facility] Metformin HCl (Glucophage -) 1,000 mg PO BIDAC [facility] Last Admin: 08/18/18 23:22 Dose: 1,000 mg Tamsulosin HCl (Flomax -) 0.4 mg PO BID [facility] Last Admin: 08/18/18 23:22 Dose: 0.4 mg - Objective Vital Signs: Vital Signs Temperature 98.4 F 08/18/18 18:38 Pulse Rate 80 08/18/18 20:33 Respiratory Rate 22 H 08/18/18 20:33 Blood Pressure 138/74 08/18/18 20:33 O2 Sat by Pulse Oximetry (%) 100 08/19/18 02:20 Constitutional: Yes: Mild Distress Eyes: Yes: WNL HENT: Yes: WNL Neck: Yes: WNL Cardiovascular: Yes: WNL Respiratory: Yes: Diminished, Rales Gastrointestinal: Yes: WNL Genitourinary: Yes: WNL Musculoskeletal: Yes: Muscle Weakness Extremities: Yes: WNL Edema: Yes Peripheral Pulses WNL: Yes Integumentary: Yes: WNL Wound/Incision: Yes: Clean/Dry Neurological: Yes: Pre-Existing Deficit ...Motor Strength: RLE Psychiatric: Yes: WNL Labs: CBC, BMP 08/18/18 19:28 08/19/18 05:00 Assessment/Plan ACUTE EXACERBATION OF CHF SYSTOLIC VERSUS DIASTOLIC CHECK ECHO IV LASIX 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
[2018-08-19] MEDS: metFORMIN HCL 500 MG TABLET (FP) PO SCH ×3 (07:13→17:41)
[2018-08-19] MEDS ORDERED: CEFTRIAXONE 1 GM/50 ML BAG ONE (08:49)
[2018-08-19] MEDS ORDERED: AZITHROMYCIN IVPB 500 MG/250 ML BAG IVPB ONE (08:57)
[2018-08-19] MEDS: CARVEDILOL 6.25 MG TABLET (FP) PO SCH ×2 (09:00→21:45)
[2018-08-19] MEDS: ASPIRIN COATED 81 MG TABLET.EC PO SCH (09:00)
[2018-08-19] MEDS: TAMSULOSIN HCL 0.4 MG CAP PO SCH ×2 (09:00→21:45)
[2018-08-19] MEDS: CLOPIDOGREL BISULFATE 75 MG TABLET (FP) PO SCH (09:00)
[2018-08-19] MEDS: LISINOPRIL 5 MG TABLET (FP) PO SCH (09:00)
[2018-08-19] MEDS ORDERED: MAGNESIUM SULF 50% (8.12 MEQ/2 ML-1 GM VIAL) IVPB ONE (09:54)
[2018-08-19] MEDS ORDERED: CEFTRIAXONE 1 GM in DEXTROSE 5%-WATER - 50 ML IVPB SCH (10:00)
[2018-08-19] MEDS ORDERED: AZITHROMYCIN IVPB 500 MG/250 ML BAG IVPB SCH (10:00)
[2018-08-19] MEDS ORDERED: MAGNESIUM 1GM/D5W - 1 GM/100 ML IVPB IVPB ONE (10:11)
--- NOTE | 2018-08-19 10:29 | CON.ID ---
Consult Consult Specialty:: infectious disease Referred by:: hospitalist Reason for Consultation:: cough - History of Present Illness Chief Complaint: SOB History of Present Illness: 68 yo man with 3 to 4 day history of dry cough and worsening SOB +HUYNH +orthopnea no fevers no chills no chest pain no leg swelling +history of DM, CAD with stents CHF, PVD with RLE bypass history of osteomyelitis right foot- completed 6 weeks iv rocephin Known chronic leukocytosis- HAS NTO FOLLOWED UP WITH ONCOLOGY no cultures sent - History Source History Provided By: Patient, Medical Record Limitations to Obtaining History: No Limitations - Past Medical History DENTISTRY PROFESSOR: Yes: CVA (about 10 yrs ago) Cardio/Vascular: Yes: CAD, CHF, HTN, Hyperlipdemia Renal/: Yes: BPH Infectious Disease: Yes: Other Endocrine: Yes: Diabetes Mellitus (Type II) - Past Surgical History Past Surgical History: Yes: Bypass (december 2017- popliteal to posterior tibial artery), Cataract Removal - Alcohol/Substance Use Hx Alcohol Use: No - Smoking History Smoking history: Never smoked Have you smoked in the past 12 months: No Aproximately how many cigarettes per day: 0 - Social History Usual Living Arrangement: With Spouse ADL: Independent Occupation: works at [employer] in the [place] History of Recent Travel: Yes ([place] in May) Home Medications - Allergies Allergies/Adverse Reactions: Allergies Allergy/AdvReac Type Severity Reaction Status Date / Time No Known Allergies Allergy Verified 08/18/18 18:42 - Home Medications Home Medications: Ambulatory Orders Aspirin Coated [Ecotrin -] 81 mg PO DAILY 12/24/17 Carvedilol 6.25 mg PO BID 12/24/17 Clopidogrel Bisulfate [Plavix] 75 mg PO DAILY 12/24/17 Lisinopril 5 mg PO DAILY 12/24/17 Metformin HCl [Glucophage] 1,000 mg PO BID 12/24/17 Tamsulosin HCl [Flomax] 0.4 mg PO BID 12/24/17 Family Disease History - Family Disease History Family Disease History: CA: Father (Laryngeal Ca with mets Brain, ), Respiratory: Brother (), Other: Mother (Alzheimer's ) Review of Systems - Review of Systems Constitutional: reports: No Symptoms. denies: Chills, Diaphoresis, Fever Eyes: reports: No Symptoms HENT: reports: No Symptoms. denies: Difficult Swallowing Neck: reports: No Symptoms Cardiovascular: denies: Chest Pain Respiratory: reports: Cough, Exercise Intolerance, Orthopnea, SOB, SOB on Exertion Gastrointestinal: reports: No Symptoms Genitourinary: reports: No Symptoms Breasts: reports: No Symptoms Reported Musculoskeletal: reports: No Symptoms Integumentary: reports: No Symptoms Neurological: reports: No Symptoms Physical Exam Vital Signs: Vital Signs Temperature 98.4 F 08/18/18 18:38 Pulse Rate 75 08/19/18 07:57 Respiratory Rate 17 08/19/18 07:57 Blood Pressure 145/67 08/19/18 07:57 O2 Sat by Pulse Oximetry (%) 99 08/19/18 07:57 Constitutional: Yes: Well Nourished, No Distress, Calm Eyes: Yes: Conjunctiva Clear HENT: Yes: Atraumatic, Normocephalic. No: Pharyngeal Erythema, Thrush, Tonsillar Exudate Neck: Yes: Supple, Trachea Midline Cardiovascular: Yes: Regular Rate and Rhythm Respiratory: Yes: Other (bibasilar crackles) Gastrointestinal: Yes: Normal Bowel Sounds, Soft Extremities: Yes: Other (well healed scar RLE, right foot lateral aspect well healed, no erythema, no drainage) Edema: Yes Edema: LLE: Trace, RLE: Trace Neurological: Yes: WNL, Alert Labs: CBC, BMP 08/19/18 05:30 08/19/18 05:00 Imaging - Results Chest X-ray: Report Reviewed, Image Reviewed Problem List - Problems (1) Acute exacerbation of CHF (congestive heart failure) Code(s): I50.9 - HEART FAILURE, UNSPECIFIED (2) Leukocytosis Code(s): D72.829 - ELEVATED WHITE BLOOD CELL COUNT, UNSPECIFIED (3) DMII (diabetes mellitus, type 2) Code(s): E11.9 - TYPE 2 DIABETES MELLITUS WITHOUT COMPLICATIONS Assessment/Plan suspect CHF-clinical symptoms and cxray and rapaid response to diuresis most c/ w CHF doubt pneumonia day #2 rocephin/zithromax-no cultures sent, will send urinary antigens-will d/c antibiotics clinically markedly improved with diuresis overnight known leukocytosis at baseline
--- NOTE | 2018-08-19 10:46 | EKG ---
Test Reason : Blood Pressure : / mmHG Vent. Rate : 081 BPM Atrial Rate : 081 BPM P-R Int : 180 ms QRS Dur : 090 ms QT Int : 396 ms P-R-T Axes : 014 -21 092 degrees QTc Int : 460 ms NORMAL SINUS RHYTHM NONSPECIFIC T WAVE ABNORMALITY PROLONGED QT ABNORMAL ECG WHEN COMPARED WITH ECG OF 18-MAR-2018 07:55, PREMATURE VENTRICULAR COMPLEXES ARE NO LONGER PRESENT Confirmed by ROSHAN ABRAMS, JALEESA ([id number]) on 08/19/2018 10:46:15 AM Referred By: Confirmed By:JALEESA ISLAS MD
--- NOTE | 2018-08-19 15:50 | CON.CARD ---
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 No chest pain or palpitations. + LE edema. 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: Yes: CVA (about 10 yrs ago) Cardio/Vascular: Yes: CAD, CHF, HTN, Hyperlipdemia Renal/: Yes: BPH Infectious Disease: Yes: Other Endocrine: Yes: Diabetes Mellitus (Type II) - Past Surgical History Past Surgical History: Yes: Bypass (december 2017- popliteal to posterior tibial artery), Cataract Removal - Alcohol/Substance Use Hx Alcohol Use: No - Smoking History Smoking history: Never smoked Have you smoked in the past 12 months: No Aproximately how many cigarettes per day: 0 - Social History Usual Living Arrangement: With Spouse ADL: Independent Occupation: works at [employer] in the [place] History of Recent Travel: Yes ([place] in May) Home Medications - Allergies Allergies/Adverse Reactions: Allergies Allergy/AdvReac Type Severity Reaction Status Date / Time No Known Allergies Allergy Verified 08/18/18 18:42 - Home Medications Home Medications: Ambulatory Orders Aspirin Coated [Ecotrin -] 81 mg PO DAILY 12/24/17 Carvedilol 6.25 mg PO BID 12/24/17 Clopidogrel Bisulfate [Plavix] 75 mg PO DAILY 12/24/17 Lisinopril 5 mg PO DAILY 12/24/17 Metformin HCl [Glucophage] 1,000 mg PO BID 12/24/17 Tamsulosin HCl [Flomax] 0.4 mg PO BID 12/24/17 Family Disease History - Family Disease History Family Disease History: CA: Father (Laryngeal Ca with mets Brain, ), Respiratory: Brother (), Other: Mother (Alzheimer's ) Vital Signs: Vital Signs Temperature 98.4 F 08/18/18 18:38 Pulse Rate 67 08/19/18 14:41 Respiratory Rate 20 08/19/18 14:41 Blood Pressure 125/51 L 08/19/18 14:41 O2 Sat by Pulse Oximetry (%) 98 08/19/18 14:41 Constitutional: Yes: No Distress Neck: Yes: Supple Respiratory: Yes: Rales Gastrointestinal: Yes: Soft Cardiovascular: Yes: Regular Rate and Rhythm JVD: Yes Carotid Bruit: No PMI: Non-Displaced Heart Sounds: Yes: S1, S2 Murmur: No: Systolic Murmur Edema: LLE: 1+, RLE: 1+ - Other Data Labs, Other Data: CBC, BMP 08/19/18 05:30 08/19/18 05:00 Troponin, BNP 08/18/18 08/19/18 19:28 05:00 Troponin I 0.06 H 0.06 H B-Natriuretic Peptide 5093.8 H Troponin, BNP 08/18/18 08/19/18 19:28 05:00 Troponin I 0.06 H 0.06 H B-Natriuretic Peptide 5093.8 H Imaging - Results Chest X-ray: Report Reviewed EKG: Image Reviewed Assessment/Plan 68 year old male with a pmhx of chronic systolic chf LVEF 33.7%, htn, CAD s/p stents 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 No chest pain or palpitations. + LE edema. +PND 1) Acute on chronic systolic chf Symptoms likely due to chf with CXray with congestive changes and elevated bnp with signs of chf on exam -Furosemide 40mg IV daily Monitor lytes, I/O's and daily weights On tele -EKG: sinus rhythm with nonspecific ST abnormalities. No chest pain. Trop 0.06 -Continue home aspirin/plavix/carvedilol/lisinopril/statin. Will follow with you
[2018-08-19] MEDS: FUROSEMIDE 40 MG/4 ML INJECTABLE VIAL IVPUSH SCH (17:41)
[2018-08-19] MEDS: guaiFENesin 200 MG/10 ML 10 ML UNIT-DOSE CUPS PO PRN (18:08)
[2018-08-20] MEDS: metFORMIN HCL 500 MG TABLET (FP) PO SCH ×2 (06:18→16:36)
[2018-08-20] MEDS: guaiFENesin 200 MG/10 ML 10 ML UNIT-DOSE CUPS PO PRN (06:21)
[2018-08-20 06:36] LABS: MCH 27.6 pg (25.7-33.7); MCHC 32.5 g/dl (32.0-35.9); MEAN CELL VOLUME 84.9 fl (80-96); MEAN PLT VOLUME 9.2 fl (7.5-11.1); PLATELET COUNT 167 K/MM3 (134-434); RBC 4.36 M/mm3 (4.00-5.60); RDW 18.1 % (11.9-15.9); WHITE BLOOD COUNT 10.2 K/mm3 (4.0-10.0)
[2018-08-20 06:55] LABS: ANION GAP 8 MMOL/L (8-16); BLOOD UREA NITROGEN 18 mg/dL (7-18); CALCIUM 8.1 mg/dL (8.5-10.1); CHLORIDE 99 mmol/L (98-107); CO2 30 mmol/L (21-32); GLUCOSE,RANDOM 140 mg/dL (74-106); MAGNESIUM 1.5 mg/dL (1.8-2.4); POTASSIUM 3.9 mmol/L (3.5-5.1); SODIUM 137 mmol/L (136-145)
--- NOTE | 2018-08-20 08:22 | PN ---
Progress Note, Physician History of Present Illness: 68 y/o man PMHx of HTN, HLD, CAD s/p Stents, CHF, DM, Osteomyelitis. Placed in Tele Observation for Acute on Chronic CHF Exacerbation, Pneumonia, Elevated Troponin for further evaluation of their emergent condition. feels better still with sob - Current Medication List Current Medications: Active Medications Aspirin (Ecotrin -) 81 mg PO DAILY [facility] Last Admin: 08/19/18 09:00 Dose: 81 mg Carvedilol (Coreg -) 6.25 mg PO BID [facility] Last Admin: 08/19/18 21:45 Dose: 6.25 mg Clopidogrel Bisulfate (Plavix -) 75 mg PO DAILY [facility] Last Admin: 08/19/18 09:00 Dose: 75 mg Furosemide (Lasix Injection -) 40 mg IVPUSH DAILY [facility] Last Admin: 08/19/18 17:41 Dose: 40 mg Guaifenesin (Robitussin -) 10 ml PO Q6H PRN PRN Reason: COUGH Last Admin: 08/20/18 06:21 Dose: 10 ml Lisinopril (Prinivil) 5 mg PO DAILY [facility] Last Admin: 08/19/18 09:00 Dose: 5 mg Metformin HCl (Glucophage -) 1,000 mg PO BIDAC [facility] Last Admin: 08/20/18 06:18 Dose: 1,000 mg Tamsulosin HCl (Flomax -) 0.4 mg PO BID [facility] Last Admin: 08/19/18 21:45 Dose: 0.4 mg - Objective Vital Signs: Vital Signs Temperature 99.3 F 08/20/18 05:56 Pulse Rate 71 08/20/18 05:56 Respiratory Rate 18 08/20/18 05:56 Blood Pressure 125/61 08/20/18 05:56 O2 Sat by Pulse Oximetry (%) 98 08/20/18 05:56 Cardiovascular: Yes: Murmur, S1, S2 Respiratory: Yes: On Nasal O2, Rales Gastrointestinal: Yes: Normal Bowel Sounds, Soft Edema: Yes Labs: CBC, BMP 08/20/18 05:30 08/20/18 05:30 Problem List - Problems (1) Acute exacerbation of CHF (congestive heart failure) Assessment/Plan: -IV LASIX -FOLLOW LABS Code(s): I50.9 - HEART FAILURE, UNSPECIFIED (2) HTN (hypertension) Assessment/Plan: -MONITOR ON CURRENT MEDS Code(s): I10 - ESSENTIAL (PRIMARY) HYPERTENSION (3) Leukocytosis Assessment/Plan: -IMPROVED -ID CONSULT APPRECIATED--NO ABX Code(s): D72.829 - ELEVATED WHITE BLOOD CELL COUNT, UNSPECIFIED (4) Elevated troponin I level Assessment/Plan: -LAST TROP 0.06 -FOLOW TRENDS Code(s): R74.8 - ABNORMAL LEVELS OF OTHER SERUM ENZYMES (5) CAD S/P percutaneous coronary angioplasty Assessment/Plan: -NO CP -MONITOR TRENDS Code(s): I25.10 - ATHSCL HEART DISEASE OF [place] CORONARY ARTERY W/O ANG PCTRS; Z98.61 - CORONARY ANGIOPLASTY STATUS
[2018-08-20] MEDS ORDERED: MAGNESIUM SULF 50% (8.12 MEQ/2 ML-1 GM VIAL) IVPB ONE (09:15)
[2018-08-20] MEDS: CARVEDILOL 6.25 MG TABLET (FP) PO SCH ×2 (09:17→21:30)
[2018-08-20] MEDS: FUROSEMIDE 40 MG/4 ML INJECTABLE VIAL IVPUSH SCH (09:17)
[2018-08-20] MEDS: POTASSIUM CHLORIDE TABS 20 MEQ TABLET.ER (FP) PO SCH (09:17)
[2018-08-20] MEDS: ASPIRIN COATED 81 MG TABLET.EC PO SCH (09:17)
[2018-08-20] MEDS: LISINOPRIL 5 MG TABLET (FP) PO SCH (09:17)
[2018-08-20] MEDS: TAMSULOSIN HCL 0.4 MG CAP PO SCH ×2 (09:17→21:30)
[2018-08-20] MEDS: CLOPIDOGREL BISULFATE 75 MG TABLET (FP) PO SCH (09:17)
--- NOTE | 2018-08-20 10:37 | PN ---
Progress Note, Physician History of Present Illness: seen and examined today in [facility]. states he is feeling much better today, still has cough, productive sputum. - Current Medication List Current Medications: Active Medications Aspirin (Ecotrin -) 81 mg PO DAILY [facility] Last Admin: 08/20/18 09:17 Dose: 81 mg Carvedilol (Coreg -) 6.25 mg PO BID [facility] Last Admin: 08/20/18 09:17 Dose: 6.25 mg Clopidogrel Bisulfate (Plavix -) 75 mg PO DAILY [facility] Last Admin: 08/20/18 09:17 Dose: 75 mg Furosemide (Lasix Injection -) 40 mg IVPUSH DAILY [facility] Last Admin: 08/20/18 09:17 Dose: 40 mg Guaifenesin (Robitussin -) 10 ml PO Q6H PRN PRN Reason: COUGH Last Admin: 08/20/18 06:21 Dose: 10 ml Lisinopril (Prinivil) 5 mg PO DAILY [facility] Last Admin: 08/20/18 09:17 Dose: 5 mg Metformin HCl (Glucophage -) 1,000 mg PO BIDAC [facility] Last Admin: 08/20/18 06:18 Dose: 1,000 mg Potassium Chloride (K-Dur -) 20 meq PO DAILY [facility] Last Admin: 08/20/18 09:17 Dose: 20 meq Tamsulosin HCl (Flomax -) 0.4 mg PO BID [facility] Last Admin: 08/20/18 09:17 Dose: 0.4 mg - Objective Vital Signs: Vital Signs Temperature 99.3 F 08/20/18 05:56 Pulse Rate 71 08/20/18 05:56 Respiratory Rate 18 08/20/18 05:56 Blood Pressure 125/61 08/20/18 05:56 O2 Sat by Pulse Oximetry (%) 98 08/20/18 05:56 Constitutional: Yes: Well Nourished, No Distress, Calm Eyes: Yes: Conjunctiva Clear, EOM Intact HENT: Yes: Atraumatic, Normocephalic Neck: Yes: Supple, Trachea Midline Cardiovascular: Yes: Regular Rate and Rhythm, S1, S2. No: Bradycardia, Tachycardia, Pulse Irregular, Bruit, JVD, Gallop, Murmur, Rub, S3, S4, Varicosities Respiratory: Yes: Regular, Diminished, Rales. No: Rhonchi, SOB, Wheezes Gastrointestinal: Yes: Normal Bowel Sounds, Soft. 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 No chest pain or palpitations. + LE edema. +PND 1) Acute on chronic systolic chf Symptoms likely due to chf with CXray with congestive changes and elevated bnp with signs of chf on exam -volume status improving, still has trace le edema and mild rales L>R -cont Furosemide 40mg IV daily -Monitor lytes, I/O's and daily weights -cont On tele -EKG: sinus rhythm with nonspecific ST abnormalities. No chest pain. Trop 0.06 -Continue home aspirin/plavix/carvedilol/lisinopril/statin.
--- NOTE | 2018-08-20 18:07 | PN ---
Progress Note (short form) - Note Progress Note: clinically improved minimal cough Vital Signs Period Temp Pulse Resp BP Sys/Garces Pulse Ox Last 24 Hr 97.8 F-99.3 F 71-83 18-20 120-153/51-78 94-98 cor-rrr lungs few crackles at bases abd soft,nt ext trace edema CBC, BMP 08/20/18 05:30 08/20/18 05:30 Microbiology 08/19/18 11:14 Urine For Antigen Detection Legionella Antigen - Final 08/19/18 11:14 Urine For Antigen Detection Streptococcus pneumoniae Antigen (M - Final a/p chf exacerbation- improving continue management per cardioogy please call back if needed Problem List - Problems (1) Acute exacerbation of CHF (congestive heart failure) Code(s): I50.9 - HEART FAILURE, UNSPECIFIED (2) Leukocytosis Code(s): D72.829 - ELEVATED WHITE BLOOD CELL COUNT, UNSPECIFIED (3) DMII (diabetes mellitus, type 2) Code(s): E11.9 - TYPE 2 DIABETES MELLITUS WITHOUT COMPLICATIONS
[2018-08-21] MEDS: guaiFENesin 200 MG/10 ML 10 ML UNIT-DOSE CUPS PO PRN ×2 (00:35→10:07)
[2018-08-21] MEDS ORDERED: MELATONIN 5 MG TABLETS PO PRN (00:54)
[2018-08-21] MEDS: metFORMIN HCL 500 MG TABLET (FP) PO SCH ×2 (06:46→18:34)
[2018-08-21 07:10] LABS: BASO % 0.6 % (0-2.0); EOS % 6.2 % (0-4.5); HEMOGLOBIN 12.6 GM/dL (11.7-16.9); LYMPH % 12.6 % (8-40); MCH 27.7 pg (25.7-33.7); MCHC 32.4 g/dl (32.0-35.9); MEAN CELL VOLUME 85.5 fl (80-96); MEAN PLT VOLUME 9.1 fl (7.5-11.1); MONO % 13.7 % (3.8-10.2); NEUT % 66.9 % (42.8-82.8); PLATELET COUNT 179 K/MM3 (134-434); RBC 4.56 M/mm3 (4.00-5.60); RDW 17.7 % (11.9-15.9); WHITE BLOOD COUNT 8.7 K/mm3 (4.0-10.0)
--- NOTE | 2018-08-21 08:34 | PN ---
Progress Note, Physician - Current Medication List Current Medications: Active Medications Aspirin (Ecotrin -) 81 mg PO DAILY [facility] Last Admin: 08/20/18 09:17 Dose: 81 mg Carvedilol (Coreg -) 6.25 mg PO BID [facility] Last Admin: 08/20/18 21:30 Dose: 6.25 mg Clopidogrel Bisulfate (Plavix -) 75 mg PO DAILY [facility] Last Admin: 08/20/18 09:17 Dose: 75 mg Guaifenesin (Robitussin -) 10 ml PO Q6H PRN PRN Reason: COUGH Last Admin: 08/21/18 00:35 Dose: 10 ml Lisinopril (Prinivil) 5 mg PO DAILY [facility] Last Admin: 08/20/18 09:17 Dose: 5 mg Melatonin (Melatonin) 5 mg PO HS PRN PRN Reason: INSOMNIA Metformin HCl (Glucophage -) 1,000 mg PO BIDAC [facility] Last Admin: 08/21/18 06:46 Dose: 1,000 mg Potassium Chloride (K-Dur -) 20 meq PO DAILY [facility] Last Admin: 08/20/18 09:17 Dose: 20 meq Tamsulosin HCl (Flomax -) 0.4 mg PO BID [facility] Last Admin: 08/20/18 21:30 Dose: 0.4 mg - Objective Vital Signs: Vital Signs Temperature 98.9 F 08/20/18 21:00 Pulse Rate 69 08/21/18 05:00 Respiratory Rate 18 08/21/18 05:00 Blood Pressure 128/63 08/21/18 05:00 O2 Sat by Pulse Oximetry (%) 95 08/20/18 21:00 Cardiovascular: Yes: S1, S2 Respiratory: Yes: Diminished, On Nasal O2, Rhonchi Gastrointestinal: Yes: Normal Bowel Sounds, Soft Edema: Yes Edema: LLE: 2+, RLE: 1+ Labs: CBC, BMP 08/21/18 06:10 Problem List - Problems (1) Acute exacerbation of CHF (congestive heart failure) Assessment/Plan: -IV LASIX--Increase to bid -FOLLOW LABS Code(s): I50.9 - HEART FAILURE, UNSPECIFIED (2) HTN (hypertension) Assessment/Plan: -MONITOR ON CURRENT MEDS Code(s): I10 - ESSENTIAL (PRIMARY) HYPERTENSION (3) Leukocytosis Assessment/Plan: -IMPROVED -ID CONSULT APPRECIATED--NO ABX Code(s): D72.829 - ELEVATED WHITE BLOOD CELL COUNT, UNSPECIFIED (4) Elevated troponin I level Assessment/Plan: -LAST TROP 0.06 -FOLOW TRENDS Code(s): R74.8 - ABNORMAL LEVELS OF OTHER SERUM ENZYMES (5) CAD S/P percutaneous coronary angioplasty Assessment/Plan: -NO CP -MONITOR TRENDS Code(s): I25.10 - ATHSCL HEART DISEASE OF [place] CORONARY ARTERY W/O ANG PCTRS; Z98.61 - CORONARY ANGIOPLASTY STATUS
[2018-08-21 08:55] LABS: ALBUMIN 3.3 g/dl (3.4-5.0); ALK PHOS 64 U/L (45-117); ANION GAP 9 MMOL/L (8-16); BILIRUBIN,TOTAL 0.8 mg/dL (0.2-1); BLOOD UREA NITROGEN 23 mg/dL (7-18); CALCIUM 8.3 mg/dL (8.5-10.1); CHLORIDE 97 mmol/L (98-107); CO2 30 mmol/L (21-32); GLUCOSE,RANDOM 119 mg/dL (74-106); POTASSIUM 4.3 mmol/L (3.5-5.1); SGOT/AST 22 U/L (15-37); SGPT/ALT 30 U/L (13-61); SODIUM 135 mmol/L (136-145); TOT PROT 6.4 g/dl (6.4-8.2)
[2018-08-21] MEDS: LISINOPRIL 5 MG TABLET (FP) PO SCH (09:56)
[2018-08-21] MEDS: ASPIRIN COATED 81 MG TABLET.EC PO SCH (09:56)
[2018-08-21] MEDS: POTASSIUM CHLORIDE TABS 20 MEQ TABLET.ER (FP) PO SCH (09:56)
[2018-08-21] MEDS: CLOPIDOGREL BISULFATE 75 MG TABLET (FP) PO SCH (09:56)
[2018-08-21] MEDS: TAMSULOSIN HCL 0.4 MG CAP PO SCH ×2 (09:56→22:21)
[2018-08-21] MEDS: CARVEDILOL 6.25 MG TABLET (FP) PO SCH ×2 (09:56→22:21)
[2018-08-21] MEDS: FUROSEMIDE 40 MG/4 ML INJECTABLE VIAL IVPUSH SCH ×2 (09:57→15:15)
--- NOTE | 2018-08-21 16:06 | PN ---
Progress Note, Physician History of Present Illness: seen and examined today. c/o continued cough with sputum production, difficulty clearing sputum. - Current Medication List Current Medications: Active Medications Aspirin (Ecotrin -) 81 mg PO DAILY [facility] Last Admin: 08/21/18 09:56 Dose: 81 mg Carvedilol (Coreg -) 6.25 mg PO BID [facility] Last Admin: 08/21/18 09:56 Dose: 6.25 mg Clopidogrel Bisulfate (Plavix -) 75 mg PO DAILY [facility] Last Admin: 08/21/18 09:56 Dose: 75 mg Furosemide (Lasix Injection -) 40 mg IVPUSH BIDLASIX [facility] Last Admin: 08/21/18 15:15 Dose: 40 mg Guaifenesin (Robitussin -) 10 ml PO Q6H PRN PRN Reason: COUGH Last Admin: 08/21/18 10:07 Dose: 10 ml Lisinopril (Prinivil) 5 mg PO DAILY [facility] Last Admin: 08/21/18 09:56 Dose: 5 mg Melatonin (Melatonin) 5 mg PO HS PRN PRN Reason: INSOMNIA Metformin HCl (Glucophage -) 1,000 mg PO BIDAC [facility] Last Admin: 08/21/18 06:46 Dose: 1,000 mg Potassium Chloride (K-Dur -) 20 meq PO DAILY [facility] Last Admin: 08/21/18 09:56 Dose: 20 meq Tamsulosin HCl (Flomax -) 0.4 mg PO BID [facility] Last Admin: 08/21/18 09:56 Dose: 0.4 mg - Objective Vital Signs: Vital Signs Temperature 98.2 F 08/21/18 14:05 Pulse Rate 81 08/21/18 14:05 Respiratory Rate 20 08/21/18 14:05 Blood Pressure 126/72 08/21/18 14:05 O2 Sat by Pulse Oximetry (%) 95 08/21/18 09:00 Constitutional: Yes: No Distress, Calm Eyes: Yes: Conjunctiva Clear, EOM Intact, PERRL HENT: Yes: Atraumatic, Normocephalic Neck: Yes: Supple, Trachea Midline Cardiovascular: Yes: Regular Rate and Rhythm, S1, S2. No: Bradycardia, Tachycardia, Pulse Irregular, Bruit, JVD, Gallop, Murmur, Rub, S3, S4, Varicosities Respiratory: Yes: Regular, Cough, On Nasal O2. No: Rales, Rhonchi, SOB, Wheezes Gastrointestinal: Yes: Normal Bowel Sounds, Soft. 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 No chest pain or palpitations. + LE edema. +PND SOB/cough-Acute on chronic systolic chf, suspect component of bronchitis as well given sputum production and continued cough despite improvement in volume status -volume status improving, still has trace le edema, rales clearing -cont Furosemide 40mg IV daily -Monitor lytes, I/O's and daily weights -cont On tele -EKG: sinus rhythm with nonspecific ST abnormalities. No chest pain. Trop 0.06 -Continue home aspirin/plavix/carvedilol/lisinopril/statin.
[2018-08-21] MEDS: ALBUTEROL SO4 2.5/IPRATROPIUM 0.5 INH SOL 3 ML VIAL.NEB. NEB SCH ×2 (17:15→20:30)
[2018-08-22] MEDS: metFORMIN HCL 500 MG TABLET (FP) PO SCH ×2 (06:21→15:46)
[2018-08-22] MEDS: FUROSEMIDE 40 MG/4 ML INJECTABLE VIAL IVPUSH SCH (06:21)
[2018-08-22] MEDS: ALBUTEROL SO4 2.5/IPRATROPIUM 0.5 INH SOL 3 ML VIAL.NEB. NEB SCH ×4 (08:02→20:00)
[2018-08-22 08:41] LABS: ALBUMIN 3.1 g/dl (3.4-5.0); ALK PHOS 112 U/L (45-117); ANION GAP 7 MMOL/L (8-16); BILIRUBIN,TOTAL 0.8 mg/dL (0.2-1); BLOOD UREA NITROGEN 46 mg/dL (7-18); CALCIUM 9.9 mg/dL (8.5-10.1); CHLORIDE 101 mmol/L (98-107); CO2 30 mmol/L (21-32); CREATININE 1.8 mg/dL (0.55-1.3); GLUCOSE,RANDOM 103 mg/dL (74-106); POTASSIUM 4.4 mmol/L (3.5-5.1); SGOT/AST 18 U/L (15-37); SGPT/ALT 31 U/L (13-61); SODIUM 139 mmol/L (136-145); TOT PROT 6.7 g/dl (6.4-8.2)
--- NOTE | 2018-08-22 09:23 | PN ---
Progress Note, Physician - Current Medication List Current Medications: Active Medications Albuterol/Ipratropium (Duoneb -) 1 amp NEB RQID [facility] Last Admin: 08/22/18 08:02 Dose: 1 amp Aspirin (Ecotrin -) 81 mg PO DAILY [facility] Last Admin: 08/21/18 09:56 Dose: 81 mg Carvedilol (Coreg -) 6.25 mg PO BID [facility] Last Admin: 08/21/18 22:21 Dose: 6.25 mg Clopidogrel Bisulfate (Plavix -) 75 mg PO DAILY [facility] Last Admin: 08/21/18 09:56 Dose: 75 mg Guaifenesin (Robitussin -) 10 ml PO Q6H PRN PRN Reason: COUGH Last Admin: 08/21/18 10:07 Dose: 10 ml Lisinopril (Prinivil) 5 mg PO DAILY [facility] Last Admin: 08/21/18 09:56 Dose: 5 mg Melatonin (Melatonin) 5 mg PO HS PRN PRN Reason: INSOMNIA Last Admin: 08/22/18 00:22 Dose: 5 mg Metformin HCl (Glucophage -) 1,000 mg PO BIDAC [facility] Last Admin: 08/22/18 06:21 Dose: 1,000 mg Potassium Chloride (K-Dur -) 20 meq PO DAILY [facility] Last Admin: 08/21/18 09:56 Dose: 20 meq Tamsulosin HCl (Flomax -) 0.4 mg PO BID [facility] Last Admin: 08/21/18 22:21 Dose: 0.4 mg - Objective Vital Signs: Vital Signs Temperature 98.2 F 08/22/18 05:00 Pulse Rate 72 08/22/18 05:00 Respiratory Rate 20 08/22/18 05:00 Blood Pressure 117/67 08/22/18 05:00 O2 Sat by Pulse Oximetry (%) 96 08/21/18 21:00 Cardiovascular: Yes: Regular Rate and Rhythm Respiratory: Yes: Regular, CTA Bilaterally Gastrointestinal: Yes: Normal Bowel Sounds, Soft Edema: Yes Edema: LLE: Trace, RLE: Trace Labs: CBC, BMP 08/21/18 06:10 08/22/18 06:50 Problem List - Problems (1) Acute exacerbation of CHF (congestive heart failure) Assessment/Plan: -IV LASIX-to po since cr rising -FOLLOW LABS -LVEF 33.7% Code(s): I50.9 - HEART FAILURE, UNSPECIFIED Qualifiers: Heart failure type: combined systolic and diastolic Qualified Code(s): I50.43 - Acute on chronic 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) heart failure (2) HTN (hypertension) Assessment/Plan: -MONITOR ON CURRENT MEDS Code(s): I10 - ESSENTIAL (PRIMARY) HYPERTENSION (3) Leukocytosis Assessment/Plan: -IMPROVED -ID CONSULT APPRECIATED--NO ABX Code(s): D72.829 - ELEVATED WHITE BLOOD CELL COUNT, UNSPECIFIED (4) Elevated troponin I level Assessment/Plan: -LAST TROP 0.06 -FOLOW TRENDS Code(s): R74.8 - ABNORMAL LEVELS OF OTHER SERUM ENZYMES (5) CAD S/P percutaneous coronary angioplasty Assessment/Plan: -NO CP -MONITOR TRENDS Code(s): I25.10 - ATHSCL HEART DISEASE OF [place] CORONARY ARTERY W/O ANG PCTRS; Z98.61 - CORONARY ANGIOPLASTY STATUS (6) ERIC (acute kidney injury) Assessment/Plan: maybe due to lasix dc iv lasix po in am follow labs renal consult Code(s): N17.9 - ACUTE KIDNEY FAILURE, UNSPECIFIED
[2018-08-22] MEDS: CLOPIDOGREL BISULFATE 75 MG TABLET (FP) PO SCH (09:58)
[2018-08-22] MEDS: POTASSIUM CHLORIDE TABS 20 MEQ TABLET.ER (FP) PO SCH (09:58)
[2018-08-22] MEDS: CARVEDILOL 6.25 MG TABLET (FP) PO SCH ×2 (09:58→21:16)
[2018-08-22] MEDS: TAMSULOSIN HCL 0.4 MG CAP PO SCH ×2 (09:58→21:15)
[2018-08-22] MEDS: ASPIRIN COATED 81 MG TABLET.EC PO SCH (09:58)
[2018-08-22] MEDS: LISINOPRIL 5 MG TABLET (FP) PO SCH (09:58)
[2018-08-22] MEDS: FUROSEMIDE 40 MG TABLET (FP) PO SCH (12:01)
--- NOTE | 2018-08-22 13:41 | CONSULT ---
Consultation: CONSULT REQUEST: Nephrology Resident HISTORY OF PRESENT ILLNESS: 68yo M with h/o HFrEF (LVEF 33%), HTN, CAD s/p PCI, HLD, HTN, NIDDM, who initially presented to the hospital with shortness of breath and nonproductive cough worsening over the past 4 days. Pt endorses decreased exercise tolerance due to HUYNH as well as orthopnea. He reports sleeping on a wedge and pillow which has changed compared to the previous year. Currently pt feels improved compared to the admission however remains with HUYNH. Pt denies f/chills/d/c, chest pain, palpitations, abdominal pain, n/v, urinary difficulties including urgency, polyuria, dysuria and hematuria. 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 Allergies: NKDA REVIEW OF SYSTEMS: CONSTITUTIONAL: Absent: fever, chills, diaphoresis, generalized weakness, malaise, loss of appetite, weight change HEENT: Absent: rhinorrhea, nasal congestion, throat pain, throat swelling, difficulty swallowing, mouth swelling, ear pain, eye pain, visual changes CARDIOVASCULAR: Absent: chest pain, syncope, palpitations, irregular heart rate, lightheadedness , peripheral edema RESPIRATORY: Present: Shortness of breath, HUYNH, orthopnea, cough Absent:wheezing, stridor, hemoptysis GASTROINTESTINAL: Absent: abdominal pain, abdominal distension, nausea, vomiting, diarrhea, constipation GENITOURINARY: Absent: dysuria, frequency, urgency, hesitancy, hematuria, flank pain MUSCULOSKELETAL: Absent: myalgia, arthralgia, joint swelling, back pain, neck pain SKIN: Absent: rash, itching, pallor NEUROLOGIC: Absent: headache, focal weakness or paresthesias, dizziness, unsteady gait, seizure, mental status changes, bladder or bowel incontinence PSYCHIATRIC: Absent: anxiety, depression PHYSICAL EXAMINATION Vital Signs - 24 hr 08/21/18 08/21/18 08/21/18 14:05 17:00 21:00 Temperature 98.2 F 98.2 F 98.4 F Pulse Rate 81 84 86 Respiratory 20 18 20 Rate Blood Pressure 126/72 147/73 145/75 O2 Sat by Pulse 96 Oximetry (%) 08/22/18 08/22/18 08/22/18 01:00 05:00 09:42 Temperature 98.2 F 98.0 F Pulse Rate 71 72 69 Respiratory 20 20 20 Rate Blood Pressure 116/61 117/67 121/67 O2 Sat by Pulse 96 Oximetry (%) GENERAL: NAD, awake, alert, and fully oriented, sitting in chair watching TV HEENT: NC/AT, EOMi, RENATE, sclera anicteric, MMM, NC in place NECK: No JVD LUNGS: CTA bilaterally with good inspiratory effort. No wheezes, and no crackles. No accessory muscle use. On 4LNC with extended line HEART: RRR, normal S1 and S2 without murmur ABDOMEN: Soft, Nt/ND, normoactive bowel sounds, no guarding MUSCULOSKELETAL: No CVA tenderness. EXTREMITIES: 2+ DP pulses, No peripheral edema. PSYCHIATRIC: Cooperative. Good eye contact. Appropriate mood and affect. SKIN: Warm, dry, chronic venous stasis changes on lower extremities b/l, no rashes Laboratory Results - last 24 hr 08/21/18 08/21/18 08/21/18 06:10 18:18 22:05 Sodium 135 L Potassium 4.3 Chloride 97 L Carbon Dioxide 30 Anion Gap 9 BUN 23 H Creatinine 1.0 Creat Clearance w eGFR > 60 POC Glucometer 233 169 Random Glucose 119 H Calcium 8.3 L Magnesium 2.0 Total Bilirubin 0.8 AST 22 ALT 30 Alkaline Phosphatase 64 Creatine Kinase Troponin I 0.07 H Total Protein 6.4 Albumin 3.3 L 08/22/18 08/22/18 05:48 06:50 Sodium 139 Potassium 4.4 Chloride 101 Carbon Dioxide 30 Anion Gap 7 L BUN 46 H Creatinine 1.8 H Creat Clearance w eGFR 37.60 POC Glucometer 161 Random Glucose 103 Calcium 9.9 Magnesium Total Bilirubin 0.8 AST 18 ALT 31 Alkaline Phosphatase 112 Creatine Kinase 107 Troponin I 0.04 Total Protein 6.7 Albumin 3.1 L Active Medications Generic Name Dose Route Start Last Admin Trade Name Freq PRN Reason Stop Dose Admin Albuterol/Ipratropium 1 amp 08/21/18 20:00 08/22/18 12:01 Duoneb - NEB 1 amp RQID [facility] Administration Aspirin 81 mg 08/19/18 10:00 11/15/18 09:58 Ecotrin - PO 81 mg DAILY [facility] Administration Carvedilol 6.25 mg 08/18/18 22:45 08/22/18 09:58 Coreg - PO 6.25 mg BID [facility] Administration Clopidogrel Bisulfate 75 mg 08/19/18 10:00 08/22/18 09:58 Plavix - PO 75 mg DAILY [facility] Administration Furosemide 40 mg 08/22/18 10:00 08/22/18 12:01 Lasix - PO 40 mg DAILY [facility] Administration Guaifenesin 10 ml 08/19/18 17:52 08/21/18 10:07 Robitussin - PO 10 ml Q6H PRN Administration COUGH Lisinopril 5 mg 08/19/18 10:00 08/22/18 09:58 Prinivil PO 5 mg DAILY [facility] Administration Melatonin 5 mg 08/21/18 00:54 08/22/18 00:22 Melatonin PO 5 mg HS PRN Administration INSOMNIA Metformin HCl 1,000 mg 08/18/18 22:45 08/22/18 06:21 Glucophage - PO 1,000 mg BIDAC [facility] Administration Potassium Chloride 20 meq 08/20/18 10:00 08/22/18 09:58 K-Dur - PO 20 meq DAILY [facility] Administration Tamsulosin HCl 0.4 mg 08/18/18 22:45 08/22/18 09:58 Flomax - PO 0.4 mg BID [facility] Administration ASSESSMENT/PLAN: Acute kidney injury Acute on chronic CHF exacerbation HTN NIDDM --CRS Type 2 most likely --Can continue with lasix 40mg qDaily to diurese pt --Monitor Cr --If Cr increases may need to hold lisinopril --Monitor daily weights --Renal U/S ordered --Calculate FeUrea --Replace electrolytes as needed --CXR reviewed --Rest per cardiology and primary teams Dispo: Diuresis currently; monitor AM labs. Thank you for this consultative opportunity Case discussed with Dr. Soumya Askew, DO - IM PGY-2 Visit type - Emergency Visit Emergency Visit: Yes ED Registration Date: 08/19/18 Care time: The patient presented to the Emergency Department on the above date and was hospitalized for further evaluation of their emergent condition. - New Patient This patient is new to me today: Yes Date on this admission: 08/22/18 - Critical Care Critical Care patient: No
--- NOTE | 2018-08-22 13:48 | PN ---
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 No chest pain or palpitations. + LE edema. +PND - Current Medication List Current Medications: Active Medications Albuterol/Ipratropium (Duoneb -) 1 amp NEB RQID [facility] Last Admin: 08/22/18 12:01 Dose: 1 amp Aspirin (Ecotrin -) 81 mg PO DAILY [facility] Last Admin: 08/22/18 09:58 Dose: 81 mg Carvedilol (Coreg -) 6.25 mg PO BID [facility] Last Admin: 08/22/18 09:58 Dose: 6.25 mg Clopidogrel Bisulfate (Plavix -) 75 mg PO DAILY [facility] Last Admin: 08/22/18 09:58 Dose: 75 mg Furosemide (Lasix -) 40 mg PO DAILY [facility] Last Admin: 08/22/18 12:01 Dose: 40 mg Guaifenesin (Robitussin -) 10 ml PO Q6H PRN PRN Reason: COUGH Last Admin: 08/21/18 10:07 Dose: 10 ml Lisinopril (Prinivil) 5 mg PO DAILY [facility] Last Admin: 08/22/18 09:58 Dose: 5 mg Melatonin (Melatonin) 5 mg PO HS PRN PRN Reason: INSOMNIA Last Admin: 08/22/18 00:22 Dose: 5 mg Metformin HCl (Glucophage -) 1,000 mg PO BIDAC [facility] Last Admin: 08/22/18 06:21 Dose: 1,000 mg Potassium Chloride (K-Dur -) 20 meq PO DAILY [facility] Last Admin: 08/22/18 09:58 Dose: 20 meq Tamsulosin HCl (Flomax -) 0.4 mg PO BID [facility] Last Admin: 08/22/18 09:58 Dose: 0.4 mg - Objective Vital Signs: Vital Signs Temperature 98.0 F 08/22/18 09:42 Pulse Rate 69 08/22/18 09:42 Respiratory Rate 20 08/22/18 09:42 Blood Pressure 121/67 08/22/18 09:42 O2 Sat by Pulse Oximetry (%) 96 08/22/18 09:42 Constitutional: Yes: No Distress Neck: Yes: Supple Cardiovascular: Yes: Regular Rate and Rhythm, S1, S2. 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 No chest pain or palpitations. + LE edema. +PND SOB/cough-Acute on chronic systolic chf, suspect component of bronchitis as well given sputum production and continued cough despite improvement in volume status -volume status improving -changed to Furosemide 40mg PO daily -Monitor lytes, I/O's and daily weights -Can stop telemetry -EKG: sinus rhythm with nonspecific ST abnormalities. No chest pain. Trop 0.06 -Continue home aspirin/plavix/carvedilol/lisinopril/statin. Will sign off at this time. Please ensure patient follows up with Dr. Rikki Segundo within next 2 weeks [phone]
--- NOTE | 2018-08-22 15:20 | PN ---
Teaching Attending Note Name of Resident: Axel Askew (Nephrology) ATTENDING PHYSICIAN STATEMENT I saw and evaluated the patient. I reviewed the resident's note and discussed the case with the resident. I agree with the resident's findings and plan as documented. Renal Pt is a 68 year old male with pmhx of DM, HTN, HLD and CAD who presented to ER with shortness of breath. He has history of CHF but says he was no on diuretics at home. He was given lasix and his renal function worsened. I was called to evaluate him. He says that his breathing is much improved. pmhx chf dm htn cad pshx cardiac stents nkda family hx denies Current Medications Generic Name Dose Route Start Last Admin Trade Name Freq PRN Reason Stop Dose Admin Albuterol/Ipratropium 1 amp 08/21/18 20:00 08/22/18 12:01 Duoneb - NEB 1 amp RQID MERRILL Administration Aspirin 81 mg 08/19/18 10:00 08/22/18 09:58 Ecotrin - PO 81 mg DAILY MERRILL Administration Carvedilol 6.25 mg 08/18/18 22:45 08/22/18 09:58 Coreg - PO 6.25 mg BID MERRILL Administration Clopidogrel Bisulfate 75 mg 08/19/18 10:00 08/22/18 09:58 Plavix - PO 75 mg DAILY MERRILL Administration Furosemide 40 mg 08/22/18 10:00 08/22/18 12:01 Lasix - PO 40 mg DAILY MERRILL Administration Guaifenesin 10 ml 08/19/18 17:52 08/21/18 10:07 Robitussin - PO 10 ml Q6H PRN Administration COUGH Lisinopril 5 mg 08/19/18 10:00 08/22/18 09:58 Prinivil PO 5 mg DAILY MERRILL Administration Melatonin 5 mg 08/21/18 00:54 08/22/18 00:22 Melatonin PO 5 mg HS PRN Administration INSOMNIA Metformin HCl 1,000 mg 08/18/18 22:45 08/22/18 06:21 Glucophage - PO 1,000 mg BIDAC MERRILL Administration Potassium Chloride 20 meq 08/20/18 10:00 08/22/18 09:58 K-Dur - PO 20 meq DAILY MERRILL Administration Tamsulosin HCl 0.4 mg 08/18/18 22:45 11/15/18 09:58 Flomax - PO 0.4 mg BID MERRILL Administration Last Vital Signs Temp Pulse Resp BP Pulse Ox 98.0 F 69 20 121/67 96 08/22/18 09:42 08/22/18 09:42 08/22/18 09:42 08/22/18 09:42 08/22/18 09:42 Laboratory Tests 08/18/18 08/21/18 08/22/18 22:10 06:10 06:50 Carbon Dioxide 30 30 BUN 23 H Creatinine 1.0 1.8 H Urine Protein 1+ H Urine Blood 1+ H cardio s1s2 reg pulm clear GI soft, obese ext trace edema neuro awake and alert Impression 1. ERIC 2. CHF 3. CAD 4. HLD 5. DM Plan - check renal ultrasound - lasix dose decreased and changed to PO - may need to hold trupti if the creatinine rises further - check ua and lytes - volumes status appears stable today - will follow Dr Dooley
[2018-08-23] MEDS: guaiFENesin 200 MG/10 ML 10 ML UNIT-DOSE CUPS PO PRN (03:13)
[2018-08-23] MEDS: metFORMIN HCL 500 MG TABLET (FP) PO SCH (06:25)
[2018-08-23 07:27] LABS: ALBUMIN 3.2 g/dl (3.4-5.0); ALK PHOS 55 U/L (45-117); ANION GAP 9 MMOL/L (8-16); BILIRUBIN,TOTAL 0.8 mg/dL (0.2-1); BLOOD UREA NITROGEN 26 mg/dL (7-18); CALCIUM 8.3 mg/dL (8.5-10.1); CHLORIDE 98 mmol/L (98-107); CO2 28 mmol/L (21-32); GLUCOSE,RANDOM 107 mg/dL (74-106); POTASSIUM 4.2 mmol/L (3.5-5.1); SGOT/AST 26 U/L (15-37); SGPT/ALT 29 U/L (13-61); SODIUM 136 mmol/L (136-145); TOT PROT 6.3 g/dl (6.4-8.2)
[2018-08-23] MEDS: ALBUTEROL SO4 2.5/IPRATROPIUM 0.5 INH SOL 3 ML VIAL.NEB. NEB SCH (07:55)
[2018-08-23] MEDS: CLOPIDOGREL BISULFATE 75 MG TABLET (FP) PO SCH (09:48)
[2018-08-23] MEDS: ASPIRIN COATED 81 MG TABLET.EC PO SCH (09:48)
[2018-08-23] MEDS: TAMSULOSIN HCL 0.4 MG CAP PO SCH (09:48)
[2018-08-23] MEDS: FUROSEMIDE 40 MG TABLET (FP) PO SCH (09:48)
[2018-08-23] MEDS: CARVEDILOL 6.25 MG TABLET (FP) PO SCH (09:48)
[2018-08-23] MEDS: POTASSIUM CHLORIDE TABS 20 MEQ TABLET.ER (FP) PO SCH (09:50)
--- NOTE | 2018-08-23 10:05 | DS ---
Physical Examination Vital Signs: Vital Signs Temperature 98.0 F 08/23/18 06:00 Pulse Rate 69 08/23/18 06:00 Respiratory Rate 18 08/23/18 06:00 Blood Pressure 130/71 08/23/18 06:00 O2 Sat by Pulse Oximetry (%) 96 08/22/18 20:48 Findings/Remarks: FEELS BETTER NO COMPLAINTS Cardiovascular: Yes: Regular Rate and Rhythm Respiratory: Yes: Regular, CTA Bilaterally Gastrointestinal: Yes: Normal Bowel Sounds, Soft Labs: CBC, BMP 08/21/18 06:10 08/23/18 05:30 Discharge Summary Reason For Visit: ACUTE SYSTOLIC CONGESTIVE HEART FAILURE Current Active Problems ERIC (acute kidney injury) (Acute) Acute exacerbation of CHF (congestive heart failure) (Acute) CAD S/P percutaneous coronary angioplasty (Acute) HLD (hyperlipidemia) (Acute) HTN (hypertension) (Acute) Leukocytosis (Acute) Hospital Course: - Problems (1) Acute exacerbation of CHF (congestive heart failure) Assessment/Plan: -IV LASIX-to po since cr rising---ON PO NOW -FOLLOW LABS -LVEF 33.7% Code(s): I50.9 - HEART FAILURE, UNSPECIFIED Qualifiers: Heart failure type: combined systolic and diastolic Qualified Code(s): I50.43 - Acute on chronic 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) heart failure (2) HTN (hypertension) Assessment/Plan: -MONITOR ON CURRENT MEDS Code(s): I10 - ESSENTIAL (PRIMARY) HYPERTENSION (3) Leukocytosis Assessment/Plan: -IMPROVED -ID CONSULT APPRECIATED--NO ABX Code(s): D72.829 - ELEVATED WHITE BLOOD CELL COUNT, UNSPECIFIED (4) Elevated troponin I level Assessment/Plan: -LAST TROP 0.06 -FOLOW TRENDS Code(s): R74.8 - ABNORMAL LEVELS OF OTHER SERUM ENZYMES (5) CAD S/P percutaneous coronary angioplasty Assessment/Plan: -NO CP -MONITOR TRENDS Code(s): I25.10 - ATHSCL HEART DISEASE OF FALSE PASS CORONARY ARTERY W/O ANG PCTRS; Z98.61 - CORONARY ANGIOPLASTY STATUS (6) ERIC (acute kidney injury) Assessment/Plan: RESOLVED follow labs renal consult Code(s): N17.9 - ACUTE KIDNEY FAILURE, UNSPECIFIED PATIENT UNDERSTANDS DIET AND WILL SEE HIS PMD WITHIN ONE WEEK AND HAS A FOLLOW UP WITH CARDIO Condition: Improved - Instructions Referrals: Mickey Reich [Primary Care Provider] - 1 Week Disposition: HOME - Home Medications Comprehensive Discharge Medication List: Ambulatory Orders Aspirin Coated [Ecotrin -] 81 mg PO DAILY 12/24/17 Carvedilol 6.25 mg PO BID 12/24/17 Clopidogrel Bisulfate [Plavix] 75 mg PO DAILY 12/24/17 Lisinopril 5 mg PO DAILY 12/24/17 Metformin HCl [Glucophage] 1,000 mg PO BID 12/24/17 Tamsulosin HCl [Flomax] 0.4 mg PO BID 12/24/17 Albuterol 2.5/Ipratropium 0.5 [Duoneb -] 1 amp NEB RQID #120 amp 08/23/18 Furosemide [Lasix -] 40 mg PO DAILY #30 tablet 08/23/18 Nebulizer and Compressor [Bronson Choice Nebulizer] 1 each MC QID #1 each Potassium Chloride [K-Dur -] 20 meq PO DAILY #30 tablet.er 08/23/18
[2018-08-23 10:52] VITALS: BP 132/64; PULSE 75; TEMP 98.1
== END 2018-08-23 11:04 | disposition home or self-care (01) | DRG 292 ==
LOC: JER 18:30 → JERBED 20:51 → J4W 08-19 15:30 → OBSVTOIN 08-19 18:25 → J4W 08-20 21:26
PROVIDERS: ADMIT Internal Medicine; ATTEND Family Medicine
DX: I11.0 Hypertensive heart disease with heart failure (principal); N17.9 Acute kidney failure, unspecified; I50.23 Acute on chronic systolic (congestive) heart failure; E78.5 Hyperlipidemia, unspecified; I25.10 Atherosclerotic heart disease of native coronary artery without angina pectoris; I45.81 Long QT syndrome; N40.0 Benign prostatic hyperplasia without lower urinary tract symptoms; R74.8 Abnormal levels of other serum enzymes; E66.9 Obesity, unspecified; D72.829 Elevated white blood cell count, unspecified; E11.51 Type 2 diabetes mellitus with diabetic peripheral angiopathy without gangrene; Z95.5 Presence of coronary angioplasty implant and graft; Z86.73 Personal history of transient ischemic attack (TIA), and cerebral infarction without residual deficits; Z68.31 Body mass index [BMI] 31.0-31.9, adult
CPT/HCPCS: 36415; 71046-TC-FY; 76775-TC; 80048; 80053; 81003; 81015; 82550; 82553; 82570; 82962; 83605; 83735; 83880; 84100; 84484; 84540; 85025; 85027; 87899; 93005; 93010; 94640; 94660; 99285-25; G0378

== ENCOUNTER 2021-02-13 02:23 | Inpatient (IN) | payer MEDICARE, OTHER ==
[2021-02-13 04:17] LABS: BASO % 0.3 % (0-2.0); EOS % 0.6 % (0-4.5); HEMATOCRIT 43.4 % (35.4-49); HEMOGLOBIN 14.7 GM/dL (11.7-16.9); LYMPH % 9.6 % (8-40); MCH 30.9 pg (25.7-33.7); MCHC 33.9 g/dl (32.0-35.9); MEAN CELL VOLUME 90.9 fl (80-96); MEAN PLT VOLUME 9.9 fl (7.5-11.1); MONO % 8.1 % (3.8-10.2); NEUT % 81.4 % (42.8-82.8); PLATELET COUNT 151 K/MM3 (134-434); RBC 4.77 M/mm3 (4.00-5.60); RDW 15.2 % (11.9-15.9); WHITE BLOOD COUNT 13.7 K/mm3 (4.0-10.0)
[2021-02-13 04:30] LABS: CALCIUM 8.2 mg/dL (8.5-10.1)
[2021-02-13 04:31] LABS: ALBUMIN 3.8 g/dl (3.4-5.0); MAGNESIUM 1.3 mg/dL (1.8-2.4)
[2021-02-13 04:34] LABS: CREATININE 1.4 mg/dL (0.55-1.3)
[2021-02-13 04:36] LABS: TOT PROT 7.1 g/dl (6.4-8.2)
[2021-02-13 04:39] LABS: N-TERMINAL BNP 5956.4 pg/ml (5-125)
[2021-02-13 05:32] LABS: EPI CELLS 8 /uL (0-25.1); HYALINE CASTS 3 /uL (0-3.1); URINE APPEARANCE CLEAR; URINE BACTERIA 72 /uL (0-1359); URINE BILIRUBIN NEGATIVE (NEGATIVE); URINE COLOR YELLOW; URINE GLUCOSE (UA) NEGATIVE (NEGATIVE); URINE KETONE TRACE (NEGATIVE); URINE LEUK ESTERASE NEGATIVE (NEGATIVE); URINE NITRITE NEGATIVE (NEGATIVE); URINE PROTEIN 3+ (NEGATIVE); URINE RBC 37 /uL (0-23.9); URINE UROBILINOGEN 0.2 mg/dL (0.2-1.0); URINE WBC 10 /uL (0-25.8)
[2021-02-13] MEDS ORDERED: AZITHROMYCIN IVPB 500 MG in DEXTROSE 5%-WATER - 250 ML IVPB ONE (05:37)
[2021-02-13] MEDS ORDERED: CEFTRIAXONE 1 GM in DEXTROSE 5%-WATER - 100 ML IVPB ONE (05:37)
[2021-02-13] MEDS ORDERED: ACETAMINOPHEN 1000 MG/100 ML VIAL (NON FORMULARY) IVPB ONE (05:38)
[2021-02-13] MEDS ORDERED: AZITHROMYCIN IVPB 500 MG/250 ML BAG IVPB ONE (05:41)
[2021-02-13] MEDS ORDERED: CEFTRIAXONE 1 GM/50 ML BAG ONE (05:41)
[2021-02-13] MEDS ORDERED: ACETAMINOPHEN INJECTION 100 ML IVPB ONE (05:41)
[2021-02-13] MEDS ORDERED: MAGNESIUM SULF 50% (8.12 MEQ/2 ML-1 GM VIAL) IVPB ONE (05:43)
[2021-02-13] MEDS ORDERED: MAGNESIUM SULFATE IN WATER 2 GM/50 ML IVPB IVPB ONE (05:46)
[2021-02-13] MEDS ORDERED: FUROSEMIDE 40 MG/4 ML INJECTABLE VIAL IVPUSH ONE (05:49)
[2021-02-13] MEDS ORDERED: FUROSEMIDE 40 MG/4 ML INJECTABLE VIAL ONE (06:21)
[2021-02-13] MEDS: INSULIN SLIDING SCALE (NOVOLOG) 1 VIAL SQ SCH ×3 (08:37→17:16)
[2021-02-13] MEDS ORDERED: CLOPIDOGREL BISULFATE 75 MG TABLET (FP) ONE (08:42)
[2021-02-13] MEDS ORDERED: TAMSULOSIN HCL 0.4 MG CAP ONE (08:42)
[2021-02-13] MEDS: TAMSULOSIN HCL 0.4 MG CAP PO SCH (08:51)
[2021-02-13] MEDS: SACUBITRIL/VALSARTAN 97 MG-103 MG TABLET PO SCH ×2 (09:00→21:37)
[2021-02-13] MEDS: CLOPIDOGREL BISULFATE 75 MG TABLET (FP) PO SCH (09:00)
[2021-02-13] MEDS ORDERED: ACETAMINOPHEN 325 MG TABLET (FP) PO PRN (12:00)
[2021-02-13] MEDS ORDERED: PT OWN MED DRAWER 7, Y5N ONE (16:42)
[2021-02-13] MEDS: guaiFENesin/D-M SUGAR-FREE/ACLHOL-FREE 118 ML BOTTLE PO PRN ×2 (17:12→21:37)
[2021-02-13 17:33] VITALS: BMI 30.7
[2021-02-13] MEDS: ATORVASTATIN CA 80 MG TABLET (FP) PO SCH (21:37)
[2021-02-13] MEDS: CARVEDILOL 6.25 MG TABLET (FP) PO SCH (21:37)
[2021-02-13] MEDS ORDERED: diphenhydrAMINE HCL 25 MG CAPSULE (FP) PO ONE (22:03)
[2021-02-14] MEDS: INSULIN SLIDING SCALE (NOVOLOG) 1 VIAL SQ SCH ×3 (06:27→17:36)
[2021-02-14 06:50] LABS: BASO % 0.4 % (0-2.0); EOS % 0.3 % (0-4.5); HEMATOCRIT 41.6 % (35.4-49); HEMOGLOBIN 14.2 GM/dL (11.7-16.9); LYMPH % 9.7 % (8-40); MCH 30.9 pg (25.7-33.7); MCHC 34.1 g/dl (32.0-35.9); MEAN CELL VOLUME 90.5 fl (80-96); NEUT % 81.6 % (42.8-82.8); PLATELET COUNT 132 K/MM3 (134-434); RDW 15.6 % (11.9-15.9); WHITE BLOOD COUNT 11.5 K/mm3 (4.0-10.0)
[2021-02-14 07:32] LABS: ALBUMIN 3.4 g/dl (3.4-5.0); CALCIUM 7.9 mg/dL (8.5-10.1)
[2021-02-14 07:33] LABS: BLOOD UREA NITROGEN 24.3 mg/dL (7-18); MAGNESIUM 1.9 mg/dL (1.8-2.4)
[2021-02-14 07:35] LABS: CREATININE 1.3 mg/dL (0.55-1.3)
[2021-02-14 07:37] LABS: BILIRUBIN,TOTAL 0.8 mg/dL (0.2-1); TOT PROT 6.4 g/dl (6.4-8.2)
[2021-02-14] MEDS ORDERED: PT OWN MED DRAWER 7, Y5N ONE ×3 (09:14→21:03)
[2021-02-14] MEDS ORDERED: cefTRIAXone SODIUM 1 GM VIAL ONE (09:14)
[2021-02-14] MEDS ORDERED: DEXTROSE 5%-WATER - 50 ML IVPB ONE (09:14)
[2021-02-14] MEDS: CARVEDILOL 6.25 MG TABLET (FP) PO SCH ×2 (09:21→21:05)
[2021-02-14] MEDS: FUROSEMIDE 40 MG TABLET (FP) PO SCH (09:22)
[2021-02-14] MEDS: TAMSULOSIN HCL 0.4 MG CAP PO SCH (09:22)
[2021-02-14] MEDS: CLOPIDOGREL BISULFATE 75 MG TABLET (FP) PO SCH (09:22)
[2021-02-14] MEDS: LACTOBACILLUS ACIDOPHILUS 1 TABLET PO SCH (09:22)
[2021-02-14] MEDS: guaiFENesin/D-M SUGAR-FREE/ACLHOL-FREE 118 ML BOTTLE PO PRN ×2 (09:23→14:31)
[2021-02-14] MEDS: SACUBITRIL/VALSARTAN 97 MG-103 MG TABLET PO SCH ×2 (09:23→21:05)
[2021-02-14] MEDS: AZITHROMYCIN IVPB 500 MG/250 ML BAG IVPB SCH (09:25)
[2021-02-14] MEDS: CEFTRIAXONE 1 GM in DEXTROSE 5%-WATER - 50 ML IVPB SCH (09:25)
[2021-02-14] MEDS ORDERED: LOPERAMIDE HCL 2 MG CAPSULE PO PRN (12:28)
[2021-02-14] MEDS: ATORVASTATIN CA 80 MG TABLET (FP) PO SCH (21:05)
[2021-02-14] MEDS ORDERED: ARTIFICIAL TEARS (POLYVINYL ALCOHOL) OPTH DROPS OU PRN (23:22)
[2021-02-15] MEDS: INSULIN SLIDING SCALE (NOVOLOG) 1 VIAL SQ SCH ×3 (06:15→16:29)
[2021-02-15] MEDS ORDERED: PT OWN MED DRAWER 7, Y5N ONE (09:02)
[2021-02-15] MEDS ORDERED: DEXTROSE 5%-WATER - 50 ML IVPB ONE (09:03)
[2021-02-15] MEDS ORDERED: cefTRIAXone SODIUM 1 GM VIAL ONE (09:03)
[2021-02-15] MEDS: TAMSULOSIN HCL 0.4 MG CAP PO SCH (09:44)
[2021-02-15] MEDS: FUROSEMIDE 40 MG TABLET (FP) PO SCH (09:44)
[2021-02-15] MEDS: CLOPIDOGREL BISULFATE 75 MG TABLET (FP) PO SCH (09:44)
[2021-02-15] MEDS: LACTOBACILLUS ACIDOPHILUS 1 TABLET PO SCH (09:44)
[2021-02-15] MEDS: SACUBITRIL/VALSARTAN 97 MG-103 MG TABLET PO SCH ×2 (09:45→21:23)
[2021-02-15 10:47] LABS: BASO % 0.2 % (0-2.0); HEMATOCRIT 42.2 % (35.4-49); HEMOGLOBIN 14.4 GM/dL (11.7-16.9); LYMPH % 18.6 % (8-40); MCH 30.8 pg (25.7-33.7); MCHC 34.1 g/dl (32.0-35.9); MEAN CELL VOLUME 90.4 fl (80-96); MONO % 13.8 % (3.8-10.2); NEUT % 64.4 % (42.8-82.8); PLATELET COUNT 142 K/MM3 (134-434); RBC 4.66 M/mm3 (4.00-5.60); RDW 15.5 % (11.9-15.9); WHITE BLOOD COUNT 8.8 K/mm3 (4.0-10.0)
[2021-02-15] MEDS: CEFTRIAXONE 1 GM in DEXTROSE 5%-WATER - 50 ML IVPB SCH (10:52)
[2021-02-15 11:19] LABS: CALCIUM 7.8 mg/dL (8.5-10.1)
[2021-02-15 11:20] LABS: ALBUMIN 3.3 g/dl (3.4-5.0); BLOOD UREA NITROGEN 39.2 mg/dL (7-18)
[2021-02-15 11:23] LABS: CREATININE 1.4 mg/dL (0.55-1.3)
[2021-02-15 11:24] LABS: BILIRUBIN,TOTAL 0.5 mg/dL (0.2-1)
[2021-02-15 11:25] LABS: TOT PROT 6.4 g/dl (6.4-8.2)
[2021-02-15] MEDS: AZITHROMYCIN IVPB 500 MG/250 ML BAG IVPB SCH (11:42)
[2021-02-15] MEDS: CARVEDILOL 6.25 MG TABLET (FP) PO SCH ×2 (12:13→21:23)
[2021-02-15] MEDS ORDERED: SODIUM CHLORIDE 1,000 ML IV SCH (14:30)
[2021-02-15] MEDS: ATORVASTATIN CA 80 MG TABLET (FP) PO SCH (21:24)
[2021-02-16] MEDS: INSULIN SLIDING SCALE (NOVOLOG) 1 VIAL SQ SCH ×2 (06:20→12:01)
[2021-02-16 07:33] LABS: CALCIUM 7.4 mg/dL (8.5-10.1)
[2021-02-16 07:36] LABS: CREATININE 1.3 mg/dL (0.55-1.3)
[2021-02-16] MEDS: TAMSULOSIN HCL 0.4 MG CAP PO SCH (09:22)
[2021-02-16] MEDS ORDERED: cefTRIAXone SODIUM 1 GM VIAL ONE (09:30)
[2021-02-16] MEDS ORDERED: PT OWN MED DRAWER 7, Y5N ONE (09:30)
[2021-02-16] MEDS ORDERED: DEXTROSE 5%-WATER - 50 ML IVPB ONE (09:30)
[2021-02-16] MEDS: CLOPIDOGREL BISULFATE 75 MG TABLET (FP) PO SCH (09:33)
[2021-02-16] MEDS: CARVEDILOL 6.25 MG TABLET (FP) PO SCH (09:34)
[2021-02-16] MEDS: LACTOBACILLUS ACIDOPHILUS 1 TABLET PO SCH (09:34)
[2021-02-16] MEDS: SACUBITRIL/VALSARTAN 97 MG-103 MG TABLET PO SCH (09:35)
[2021-02-16] MEDS: CEFTRIAXONE 1 GM in DEXTROSE 5%-WATER - 50 ML IVPB SCH (09:35)
[2021-02-16] MEDS: AZITHROMYCIN IVPB 500 MG/250 ML BAG IVPB SCH (09:35)
[2021-02-16 13:14] VITALS: BP 128/49; PULSE 61; TEMP 97.5
[2021-02-16] MEDS ORDERED: CEFUROXIME AXETIL 500 MG TABLET PO SCH (22:00)
== END 2021-02-16 16:34 | disposition home or self-care (01) | DRG 202 ==
LOC: JER 02:23 → JERBED 05:38 → J4S 15:29
PROVIDERS: ADMIT Family Medicine; ATTEND Family Medicine
DX: J20.9 Acute bronchitis, unspecified (principal); J18.9 Pneumonia, unspecified organism; I50.22 Chronic systolic (congestive) heart failure; K52.1 Toxic gastroenteritis and colitis; N17.9 Acute kidney failure, unspecified; R06.02 Shortness of breath; R50.9 Fever, unspecified; I25.10 Atherosclerotic heart disease of native coronary artery without angina pectoris; I27.20 Pulmonary hypertension, unspecified; I73.9 Peripheral vascular disease, unspecified; E11.51 Type 2 diabetes mellitus with diabetic peripheral angiopathy without gangrene; R19.7 Diarrhea, unspecified; T36.95XA Adverse effect of unspecified systemic antibiotic, initial encounter; I11.0 Hypertensive heart disease with heart failure; E78.5 Hyperlipidemia, unspecified; Z95.5 Presence of coronary angioplasty implant and graft; D72.829 Elevated white blood cell count, unspecified
CPT/HCPCS: 36415; 71045-TC-FY; 71250-TC; 80048; 80053; 81003; 82550; 82962; 83036; 83735; 83880; 84484; 85025; 86140; 86769; 87040; 87045; 87046; 87070; 87086; 87205; 87324; 87449; 87804; 87899; 93005; 93010; 94761; 97116-GP; 97161-GP; 99285-25; C9803; J0131; U0003; U0005

== ENCOUNTER 2021-06-06 09:25 | Inpatient (IN) | payer OTHER ==
[2021-06-06 11:43] LABS: BLOOD UREA NITROGEN 31.8 mg/dL (7-18); CALCIUM 8.9 mg/dL (8.5-10.1)
[2021-06-06 11:47] LABS: CREATININE 1.3 mg/dL (0.55-1.3)
[2021-06-06 11:48] LABS: BILIRUBIN,TOTAL 0.8 mg/dL (0.2-1)
[2021-06-06 11:51] LABS: N-TERMINAL BNP 4509.9 pg/ml (5-125)
[2021-06-06 12:18] LABS: ALBUMIN 3.8 g/dl (3.4-5.0); TOT PROT 6.9 g/dl (6.4-8.2)
[2021-06-06] MEDS ORDERED: FUROSEMIDE 40 MG/4 ML INJECTABLE VIAL IVPUSH ONE (13:17)
[2021-06-06] MEDS ORDERED: FUROSEMIDE 40 MG/4 ML INJECTABLE VIAL ONE (13:31)
[2021-06-06] MEDS ORDERED: TAMSULOSIN HCL 0.4 MG CAP PO ONE (15:39)
[2021-06-06] MEDS ORDERED: CARVEDILOL 3.125 MG TABLET (FP) PO ONE (15:44)
[2021-06-06] MEDS ORDERED: ATORVASTATIN CA 80 MG TABLET (FP) PO ONE (15:57)
[2021-06-06] MEDS ORDERED: ATORVASTATIN CA 80 MG TABLET (FP) ONE (16:59)
[2021-06-06] MEDS ORDERED: TAMSULOSIN HCL 0.4 MG CAP ONE (16:59)
[2021-06-06] MEDS ORDERED: CARVEDILOL 3.125 MG TABLET (FP) ONE (16:59)
[2021-06-06] MEDS: INSULIN SLIDING SCALE (NOVOLOG) 1 VIAL SQ SCH (17:29)
[2021-06-06] MEDS ORDERED: SACUBITRIL/VALSARTAN 97 MG-103 MG TABLET PO SCH (22:00)
[2021-06-07 02:20] LABS: EOS % 4.6 % (0-4.5); HEMATOCRIT 35.2 % (35.4-49); HEMOGLOBIN 11.6 GM/dL (11.7-16.9); LYMPH % 18.7 % (8-40); MCH 29.8 pg (25.7-33.7); MCHC 33.1 g/dl (32.0-35.9); MEAN CELL VOLUME 90.3 fl (80-96); MEAN PLT VOLUME 9.2 fl (7.5-11.1); MONO % 8.4 % (3.8-10.2); NEUT % 67.3 % (42.8-82.8); PLATELET COUNT 184 10^3/uL (134-434); RDW 16.9 % (11.9-15.9); WHITE BLOOD COUNT 10.3 K/mm3 (4.0-10.0)
[2021-06-07] MEDS ORDERED: TAMSULOSIN HCL 0.4 MG CAP ONE (08:24)
[2021-06-07] MEDS: TAMSULOSIN HCL 0.4 MG CAP PO SCH (08:34)
[2021-06-07] MEDS ORDERED: CLOPIDOGREL BISULFATE 75 MG TABLET (FP) ONE (09:23)
[2021-06-07] MEDS ORDERED: ASPIRIN 81 MG CHEWABLE TABLETS ONE (09:23)
[2021-06-07] MEDS ORDERED: ENOXAPARIN NA (PORCINE) 40 MG/0.4 ML DISP.SYRIN SQ ONE (09:23)
[2021-06-07] MEDS ORDERED: FUROSEMIDE 40 MG/4 ML INJECTABLE VIAL ONE (09:24)
[2021-06-07] MEDS: CLOPIDOGREL BISULFATE 75 MG TABLET (FP) PO SCH (09:48)
[2021-06-07] MEDS: FUROSEMIDE 40 MG/4 ML INJECTABLE VIAL IVPUSH SCH (09:48)
[2021-06-07] MEDS: ENOXAPARIN NA (PORCINE) 40 MG/0.4 ML DISP.SYRIN SQ SCH (09:48)
[2021-06-07] MEDS: ASPIRIN 81 MG CHEWABLE TABLETS PO SCH (09:48)
[2021-06-07] MEDS: LACTOBACILLUS ACIDOPHILUS 1 TABLET PO SCH (09:48)
[2021-06-07] MEDS ORDERED: FUROSEMIDE 40 MG/4 ML INJECTABLE VIAL IVPUSH SCH (10:00)
[2021-06-07 10:47] LABS: BASO % 0.6 % (0-2.0); EOS % 3.3 % (0-4.5); HEMOGLOBIN 12.3 GM/dL (11.7-16.9); LYMPH % 15.9 % (8-40); MCHC 33.2 g/dl (32.0-35.9); MEAN CELL VOLUME 90.5 fl (80-96); MEAN PLT VOLUME 9.6 fl (7.5-11.1); MONO % 6.5 % (3.8-10.2); NEUT % 73.7 % (42.8-82.8); PLATELET COUNT 205 10^3/uL (134-434); RBC 4.09 M/mm3 (4.00-5.60); RDW 16.6 % (11.9-15.9); WHITE BLOOD COUNT 9.2 K/mm3 (4.0-10.0)
[2021-06-07 11:16] LABS: BLOOD UREA NITROGEN 33.3 mg/dL (7-18)
[2021-06-07 11:17] LABS: CALCIUM 8.5 mg/dL (8.5-10.1)
[2021-06-07 11:18] LABS: ALBUMIN 3.4 g/dl (3.4-5.0)
[2021-06-07 11:21] LABS: CREATININE 1.2 mg/dL (0.55-1.3)
[2021-06-07 11:22] LABS: TOT PROT 5.9 g/dl (6.4-8.2)
[2021-06-07] MEDS: INSULIN SLIDING SCALE (NOVOLOG) 1 VIAL SQ SCH ×2 (17:31→21:09)
[2021-06-07 17:49] VITALS: BMI 33.3
[2021-06-07] MEDS ORDERED: ATORVASTATIN CA 80 MG TABLET (FP) PO SCH (22:00)
[2021-06-08 05:36] VITALS: TEMP 98
[2021-06-08] MEDS: INSULIN SLIDING SCALE (NOVOLOG) 1 VIAL SQ SCH ×2 (06:46→11:58)
[2021-06-08] MEDS: TAMSULOSIN HCL 0.4 MG CAP PO SCH (09:05)
[2021-06-08 09:32] VITALS: BP 138/64; PULSE 71
[2021-06-08] MEDS: ASPIRIN 81 MG CHEWABLE TABLETS PO SCH (10:05)
[2021-06-08] MEDS: LACTOBACILLUS ACIDOPHILUS 1 TABLET PO SCH (10:05)
[2021-06-08] MEDS: CLOPIDOGREL BISULFATE 75 MG TABLET (FP) PO SCH (10:06)
[2021-06-08] MEDS: ENOXAPARIN NA (PORCINE) 40 MG/0.4 ML DISP.SYRIN SQ SCH (10:06)
[2021-06-08] MEDS: FUROSEMIDE 40 MG/4 ML INJECTABLE VIAL IVPUSH SCH (10:06)
== END 2021-06-08 13:30 | disposition home health service (06) | DRG 291 ==
LOC: JER 09:25 → JERBED 15:25 → J4W 06-07 17:20
PROVIDERS: ADMIT Internal Medicine; ATTEND Family Medicine
DX: I13.0 Hypertensive heart and chronic kidney disease with heart failure and stage 1 through stage 4 chronic kidney disease, or unspecified chronic kidney disease (principal); I50.23 Acute on chronic systolic (congestive) heart failure; E11.22 Type 2 diabetes mellitus with diabetic chronic kidney disease; N18.9 Chronic kidney disease, unspecified; I25.5 Ischemic cardiomyopathy; E78.5 Hyperlipidemia, unspecified; N40.0 Benign prostatic hyperplasia without lower urinary tract symptoms; I25.10 Atherosclerotic heart disease of native coronary artery without angina pectoris; Z98.61 Coronary angioplasty status
CPT/HCPCS: 36415; 71046-TC-FY; 80053; 80061; 82550; 82728; 82962; 83036; 83540; 83550; 83880; 84443; 84484; 85025; 93005; 93010; 99285-25; C9803; U0003; U0005

== ENCOUNTER 2021-10-28 07:43 | Inpatient (IN) | payer OTHER ==
[2021-10-28] MEDS ORDERED: LACTATED RINGERS SOLUTION 1000 ML INFUS.BAG IV ONE ×3 (08:13→12:55)
[2021-10-28 08:55] LABS: VENOUS BASE EXCESS 0.6 mmol/L (-2-2); VENOUS O2 SATURATION 44.1 % (70-80); VENOUS PCO2 41.7 mmHg (38-52); VENOUS PH 7.403 (7.310-7.410)
[2021-10-28 09:04] LABS: BASO % 0.4 % (0-2.0); EOS % 0.5 % (0-4.5); HEMATOCRIT 45.6 % (35.4-49); LYMPH % 9.3 % (8-40); MCHC 32.9 g/dl (32.0-35.9); MEAN CELL VOLUME 88.2 fl (80-96); MEAN PLT VOLUME 10.2 fl (7.5-11.1); MONO % 6.8 % (3.8-10.2); PLATELET COUNT 272 10^3/uL (134-434); RBC 5.17 M/mm3 (4.00-5.60); RDW 18.9 % (11.9-15.9); WHITE BLOOD COUNT 14.1 K/mm3 (4.0-10.0)
[2021-10-28 09:28] LABS: CHLORIDE 82 mmol/L (98-107); SODIUM 120 mmol/L (136-145)
[2021-10-28 09:30] LABS: CALCIUM 9.4 mg/dL (8.5-10.1)
[2021-10-28 09:31] LABS: ALBUMIN 3.6 g/dl (3.4-5.0); BLOOD UREA NITROGEN 57.6 mg/dL (7-18); CO2 26 mmol/L (21-32); MAGNESIUM 2.1 mg/dL (1.8-2.4)
[2021-10-28 09:34] LABS: CREATININE 2.1 mg/dL (0.55-1.3); SGOT/AST 24 U/L (15-37)
[2021-10-28 09:36] LABS: ALK PHOS 189 U/L (45-117); BILIRUBIN,TOTAL 0.7 mg/dL (0.2-1); TOT PROT 7.2 g/dl (6.4-8.2)
[2021-10-28 09:43] LABS: ANION GAP 12 MMOL/L (8-16); GLUCOSE,RANDOM 948 mg/dL (74-106); SGPT/ALT 27 U/L (13-61)
[2021-10-28] MEDS ORDERED: CALCIUM GLUC IN NACL, ISO-OSM 1 GM/50 ML BAG IVPB ONE (09:47)
[2021-10-28] MEDS ORDERED: INSULIN REGULAR HUMAN 100 UNITS/ML *VIAL IVPUSH ONE (09:48)
[2021-10-28] MEDS ORDERED: SODIUM BICARBONATE 8.4% 50 MEQ/50 ML VIAL IV ONE (09:50)
[2021-10-28] MEDS ORDERED: SODIUM BICARBONATE 8.4% ONE (10:03)
[2021-10-28] MEDS ORDERED: CALCIUM GLUCONATE 10% - 1,000 MG/10 ML VIAL ONE (10:03)
[2021-10-28] MEDS ORDERED: INSULIN REGULAR HUMAN 100 UNITS/ML *VIAL ONE ×2 (10:05→10:21)
[2021-10-28] MEDS ORDERED: SODIUM BICARBONATE 8.4% - 50 ML ONE (10:28)
[2021-10-28 11:43] LABS: EPI CELLS 2 /uL (0-25.1); HYALINE CASTS 1 /uL (0-3.1); PH,URINE 5.5 (5.0-8.0); URINE APPEARANCE CLOUDY; URINE BACTERIA 180 /uL (0-1359); URINE BILIRUBIN NEGATIVE (NEGATIVE); URINE COLOR YELLOW; URINE GLUCOSE (UA) 3+ (NEGATIVE); URINE KETONE NEGATIVE (NEGATIVE); URINE LEUK ESTERASE 2+ (NEGATIVE); URINE NITRITE NEGATIVE (NEGATIVE); URINE PROTEIN NEGATIVE (NEGATIVE); URINE RBC 11 /uL (0-23.9); URINE UROBILINOGEN 0.2 mg/dL (0.2-1.0); URINE WBC 1247 /uL (0-25.8)
[2021-10-28 11:59] LABS: CHLORIDE 89 mmol/L (98-107); SODIUM 125 mmol/L (136-145)
[2021-10-28 12:00] LABS: CALCIUM 9.9 mg/dL (8.5-10.1)
[2021-10-28 12:01] LABS: ANION GAP 9 MMOL/L (8-16); BLOOD UREA NITROGEN 49.5 mg/dL (7-18); CO2 27 mmol/L (21-32)
[2021-10-28] MEDS ORDERED: ACETAMINOPHEN 325 MG TABLET (FP) PO PRN (12:02)
[2021-10-28 12:04] LABS: CREATININE 1.9 mg/dL (0.55-1.3)
[2021-10-28 12:15] LABS: GLUCOSE,RANDOM 750 mg/dL (74-106)
[2021-10-28] MEDS ORDERED: CEFTRIAXONE 1 GM/50 ML BAG ONE (12:54)
[2021-10-28] MEDS ORDERED: LACTATED RINGERS SOLUTION 1,000 ML/1,000 ML INFUS.BAG IV SCH (16:00)
[2021-10-28] MEDS ORDERED: INSULIN SLIDING SCALE (NOVOLOG) 1 VIAL SQ SCH (16:30)
[2021-10-28 16:46] LABS: CHLORIDE 93 mmol/L (98-107); SODIUM 132 mmol/L (136-145)
[2021-10-28 16:47] LABS: CALCIUM 9.4 mg/dL (8.5-10.1)
[2021-10-28 16:48] LABS: ANION GAP 10 MMOL/L (8-16); BLOOD UREA NITROGEN 48.6 mg/dL (7-18); CO2 28 mmol/L (21-32); MAGNESIUM 2.1 mg/dL (1.8-2.4)
[2021-10-28 16:51] LABS: CREATININE 1.6 mg/dL (0.55-1.3)
[2021-10-28 16:59] LABS: GLUCOSE,RANDOM 568 mg/dL (74-106)
[2021-10-28] MEDS ORDERED: SODIUM CHLORIDE 0.9%/KCL 10 MEQ/500 ML INFUS.BAG IV SCH (20:00)
[2021-10-28] MEDS: INSULIN SLIDING SCALE (NOVOLOG) 1 VIAL SQ SCH ×2 (20:16→23:18)
[2021-10-28] MEDS ORDERED: INSULIN (LEVEMIR) 100 UNITS/ML UNITS SQ SCH (22:00)
[2021-10-28] MEDS: SODIUM CHLORIDE 0.45% 1,000 ML IV SCH (23:04)
[2021-10-28] MEDS: ATORVASTATIN CA 40 MG TABLET (FP) PO SCH (23:10)
[2021-10-28] MEDS: SACUBITRIL/VALSARTAN 97 MG-103 MG TABLET PO SCH (23:18)
[2021-10-29 00:45] VITALS: BMI 29.9
[2021-10-29] MEDS: INSULIN SLIDING SCALE (NOVOLOG) 1 VIAL SQ SCH ×6 (04:22→21:02)
[2021-10-29] MEDS: SODIUM CHLORIDE 0.45% 1,000 ML IV SCH ×2 (07:07→20:22)
[2021-10-29] MEDS: TAMSULOSIN HCL 0.4 MG CAP PO SCH (09:18)
[2021-10-29] MEDS: ASPIRIN COATED 81 MG TABLET.EC PO SCH (09:18)
[2021-10-29] MEDS: CLOPIDOGREL BISULFATE 75 MG TABLET (FP) PO SCH (09:18)
[2021-10-29] MEDS: SACUBITRIL/VALSARTAN 97 MG-103 MG TABLET PO SCH ×2 (09:18→21:04)
[2021-10-29] MEDS: INSULIN (LEVEMIR) 100 UNITS/ML UNITS SQ SCH ×2 (10:24→21:03)
[2021-10-29 10:27] LABS: HEMATOCRIT 41.4 % (35.4-49); MCH 27.8 pg (25.7-33.7); MCHC 31.5 g/dl (32.0-35.9); MEAN CELL VOLUME 88.3 fl (80-96); MEAN PLT VOLUME 9.9 fl (7.5-11.1); PLATELET COUNT 233 10^3/uL (134-434); RBC 4.68 M/mm3 (4.00-5.60); RDW 19.3 % (11.9-15.9); WHITE BLOOD COUNT 15.1 K/mm3 (4.0-10.0)
[2021-10-29 10:48] LABS: CALCIUM 9.3 mg/dL (8.5-10.1)
[2021-10-29 10:49] LABS: BLOOD UREA NITROGEN 38.5 mg/dL (7-18)
[2021-10-29 10:52] LABS: CREATININE 1.4 mg/dL (0.55-1.3)
[2021-10-29] MEDS ORDERED: cefTRIAXone SODIUM 1 GM VIAL ONE (13:46)
[2021-10-29] MEDS ORDERED: DEXTROSE 5%-WATER - 50 ML IVPB ONE (13:46)
[2021-10-29] MEDS: CEFTRIAXONE 1 GM in DEXTROSE 5%-WATER - 50 ML IVPB SCH (13:49)
[2021-10-29] MEDS: ATORVASTATIN CA 40 MG TABLET (FP) PO SCH (21:03)
[2021-10-30] MEDS: SODIUM CHLORIDE 0.45% 1,000 ML IV SCH ×2 (04:35→17:12)
[2021-10-30] MEDS: INSULIN SLIDING SCALE (NOVOLOG) 1 VIAL SQ SCH ×4 (07:46→21:42)
[2021-10-30] MEDS: TAMSULOSIN HCL 0.4 MG CAP PO SCH (08:55)
[2021-10-30] MEDS: INSULIN (LEVEMIR) 100 UNITS/ML UNITS SQ SCH ×2 (08:56→21:40)
[2021-10-30] MEDS ORDERED: DEXTROSE 5%-WATER - 50 ML IVPB ONE (09:12)
[2021-10-30] MEDS ORDERED: cefTRIAXone SODIUM 1 GM VIAL ONE (09:12)
[2021-10-30] MEDS: CEFTRIAXONE 1 GM in DEXTROSE 5%-WATER - 50 ML IVPB SCH (09:17)
[2021-10-30] MEDS: CLOPIDOGREL BISULFATE 75 MG TABLET (FP) PO SCH (09:17)
[2021-10-30] MEDS: ASPIRIN COATED 81 MG TABLET.EC PO SCH (09:17)
[2021-10-30] MEDS: SACUBITRIL/VALSARTAN 97 MG-103 MG TABLET PO SCH ×2 (09:18→21:40)
[2021-10-30 12:07] LABS: HEMATOCRIT 40.5 % (35.4-49); HEMOGLOBIN 12.9 GM/dL (11.7-16.9); MCHC 31.8 g/dl (32.0-35.9); MEAN CELL VOLUME 88.3 fl (80-96); MEAN PLT VOLUME 9.6 fl (7.5-11.1); PLATELET COUNT 226 10^3/uL (134-434); RBC 4.59 M/mm3 (4.00-5.60); RDW 19.3 % (11.9-15.9); WHITE BLOOD COUNT 14.6 K/mm3 (4.0-10.0)
[2021-10-30 12:45] LABS: CALCIUM 8.4 mg/dL (8.5-10.1)
[2021-10-30 12:46] LABS: BLOOD UREA NITROGEN 26.4 mg/dL (7-18); MAGNESIUM 1.8 mg/dL (1.8-2.4)
[2021-10-30 12:49] LABS: CREATININE 1.1 mg/dL (0.55-1.3)
[2021-10-30] MEDS ORDERED: INSULIN (NOVOLOG) ASPART 100 UNITS/ML 10ML VIAL ONE (21:20)
[2021-10-30] MEDS: ATORVASTATIN CA 40 MG TABLET (FP) PO SCH (21:40)
[2021-10-31] MEDS: SODIUM CHLORIDE 0.45% 1,000 ML IV SCH ×2 (01:21→10:51)
[2021-10-31] MEDS: INSULIN SLIDING SCALE (NOVOLOG) 1 VIAL SQ SCH ×2 (06:04→10:53)
[2021-10-31] MEDS ORDERED: TAMSULOSIN HCL 0.4 MG CAP PO SCH (08:30)
[2021-10-31 10:33] LABS: HEMATOCRIT 39.6 % (35.4-49); HEMOGLOBIN 12.4 GM/dL (11.7-16.9); MCH 27.9 pg (25.7-33.7); MCHC 31.3 g/dl (32.0-35.9); MEAN CELL VOLUME 88.9 fl (80-96); MEAN PLT VOLUME 9.5 fl (7.5-11.1); PLATELET COUNT 223 10^3/uL (134-434); RBC 4.46 M/mm3 (4.00-5.60); RDW 19.3 % (11.9-15.9)
[2021-10-31] MEDS ORDERED: cefTRIAXone SODIUM 1 GM VIAL ONE (10:42)
[2021-10-31] MEDS ORDERED: DEXTROSE 5%-WATER - 50 ML IVPB ONE (10:43)
[2021-10-31] MEDS: INSULIN (LEVEMIR) 100 UNITS/ML UNITS SQ SCH (10:49)
[2021-10-31] MEDS: ASPIRIN COATED 81 MG TABLET.EC PO SCH ×2 (10:50→15:09)
[2021-10-31] MEDS: CEFTRIAXONE 1 GM in DEXTROSE 5%-WATER - 50 ML IVPB SCH (10:51)
[2021-10-31] MEDS: SACUBITRIL/VALSARTAN 97 MG-103 MG TABLET PO SCH (10:52)
[2021-10-31 11:00] LABS: BLOOD UREA NITROGEN 21.6 mg/dL (7-18); CALCIUM 8.2 mg/dL (8.5-10.1); MAGNESIUM 1.7 mg/dL (1.8-2.4)
[2021-10-31 11:04] LABS: BILIRUBIN,TOTAL 0.3 mg/dL (0.2-1)
[2021-10-31 11:06] LABS: CREATININE 1.1 mg/dL (0.55-1.3)
[2021-10-31 11:07] LABS: ALBUMIN 2.4 g/dl (3.4-5.0); TOT PROT 5.2 g/dl (6.4-8.2)
[2021-10-31 12:37] VITALS: TEMP 98.6
[2021-10-31] MEDS ORDERED: NYSTATIN/TRIAMCINOLONE TOPICAL CREAM 15 GM TUBE TP SCH (13:30)
[2021-10-31 14:05] VITALS: BP 124/66; PULSE 83
[2021-10-31] MEDS ORDERED: MAGNESIUM OXIDE 400 MG TABLET (FP) PO ONE (14:45)
[2021-10-31] MEDS ORDERED: SODIUM CHLORIDE 0.45% 1,000 ML IV SCH (14:45)
== END 2021-10-31 17:01 | disposition home or self-care (01) | DRG 683 ==
LOC: JER 07:43 → JERBED 10:36 → J8W 22:37
PROVIDERS: ADMIT Family Medicine; ATTEND Family Medicine
DX: N17.9 Acute kidney failure, unspecified (principal); I50.22 Chronic systolic (congestive) heart failure; N39.0 Urinary tract infection, site not specified; E87.1 Hypo-osmolality and hyponatremia; E11.65 Type 2 diabetes mellitus with hyperglycemia; E11.51 Type 2 diabetes mellitus with diabetic peripheral angiopathy without gangrene; I11.0 Hypertensive heart disease with heart failure; I27.20 Pulmonary hypertension, unspecified; I25.119 Atherosclerotic heart disease of native coronary artery with unspecified angina pectoris; I25.5 Ischemic cardiomyopathy; E78.5 Hyperlipidemia, unspecified; I25.10 Atherosclerotic heart disease of native coronary artery without angina pectoris; D72.829 Elevated white blood cell count, unspecified; R33.9 Retention of urine, unspecified; Z98.61 Coronary angioplasty status
CPT/HCPCS: 36415; 71045-TC-FY; 76775-TC; 80048; 80053; 81003; 82010; 82803; 82962; 83036; 83735; 83880; 84484; 85025; 85027; 87040; 87086; 93005; 93010; 99285-25; C9803; U0003; U0005

== ENCOUNTER 2021-11-16 04:10 | Day surgery (SDC) | payer OTHER ==
[2021-11-15 14:42] VITALS: BMI 29.7
[2021-11-16] MEDS ORDERED: fentaNYL CITRATE 250 MCG/5 ML VIAL ONE (07:51)
[2021-11-16] MEDS ORDERED: MIDAZOLAM HCL 2 MG/2 ML SINGLE DOSE VIAL ONE (07:52)
[2021-11-16] MEDS ORDERED: BUPIVACAINE HCL/PF 0.5% (5MG/ML) 10 ML VIAL ONE (07:53)
[2021-11-16] MEDS ORDERED: PROPOFOL 20 ML ONE (08:00)
[2021-11-16] MEDS ORDERED: LIDOCAINE HCL/PF 2% SDV 5ML VIAL ONE ×2 (08:00→08:36)
[2021-11-16] MEDS ORDERED: GENTAMICIN SO4 80 MG/2 ML VIAL ONE (08:03)
[2021-11-16] MEDS ORDERED: GENTAMICIN SO4 80 MG/2 ML VIAL IVPB ONE (08:04)
[2021-11-16] MEDS ORDERED: ceFAZolin SODIUM 1 GM VIAL ONE (08:05)
[2021-11-16] MEDS ORDERED: ceFAZolin 2 GRAM PREMIX BAG IVPB ONE (08:06)
[2021-11-16] MEDS ORDERED: GLYCOPYRROLATE 0.2 MG/1 ML VIAL ONE (08:07)
[2021-11-16] MEDS ORDERED: PROMETHAZINE HCL 25 MG/1 ML VIAL IVPUSH PRN (09:06)
[2021-11-16] MEDS ORDERED: ONDANSETRON 4 MG/2 ML VIAL IVPUSH PRN (09:06)
[2021-11-16] MEDS ORDERED: LACTATED RINGERS SOLUTION 1,000 ML IV SCH (09:15)
[2021-11-16] MEDS ORDERED: ACETAMINOPHEN 325 MG TABLET (FP) PO ONE (12:50)
[2021-11-16] MEDS ORDERED: ACETAMINOPHEN 325 MG TABLET (FP) PO PRN (12:58)
[2021-11-16 13:27] VITALS: BP 133/70; PULSE 72; TEMP 97
== END 2021-11-16 13:20 | disposition home or self-care (01) ==
LOC: JASU-SURG 04:10
PROVIDERS: ATTEND Urology
PROC: 0VT08ZZ Resection of Prostate, Via Natural or Artificial Opening Endoscopic (ICD-10-PCS; principal; 2021-11-16 07:30)
DX: N40.1 Benign prostatic hyperplasia with lower urinary tract symptoms (principal); R33.8 Other retention of urine; E11.9 Type 2 diabetes mellitus without complications; I10 Essential (primary) hypertension
CPT/HCPCS: 82962; 88305-TC; 94760

== ENCOUNTER 2023-01-03 05:33 | Day surgery (SDC) | payer OTHER ==
[2022-12-29 11:00] VITALS: BMI 29.7
[2023-01-03 08:16] VITALS: RESP 18
[2023-01-03] MEDS ORDERED: ACETAMINOPHEN 325 MG TABLET (FP) PO PRN (09:41)
[2023-01-03] MEDS ORDERED: ONDANSETRON 4 MG/2 ML VIAL IVPUSH PRN (09:41)
[2023-01-03] MEDS ORDERED: MIDAZOLAM HCL 2 MG/2 ML SINGLE DOSE VIAL ONE (09:58)
[2023-01-03] MEDS ORDERED: ceFAZolin SODIUM 1 GM VIAL ONE (10:04)
[2023-01-03] MEDS ORDERED: ceFAZolin 2 GRAM PREMIX BAG IVPB ONE (10:08)
[2023-01-03] MEDS ORDERED: LIDOCAINE HCL 1%, 10 MG/ML (20ML VIAL) INF ONE ×2 (10:12)
[2023-01-03 12:40] VITALS: BP 120/61; PULSE 57; TEMP 97.6
== END 2023-01-03 11:40 | disposition home or self-care (01) ==
LOC: JASU-SURG 05:33
PROVIDERS: ATTEND Surgery
PROC: 0Y6S0Z2 Detachment at Left 2nd Toe, Mid, Open Approach (ICD-10-PCS; principal; 2023-01-03 10:00)
DX: M86.8X7 Other osteomyelitis, ankle and foot (principal)
CPT/HCPCS: 88305-TC; 88311-TC